=== PATIENT | male | born 1945 | race Caucasian/White ===

== ENCOUNTER → 2017-12-18 | Outpatient (CLI) | payer MEDICARE ==
[2017-12-18 17:22] LABS: Hemoglobin A1C 6.7 % (4.0-6.0)
== END | disposition home or self-care (01) ==
LOC: LABWHC1 06:31
PROVIDERS: ATTEND Internal Medicine
DX: E11.65 Type 2 diabetes mellitus with hyperglycemia (principal)
CPT/HCPCS: 36415; 83036

== ENCOUNTER → 2021-11-14 | Outpatient (CLI) | payer MEDICARE ==
--- NOTE | 2021-11-22 15:18 | US ---
EXAMINATION TYPE: US arterial LE single level DATE OF EXAM: 11/14/2021 7:34 AM CLINICAL HISTORY: E11.9 type 2 diabetes I73.9 periph vasc disease. Doppler Waveforms: Right: Multiphasic proximally Left: Multiphasic proximally, monophasic waveform at the dorsalis pedis Pulse Volume Recording: Incomplete, dampened peripherally Pressure Gradients: Not obtained Ankle-Brachial Indices: Right: CNO Left: CNO Toe Brachial Indices: Right: 0.63 Left: 0.77 IMPRESSION: There are limitations, correlate clinically
== END | disposition home or self-care (01) ==
LOC: RADUSWWP 06:49
PROVIDERS: ATTEND Internal Medicine
DX: E11.9 Type 2 diabetes mellitus without complications (principal); I73.9 Peripheral vascular disease, unspecified
CPT/HCPCS: 93922

== ENCOUNTER 2023-02-13 07:51 | Observation (INO) | payer MEDICARE ==
--- NOTE | 2023-02-13 08:04 | ED ---
General Adult HPI - General Stated complaint: pressure in chest Time Seen by Provider: 02/13/23 08:03 Source: patient, RN notes reviewed Mode of arrival: ambulatory Limitations: no limitations - History of Present Illness Initial comments: 77-year-old male presents emergency Department chief complaint of chest pain, chest pressure. Patient states he had some symptoms yesterday worsened this morning. He states it's in his left lower chest. He is scheduled for heart cath by Dr. Velazco secondary to an abnormal echocardiogram. He does take medications for hyperlipidemia hypertension diabetes. Patient is no prior cardiac stents. Denies any fevers chills. - Related Data Home Medications Medication Instructions Recorded Confirmed Albuterol Inhaler [Ventolin Hfa 1 puff INHALATION RT-Q4H PRN 10/07/14 02/13/23 Inhaler] Atorvastatin [Lipitor] 20 mg PO HS 12/13/15 02/13/23 Losartan [Cozaar] 50 mg PO HS 12/13/15 02/13/23 Clotrimazole/Betameth Cream 1 applic TOPICAL BID PRN 02/13/23 02/13/23 [Lotrisone] Glimepiride [Amaryl] 1 mg PO DAILY 02/13/23 02/13/23 Metformin Er 750mg 750 mg PO BID-W/MEALS 02/13/23 02/13/23 Nystatin 100,000Unit/gm Cream 1 applic TOPICAL BID PRN 02/13/23 02/13/23 [Mycostatin Cream] Pioglitazone [Actos] 30 mg PO DAILY 02/13/23 02/13/23 Rivaroxaban [Xarelto] 20 mg PO W/SUPPER 02/13/23 02/13/23 Terbinafine [LamISIL] 250 mg PO W/SUPPER 02/13/23 02/13/23 Triamcinolone 0.1% Cream [Kenalog 1 applicatio TOPICAL BID PRN 02/13/23 02/13/23 0.1% Cream] atenoloL [Tenormin] 12.5 mg PO DAILY 02/13/23 02/13/23 Previous Rx's Medication Instructions Recorded Flecainide [Tambocor] 50 mg PO Q12HR #60 tab 10/09/14 Allergies Allergy/AdvReac Type Severity Reaction Status Date / Time No Known Allergies Allergy Verified 02/13/23 10:21 Review of Systems ROS Statement: Those systems with pertinent positive or pertinent negative responses have been documented in the HPI. ROS Other: All systems not noted in ROS Statement are negative. Past Medical History Past Medical History: Asthma, CVA/TIA, Diabetes Mellitus, Hyperlipidemia, Hypertension, Myocardial Infarction (HI) Additional Past Medical History / Comment(s): herniated disks in back. Last Myocardial Infarction Date:: 04/17 History of Any Multi-Drug Resistant Organisms: None Reported Past Surgical History: Appendectomy, Orthopedic Surgery Additional Past Surgical History / Comment(s): bilat arm fractures with surg. re pair, bilateral knee surgery, right hip bone graft. Colonoscopy with polp removal. lumbar fusion Past Anesthesia/Blood Transfusion Reactions: Previous Problems w/ Anesthesia Additional Past Anesthesia/Blood Transfusion Reaction / Comment(s): Becomes combative with anesthesia. Past Psychological History: No Psychological Hx Reported Past Alcohol Use History: None Reported Past Drug Use History: None Reported - Past Family History Father Family Medical History: Coronary Artery Disease (CAD), Diabetes Mellitus Mother Family Medical History: Cancer Additional Family Medical History / Comment(s): cervical cancer Brother(s) Family Medical History: Cancer Additional Family Medical History / Comment(s): liver and prostrate cancer. General Exam - General Exam Comments Initial Comments: Visual Physical Exam Vital signs reviewed General: Well-appearing, nontoxic, no acute distress. Head: Normocephalic, atraumatic Eyes: PERRLA, EOMI ENT: Airway patent Chest: Nonlabored breathing Skin: No visual rash, normal skin tone Neuro: Alert and oriented 3 Musculoskeletal: No gross abnormalities Course Vital Signs 02/13/23 02/13/23 02/13/23 08:01 09:20 10:05 Temperature 98 F 97.9 F Pulse Rate 103 H 86 Pulse Rate [ 87 Apical] Respiratory 16 16 Rate Blood Pressure 108/73 119/75 O2 Sat by Pulse 97 97 Oximetry 02/13/23 11:56 Temperature 98 F Pulse Rate 75 Pulse Rate [ Apical] Respiratory 16 Rate Blood Pressure 114/68 O2 Sat by Pulse 98 Oximetry EKG Findings - EKG Comments: EKG Findings:: EKG performed at 8:20 atrial fibrillation rate of 88 QRS 150 QT /[id number] - EKG Results: EKG: interpreted by [facility] Medical Decision Making - Medical Decision Making I performed a quick note portion of this chart signed Bryan Arora PA-C Was pt. sent in by a medical professional or institution (SASKIA Hammond, ST[employer]ILE PRODUCTS PROCESSOR, urgent care, hospital, or care home...) When possible be specific @ -[No] Did you speak to anyone other than the patient for history (EMS, parent, family, police, friend...)? What history was obtained from this source @ -[No] Did you review nursing and triage notes (agree or disagree)? Why? @ -[I reviewed and agree with nursing and triage notes] Were old charts reviewed (outside hosp., previous admission, EMS record, old EKG, old radiological studies, urgent care reports/EKG's, care home records)? Report findings @ -[No old charts were reviewed] Differential Diagnosis (chest pain, altered mental status, abdominal pain women, abdominal pain men, vaginal bleeding, weakness, fever, dyspnea, syncope, headache, dizziness, GI bleed, back pain, seizure, CVA, palpatations, mental health, musculoskeletal)? @ -[Differential Chest Pain: Stable Angina, Unstable Angina, STEMI, NSTEMI Aortic Dissection, Pneumothorax, Musculoskeletal, Esophageal Spasm GERD, Cholecystitis, Pancreatitis, Zoster, this is not meant to be an all-inclusive list. able] EKG interpreted by me (3pts min.). @ -[As above] X-rays interpreted by me (1pt min.). @ -[Chest x-ray shows no acute process] CT interpreted by me (1pt min.). @ -[None done] U/S interpreted by me (1pt. min.). @ -[None done] What testing was considered but not performed or refused? (CT, X-rays, U/S, labs)? Why? @ -[None] What meds were considered but not given or refused? Why? @ -[None] Did you discuss the management of the patient with other professionals (professionals i.e. SASKIA Hammond, [employer]ODU[employer] PROCESSOR, lab, RT, psych nurse, addiction social worker, chemical process equipment operator, teacher, information security officer, keycase assembler)? Give summary @ -[ admission with consult cardiology] Was smoking cessation discussed for >3mins.? @ -[No] Was critical care preformed (if so, how long)? @ -[No] Were there social determinants of health that impacted care today? How? (Homelessness, low income, unemployed, alcoholism, drug addiction, transportation, low edu. Level, literacy, decrease access to med. care, group home, rehab)? @ -[No] Was there de-escalation of care discussed even if they declined (Discuss DNR or withdrawal of care, Hospice)? DNR status @ -[No] What co-morbidities impacted this encounter? (DM, HTN, Smoking, COPD, CAD, Cancer, CVA, ARF, Chemo, Hep., AIDS, mental health diagnosis, sleep apnea, morbid obesity)? @ -[A. fib, hyperlipidemia hypertension diabetes] Was patient admitted / discharged? Hospital course, mention meds given and route, prescriptions, significant lab abnormalities, going to OR and other pertinent info. @ -[Admitted for cardiology rule out cardiology evaluation possible her That she is scheduled for one on Friday.] Undiagnosed new problem with uncertain prognosis? @ -[No] Drug Therapy requiring intensive monitoring for toxicity (Heparin, Nitro, Insulin, Cardizem)? @ -[No] Were any procedures done? @ -[No] Diagnosis/symptom? @ -[Chest pain] Acute, or Chronic, or Acute on Chronic? @ -[Acute] Uncomplicated (without systemic symptoms) or Complicated (systemic symptoms)? @ -[Comp complicated] Side effects of treatment? @ -[No] Exacerbation, Progression, or Severe Exacerbation? @ -[No] Poses a threat to life or bodily function? How? (Chest pain, USA, HI, pneumonia, PE, COPD, DKA, ARF, appy, cholecystitis, CVA, Diverticulitis, Homicidal, Suicidal, threat to staff... and all critical care pts) @ -[Yes patient has chest pain at risk of cardiac arrest.] - Lab Data Result diagrams: 02/13/23 08:32 02/13/23 08:32 Lab Results 02/13/23 02/13/23 02/13/23 Range/Units 08:32 08:32 08:32 WBC 6.8 (3.8-10.6) k/uL RBC 4.12 L (4.30-5.90) m/uL Hgb 13.1 (13.0-17.5) gm/dL Hct 39.1 (39.0-53.0) % MCV 94.9 (80.0-100.0) fL MCH 31.9 (25.0-35.0) pg MCHC 33.6 (31.0-37.0) g/dL RDW 14.3 (11.5-15.5) % Plt Count 293 (150-450) k/uL MPV 7.2 Neutrophils % 62 % Lymphocytes % 27 % Monocytes % 6 % Eosinophils % 2 % Basophils % 0 % Neutrophils # 4.2 (1.3-7.7) k/uL Lymphocytes # 1.8 (1.0-4.8) k/uL Monocytes # 0.4 (0-1.0) k/uL Eosinophils # 0.2 (0-0.7) k/uL Basophils # 0.0 (0-0.2) k/uL Poikilocytosis Slight PT 12.5 H (9.0-12.0) sec INR 1.2 H (<1.2) APTT 29.5 (22.0-30.0) sec Sodium 137 (137-145) mmol/L Potassium 4.7 (3.5-5.1) mmol/L Chloride 103 (98-107) mmol/L Carbon Dioxide 26 (22-30) mmol/L Anion Gap 8 mmol/L BUN 23 H (9-20) mg/dL Creatinine 0.86 (0.66-1.25) mg/dL Est GFR (CKD-EPI)AfAm >90 (>60 ml/min/1.73 sqM) Est GFR (CKD-EPI)NonAf 85 (>60 ml/min/1.73 sqM) Glucose 170 H (74-99) mg/dL Calcium 9.1 (8.4-10.2) mg/dL Magnesium 1.6 (1.6-2.3) mg/dL Total Bilirubin 0.9 (0.2-1.3) mg/dL AST 31 (17-59) U/L ALT 21 (4-49) U/L Alkaline Phosphatase 60 (38-126) U/L Troponin I (0.000-0.034) ng/mL NT-Pro-B Natriuret Pep 3450 pg/mL Total Protein 6.8 (6.3-8.2) g/dL Albumin 4.0 (3.5-5.0) g/dL 02/13/23 Range/Units 08:32 WBC (3.8-10.6) k/uL RBC (4.30-5.90) m/uL Hgb (13.0-17.5) gm/dL Hct (39.0-53.0) % MCV (80.0-100.0) fL MCH (25.0-35.0) pg MCHC (31.0-37.0) g/dL RDW (11.5-15.5) % Plt Count (150-450) k/uL MPV Neutrophils % % Lymphocytes % % Monocytes % % Eosinophils % % Basophils % % Neutrophils # (1.3-7.7) k/uL Lymphocytes # (1.0-4.8) k/uL Monocytes # (0-1.0) k/uL Eosinophils # (0-0.7) k/uL Basophils # (0-0.2) k/uL Poikilocytosis PT (9.0-12.0) sec INR (<1.2) APTT (22.0-30.0) sec Sodium (137-145) mmol/L Potassium (3.5-5.1) mmol/L Chloride (98-107) mmol/L Carbon Dioxide (22-30) mmol/L Anion Gap mmol/L BUN (9-20) mg/dL Creatinine (0.66-1.25) mg/dL Est GFR (CKD-EPI)AfAm (>60 ml/min/1.73 sqM) Est GFR (CKD-EPI)NonAf (>60 ml/min/1.73 sqM) Glucose (74-99) mg/dL Calcium (8.4-10.2) mg/dL Magnesium (1.6-2.3) mg/dL Total Bilirubin (0.2-1.3) mg/dL AST (17-59) U/L ALT (4-49) U/L Alkaline Phosphatase (38-126) U/L Troponin I <0.012 (0.000-0.034) ng/mL NT-Pro-B Natriuret Pep pg/mL Total Protein (6.3-8.2) g/dL Albumin (3.5-5.0) g/dL Disposition Clinical Impression: Chest pain Disposition: ADMITTED IP TO THIS [facility] Time of Disposition: 09:35
[2023-02-13 08:45] LABS: Basophils % (A) 0 %; Eosinophils # (A) 0.2 k/uL (0-0.7); Eosinophils % (A) 2 %; HCT 39.1 % (39.0-53.0); HGB 13.1 gm/dL (13.0-17.5); Lymphocytes # (A) 1.8 k/uL (1.0-4.8); Lymphocytes % (A) 27 %; MCH 31.9 pg (25.0-35.0); MCHC 33.6 g/dL (31.0-37.0); MCV 94.9 fL (80.0-100.0); Mean Platelet Volume 7.2; Monocytes # (A) 0.4 k/uL (0-1.0); Monocytes % (A) 6 %; Neutrophils # (A) 4.2 k/uL (1.3-7.7); Neutrophils % (A) 62 %; Platelet Count 293 k/uL (150-450); Poikilocytosis Slight; RBC 4.12 m/uL (4.30-5.90); RDW 14.3 % (11.5-15.5); WBC 6.8 k/uL (3.8-10.6)
--- NOTE | 2023-02-13 08:47 | XR ---
EXAMINATION TYPE: XR chest 2V DATE OF EXAM: 02/13/2023 COMPARISON: 10/07/2014 HISTORY: 77-year-old male with chest pain TECHNIQUE: PA and lateral views FINDINGS: Heart borderline in size. Mild hyperinflation. Interstitial prominence. No consolidation or pleural e ffusion. IMPRESSION: Borderline heart size. Chronic-appearing changes, possible bronchitis or chronic asthma. Otherwise, n o definite acute process.
[2023-02-13 08:53] LABS: INR 1.2 (<1.2); Partial Thromboplastin Time 29.5 sec (22.0-30.0); Prothrombin Time 12.5 sec (9.0-12.0)
[2023-02-13 09:01] LABS: ALT 21 U/L (4-49); AST 31 U/L (17-59); African American GFR (CKD) >90 (>60 ml/min/1.73 sqM); Alkaline Phosphatase 60 U/L (38-126); Anion Gap 8 mmol/L; Blood Urea Nitrogen 23 mg/dL (9-20); Calcium 9.1 mg/dL (8.4-10.2); Carbon Dioxide 26 mmol/L (22-30); Chloride 103 mmol/L (98-107); Glucose 170 mg/dL (74-99); Magnesium 1.6 mg/dL (1.6-2.3); Non-African American GFR(CKD) 85 (>60 ml/min/1.73 sqM); Potassium 4.7 mmol/L (3.5-5.1); Sodium 137 mmol/L (137-145); Total Bilirubin 0.9 mg/dL (0.2-1.3); Total Protein 6.8 g/dL (6.3-8.2)
[2023-02-13 09:08] LABS: NT-Pro-B-Type Natriuretic Pept 3450 pg/mL
[2023-02-13] MEDS ORDERED: NITROGLYCERIN SL TABS 0.4 MG TAB SUBLINGUAL PRN ×2 (09:48→13:28)
[2023-02-13 12:33] LABS: Glucose,Whole Blood 163 mg/dL (70-110)
[2023-02-13] MEDS ORDERED: ALBUTEROL HFA INHALER INHALATION PRN (13:00)
[2023-02-13] MEDS ORDERED: DEXTROSE 50% SYRINGE 50 ML IVP PRN ×2 (13:02)
[2023-02-13] MEDS ORDERED: ALPRAZolam 0.5 MG TAB PO PRN (13:28)
[2023-02-13] MEDS ORDERED: ALPRAZolam 0.25 MG TAB PO PRN (13:28)
[2023-02-13] MEDS ORDERED: ASPIRIN 325 MG TAB PO STA (13:28)
[2023-02-13] MEDS ORDERED: ATORVASTATIN 80 MG TAB PO STA (13:28)
--- NOTE | 2023-02-13 13:53 | P.HPIM ---
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 The patient was scheduled for cardiac catheterization with Dr. Ibarra on Friday following a visit to his machinist class b with plan for cardiac catheterization and [facility]. Patient presented to the hospital due to pressure in the lower chest area. He denies having any radiation of the pain to his neck and shoulders arms or back. He denies having any shortness of breath. He states it started while he was golfing yesterday the discomfort is gone at the time of this evaluation. He denies having any abdominal pain and no leg pains. Patient's states that he had flulike symptoms with myalgia about a week ago and has resolved. He was recently started on a new medication Lamisil oral his bottom turner for lower extremity rash which is improved. Upon review of interaction with flecainide, the combination of these medications has risk of increased flecainide levels, QT prolongation and cardiac arrhythmias and Lamisil will be discontinued. Patient states that he did take all of his medications this morning. Patient will be seen by machinist class b and patient scheduled for cardiac catheterization tomorrow with Dr. Ibarra. Patient is seen today in the emergency center waiting for a bed on the observation unit. With ventricular rate of 88. Troponins negative 2. ProBNP 3450. WBC 6.8, hemoglobin 13.1, platelet count 293. INR 1.2. Achilles are normal. BUN 23 creatinine 0.86. Blood sugar 170. Magnesium 1.6. Liver function tests are normal. Chest x-ray chronic appearing changes, possible bronchitis or chronic asthma. REVIEW OF SYSTEMS Constitutional: No fever, no chills, no night sweats. No weight change. No weakness, fatigue or lethargy. No daytime sleepiness. EENT: No headache. No blurred vision or double vision, no loss of vision. No loss of Hearing, no ringing in the ears, no dizziness. No nasal drainage or congestion. No epistaxis. No sore throat. Lungs: No shortness of breath, cough, no sputum production. No wheezing. Cardiovascular: Reported chest pain, no lower extremity edema. No palpitations. No paroxysmal nocturnal dyspnea. No orthopnea. No lightheadedness or dizziness. No syncopal episodes. Abdominal: No abdominal pain. No nausea, vomiting. No diarrhea. No constipa tion. No bloody or tarry stools. No loss of appetite. Genitourinary: No dysuria, increased frequency, urgency. No urinary retention. Musculoskeletal: No myalgias. No muscle weakness, no gait dysfunction, no frequent falls. No back pain. No neck pain. Integumentary: No wounds, no lesions. No rash or pruritus. No unusual bruising. No change in hair or nails. Neurologic: No aphasia. No facial droop. No change in mentation. No head injury. No headache. No paralysis. No paresthesia. Psychiatric: No depression. No anxiety. No mood swings. Endocrine: No abnormal blood sugars. No weight change. No excessive sweating or thirst. No cold intolerance. 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 He has rare alcohol intake. Patient was at home with his . FAMILY HISTORY Father at age 75 from heart failure with history of diabetes. Mother at age 71 from cervical cancer. Brother at age 64 from cirrhosis of the liver. Oldest brother is 82 with history of diabetes. Third brother is age 77 with diabetes. Patient has a son at age 27 from a motorcycle accident. Patient has one daughter with no major medical problems. PHYSICAL EXAMINATION Gen: This is a 77-year-old male. He is resting on the ER stretcher and appears to be comfortable and in no acute distress HEENT: Head is atraumatic, normocephalic. Pupils equal, round. Sclerae is anicteric. NECK: Supple. No JVD. No lymphadenopathy. No thyromegaly. LUNGS: Clear to auscultation. No wheezes or rhonchi. No intercostal retractions. HEART: Regular rate and rhythm. 2/6 systolic murmur. ABDOMEN: Soft. Bowel sounds are present. No masses. No tenderness. EXTREMITIES: No pedal edema. No calf tenderness. NEUROLOGICAL: Patient is awake, alert and oriented x3. Cranial nerves 2 through 12 are grossly intact. ASSESSMENT AND PLAN 1. Chest pain with negative troponins, acute coronary syndrome ruled out. Cardiology consult, plan for cardiac catheterization tomorrow as patient was scheduled for Friday. continue patient on atenolol 12.5 mg daily, Lipitor 20 mg at bedtime. 2. 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 Patient is scheduled for cardiac ca theterization and plan is for [facility] for evaluation of valves.. 3. Diabetes mellitus type 2. Hold metformin. Continue patient on glimepiride 1 mg daily and Actos 30 mg daily and start NovoLog scale before meals and at bedtime. 4. Paroxysmal atrial fibrillation. Hold Xarelto. Continue atenolol 12.5 mg daily. 5. Mild intermittent asthma, stable. Continue albuterol 1 puff every 4 hours as needed for shortness of breath 6. Hypertension. Continue atenolol 12.5 mg daily, losartan 50 mg at bedtime 7. Hyperlipidemia. Continue atorvastatin 20 mg at bedtime. 8. History of CVA. Xarelto on hold. 9. Vitamin D deficiency. Patient will be admitted to the hospital for a minimum of 2 night stay. DISCHARGE PLAN home. Impression and plan of care have been directed as dictated by the signing physician. Cassia Sanon nurse practitioner acting as scribe for signing physician. Past Medical History Past Medical History: Asthma, CVA/TIA, Diabetes Mellitus, Hyperlipidemia, Hypertension, Myocardial Infarction (AR) Additional Past Medical History / Comment(s): herniated disks in back. Last Myocardial Infarction Date:: 04/17 History of Any Multi-Drug Resistant Organisms: None Reported Past Surgical History: Appendectomy, Orthopedic Surgery Additional Past Surgical History / Comment(s): bilat arm fractures with surg. repair, bilateral knee surgery, right hip bone graft. Colonoscopy with polp removal. lumbar fusion Past Anesthesia/Blood Transfusion Reactions: Previous Problems w/ Anesthesia Additional Past Anesthesia/Blood Transfusion Reaction / Comment(s): Becomes combative with anesthesia. Past Psychological History: No Psychological Hx Reported Past Alcohol Use History: None Reported Past Drug Use History: None Reported - Past Family History Father Family Medical History: Coronary Artery Disease (CAD), Diabetes Mellitus Mother Family Medical History: Cancer Additional Family Medical History / Comment(s): cervical cancer Brother(s) Family Medical History: Cancer Additional Family Medical History / Comment(s): liver and prostrate cancer. Medications and Allergies Home Medications Medication Instructions Recorded Confirmed Type Albuterol Inhaler [Ventolin Hfa 1 puff INHALATION RT-Q4H PRN 10/07/14 02/13/23 History Inhaler] Flecainide [Tambocor] 50 mg PO Q12HR #60 tab 10/09/14 02/13/23 Rx Atorvastatin [Lipitor] 20 mg PO HS 12/13/15 02/13/23 History Losartan [Cozaar] 50 mg PO HS 12/13/15 02/13/23 History Clotrimazole/Betameth Cream 1 applic TOPICAL BID PRN 02/13/23 02/13/23 History [Lotrisone] Glimepiride [Amaryl] 1 mg PO DAILY 02/13/23 02/13/23 History Metformin Er 750mg 750 mg PO BID-W/MEALS 02/13/23 02/13/23 History Nystatin 100,000Unit/gm Cream 1 applic TOPICAL BID PRN 02/13/23 02/13/23 History [Mycostatin Cream] Pioglitazone [Actos] 30 mg PO DAILY 02/13/23 02/13/23 History Rivaroxaban [Xarelto] 20 mg PO W/SUPPER 02/13/23 02/13/23 History Terbinafine [LamISIL] 250 mg PO W/SUPPER 02/13/23 02/13/23 History Triamcinolone 0.1% Cream [Kenalog 1 applicatio TOPICAL BID PRN 02/13/23 02/13/23 History 0.1% Cream] atenoloL [Tenormin] 12.5 mg PO DAILY 02/13/23 02/13/23 History Allergies Allergy/AdvReac Type Severity Reaction Status Date / Time No Known Allergies Allergy Verified 02/13/23 10:21 Physical Exam Vitals: Vital Signs Temp Pulse Pulse Resp BP Pulse Ox 02/13/23 11:56 98 F 75 16 114/68 98 02/13/23 10:05 97.9 F 86 16 119/75 97 02/13/23 09:20 87 02/13/23 08:01 98 F 103 H 16 108/73 97 Intake and Output 02/12/23 02/13/23 02/13/23 22:59 06:59 14:59 Other: Weight 78.018 kg Results CBC & Chem 7: 02/13/23 08:32 02/13/23 08:32 Labs: Abnormal Lab Results - Last 24 Hours (Table) 02/13/23 02/13/23 02/13/23 Range/Units 08:32 08:32 08:32 RBC 4.12 L (4.30-5.90) m/uL PT 12.5 H (9.0-12.0) sec INR 1.2 H (<1.2) BUN 23 H (9-20) mg/dL Glucose 170 H (74-99) mg/dL POC Glucose (mg/dL) (70-110) mg/dL 02/13/23 Range/Units 12:31 RBC (4.30-5.90) m/uL PT (9.0-12.0) sec INR (<1.2) BUN (9-20) mg/dL Glucose (74-99) mg/dL POC Glucose (mg/dL) 163 H (70-110) mg/dL
[2023-02-13] MEDS ORDERED: HEPARIN SODIUM 1,000 UN/ML (10ML VL) IV PRN (14:28)
--- NOTE | 2023-02-13 14:37 | P.CRDCN ---
History of Present Illness History of present illness: HISTORY OF PRESENT ILLNESS: This is a 77-year-old male with a past medical history significant for sick sinus syndrome, severe mitral regurgitation, CVA, diabetes. Patient follows in the office with Dr. Velazco. We have been asked to see the patient in consultation for chest pain. Patient examined at the bedside. Patient states he has been having chest pain for the past 2 days. He states the pain got worse yesterday. He has not had chest pain like this before. He currently denies SOB. Patient recently saw Dr. Velazco in the office and was recommended to have EVELYN and LHC. * EKG: atrial fibrillation with controlled ventricular rate. No signs of acute ischemia. * Chest xray borderline heart size. Chronic appearing changes, possible bronchitis or chronic asthma. * Laboratory data: WBC 6.8. Hemoglobin 13.1. Platelet count 293. Sodium 137. Potassium 4.7. BUN 23. Creatinine 0.86. Troponin negative 2. ProBNP 3450. * Current home cardiac medications include Lipitor 20 mg at night, losartan 50 mg at night, atenolol 12.5 mg daily, Xarelto 20 mg with dinner, and flecainide 50 mg twice a day * Echocardiogram performed in the office on 01/31/2023 revealed ejection fraction 50-55%, severe, centric mitral regurgitation, mitral valve dysfunction secondary to flail leaflet, moderate tricuspid regurgitation, and severely increased pulmonary artery systolic pressure. REVIEW OF SYSTEMS: At the time of my exam: CONSTITUTIONAL: Denies fever or chills. HEENT: Denies blurred vision, vision changes, or eye pain. Denies hemoptysis CARDIOVASCULAR: Denies chest pain. Denies orthopnea. Denies PND. Denies palpitations RESPIRATORY: Denies shortness of breath. GASTROINTESTINAL: Denies abdominal pain. Denies nausea or vomiting. HEMATOLOGIC: Denies bleeding disorders. GENITOURINARY: Denies any blood in urine. SKIN: Denies pruitis. Denies rash. PHYSICAL EXAM: VITAL SIGNS: Reviewed. GENERAL: Well-developed in no acute distress. HEENT: Head is normocephalic. Pupils are equal, round. Sclerae anicteric. Mucous membranes of the mouth are moist. Neck supple. No JVD or thyromegaly LUNGS: Respirations even and unlabored. Lungs essentially clear to auscultation bilaterally. HEART: Irregular rate and rhythm. S1 and S2 heard. + holosystolic murmur 3/6 at the apex ABDOMEN: Soft. Nondistended. Nontender. EXTREMITIES: Normal range of motion. No clubbing or cyanosis. Peripheral pulses intact. No lower extremity edema NEUROLOGIC: Awake and alert. Oriented x 3. ASSESSMENT: Chest pain Severe mitral regurgitation suspect secondary to ruptured chordae tendonineae Paroxysmal atrial fibrillation, on Xarelto outpatient History of CVA Hypertension Diabetes History of sick sinus syndrome PLAN: No need to repeat echocardiogram as this was performed in the office on 01/31/2023 Resume home cardiac medications Xarelto has been placed on hold. Begin IV Heparin with no bolus Discontinue Flecainide Patient to undergo cardiac catheterization tomorrow with Dr. Ibarra. NPO at midnight. Patient will also require EVELYN to evaluate mitral valve for possible replacement. Timing to be determined. Further recommendations pending patient course Follow up outpatient with Dr. Velazco Nurse practitioner note has been reviewed by physician. Signing provider agrees with the documented findings, assessment, and plan of care. Past Medical History Past Medical History: Asthma, CVA/TIA, Diabetes Mellitus, Hyperlipidemia, Hypertension, Myocardial Infarction (PR) Additional Past Medical History / Comment(s): herniated disks in back. Last Myocardial Infarction Date:: 04/17 History of Any Multi-Drug Resistant Organisms: None Reported Past Surgical History: Appendectomy, Orthopedic Surgery Additional Past Surgical History / Comment(s): bilat arm fractures with surg. repair, bilateral knee surgery, right hip bone graft. Colonoscopy with polp removal. lumbar fusion Past Anesthesia/Blood Transfusion Reactions: Previous Problems w/ Anesthesia Additional Past Anesthesia/Blood Transfusion Reaction / Comment(s): Becomes combative with anesthesia. Past Psychological History: No Psychological Hx Reported Past Alcohol Use History: None Reported Past Drug Use History: None Reported - Past Family History Father Family Medical History: Coronary Artery Disease (CAD), Diabetes Mellitus Mother Family Medical History: Cancer Additional Family Medical History / Comment(s): cervical cancer Brother(s) Family Medical History: Cancer Additional Family Medical History / Comment(s): liver and prostrate cancer. Medications and Allergies Home Medications Medication Instructions Recorded Confirmed Type Albuterol Inhaler [Ventolin Hfa 1 puff INHALATION RT-Q4H PRN 10/07/14 02/13/23 History Inhaler] Flecainide [Tambocor] 50 mg PO Q12HR #60 tab 10/09/14 02/13/23 Rx Atorvastatin [Lipitor] 20 mg PO HS 12/13/15 02/13/23 History Losartan [Cozaar] 50 mg PO HS 12/13/15 02/13/23 History Clotrimazole/Betameth Cream 1 applic TOPICAL BID PRN 02/13/23 02/13/23 History [Lotrisone] Glimepiride [Amaryl] 1 mg PO DAILY 02/13/23 02/13/23 History Metformin Er 750mg 750 mg PO BID-W/MEALS 02/13/23 02/13/23 History Nystatin 100,000Unit/gm Cream 1 applic TOPICAL BID PRN 02/13/23 02/13/23 History [Mycostatin Cream] Pioglitazone [Actos] 30 mg PO DAILY 02/13/23 02/13/23 History Rivaroxaban [Xarelto] 20 mg PO W/SUPPER 02/13/23 02/13/23 History Terbinafine [LamISIL] 250 mg PO W/SUPPER 02/13/23 02/13/23 History Triamcinolone 0.1% Cream [Kenalog 1 applicatio TOPICAL BID PRN 02/13/23 02/13/23 History 0.1% Cream] atenoloL [Tenormin] 12.5 mg PO DAILY 02/13/23 02/13/23 History Allergies Allergy/AdvReac Type Severity Reaction Status Date / Time No Known Allergies Allergy Verified 02/13/23 10:21 Physical Exam Vitals: Vital Signs Temp Pulse Pulse Resp BP Pulse Ox 02/13/23 11:56 98 F 75 16 114/68 98 02/13/23 10:05 97.9 F 86 16 119/75 97 02/13/23 09:20 87 02/13/23 08:01 98 F 103 H 16 108/73 97 Intake and Output 02/12/23 02/13/23 02/13/23 22:59 06:59 14:59 Other: Weight 78.018 kg Results 02/13/23 08:32 02/13/23 08:32 Cardiac Enzymes 02/13/23 02/13/23 02/13/23 Range/Units 08:32 08:32 11:15 AST 31 (17-59) U/L Troponin I <0.012 <0.012 (0.000-0.034) ng/mL Coagulation 02/13/23 Range/Units 08:32 PT 12.5 H (9.0-12.0) sec APTT 29.5 (22.0-30.0) sec CBC 02/13/23 Range/Units 08:32 WBC 6.8 (3.8-10.6) k/uL RBC 4.12 L (4.30-5.90) m/uL Hgb 13.1 (13.0-17.5) gm/dL Hct 39.1 (39.0-53.0) % Plt Count 293 (150-450) k/uL Comprehensive Metabolic Panel 02/13/23 Range/Units 08:32 Sodium 137 (137-145) mmol/L Potassium 4.7 (3.5-5.1) mmol/L Chloride 103 (98-107) mmol/L Carbon Dioxide 26 (22-30) mmol/L BUN 23 H (9-20) mg/dL Creatinine 0.86 (0.66-1.25) mg/dL Glucose 170 H (74-99) mg/dL Calcium 9.1 (8.4-10.2) mg/dL AST 31 (17-59) U/L ALT 21 (4-49) U/L Alkaline Phosphatase 60 (38-126) U/L Total Protein 6.8 (6.3-8.2) g/dL Albumin 4.0 (3.5-5.0) g/dL Current Medications Generic Name Dose Route Start Last Admin Trade Name Freq PRN Reason Stop Dose Admin Albuterol Sulfate 1 puff 02/13/23 13:00 Albuterol Hfa Inhaler INHALATION RT-Q4H PRN Shortness Of Breath Alprazolam 0.25 mg 02/13/23 13:28 Alprazolam 0.25 Mg Tab PO Q6HR PRN Mild Anxiety Alprazolam 0.5 mg 02/13/23 13:28 Alprazolam 0.5 Mg Tab PO Q6HR PRN Moderate Anxiety Atenolol 12.5 mg 02/14/23 09:00 Atenolol 12.5 Mg Tab PO DAILY [facility] Atorvastatin Calcium 20 mg 02/14/23 21:00 Atorvastatin 20 Mg Tab PO HS [facility] Dextrose/Water 25 ml 02/13/23 13:02 Dextrose 50% Syringe 50 Ml IVP PER PROTOCOL PRN Hypoglycemia Protocol Dextrose/Water 50 ml 02/13/23 13:02 Dextrose 50% Syringe 50 Ml IVP PER PROTOCOL PRN Hypoglycemia Protocol Flecainide Acetate 50 mg 02/13/23 21:00 Flecainide 50 Mg Tab PO Q12HR [facility] Glimepiride 1 mg 02/14/23 09:00 Glimepiride 1 Mg Tab PO DAILY [facility] Heparin Sodium (Porcine) 10, 1,001 mls @ 999 mls/hr 02/14/23 07:00 000 unit/ Sodium Chloride IRRIGATION 02/14/23 23:00 ONCE PRN INTRA-OP Heparin Sodium (Porcine) 2,500 250.5 mls @ 250 mls/hr 02/14/23 07:00 unit/ Sodium Chloride IRRIGATION 02/14/23 23:00 ONCE PRN INTRA-OP Insulin Aspart 0 unit 02/13/23 17:30 Insulin Aspart (Novolog) 100 Unit/Ml Vial SQ ACHS [facility] Protocol Losartan Potassium 50 mg 02/13/23 21:00 Losartan 50 Mg Tab PO HS [facility] Nitroglycerin 0.4 mg 02/13/23 09:48 Nitroglycerin Sl Tabs 0.4 Mg Tab SUBLINGUAL Q5M PRN Chest Pain Nitroglycerin 0.4 mg 02/13/23 13:28 Nitroglycerin Sl Tabs 0.4 Mg Tab SUBLINGUAL Q5M PRN Chest Pain Pioglitazone HCl 30 mg 02/14/23 09:00 Pioglitazone 30 Mg Tab PO DAILY [facility] Terbinafine HCl 250 mg 02/13/23 17:30 Terbinafine 250 Mg Tab PO W/SUPPER [facility] Protocol Intake and Output 02/12/23 02/13/23 02/13/23 22:59 06:59 14:59 Other: Weight 78.018 kg Patient Weight 02/14/23 06:59 Weight 78.018 kg 02/13/23 08:32 02/13/23 08:32
[2023-02-13] MEDS: HEPARIN SOD,PORK IN 0.45% NACL 25,000 UNIT in 0.45% NACL 1 250ML.BAG IV SCH (15:38)
[2023-02-13 17:23] LABS: Glucose,Whole Blood 223 mg/dL (70-110)
[2023-02-13] MEDS ORDERED: TERBINAFINE 250 MG TAB PO SCH (17:30)
[2023-02-13] MEDS: INSULIN ASPART (NovoLOG) 100 UNIT/ML VIAL SQ SCH ×2 (17:33→21:07)
[2023-02-13] MEDS: FLECAINIDE 50 MG TAB PO SCH (20:10)
[2023-02-13] MEDS: LOSARTAN 50 MG TAB PO SCH (20:10)
[2023-02-13 20:38] LABS: Glucose,Whole Blood 109 mg/dL (70-110)
[2023-02-14] MEDS: INSULIN ASPART (NovoLOG) 100 UNIT/ML VIAL SQ SCH ×4 (06:22→20:51)
[2023-02-14 06:24] LABS: INR 1.1 (<1.2); Partial Thromboplastin Time 72.3 sec (22.0-30.0); Prothrombin Time 11.5 sec (9.0-12.0)
[2023-02-14 06:27] LABS: Glucose,Whole Blood 118 mg/dL (70-110)
[2023-02-14] MEDS ORDERED: HEPARIN SODIUM,PORCINE (1 ML) 2,500 UNIT in SODIUM CHLORIDE 0.9% 250 ML IRRIGATION PRN (07:00)
[2023-02-14] MEDS ORDERED: HEPARIN SODIUM,PORCINE 10,000 UNIT in SODIUM CHLORIDE 0.9% 1,000 ML IRRIGATION PRN (07:00)
[2023-02-14] MEDS ORDERED: ASPIRIN 325 MG TAB PO STA (07:21)
[2023-02-14] MEDS: SODIUM CHLORIDE 0.9% 1,000 ML IV SCH ×2 (07:45→20:52)
[2023-02-14 08:43] LABS: Basophils # (A) 0.05 X 10*3/uL (0.00-0.10); Basophils % (A) 0.7 %; Eosinophils # (A) 0.13 X 10*3/uL (0.04-0.35); Eosinophils % (A) 1.9 %; HCT 36.7 % (39.6-50.0); HGB 12.4 d/dL (13.0-17.0); Lymphocytes % (A) 33.4 %; MCH 31.4 pg (27.0-32.0); MCHC 33.8 d/dL (32.0-37.0); MCV 92.9 FL (80.0-97.0); Mean Platelet Volume 9.3 FL (9.5-12.2); Monocytes # (A) 0.53 X 10*3/uL (0.20-1.00); Monocytes % (A) 7.7 %; NRBC Per 100 WBC 0 X 10*3/uL (0.00-0.01); Neutrophils # (A) 3.85 X 10*3/uL (1.80-7.70); Neutrophils % (A) 55.9 %; Platelet Count 251 X 10*3/uL (140-440); RBC 3.95 X 10*6/uL (4.40-5.60); RDW 14.4 % (11.5-14.5); WBC 6.89 X 10*3/uL (4.50-10.00)
[2023-02-14 08:49] LABS: LDL Cholesterol,Calculated 37.1 mg/dL (0.0-131.0)
[2023-02-14] MEDS: BENZOCAINE SPRAY 1 CAN MUCOUS MEM ONE ×2 (08:59→09:10)
[2023-02-14] MEDS: fentaNYL (PF) 50 MCG/1 ML VIAL IVP ONE ×2 (09:10→09:31)
[2023-02-14] MEDS ORDERED: MIDAZOLAM 2 MG/2 ML VIAL IVP ONE ×3 (09:10→09:31)
[2023-02-14] MEDS ORDERED: IV FLUID CONTINUATION 1,000 ML IV ONE ×3 (09:20→09:59)
[2023-02-14] MEDS ORDERED: VERAPAMIL 2.5 MG/ML 2 ML AMP ONE ×2 (09:39→09:56)
[2023-02-14] MEDS ORDERED: HEPARIN SODIUM 1,000 UN/ML (10ML VL) ONE (09:40)
[2023-02-14] MEDS ORDERED: fentaNYL (PF) 50 MCG/ML 2 ML AMP ONE (09:40)
[2023-02-14] MEDS ORDERED: LIDOCAINE 1% INJ 10MG/ML (20 ML MDV) ONE (09:40)
[2023-02-14] MEDS ORDERED: LIDOCAINE 1% INJ 10MG/ML (20 ML MDV) SQ ONE (10:16)
[2023-02-14] MEDS ORDERED: VERAPAMIL SYRINGE (5 MG/10 ML) INTRAARTER ONE (10:22)
[2023-02-14] MEDS ORDERED: HEPARIN SODIUM 1,000 UN/ML (10ML VL) IVP ONE (10:39)
[2023-02-14] MEDS ORDERED: IOPAMIDOL-370 100ML BTL INJ ONE (10:45)
[2023-02-14 11:04] LABS: Allen Test Performed? Yes
[2023-02-14 11:06] LABS: Allen Test Performed? Yes
[2023-02-14 11:09] LABS: ABG PCO2 50 mmHg (35-45)
[2023-02-14 11:10] LABS: ABG HCO3 27 mmol/L (21-25); ABG Hematocrit 33 % (34.0-46.0); ABG Oxygen Saturation 60.9 % (94-97); ABG PO2 36 mmHg (83-108); ABG TCO2 28 mmol/L (19-24)
[2023-02-14 11:11] LABS: ABG HCO3 25 mmol/L (21-25); ABG Hematocrit 36 % (34.0-46.0); ABG Oxygen Saturation 92.9 % (94-97); ABG PCO2 44 mmHg (35-45); ABG PH 7.36 (7.35-7.45); ABG PO2 68 mmHg (83-108); ABG TCO2 44 mmol/L (19-24)
[2023-02-14] MEDS: HEPARIN SOD,PORK IN 0.45% NACL 25,000 UNIT in 0.45% NACL 1 250ML.BAG IV SCH (12:35)
[2023-02-14 12:42] LABS: Glucose,Whole Blood 182 mg/dL (70-110)
[2023-02-14] MEDS: PIOGLITAZONE 30 MG TAB PO SCH (12:47)
[2023-02-14] MEDS: GLIMEPIRIDE 1 MG TAB PO SCH (12:47)
[2023-02-14] MEDS: FLECAINIDE 50 MG TAB PO SCH ×2 (12:47→20:08)
--- NOTE | 2023-02-14 15:08 | P.PN ---
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 The patient was scheduled for cardiac catheterization with Dr. Ibarra on Friday following a visit to his manager dairy with plan for cardiac catheterization and EVELYN. Patient presented to the hospital due to pressure in the lower chest area. He denies having any radiation of the pain to his neck and shoulders arms or back. He denies having any shortness of breath. He states it started while he was golfing yesterday the discomfort is gone at the time of this evaluation. He denies having any abdominal pain and no leg pains. Patient's states that he had flulike symptoms with myalgia about a week ago and has resolved. He was recently started on a new medication Lamisil oral his workers compensation coordinator for lower extremity rash which is improved. Upon review of interaction with flecainide, the combination of these medications has risk of increased flecainide levels, QT prolongation and cardiac arrhythmias and Lamisil will be discontinued. Patient states that he did take all of his medications this morning. Patient will be seen by manager dairy and patient scheduled for cardiac catheterization tomorrow with Dr. Ibarra. Patient is seen today in the emergency center waiting for a bed on the observation unit. With ventricular rate of 88. Troponins negative 2. ProBNP 3450. WBC 6.8, hemoglobin 13.1, platelet count 293. INR 1.2. Achilles are normal. BUN 23 creatinine 0.86. Blood sugar 170. Magnesium 1.6. Liver function tests are normal. Chest x-ray chronic appearing changes, possible bronchitis or chronic asthma. 02/14: Patient is seen today in follow-up. He is post cardiac catheterization which did not show any obstructive coronary artery disease. She denies having any chest pain, shortness of breath, lightheadedness or dizziness. Blood pressure 114/79, heart rate in the 90s, pulse ox 94% on 2 L, afebrile. Blood glucose between 118 182. Plan is to monitor patient overnight and plan for discharge home tomorrow. REVIEW OF SYSTEMS Constitutional: No fever, no chills, no night sweats. No weight change. No weakness, fatigue or lethargy. No daytime sleepiness. EENT: No headache. No blurred vision or double vision, no loss of vision. No loss of Hearing, no ringing in the ears, no dizziness. No nasal drainage or congestion. No epistaxis. No sore throat. Lungs: No shortness of breath, cough, no sputum production. No wheezing. Cardiovascular: Reported chest pain-resolved, no lower extremity edema. No palpitations. No paroxysmal nocturnal dyspnea. No orthopnea. No lightheadedness or dizziness. No syncopal episodes. Abdominal: No abdominal pain. No nausea, vomiting. No diarrhea. No constipation. No bloody or tarry stools. No loss of appetite. Genitourinary: No dysuria, increased frequency, urgency. No urinary retention. Musculoskeletal: No myalgias. No muscle weakness, no gait dysfunction, no frequent falls. No back pain. No neck pain. Integumentary: No wounds, no lesions. No rash or pruritus. No unusual bruising. No change in hair or nails. Neurologic: No aphasia. No facial droop. No change in mentation. No head injury. No headache. No paralysis. No paresthesia. Psychiatric: No depression. No anxiety. No mood swings. Endocrine: No abnormal blood sugars. No weight change. No excessive sweating or thirst. No cold intolerance. PHYSICAL EXAMINATION Gen: This is a 77-year-old male. He is resting on the ER stretcher and appears to be comfortable and in no acute distress HEENT: Head is atraumatic, normocephalic. Pupils equal, round. Sclerae is anicteric. NECK: Supple. No JVD. No lymphadenopathy. No thyromegaly. LUNGS: Clear to auscultation. No wheezes or rhonchi. No intercostal retractions. HEART: Regular rate and rhythm. 2/6 systolic murmur. ABDOMEN: Soft. Bowel sounds are present. No masses. No tenderness. EXTREMITIES: No pedal edema. No calf tenderness. NEUROLOGICAL: Patient is awake, alert and oriented x3. Cranial nerves 2 through 12 are grossly intact. ASSESSMENT AND PLAN 1. Chest pain with negative troponins, acute coronary syndrome ruled out with normal cardiac cath. Cardiology consult appreciated. Patient to be monitored overnight and plan for discharge tomorrow. Continue patient on atenolol 12.5 mg daily, Lipitor 20 mg at bedtime. 2. 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 Patient is scheduled for cardiac catheterization and plan is for EVELYN for evaluation of valves cardiology is following 3. Diabetes mellitus type 2. Hold metformin. Continue patient on glimepiride 1 mg daily and Actos 30 mg daily and start NovoLog scale before meals and at bedtime. 4. Paroxysmal atrial fibrillation. Hold Xarelto. Continue atenolol 12.5 mg daily. 5. Mild intermittent asthma, stable. Continue albuterol 1 puff every 4 hours as needed for shortness of breath 6. Hypertension. Continue atenolol 12.5 mg daily, losartan 50 mg at bedtime 7. Hyperlipidemia. Continue atorvastatin 20 mg at bedtime. 8. History of CVA. Xarelto on hold. 9. Vitamin D deficiency. DISCHARGE PLAN home. Impression and plan of care have been directed as dictated by the signing physician. Cassia Sanon nurse practitioner acting as scribe for signing physician. Objective - Vital Signs Vital signs: Vital Signs Temp 98.4 F 02/14/23 11:15 Pulse 94 02/14/23 07:00 Resp 16 02/14/23 14:15 BP 114/79 02/14/23 14:15 Pulse Ox 95 02/14/23 14:15 FiO2 21 02/13/23 20:27 Intake & Output 02/13/23 02/14/23 02/14/23 18:59 06:59 18:59 Intake Total 240 229.444 9620 Balance 240 252.175 1050 Weight 78.018 kg Intake: IV 400 Intake, IV Titration 157.209 600 Amount Heparin Sod,Pork in 0.45% 157.209 0 NaCl 25,000 unit In 0.45 % NaCl 1 250ml.bag @ 12 UNITS/KG/HR 9.36 mls/hr IV .Q24H ROS[facility] Rx#: [id number] Sodium Chloride 0.9% 1, 600 000 ml @ 75 mls/hr IV . [id number] ROSM[facility] Rx#:[id number] Oral 240 Other: # Voids 1 - Labs CBC & Chem 7: 02/14/23 05:39 02/13/23 08:32 Labs: Abnormal Lab Results - Last 24 Hours (Table) 02/13/23 02/13/23 02/14/23 Range/Units 17:22 21:28 05:39 RBC (4.40-5.60) X 10*6/uL Hgb (13.0-17.0) d/dL Hct (39.6-50.0) % MPV (9.5-12.2) FL APTT 33.1 H (22.0-30.0) sec ABG pH (7.35-7.45) ABG pCO2 (35-45) mmHg ABG pO2 (83-108) mmHg ABG HCO3 (21-25) mmol/L ABG Total CO2 (19-24) mmol/L ABG O2 Saturation (94-97) % ABG Hematocrit (34.0-46.0) % Hemoglobin (13.0-17.5) gm/dL POC Glucose (mg/dL) 223 H (70-110) mg/dL Hemoglobin A1c 7.5 H (<=6.0) % 02/14/23 02/14/23 02/14/23 Range/Units 05:39 05:39 06:16 RBC 3.95 L (4.40-5.60) X 10*6/uL Hgb 12.4 L (13.0-17.0) d/dL Hct 36.7 L (39.6-50.0) % MPV 9.3 L (9.5-12.2) FL APTT 72.3 H (22.0-30.0) sec ABG pH (7.35-7.45) ABG pCO2 (35-45) mmHg ABG pO2 (83-108) mmHg ABG HCO3 (21-25) mmol/L ABG Total CO2 (19-24) mmol/L ABG O2 Saturation (94-97) % ABG Hematocrit (34.0-46.0) % Hemoglobin (13.0-17.5) gm/dL POC Glucose (mg/dL) 118 H (70-110) mg/dL Hemoglobin A1c (<=6.0) % 02/14/23 02/14/23 02/14/23 Range/Units 10:30 10:32 12:39 RBC (4.40-5.60) X 10*6/uL Hgb (13.0-17.0) d/dL Hct (39.6-50.0) % MPV (9.5-12.2) FL APTT (22.0-30.0) sec ABG pH 7.30 L (7.35-7.45) ABG pCO2 50 H (35-45) mmHg ABG pO2 36 L* 68 L (83-108) mmHg ABG HCO3 27 H (21-25) mmol/L ABG Total CO2 28 H 44 H (19-24) mmol/L ABG O2 Saturation 60.9 L 92.9 L (94-97) % ABG Hematocrit 33 L (34.0-46.0) % Hemoglobin 10.9 L 11.9 L (13.0-17.5) gm/dL POC Glucose (mg/dL) 182 H (70-110) mg/dL Hemoglobin A1c (<=6.0) %
--- NOTE | 2023-02-14 15:47 | P.TEE ---
Date of Procedure: 02/14/23 Description of Procedure(s): Procedure performed: 1. Transesophageal Echocardiogram with color flow doppler, pulsed wave doppler and continuous wave doppler, 2. Moderate conscious sedation. Sedation time 30 mins. Indications: Severe mitral regurgitation Patient is a 77-year-old male with past medical history of atrial fibrillation. He on evaluation he was noticed to have severe mitral regurgitation on transthoracic echocardiogram. He was scheduled for a EVELYN to evaluate his mitral regurgitation Consent: I have discussed the risks, benefits and alternative therapies for the above-mentioned procedure. The patient has indicated understanding and acceptance of the risks of the procedure. Signed consent was obtained and was placed in the paper chart. Procedural Steps: Timeout was performed in usual fashion. Patient's heart rate, blood pressure, oxygen saturation and ECG were monitored. Benzocaine was sprayed librally in the back of thr throat. Bite block was placed between the jaw. 4 mg of Versed and 75 mcg of Fentanyl were administered intravenously. After achieveing appropriate moderate concious sedation, EVELYN probe was advanced wit hout difficulty and without any immediate complications to the esophagus. EVELYN study was performed with color flow doppler, pulsed wave doppler and continuous wave doppler. Agitated saline bubbles were injected to assess for any intra- atrial shunt. The probe was then removed. Patient tolerated the procedure well. Patient was transferred to the post procedure area in stable and satisfactory condition. Throughout the procedure patient's heart rate, blood pressure, oxygen saturation and ECG were monitored. Total sedation time 30 mins. Complications: none FINDINGS Left Atrium : LA is severely dilated. Systolic reversal noticed in pulmonic vein suggestive of severe MR. Left Atrial Appendage: No evidence of thrombus or mass seen in COREY Inter atrial septum: Intact inter-atrial septum with no right to left shunt on bubble study. No evidence of atrial septal defect or patent foramen ovale Left Ventricle: Normal global LV size and systolic function Right Atrium: Normal overall RV size Right Ventricle: Normal global RV size and systolic function Aortic Valve: Structurally normal Trileaflet, calcific and sclerotic. No significant stenosis or regurgitation on color doppler assessment. Mitral Valve: Restricted and tethered posterior mitral leaflet with prolapse of P2 segment of posterior leaflet with evidence of severe MR, eccentric anteriorly directed jet. EROA 0.4 cm2, Regurgitant volume 70 ml. Pulmonic Valve: normal , no regurgitation on color doppler Tricuspid Valve:Structurally normal. Ascending aorta, Aortic root and Aortic arch: Mild intimal thickening. No evidence of large atheroma or bulky calcification. 3.3 cm Desceding aorta: Mild intimal thickening. No evidence of large atheroma or bulky calcification CONCLUSION: Severe Mitral regurgitation with P2 Prolapse and restricted posterior mitral leaflet causing eccentric anteriorly directed jet No thrombus in LA or COREY Severe LA dilatation Normal Global LV systolic function.
[2023-02-14 17:10] LABS: Glucose,Whole Blood 196 mg/dL (70-110)
--- NOTE | 2023-02-14 17:32 | P.CARDCATH ---
Date of Procedure: 02/14/23 Description of Procedure: DIAGNOSTIC CORONARY ANGIOGRAPHY and LEFT HEART CATH REPORT PROCEDURES PERFORMED: Left heart catheterization Selective coronary angiography Moderate conscious sedation 29 mins Right radial access INDICATION: [Unstable angina] CONSENT: I have discussed the risks, benefits and alternative therapies for the above-mentioned procedure, sedation/analgesia and necessary blood product administration (if indicated, as they pertain to this patient). The patient has indicated understanding and acceptance of the risks and procedures discussed. Conscious Sedation: Patient's ECG, heart rate, blood pressure, pulse oximetry was monitored throughout the duration of procedure under the direct supervision. Patient received 4 mg of midazolam and 75 g of fentanyl just prior to this heart catheterization for the transesophageal echocardiogram. We do not administered any further sedation. Total duration of 29 minutes. PROCEDURE:After the risks, benefits and alternatives of the above mentioned procedure explained in detail with the patient, informed consent was obtained. Patient was taken to the catheterization lab and prepped and draped in usual sterile fashion. 1% lidocaine was infiltrated over the right radial artery. 1% lidocaine was infiltrated in the right antecubital fossa. Right basal neck vein was already accessed and an IV cannula. Over the wire IV cannula was exchanged for a 6-[place] sheath. The sheath was flushed and secured. Using a 6-[place]-Magda catheter, sequential pressures were obtained from right atrium, right ventricle, pulmonary artery and pulmonary wedge position. [place]omi cardiac output study was performed using pulmonary artery saturation and radial artery saturation. A 6-[place] sheath was placed in the right radial artery using modified Seldinger technique. The sheath was flushed 5 mg verapamil was administered intra- arterially. J tipped wire was advanced under fluoroscopic guidance. Once the wire tip reached aortic root [4500] units of IV heparin was given. Over the wire JL3.5 diagnostic catheter was advanced. Wire was removed, catheter was flushed and manipulated under fluoroscopy to selectively engaged the left coronary ostium. Left coronary angioplasty was performed in different angiographic projections. This catheter was exchanged for a JR4 diagnostic catheter over the wire. The catheter was flushed and manipulated to cross the aortic valve. LV pressures were obtained. Pullback was performed across aortic valve and catheter was manipulated to selectively engage the right coronary ostium under fluoroscopic guidance. Right coronary angiography was performed in different angiographic projections. Catheter was removed over the wire. Radial sheath was flushed. The right radial sheath was removed and a TR band was placed with excellent patent hemostasis was achieved. The patient tolerated the procedure well. Patient was transported back to the post catheterization holding area in stable condition. Angiographic images were reviewed in detail. HEMODYNAMICS: Aortic Pressure: 99/52 mmHg. LV pressure: 102/6 mmHg. LVEDP 14 mmHg. Mean RA pressure of 9 mmHg RV pressure 31/13 mmHg, RVEDP 20 mmHg PA pressure 42/22 mmHg, mean PA pressure 30 mmHg Mean pulmonary wedge pressure 18 mmHg. Prominent V wave was appreciated measuring 32 mmHg Hemoglobin 11.9, Mixed venous saturation 36% Arterial saturation 92.9% Sick cardiac output 2.92 L/m N[place] cardiac index 1.5 L/m/m SELECTIVE CORONARY ARTERIOGRAPHY: LEFT MAIN: The left main is a large caliber vessel which bifurcates into the LAD and circumflex. There is no significant stenosis. LEFT ANTERIOR DESCENDING CORONARY ARTERY: LAD is a large caliber vessel which wraps around to the apex. Proximal and mid LAD has minimal luminal irregularities. 2 medium-sized diagonal branches appears angiographically normal. Distal LAD has 20-30% diffuse luminal irregularities. LEFT CIRCUMFLEX CORONARY ARTERY: It is co-dominant vessel. Left circumflex is a large caliber with minimal luminal irregularities. It gives rise to 3 sizable OM branches which appears angiographically normal. LCx continues distally to give PDA branch. RIGHT CORONARY ARTERY: Co-dominant vessel. The right coronary artery is a large caliber vessel which gives off a very small PDA and medium size PLV branch. It appears angiographically normal with mild luminal irregularities IMPRESSION: Mild 20-30% diffuse disease in distal LAD Otherwise minimal luminal irregularities with no obstructive disease. Normal left sided filling pressures Normal right-sided pressure with no evidence of pulmonary hypertension Prominent V wave in PCW, corresponding with severe mitral regurgitation PLAN: Aggressive risk factor modification per most recent ACC/AHA guidelines. 150 cc fluids for 3 hours Follow-up with Dr. maya for severe mitral valve regurgitation evaluation Performing Physician Fernando Ibarra MD
[2023-02-14] MEDS: LOSARTAN 50 MG TAB PO SCH (20:08)
[2023-02-14 20:37] LABS: Glucose,Whole Blood 217 mg/dL (70-110)
[2023-02-14] MEDS ORDERED: ATORVASTATIN 20 MG TAB PO SCH (21:00)
[2023-02-15 03:35] VITALS: TEMP 97.6
[2023-02-15 06:09] LABS: Glucose,Whole Blood 141 mg/dL (70-110)
[2023-02-15] MEDS: INSULIN ASPART (NovoLOG) 100 UNIT/ML VIAL SQ SCH (06:16)
[2023-02-15 07:44] VITALS: BP 128/80; PULSE 106; RESP 16
[2023-02-15] MEDS: GLIMEPIRIDE 1 MG TAB PO SCH (08:45)
[2023-02-15] MEDS: PIOGLITAZONE 30 MG TAB PO SCH (08:45)
[2023-02-15] MEDS: FLECAINIDE 50 MG TAB PO SCH (08:45)
--- NOTE | 2023-02-15 11:33 | P.PN ---
Subjective Progress Note Date: 02/15/23 HISTORY OF PRESENT ILLNESS: This is a 77-year-old male with a past medical history significant for sick sinus syndrome, severe mitral regurgitation, CVA, diabetes. Patient follows in the office with Dr. Velazco. We have been asked to see the patient in consultation for chest pain. Patient examined at the bedside. Patient states he has been having chest pain for the past 2 days. He states the pain got worse yesterday. He has not had chest pain like this before. He currently denies SOB. Patient recently saw Dr. Velazco in the office and was recommended to have EVELYN and LHC. * EKG: atrial fibrillation with controlled ventricular rate. No signs of acute ischemia. * Chest xray borderline heart size. Chronic appearing changes, possible bronchitis or chronic asthma. * Laboratory data: WBC 6.8. Hemoglobin 13.1. Platelet count 293. Sodium 137. Potassium 4.7. BUN 23. Creatinine 0.86. Troponin negative 2. ProBNP 3450. * Current home cardiac medications include Lipitor 20 mg at night, losartan 50 mg at night, atenolol 12.5 mg daily, Xarelto 20 mg with dinner, and flecainide 50 mg twice a day * Echocardiogram performed in the office on 01/31/2023 revealed ejection fractio n 50-55%, severe, centric mitral regurgitation, mitral valve dysfunction secondary to flail leaflet, moderate tricuspid regurgitation, and severely increased pulmonary artery systolic pressure. REVIEW OF SYSTEMS: At the time of my exam: CONSTITUTIONAL: Denies fever or chills. HEENT: Denies blurred vision, vision changes, or eye pain. Denies hemoptysis CARDIOVASCULAR: Denies chest pain. Denies orthopnea. Denies PND. Denies palpitations RESPIRATORY: Denies shortness of breath. GASTROINTESTINAL: Denies abdominal pain. Denies nausea or vomiting. HEMATOLOGIC: Denies bleeding disorders. GENITOURINARY: Denies any blood in urine. SKIN: Denies pruitis. Denies rash. PHYSICAL EXAM: VITAL SIGNS: Reviewed. GENERAL: Well-developed in no acute distress. HEENT: Head is normocephalic. Pupils are equal, round. Sclerae anicteric. Mucous membranes of the mouth are moist. Neck supple. No JVD or thyromegaly LUNGS: Respirations even and unlabored. Lungs essentially clear to auscultation bilaterally. HEART: Irregular rate and rhythm. S1 and S2 heard. + holosystolic murmur 3/6 at the apex ABDOMEN: Soft. Nondistended. Nontender. EXTREMITIES: Normal range of motion. No clubbing or cyanosis. Peripheral pulses intact. No lower extremity edema NEUROLOGIC: Awake and alert. Oriented x 3. ASSESSMENT: Chest pain Severe mitral regurgitation suspect secondary to ruptured chordae tendonineae Paroxysmal atrial fibrillation, on Xarelto outpatient History of CVA Hypertension Diabetes History of sick sinus syndrome PLAN: Patient had an extensive workup including left and right heart catheterization a nd a transesophageal echocardiogram. Please refer to that individual reports. She is okay to be discharged from cardiac vessel standpoint. We will resume all of his home cardiac medications without any changes Add Imdur 15 mg for afterload reduction to assist with mitral regurgitation and help with typical anginal symptoms. Follow-up with Dr. velazco in next 1-2 weeks. I recommend that patient should be on SGLT 2 and be taken off Actos. Patient's mean pulmonary artery pressure was not more than 50 but he has persistent atrial fibrillation even being on rhythm control with flecainide. He has severe mitral regurgitation. He will qualify for surgical repair as per the guidelines. I would recommend patient to follow with Dr. velazco regarding this Objective - Vital Signs Vital signs: Vital Signs Temp 97.6 F 02/15/23 07:00 Pulse 106 H 02/15/23 07:00 Resp 16 02/15/23 08:45 BP 128/80 02/15/23 07:00 Pulse Ox 94 L 02/15/23 07:00 FiO2 21 02/13/23 20:27 Intake & Output 02/14/23 02/15/23 02/15/23 18:59 06:59 18:59 Intake Total 1000 118 Balance 1000 118 Intake: IV 400 Intake, IV Titration 600 Amount Heparin Sod,Pork in 0.45% 0 NaCl 25,000 unit In 0.45 % NaCl 1 250ml.bag @ 12 UNITS/KG/HR 9.36 mls/hr IV .Q24H ROSMERY Rx#: [id number] Sodium Chloride 0.9% 1, 600 000 ml @ 75 mls/hr IV . [id number] ROSMERY Rx#:[id number] Oral 118 Other: Voiding Method Toilet Toilet # Voids 2 - Labs CBC & Chem 7: 02/14/23 05:39 02/13/23 08:32 Labs: Abnormal Lab Results - Last 24 Hours (Table) 02/14/23 02/14/23 02/14/23 Range/Units 05:39 12:39 17:08 POC Glucose (mg/dL) 182 H 196 H (70-110) mg/dL Hemoglobin A1c 7.5 H (<=6.0) % 02/14/23 02/15/23 Range/Units 20:36 06:07 POC Glucose (mg/dL) 217 H 141 H (70-110) mg/dL Hemoglobin A1c (<=6.0) %
[2023-02-15 11:59] LABS: Glucose,Whole Blood 326 mg/dL (70-110)
--- NOTE | 2023-02-16 17:48 | P.DS ---
Providers Date of admission: 02/13/23 09:47 Attending physician: Jonathan Grewal Consults: 02/13/23 09:48 Consult Physician Urgent Consulting Provider: Volodymyr Velazco Consult Reason/Comments: chest pain, scheduled for cath Do you want consulting provider notified?: Yes Primary care physician: Jonathan Grewal Hospital Course: Final Diagnosis Chest pain with negative troponins, acute coronary syndrome ruled out with normal cardiac cath. Continue patient on atenolol 12.5 mg daily, Lipitor 20 mg at bedtime. Suspected ruptured chordae tendonae with severe mitral regurgitation. imdur was added for afterload reduction by firer powerhouse. Diabetes mellitus type 2. Hold metformin. Continue patient on glimepiride 1 mg daily and Actos 30 mg daily and start NovoLog scale before meals and at bedtime. Paroxysmal atrial fibrillation. Hold Xarelto. Continue atenolol 12.5 mg daily. Mild intermittent asthma, stable. Continue albuterol 1 puff every 4 hours as needed for shortness of breath Hypertension. Continue atenolol 12.5 mg daily, losartan 50 mg at bedtime Hyperlipidemia. Continue atorvastatin 20 mg at bedtime. History of CVA. Xarelto resumed. Vitamin D deficiency. Discharge Disposition Patient has been cleared for discharge by firer powerhouse. Needs to see Dr. Velazco in the office for further evaluation of the mitral valve and surgical repair. Consider taking the patient off of actos and adding an SGLT2. Cardiology has added Imdur for afterload reduction. Patient to see Dr Grewal in the office next week. Hemoglobin A1C is 7.5. 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 The patient was scheduled for cardiac catheterization with Dr. Ibarra on Friday following a visit to his firer powerhouse with plan for cardiac catheterization and EVELYN. Patient presented to the hospital due to pressure in the lower chest area. He denies having any radiation of the pain to his neck and shoulders arms or back. He denies having any shortness of breath. He states it started while he was golfing yesterday the discomfort is gone at the time of this evaluation. He denies having any abdominal pain and no leg pains. Patient's states that he had flulike symptoms with myalgia about a week ago and has resolved. 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 Upon review of interaction with flecainide, the combination of these medications has risk of increased flecainide levels, QT prolongation and cardiac arrhythmias and Lamisil will be discontinued. Ventricular rate of 88. Troponins negative 2. ProBNP 3450. WBC 6.8, hemoglobin 13.1, platelet count 293. INR 1.2. Achilles are normal. BUN 23 creatinine 0.86. Blood sugar 170. Magnesium 1.6. Liver function tests are normal. Chest x-ray chronic appearing changes, possible bronchitis or chronic asthma. Patient was seen in consultation by Dr. Ibarra and was taken for cardiac catheterization which did not show any obstructive coronary artery disease. Patient underwent EVELYN which shows severely dilated left atrium with severe mitral regurgitation with P2 prolapse and restricted posterior mitral leaflet causing eccentric anteriorly directed jet. No thrombus noted. There is normal global LV systolic function. The posterior mitral leaflet is restricted and tethered. Cardiology has started the patient on Imdur for afterload reduction and is recommending follow-up with Dr. Velazco for further evaluation of mitral valve and recommending surgical repair. Patient denies any chest pain denies shortness of breath. He has no chest pain no palpitations. No dizziness or lightheadedness. His lungs are clear S1-S2 auscultated. Hemodynamically he is stable patient will follow-up with Dr. Grewal. Please see medication reconciliation for list of current medications. Thank you for allowing us to participate in the care of this patient. The impression and plan of care has been dictated by Jordyn Celaya, Nurse Practitioner as directed. Dr. Osman MD I have performed a history and physical examination and medical decision making of this patient, discussed the same with the dictator, and agree with the dictators assessment and plan as written, documented as a scribe. Based on total visit time, I have performed more than 50% of this visit. Patient Condition at Discharge: Stable Plan - Discharge Summary Discharge Rx Participant: No New Discharge Prescriptions: New Isosorbide Mononitrate ER [Imdur] 15 mg PO DAILY #15 tab Continue Albuterol Inhaler [Ventolin Hfa Inhaler] 1 puff INHALATION RT-Q4H PRN PRN Reason: Shortness Of Breath Flecainide [Tambocor] 50 mg PO Q12HR #60 tab Atorvastatin [Lipitor] 20 mg PO HS Losartan [Cozaar] 50 mg PO HS Clotrimazole/Betameth Cream [Lotrisone] 1 applic TOPICAL BID PRN PRN Reason: Skin Irritation Rivaroxaban [Xarelto] 20 mg PO W/SUPPER Pioglitazone [Actos] 30 mg PO DAILY atenoloL [Tenormin] 12.5 mg PO DAILY Metformin Er 750mg 750 mg PO BID-W/MEALS Terbinafine [LamISIL] 250 mg PO W/SUPPER Nystatin 100,000Unit/gm Cream [Mycostatin Cream] 1 applic TOPICAL BID PRN PRN Reason: Skin Irritation Triamcinolone 0.1% Cream [Kenalog 0.1% Cream] 1 applicatio TOPICAL BID PRN PRN Reason: Skin Irritation Glimepiride [Amaryl] 1 mg PO DAILY Discharge Medication List Albuterol Inhaler [Ventolin Hfa Inhaler] 1 puff INHALATION RT-Q4H PRN 10/07/14 [History] Flecainide [Tambocor] 50 mg PO Q12HR #60 tab 10/09/14 [Rx] Atorvastatin [Lipitor] 20 mg PO HS 12/13/15 [History] Losartan [Cozaar] 50 mg PO HS 12/13/15 [History] Clotrimazole/Betameth Cream [Lotrisone] 1 applic TOPICAL BID PRN 02/13/23 [History] Glimepiride [Amaryl] 1 mg PO DAILY 02/13/23 [History] Metformin Er 750mg 750 mg PO BID-W/MEALS 02/13/23 [History] Nystatin 100,000Unit/gm Cream [Mycostatin Cream] 1 applic TOPICAL BID PRN 02/13/23 [History] Pioglitazone [Actos] 30 mg PO DAILY 02/13/23 [History] Rivaroxaban [Xarelto] 20 mg PO W/SUPPER 02/13/23 [History] Terbinafine [LamISIL] 250 mg PO W/SUPPER 02/13/23 [History] Triamcinolone 0.1% Cream [Kenalog 0.1% Cream] 1 applicatio TOPICAL BID PRN 02/13/23 [History] atenoloL [Tenormin] 12.5 mg PO DAILY 02/13/23 [History] Isosorbide Mononitrate ER [Imdur] 15 mg PO DAILY #15 tab 02/15/23 [Rx] Follow up Appointment(s)/Referral(s): Volodymyr Velazco MD [STAFF PHYSICIAN] - 1 Week None,Stated [REFERRING] - 1-2 days Patient Instructions/Handouts: After Radial Heart Catheterization (GEN) Activity/Diet/Wound Care/Special Instructions: DRINK PLENTY OF LIQUIDS NO SUBMERGING R WRIST IN WATER FOR 3 DAYS, NO HOT TUB, SWIMMING POOLS, DISH WATER. MAY REMOVED DRESSINGS AND SHOWER TOMORROW AND PAT DRY NO LIFTING, PUSHING, PULLING WITH R ARM. NO FLEXING, BENDING AT WRIST NO LIFTING OVER 5LBS FOR 5 DAYS IF SITE BLEEDS HOLD PRESSURE FOR 10 MIN AND HAVE SOMEONE DRIVE YOU TO ER OR CALL EMS. SEE [facility] HANDOUT AND WATCH FOR S/SX OF INFECTION Discharge Disposition: HOME SELF-CARE
== END 2023-02-15 12:09 | disposition home or self-care (01) ==
LOC: EC 07:51 → 6NMEDSUR 09:47
PROVIDERS: ADMIT Internal Medicine; ATTEND Internal Medicine
DX: I34.0 Nonrheumatic mitral (valve) insufficiency (principal); I51.1 Rupture of chordae tendineae, not elsewhere classified; E11.9 Type 2 diabetes mellitus without complications; I48.0 Paroxysmal atrial fibrillation; E78.5 Hyperlipidemia, unspecified; J45.20 Mild intermittent asthma, uncomplicated; I10 Essential (primary) hypertension; Z86.73 Personal history of transient ischemic attack (TIA), and cerebral infarction without residual deficits; E55.9 Vitamin D deficiency, unspecified; Z79.01 Long term (current) use of anticoagulants; Z79.84 Long term (current) use of oral hypoglycemic drugs; Z79.899 Other long term (current) drug therapy; I49.5 Sick sinus syndrome; I25.2 Old myocardial infarction; Z90.49 Acquired absence of other specified parts of digestive tract; Z98.890 Other specified postprocedural states; Z98.1 Arthrodesis status; Z82.49 Family history of ischemic heart disease and other diseases of the circulatory system; Z83.3 Family history of diabetes mellitus; Z80.49 Family history of malignant neoplasm of other genital organs; Z80.42 Family history of malignant neoplasm of prostate; Z80.0 Family history of malignant neoplasm of digestive organs
CPT/HCPCS: 96365 ×3; 96375; 99285; 36415; 94760 ×2; 93005; 93312; 93320; 93325; 83880; 80061; 80053; 82805; 83735; 84484; 85025 ×2; 85610 ×2; 85730 ×3; 83036; 71046; G0378 ×3; C1769; C1894; J2250; J2001; J1644 ×3; Q9967; J3010; 93460

== ENCOUNTER → 2023-03-05 | Outpatient (CLI) | payer MEDICARE ==
--- NOTE | 2023-03-05 09:53 | P.PN ---
Progress Note - Text Progress Note Date: 03/05/23 5 meter walk test completed without difficulty: #1 4.37 sec #2 4.03 sec #3 4.30 sec STS risk calculated and discussed with the patient.
[2023-03-05 09:56] LABS: Appearance,Urine Clear (Clear); Bilirubin,Urine Negative (Negative); Blood,Urine Negative (Negative); Color,Urine Yellow; Glucose,Urine (UA) Trace (Negative); Hyaline Casts,Urine 4 /lpf (0-2); Ketones,Urine Negative (Negative); Leukocyte Esterase,Urine Trace (Negative); Mucus,Urine Rare /hpf; Nitrite,Urine Negative (Negative); PH, Urine 5.5 (5.0-8.0); Protein,Urine Trace (Negative); RBC,Urine 3 /hpf (0-5); Specific Gravity,Urine 1.022 (1.001-1.035); Urobilinogen,Urine <2.0 mg/dL (<2.0); WBC,Urine 3 /hpf (0-5)
[2023-03-05 09:57] LABS: Partial Thromboplastin Time 22.9 sec (22.0-30.0); Prothrombin Time 10.7 sec (9.0-12.0)
--- NOTE | 2023-03-05 11:36 | US ---
EXAMINATION TYPE: US vein mapping BILAT DATE OF EXAM: 03/05/2023 10:38 AM COMPARISON: NONE CLINICAL INDICATION: Male, 77 years old with history of R55 SYNCOPE AND COLLAPSE; mitral valve surger y next week SIDE PERFORMED: Bilateral TECHNIQUE: Lower extremity saphenous vein is examined and measured utilizing real time linear array sonography. DUPLEX FINDINGS: Measurements in mm: Right Greater Saphenous: Groin: 4.6 x 2.7 mm High Thigh: 1.4 x 1.9 mm Mid Thigh: 2.1 x 2.1 mm Above Knee: 2.2 x 2.3 mm Knee: 1.5 x 2.2 mm Below Knee: 1.1 x 1.6 mm Mid Calf: 1.0 x 1.5 mm At Ankle: 1.1 x 1.2 mm Left Greater Saphenous: Groin: 4.5 x 3.1 mm High Thigh: 1.3 x 2.0 mm Mid Thigh: 1.9 x 2.4 mm Above Knee: 2.2 x 2.1 mm Knee: 2.0 x 1.9 mm Below Knee: 1.8 x 2.5 mm Mid Calf: 1.6 x 2.4 mm At Ankle: 1.8 x 3.6 mm IMPRESSION: 1. Bilateral GSV measurements listed above. 2. Performing surgeon to determine viability as conduit.
[2023-03-05 16:10] LABS: HCT 35.9 % (39.6-50.0); HGB 11.6 d/dL (13.0-17.0); MCH 31.5 pg (27.0-32.0); MCHC 32.3 d/dL (32.0-37.0); MCV 97.6 FL (80.0-97.0); Mean Platelet Volume 9.8 FL (9.5-12.2); NRBC Per 100 WBC 0 X 10*3/uL (0.00-0.01); Platelet Count 348 X 10*3/uL (140-440); RBC 3.68 X 10*6/uL (4.40-5.60); RDW 14.7 % (11.5-14.5); WBC 7.51 X 10*3/uL (4.50-10.00)
[2023-03-05 16:14] LABS: ALT 17 U/L (10-49); AST 15 U/L (14-35); Albumin 4.5 d/dL (3.8-4.9); Albumin/Globulin Ratio 1.88 Ratio (1.60-3.17); Alkaline Phosphatase 60 U/L (41-126); BUN/Creat Ratio 26.29 Ratio (12.00-20.00); Blood Urea Nitrogen 36.8 mg/dL (9.0-27.0); Calcium 9.7 mg/dL (8.7-10.3); Carbon Dioxide 30.9 mmol/L (21.6-31.8); Chloride 95 mmol/L (96-109); Chol/HDL Ratio 2.88 Ratio; Globulin 2.4 d/dL (1.6-3.3); Glucose 229 mg/dL (70-110); LDL Cholesterol,Calculated 51.7 mg/dL (0.0-131.0); Potassium 4.7 mmol/L (3.5-5.5); Sodium 141 mmol/L (135-145); Total Bilirubin 0.5 mg/dL (0.3-1.2); Total Protein 6.9 d/dL (6.2-8.2)
== END | disposition home or self-care (01) ==
LOC: LABWHC1 08:53
PROVIDERS: ATTEND Internal Medicine Clinical Cardiac Electrophysiology
DX: Z01.818 Encounter for other preprocedural examination (principal); R55 Syncope and collapse
CPT/HCPCS: 36415; 80053; 80061; 81001; 83735; 85027; 85610; 85730; 86850; 86900; 86901; 86920; 87070; 87086; 93970

== ENCOUNTER 2023-03-10 05:33 | Inpatient (IN) | payer MEDICARE ==
[~2023-03-10 05:33] MED LIST: ALBUMIN HUMAN 25% 50 ML IV ONE; ALBUMIN HUMAN 5% 500 ML IVPB ONE; ASPIRIN 325 MG TAB PO ONE; ATORVASTATIN 10 MG TAB PO ONE; CALCIUM CHLORIDE 100 MG/ML 10 ML SYRINGE IV ONE; CHLORHEXIDINE GLUCONATE 15 ML CUP MUCOUS MEM ONE; CLEVIDIPINE BUTYRATE 25 MG in EMPTY BAG 1 BAG IV ONE; ELECTROLYTE-A SOLUTION 1,000 ML with POTASSIUM CHLORIDE 100 MEQ, MAGNESIUM SULFATE 16 M... IV ONE; ELECTROLYTE-A SOLUTION 1,000 ML with POTASSIUM CHLORIDE 40 MEQ, MAGNESIUM SULFATE 16 ME... IV ONE; HEPARIN SODIUM 1,000 UN/ML (10ML VL) IV ONE; HEPARIN SODIUM,PORCINE (1 ML) 5,000 UNIT in SODIUM CHLORIDE 0.9% 500 ML 500 ML IV ONE; INSULIN REGULAR 100 UNIT in SODIUM CHLORIDE 0.9% 100 ML IV ONE; LACTATED RINGERS 1,000 ML IV ONE; MAGNESIUM SULFATE 16.24 MEQ in EMPTY SYRINGE 1 SYR IV ONE; MANNITOL 25% 12.5 GM/50 ML VIAL IV ONE; METOPROLOL TARTRATE 12.5 MG TAB PO ONE; NITROGLYCERIN SL TABS 0.4 MG TAB SUBLINGUAL ONE; NITROGLYCERIN-D5W PMX 25 MG/250 ML BTL IV ONE; NITROGLYCERIN-D5W PMX 50 MG in DEXTROSE/WATER 1 250ML.BAG IV ONE; NOREPINEPHRINE 4 MG in SODIUM CHLORIDE 0.9% 250 ML IV ONE; PAPAVERINE 360 MG in SODIUM CHLORIDE 0.9% 90 ML IV ONE; PHENYLEPHRINE 10 MG/ML VIAL IV ONE; PHENYLEPHRINE 40 MG in SODIUM CHLORIDE 0.9% 250 ML IV ONE; PROTAMINE SULFATE 10 MG/ML 25 ML VIAL IV ONE; PROTAMINE SULFATE 250 MG in EMPTY BAG 1 BAG IV ONE; SODIUM BICARB 8.4% 50 ML SYR (1 MEQ/ML) IV ONE; SODIUM CHLORIDE 0.9% 1,000 ML IV ONE; TRANEXAMIC ACID 2,000 MG in SODIUM CHLORIDE 0.9% 80 ML IV ONE; ceFAZolin 1,000 MG in SODIUM CHLORIDE 0.9% IRRIGATIO 1,000 ML IRRIGATION ONE; propofoL 1,000 MG/100 ML VIAL IV ONE
[2023-03-10 06:18] LABS: Glucose,Whole Blood 198 mg/dL (70-110)
[2023-03-10] MEDS ORDERED: LACTATED RINGERS 1,000 ML IV ONE (06:19)
[2023-03-10] MEDS ORDERED: ALBUMIN HUMAN 5% (12.5gm) 250 ML BOTTLE IVPB ONE (07:39)
[2023-03-10] MEDS ORDERED: INSULIN REGULAR 100 UNIT/ML VIAL (IV) ONE (07:39)
[2023-03-10] MEDS ORDERED: TRANEXAMIC 1,000 MG/100ML-NACL PREMIX BAG ONE (07:39)
[2023-03-10] MEDS ORDERED: fentaNYL (PF) 50 MCG/ML 50 ML VIAL ONE (07:39)
[2023-03-10] MEDS ORDERED: PROPOFOL 10 MG/ML 20 ML VIAL IV ONE (07:39)
[2023-03-10] MEDS ORDERED: VECURONIUM 10 MG VIAL IV ONE (07:39)
[2023-03-10] MEDS ORDERED: MIDAZOLAM HCL 10 MG/10 ML VIAL ONE (07:39)
[2023-03-10] MEDS ORDERED: HEPARIN SODIUM,PORCINE 10,000 UNIT/ML 1 ML VIAL ONE (07:39)
[2023-03-10] MEDS ORDERED: PROTAMINE SULFATE 10 MG/ML 25 ML VIAL IV ONE (07:39)
[2023-03-10] MEDS ORDERED: ceFAZolin 1,000 MG in SODIUM CHLORIDE 0.9% 1,000 ML IRRIGATION ONE (09:33)
[2023-03-10] MEDS ORDERED: SODIUM CHLORIDE 0.9% 500 ML 500 ML with HEPARIN SODIUM,PORCINE (1 ML) 5,000 UNIT IV ONE ×2 (09:33)
[2023-03-10 10:48] LABS: ABG Base Excess 7.4 mmol/L; ABG Glucose Whole Blood 151 mg/dL (75-99); ABG HCO3 31 mmol/L (21-25); ABG PCO2 41 mmHg (35-45); ABG PH 7.49 (7.35-7.45); ABG Potassium Whole Blood 4.3 mmol/L (3.4-4.5); ABG Sodium Whole Blood 139 mmol/L (135-146); ABG TCO2 33 mmol/L (19-24)
[2023-03-10] MEDS ORDERED: AMIODARONE 450 MG in DEXTROSE 5% IN WATER 250 ML IV PRN ×2 (12:20)
[2023-03-10] MEDS ORDERED: METOCLOPRAMIDE 5 MG/ML 2 ML VIAL IVP PRN (12:20)
[2023-03-10] MEDS ORDERED: ONDANSETRON 4 MG/2 ML VIAL IVP PRN (12:20)
[2023-03-10] MEDS ORDERED: CALCIUM GLUCONATE IN NACL 2 GM in SALINE 1 100ML.BAG IVPB PRN (12:20)
[2023-03-10] MEDS ORDERED: BENZOCAINE/MENTHOL LOZENG 1 EACH LOZENGE MUCOUS MEM PRN (12:20)
[2023-03-10] MEDS ORDERED: hydrALAZINE HCL 20 MG/ML 1 ML VIAL IVP PRN (12:20)
[2023-03-10] MEDS ORDERED: Magnesium Replacement Protocol 1 EACH MISC MISCELLANE PRN (12:20)
[2023-03-10] MEDS ORDERED: DEXMEDETOMIDINE/0.9% NACL(PMX) 400 MCG in EMPTY BAG 1 BAG IV SCH (12:20)
[2023-03-10] MEDS ORDERED: DEXTROSE 50% SYRINGE 50 ML IVP PRN ×2 (12:20)
[2023-03-10] MEDS ORDERED: IPRATROPIUM-ALBUTEROL 3 ML NEB INHALATION PRN (12:20)
[2023-03-10] MEDS ORDERED: DEXTROSE 5% IN WATER 100 ML with AMIODARONE 150 MG IV PRN (12:20)
[2023-03-10] MEDS ORDERED: Potassium Replacement Protocol 1 EACH MISC MISCELLANE PRN (12:20)
[2023-03-10] MEDS ORDERED: AMIODARONE 360 MG in DEXTROSE 5% IN WATER 200 ML IV PRN ×2 (12:20)
[2023-03-10 12:24] LABS: ABG PO2 >420 mmHg (83-108)
[2023-03-10 12:25] LABS: ABG Hematocrit 24 % (34.0-46.0); ABG Lactic Acid Whole Blood 2.4 mmol/L (0.5-1.6)
[2023-03-10 12:27] LABS: ABG Base Excess 5.1 mmol/L; ABG Glucose Whole Blood 110 mg/dL (75-99); ABG HCO3 29 mmol/L (21-25); ABG Ionized Calcium 4.3 mg/dL (4.5-5.3); ABG PCO2 38 mmHg (35-45); ABG PH 7.49 (7.35-7.45); ABG PO2 351 mmHg (83-108); ABG Potassium Whole Blood 3.4 mmol/L (3.4-4.5); ABG Sodium Whole Blood 141 mmol/L (135-146); ABG TCO2 30 mmol/L (19-24)
[2023-03-10 12:28] LABS: ABG Hematocrit 23 % (34.0-46.0); ABG Lactic Acid Whole Blood 2.6 mmol/L (0.5-1.6)
[2023-03-10] MEDS ORDERED: CLEVIDIPINE BUTYRATE 25 MG in EMPTY BAG 1 BAG IV SCH (12:45)
[2023-03-10] MEDS ORDERED: NOREPINEPHRINE 4 MG in SODIUM CHLORIDE 0.9% 250 ML IV SCH (13:00)
--- NOTE | 2023-03-10 13:08 | P.ANPRN ---
Procedure Note - Anesthesia - EVELYN Intraop Pre Bypass EVELYN Intraop - Anesthesia Indication: Mitral regurgitation Date of Procedure: 03/10/23 Pre-operative Diagnosis: Mitral Regurgitation Post-operative Diagnosis: same Surgeon: Nash Cottrell Left Ventricle: wnl Ejection Fraction: Normal Regional Wall Motion Abnormalities: None Left Ventricle Hypertrophy: No Right Ventricle: wnl R. Ventricle Function: Normal Anatomy: Trileaflet Aortic Stenosis: None Aortic Regurgitation: None Mitral Valve: flail p2, anteriorly directed MR jet, Mitral gradient 77peak with mean 28 Mitral Stenosis: None Mitral Regurgitation: Severe Tricuspid Stenosis: None Tricuspid Regurgitation: Trace Pulmonic Stenosis: None Pulmonic Regurgitation: None R. Atrial Dilation: No R. Atrial PFO: No L. Atrial Dilation: Yes Aortic Dissection: No Aortic Calcification: None Plural Effusion: None
--- NOTE | 2023-03-10 13:09 | P.ANPRN ---
Procedure Note - Anesthesia - EVELYN Intraop Post Bypass EVELYN Intraop Post Bypass Procedure Performed: MVR Left Ventricle: wnl Ejection Fraction: Normal Regional Wall Motion Abnormalities: None Right Ventricle: wnl R. Ventricle Function: Normal Aortic Valve: Unchanged Mitral Valve: Trace residual regurgitation. Tricuspid: Unchanged Pulmonic: Unchanged Aortic Dissection: No
[2023-03-10] MEDS: INSULIN REGULAR 100 UNIT in SODIUM CHLORIDE 0.9% 100 ML IV SCH (13:30)
[2023-03-10 13:33] LABS: Glucose,Whole Blood 94 mg/dL (70-110)
[2023-03-10 13:42] LABS: ABG Base Excess 6.1 mmol/L; ABG HCO3 31 mmol/L (21-25); ABG PCO2 48 mmHg (35-45); ABG PH 7.41 (7.35-7.45); ABG PO2 226 mmHg (83-108); ABG TCO2 32 mmol/L (19-24)
[2023-03-10] MEDS: IPRATROPIUM-ALBUTEROL 3 ML NEB INHALATION SCH ×3 (13:47→20:49)
[2023-03-10] MEDS: LACTATED RINGERS 1,000 ML IV SCH (13:52)
[2023-03-10] MEDS: MILRINONE-D5W PMX 20 MG in DEXTROSE/WATER 1 100ML.BAG IV SCH (13:53)
[2023-03-10 14:09] LABS: INR 1.3 (<1.2); Partial Thromboplastin Time 24.2 sec (22.0-30.0); Prothrombin Time 12.8 sec (9.0-12.0)
[2023-03-10 14:11] LABS: Ionized Calcium 4.9 mg/dL (4.5-5.3)
[2023-03-10 14:12] LABS: Basophils % (A) 0 %; Eosinophils # (A) 0.1 k/uL (0-0.7); Eosinophils % (A) 1 %; HCT 24.5 % (39.0-53.0); Lymphocytes # (A) 1.7 k/uL (1.0-4.8); Lymphocytes % (A) 21 %; MCH 32.7 pg (25.0-35.0); MCHC 35.3 g/dL (31.0-37.0); MCV 92.7 fL (80.0-100.0); Monocytes # (A) 0.4 k/uL (0-1.0); Monocytes % (A) 5 %; Neutrophils # (A) 5.8 k/uL (1.3-7.7); Neutrophils % (A) 72 %; Platelet Count 166 k/uL (150-450); Poikilocytosis Slight; RBC 2.64 m/uL (4.30-5.90); RDW 14.9 % (11.5-15.5)
[2023-03-10 14:13] LABS: HGB 8.6 gm/dL (13.0-17.5)
--- NOTE | 2023-03-10 14:14 | XR ---
EXAMINATION TYPE: XR chest 1V portable DATE OF EXAM: 03/10/2023 1:53 PM CLINICAL INDICATION:Male, 77 years old with history of Post Operative Cardiac Surgery; COMPARISON: Chest radiographs from 02/18/2023 TECHNIQUE: XR chest 1V portable Frontal view of the chest. FINDINGS: Lungs/Pleura: Low lung volumes are present. There is no evidence of pleural effusion, focal consolida tion, or pneumothorax. Pulmonary vascularity: Pulmonary vascular congestion. Heart/mediastinum: Cardiomediastinal silhouette is enlarged and stable. Post valve repair changes. Musculoskeletal: No acute osseous pathology. Other findings: None Lines/Tubes: Endotracheal tube with distal tip 3.2 cm above the sunny. There is a [place]-Magda catheter with tip projecting over the spine. Drainage tubes with tips projecting over the mediastinum. IMPRESSION: Postoperative changes, support tubes in appropriate position. There is mild pulmonary vascular conges tion.
[2023-03-10 14:21] LABS: ALT 17 U/L (4-49); AST 54 U/L (17-59); African American GFR (CKD) 70 (>60 ml/min/1.73 sqM); Albumin 3.4 g/dL (3.5-5.0); Alkaline Phosphatase 33 U/L (38-126); Anion Gap 7 mmol/L; Blood Urea Nitrogen 46 mg/dL (9-20); Calcium 8.8 mg/dL (8.4-10.2); Carbon Dioxide 29 mmol/L (22-30); Chloride 102 mmol/L (98-107); Glucose 76 mg/dL (74-99); Magnesium 2.8 mg/dL (1.6-2.3); Non-African American GFR(CKD) 61 (>60 ml/min/1.73 sqM); Potassium 4.2 mmol/L (3.5-5.1); Sodium 138 mmol/L (137-145); Total Bilirubin 1.3 mg/dL (0.2-1.3); Total Protein 5.2 g/dL (6.3-8.2)
[2023-03-10 14:23] LABS: Glucose,Whole Blood 85 mg/dL (70-110)
[2023-03-10] MEDS: ACETAMINOPHEN IV (For NPO) 1,000 MG in EMPTY BAG 1 BAG IVPB SCH ×2 (14:48→18:44)
[2023-03-10 14:58] LABS: Glucose,Whole Blood 83 mg/dL (70-110)
[2023-03-10] MEDS: ALBUMIN HUMAN 5% 250 ML in EMPTY BAG 1 BAG IVPB PRN ×4 (14:58→17:31)
[2023-03-10 16:00] LABS: Glucose,Whole Blood 110 mg/dL (70-110)
[2023-03-10 16:25] LABS: Basophils % (A) 0 %; Eosinophils % (A) 0 %; HCT 22.9 % (39.0-53.0); HGB 7.9 gm/dL (13.0-17.5); Lymphocytes # (A) 0.8 k/uL (1.0-4.8); Lymphocytes % (A) 8 %; MCH 32.7 pg (25.0-35.0); MCHC 34.7 g/dL (31.0-37.0); MCV 94.4 fL (80.0-100.0); Mean Platelet Volume 9.9; Monocytes # (A) 0.7 k/uL (0-1.0); Monocytes % (A) 7 %; Neutrophils # (A) 8.2 k/uL (1.3-7.7); Neutrophils % (A) 84 %; Platelet Count 179 k/uL (150-450); Poikilocytosis Slight; RBC 2.42 m/uL (4.30-5.90); RDW 14.6 % (11.5-15.5); WBC 9.8 k/uL (3.8-10.6)
[2023-03-10] MEDS: HEPARIN SODIUM,PORCINE 5,000 UNIT/ML 1 ML VIAL SQ SCH ×2 (16:40→23:56)
[2023-03-10 17:00] LABS: Glucose,Whole Blood 136 mg/dL (70-110)
--- NOTE | 2023-03-10 17:50 | P.CNPUL ---
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 Patient was seen by cardiac surgery back on 02/19/2023, and he was evaluated for mitral valve repair. Today the patient underwent surgery, postoperatively he is on mechanical ventilation, assist control rate of 12 tidal volume 500 FiO2 50% and PEEP of 5. Chest x-ray showed mild interstitial edema/mild pulmonary vascular congestion. Patient is now on Precedex at 0.3 mcg/kg/h norepinephrine at 0.1 mcg/kg/m he is on Primacor at 0.2 mcg/kg/m is also on insulin at 0.5 units per hour. His cardiac output is 5.1 cardiac index is 2.9 CVP is 17. 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 Colonoscopy with polp removal. lumbar fusion Past Anesthesia/Blood Transfusion Reactions: Previous Problems w/ Anesthesia Additional Past Anesthesia/Blood Transfusion Reaction / Comment(s): Becomes combative with anesthesia.No hx blood transfusion Smoking Status: Former smoker - Past Family History Father Family Medical History: Congestive Heart Failure (CHF), Coronary Artery Disease (CAD), Diabetes Mellitus Additional Family Medical History / Comment(s): at age 75 Mother Family Medical History: Cancer Additional Family Medical History / Comment(s): cervical cancer Brother(s) Family Medical History: Cancer Additional Family Medical History / Comment(s): liver and prostrate cancer. Medications and Allergies Home Medications Medication Instructions Recorded Confirmed Type Albuterol Inhaler [Ventolin Hfa 1 puff INHALATION RT-Q4H PRN 10/07/14 03/10/23 History Inhaler] Flecainide [Tambocor] 50 mg PO Q12HR #60 tab 10/09/14 03/10/23 Rx Atorvastatin [Lipitor] 20 mg PO W/SUPPER 12/13/15 03/10/23 History Losartan [Cozaar] 50 mg PO W/SUPPER 12/13/15 03/10/23 History Glimepiride [Amaryl] 1 mg PO DAILY 02/13/23 03/10/23 History Pioglitazone [Actos] 30 mg PO DAILY 02/13/23 03/10/23 History Rivaroxaban [Xarelto] 20 mg PO W/SUPPER 02/13/23 03/05/23 History Isosorbide Mononitrate ER [Imdur] 15 mg PO QAM 02/18/23 03/10/23 History Furosemide [Lasix] 40 mg PO DAILY #30 tab 02/21/23 03/10/23 Rx Metoprolol Tartrate [Lopressor] 25 mg PO BID #60 tab 02/21/23 03/10/23 Rx Cholecalciferol [Vitamin D3 (25 25 mcg PO DAILY 03/05/23 03/10/23 History Mcg = 1000 Iu)] Cyanocobalamin (Vitamin B-12) 1,000 mcg PO DAILY 03/05/23 03/10/23 History [Vitamin B-12] metFORMIN HCL ER [Glucophage XR] 750 mg PO BID 03/05/23 03/10/23 History metOLazone [Zaroxolyn] 2.5 mg PO MOWEFR 03/05/23 03/10/23 History terbinafine HCL 250 mg PO DAILY 03/05/23 03/10/23 History Allergies Allergy/AdvReac Type Severity Reaction Status Date / Time No Known Allergies Allergy Verified 03/10/23 06:04 Physical Exam Vitals: Vital Signs Temp Pulse Pulse Resp BP BP BP 03/10/23 17:00 98.8 F 80 19 03/10/23 16:45 80 17 03/10/23 16:30 80 17 03/10/23 16:15 80 15 93/52 03/10/23 16:00 99.0 F 80 13 03/10/23 15:45 79 16 03/10/23 15:30 80 19 74/45 03/10/23 15:15 80 12 03/10/23 15:11 03/10/23 15:00 80 12 107/58 03/10/23 14:45 80 12 107/58 03/10/23 14:40 80 12 03/10/23 14:30 99.3 F 80 12 107/58 03/10/23 14:20 80 12 03/10/23 14:10 80 12 03/10/23 14:00 80 12 03/10/23 13:55 80 12 03/10/23 13:50 80 12 03/10/23 13:48 80 12 03/10/23 13:46 03/10/23 13:40 80 12 03/10/23 13:30 80 12 03/10/23 13:19 03/10/23 05:56 96.7 F L 72 18 122/62 120/61 Pulse Ox FiO2 03/10/23 17:00 99 03/10/23 16:45 99 03/10/23 16:30 99 03/10/23 16:15 98 03/10/23 16:00 99 50 03/10/23 15:45 98 03/10/23 15:30 99 03/10/23 15:15 97 03/10/23 15:11 50 03/10/23 15:00 98 03/10/23 14:45 97 03/10/23 14:40 97 03/10/23 14:30 92 L 03/10/23 14:20 96 03/10/23 14:10 97 03/10/23 14:00 98 60 03/10/23 13:55 03/10/23 13:50 03/10/23 13:48 03/10/23 13:46 60 03/10/23 13:40 03/10/23 13:30 100 03/10/23 13:19 100 03/10/23 05:56 96 Intake and Output 03/10/23 03/10/23 03/10/23 06:59 14:59 22:59 Intake Total 100 56.289 556.627 Output Total 1350 170 Balance 100 -1293.711 386.627 Intake: IV 100 52 227 LR 150 Pressure bags 27 ceFAZolin 2 gm In Sodium 50 Chloride 0.9% 50 ml @ 100 mls/hr IVPB Q8HR ROS[facility] Rx# :[id number] Intake, IV Titration 4.289 79.627 Amount Dexmedetomidine/0.9% NaCl 14.126 (Pmx) 400 mcg In Empty Bag 1 bag @ Titrate IV . Q0M [facility] Rx#:[id number] Insulin Regular 100 unit 2.828 0 In Sodium Chloride 0.9% 100 ml @ Per Protocol IV .Q0M [facility] Rx#:[id number] Milrinone-D5w Pmx 20 mg 14.957 In Dextrose/Water 1 100ml .bag @ 0.3 MCG/KG/MIN 6. 903 mls/hr IV .[id number] [facility] Rx#:[id number] Norepinephrine 4 mg In 1.461 33.363 Sodium Chloride 0.9% 250 ml @ 0.03 MCG/KG/MIN 8. 767 mls/hr IV .Q24H [facility] Rx#:[id number] propofoL 1,000 mg In 17.181 Empty Bag 1 bag @ Titrate IV .Q0M ROS[facility] Rx#: [id number] Albumin 250 Albumin 250 Output: Drainage 70 Bilateral Chest 20 Mediastinal 50 Urine 450 100 Estimated Blood Loss 900 Other: Voiding Method Indwelling Catheter Weight 76.7 kg ABP, PAP, CO, CI - Last 8 Hours Arterial Blood Pressure 95/47 Arterial Blood Pressure 100/52 Arterial Blood Pressure 93/48 Arterial Blood Pressure 88/46 Arterial Blood Pressure 87/46 Arterial Blood Pressure 96/47 Arterial Blood Pressure 112/52 Arterial Blood Pressure 85/43 Arterial Blood Pressure 109/50 Arterial Blood Pressure 107/51 Arterial Blood Pressure 106/52 Arterial Blood Pressure 124/55 Arterial Blood Pressure 113/53 Arterial Blood Pressure 112/53 Arterial Blood Pressure 116/55 Arterial Blood Pressure 119/59 Arterial Blood Pressure 114/55 Pulmonary Artery Pressure 60/29 Pulmonary Artery Pressure 66/35 Pulmonary Artery Pressure 59/30 Pulmonary Artery Pressure 58/29 Pulmonary Artery Pressure 57/28 Pulmonary Artery Pressure 59/28 Pulmonary Artery Pressure 61/30 Pulmonary Artery Pressure 54/28 Pulmonary Artery Pressure 60/29 Pulmonary Artery Pressure 56/28 Pulmonary Artery Pressure 56/29 Pulmonary Artery Pressure 65/30 Pulmonary Artery Pressure 63/29 Pulmonary Artery Pressure 64/30 Pulmonary Artery Pressure 67/34 Pulmonary Artery Pressure 71/32 Pulmonary Artery Pressure 72/33 Cardiac Output 5.1 Cardiac Output 5.1 Cardiac Output 5.1 Cardiac Output 4.6 Cardiac Output 4.1 Cardiac Output 3.9 Cardiac Index 2.9 Cardiac Index 2.9 Cardiac Index 2.9 Cardiac Index 2.6 Cardiac Index 2.7 Cardiac Index 2.2 Physical Exam: Revealed 77-year-old white male in no distress intubated and mechanically ventilated Head: Atraumatic, normocephalic HEENT:[Neck is supple.] [No neck masses.] [No thyromegaly.] [No JVD.] Chest: [Minimal fine crackles at the bases Cardiac Exam: [Normal S1 and S2, no S3 gallop, 3/6 systolic murmur thought the precordium Abdomen: [Soft, nontender, no megaly, no rebound, no guarding, normal bowel sounds.] Extremities: [No clubbing, no edema, no cyanosis.] Good pulses bilaterally Neurological Exam: Cannot be assessed patient is sedated Psychiatric: Could not be assessed patient is sedated Results - Laboratory Findings CBC and BMP: 03/10/23 16:00 03/10/23 13:32 ABG ABG pH 7.41 (7.35-7.45) 03/10/23 13:40 ABG pCO2 48 mmHg (35-45) H 03/10/23 13:40 ABG pO2 226 mmHg (83-108) H 03/10/23 13:40 ABG O2 Saturation 100.0 % (94-97) H 03/10/23 13:40 PT/INR, D-dimer PT 12.8 sec (9.0-12.0) H 03/10/23 13:32 INR 1.3 (<1.2) H 03/10/23 13:32 Abnormal lab findings: Abnormal Labs 03/05/23 03/10/23 03/10/23 09:03 06:16 08:45 RBC Hgb Hct Neutrophils # Lymphocytes # PT INR ABG pH 7.49 H ABG pCO2 ABG pO2 351 H ABG HCO3 29 H ABG Total CO2 30 H ABG O2 Saturation 100.0 H ABG Hematocrit 23 L ABG Ionized Calcium 4.3 L ABG Glucose 110 H ABG Lactic Acid 2.6 H* Hemoglobin 7.5 L BUN POC Glucose (mg/dL) 198 H Magnesium Alkaline Phosphatase Total Protein Albumin Arterial Blood Glucose 110 H Crossmatch See Detail 03/10/23 03/10/23 03/10/23 08:45 13:32 13:32 RBC 2.64 L Hgb 8.6 L D Hct 24.5 L Neutrophils # Lymphocytes # PT 12.8 H INR 1.3 H ABG pH 7.49 H ABG pCO2 ABG pO2 >420 H ABG HCO3 31 H ABG Total CO2 33 H ABG O2 Saturation 100.0 H ABG Hematocrit 24 L ABG Ionized Calcium 4.0 L ABG Glucose 151 H ABG Lactic Acid 2.4 H* Hemoglobin 7.9 L BUN POC Glucose (mg/dL) Magnesium Alkaline Phosphatase Total Protein Albumin Arterial Blood Glucose 151 H Crossmatch 03/10/23 03/10/23 03/10/23 13:32 13:40 16:00 RBC 2.42 L Hgb 7.9 L Hct 22.9 L Neutrophils # 8.2 H Lymphocytes # 0.8 L PT INR ABG pH ABG pCO2 48 H ABG pO2 226 H ABG HCO3 31 H ABG Total CO2 32 H ABG O2 Saturation 100.0 H ABG Hematocrit ABG Ionized Calcium ABG Glucose ABG Lactic Acid Hemoglobin BUN 46 H POC Glucose (mg/dL) Magnesium 2.8 H Alkaline Phosphatase 33 L Total Protein 5.2 L Albumin 3.4 L Arterial Blood Glucose Crossmatch 03/10/23 16:57 RBC Hgb Hct Neutrophils # Lymphocytes # PT INR ABG pH ABG pCO2 ABG pO2 ABG HCO3 ABG Total CO2 ABG O2 Saturation ABG Hematocrit ABG Ionized Calcium ABG Glucose ABG Lactic Acid Hemoglobin BUN POC Glucose (mg/dL) 136 H Magnesium Alkaline Phosphatase Total Protein Albumin Arterial Blood Glucose Crossmatch - Diagnostic Findings Chest x-ray: image reviewed (As noted in HPI) Assessment and Plan Assessment: Impression: Severe mitral regurgitation Status post mitral valve repair postoperative day #0 Chronic congestive heart failure with preserved LV function Benign essential hypertension Paroxysmal atrial fibrillation History of CVA following back surgery Type 2 diabetes without complications History of mild intermittent asthma History of flash pulmonary edema Recommendation: Continue ventilatory support Continue inotropic support for now. Continue hemodynamic support GI and DVT prophylaxis Will likely consider weaning and extubation in the next couple of hours. We'll continue to follow Time with Patient: Greater than 30
[2023-03-10 17:54] LABS: Glucose,Whole Blood 167 mg/dL (70-110)
[2023-03-10 18:34] LABS: ABG Base Excess -1.6 mmol/L; ABG HCO3 24 mmol/L (21-25); ABG Oxygen Saturation 96.6 % (94-97); ABG PCO2 47 mmHg (35-45); ABG PH 7.32 (7.35-7.45); ABG PO2 86 mmHg (83-108); ABG TCO2 26 mmol/L (19-24)
[2023-03-10 19:00] LABS: Glucose,Whole Blood 179 mg/dL (70-110)
[2023-03-10 19:48] LABS: Basophils % (A) 0 %; Eosinophils % (A) 0 %; HCT 23.2 % (39.0-53.0); HGB 7.8 gm/dL (13.0-17.5); Lymphocytes # (A) 0.5 k/uL (1.0-4.8); Lymphocytes % (A) 5 %; MCH 32.5 pg (25.0-35.0); MCHC 33.7 g/dL (31.0-37.0); MCV 96.3 fL (80.0-100.0); Mean Platelet Volume 9.1; Monocytes # (A) 0.5 k/uL (0-1.0); Monocytes % (A) 5 %; Neutrophils # (A) 8.7 k/uL (1.3-7.7); Neutrophils % (A) 89 %; Platelet Count 185 k/uL (150-450); Poikilocytosis Slight; RBC 2.41 m/uL (4.30-5.90); RDW 14.6 % (11.5-15.5); WBC 9.8 k/uL (3.8-10.6)
[2023-03-10 19:55] LABS: Glucose,Whole Blood 167 mg/dL (70-110)
--- NOTE | 2023-03-10 19:59 | OP ---
OPERATIVE REPORT DATE OF SERVICE : 03/10/2023 INSULATION MECHANIC SURGEON: Dr. Kelvin Metcalf. INSULATION MECHANIC: Mr. Attila knox NP. PREOPERATIVE DIAGNOSIS: Severe mitral regurgitation. POSTOPERATIVE DIAGNOSIS: Torn chordae tendinae to P2 of the posterior leaflet. PROCEDURES PERFORMED: Complex mitral valve repair with a #30 mm [employer] AnnuloFlex band, quadrangular resection of P2 of the posterior leaflet, closure of P2/P3 cleft, ring annuloplasty, and clip ligation of the left atrial appendage with a 35 mm AtriClip and intraoperative transesophageal echocardiogram. ANESTHESIA: General. BLOOD LOSS: 500 mL. DESCRIPTION OF PROCEDURE: The patient was brought to the operating room and placed in supine position. Following administration of general endotracheal anesthetic and placement of a [place]-Magda catheter, arterial line, adequate IV access, and Sarmiento catheter, the patient was carefully prepped and draped in normal sterile fashion using chlorhexidine paint and sterile towels. Midline incision in the chest was made. Sternum was divided. Pericardium was opened. The heart size was normal in caliber. The aorta was soft. The patient was heparinized to an ACT of greater than 480. The aorta and 2 single- stage venous cannulas were placed. Antegrade and retrograde cardioplegic catheters were positioned in the ascending aorta and the coronary sinus. The patient was placed on bypass. Crossclamp was placed. Heart was arrested with 1 L of antegrade followed by 500 mL of retrograde cardioplegia. The retrograde cardioplegia was delivered 300 to 500 mL at the end of each 20-minute interval. First, the base of the left atrial appendage was measured. A 35 mm AtriClip was secured at the base sufficiently obliterating the left atrial appendage. Next, the left atrium was entered at the junction of the right superior pulmonary vein. A handheld retractor was placed. Mitral valve was identified. There was torn chordae to P2 of the posterior leaflet. A quadrangular to triangular resection of P2 was performed. The edges were reapproximated using horizontal mattress 5-0 Prolene sutures followed by a 5-0 Prolene suture running up and down. At this point, 2-0 Ti-Cron nonpledgeted sutures were placed from [id number] along the posterior annulus. It sized to a 30 mm [employer] AnnuloFlex band. All sutures were passed through the band, which was then seated and seated well, and all sutures were secured, tied, and cut using the Cor-Knot ligature system device. A large cleft between P2 and P3 was closed with an interrupted horizontal mattress 5-0 Prolene suture. The left atrium was then closed in a double- layered pledgeted 4-0 Prolene vertical mattress followed by an [id number] stitch from both sites. The patient was placed head down. Complete de-airing maneuvers were performed 3 times. 1 L of warm blood retrograde cardioplegia was run. Crossclamp was removed. Once atrial and ventricular pacing wires were placed, the patient was paced DDD at 80, ventilated, de-aired, and brought off bypass. Came off bypass uneventfully on some Primacor and Levophed. Protamine was delivered. The patient was decannulated. Atrial and ventricular pacing wires had already been placed. Mediastinal chest tube and left and right pleural Kali drains were placed. At this point, the sternum was closed with a combination of #6 sternal wires and [id number] [place] sternal cable closure devices. Skin, subcutaneous tissue, and fascia were closed in 3 layers. No complications. The patient tolerated the procedure well and was taken to the cardiovascular intensive care unit in critical, but stable condition. Postoperative EVELYN showed excellent mitral valve function. No residual mitral regurgitation. No paravalvular leak. Good left and right ventricular function. MMODL / IJN: [id number] /
[2023-03-10] MEDS ORDERED: ALBUMIN HUMAN 5% 250 ML in EMPTY BAG 1 BAG IVPB ONE (20:10)
[2023-03-10] MEDS: VASOPRESSIN 60 UNIT in SODIUM CHLORIDE 0.9% 150 ML IV SCH (20:40)
[2023-03-10] MEDS: FLECAINIDE 50 MG TAB PO SCH (20:48)
[2023-03-10] MEDS: HYDROcodone/APAP 10-325MG 1 EACH TAB PO PRN ×2 (20:48→23:56)
[2023-03-10] MEDS: ATORVASTATIN 20 MG TAB PO SCH (20:48)
[2023-03-10] MEDS: SENNOSIDES-DOCUSATE SODIUM 1 EACH TAB PO SCH (20:49)
[2023-03-10 20:55] LABS: Glucose,Whole Blood 141 mg/dL (70-110)
[2023-03-10 22:00] LABS: Glucose,Whole Blood 126 mg/dL (70-110)
[2023-03-10 23:01] LABS: Glucose,Whole Blood 92 mg/dL (70-110)
[2023-03-11 00:15] LABS: Glucose,Whole Blood 137 mg/dL (70-110)
[2023-03-11 01:00] LABS: Glucose,Whole Blood 143 mg/dL (70-110)
[2023-03-11 02:04] LABS: Glucose,Whole Blood 129 mg/dL (70-110)
[2023-03-11 03:02] LABS: Glucose,Whole Blood 140 mg/dL (70-110)
[2023-03-11] MEDS: MILRINONE-D5W PMX 20 MG in DEXTROSE/WATER 1 100ML.BAG IV SCH ×2 (03:20→16:34)
[2023-03-11 03:59] LABS: Glucose,Whole Blood 114 mg/dL (70-110)
[2023-03-11 04:20] LABS: Basophils % (A) 0 %; Eosinophils % (A) 0 %; HCT 23.3 % (39.0-53.0); HGB 7.9 gm/dL (13.0-17.5); Lymphocytes # (A) 0.6 k/uL (1.0-4.8); Lymphocytes % (A) 8 %; MCH 32.5 pg (25.0-35.0); MCHC 33.8 g/dL (31.0-37.0); MCV 96.1 fL (80.0-100.0); Mean Platelet Volume 9.8; Monocytes # (A) 0.4 k/uL (0-1.0); Monocytes % (A) 4 %; Neutrophils % (A) 87 %; Platelet Count 159 k/uL (150-450); Poikilocytosis Slight; RBC 2.43 m/uL (4.30-5.90); RDW 14.7 % (11.5-15.5); WBC 8.1 k/uL (3.8-10.6)
[2023-03-11 04:22] LABS: Ionized Calcium 4.6 mg/dL (4.5-5.3)
[2023-03-11 04:31] LABS: ALT 16 U/L (4-49); AST 62 U/L (17-59); African American GFR (CKD) 60 (>60 ml/min/1.73 sqM); Albumin 4.1 g/dL (3.5-5.0); Alkaline Phosphatase 31 U/L (38-126); Anion Gap 11 mmol/L; Blood Urea Nitrogen 46 mg/dL (9-20); Calcium 8.3 mg/dL (8.4-10.2); Carbon Dioxide 24 mmol/L (22-30); Chloride 101 mmol/L (98-107); Glucose 101 mg/dL (74-99); Magnesium 2.3 mg/dL (1.6-2.3); Non-African American GFR(CKD) 52 (>60 ml/min/1.73 sqM); Potassium 4.9 mmol/L (3.5-5.1); Sodium 136 mmol/L (137-145); Total Bilirubin 0.9 mg/dL (0.2-1.3); Total Protein 5.8 g/dL (6.3-8.2)
[2023-03-11] MEDS: HYDROcodone/APAP 10-325MG 1 EACH TAB PO PRN ×3 (04:39→15:16)
[2023-03-11 05:21] LABS: Glucose,Whole Blood 142 mg/dL (70-110)
[2023-03-11 06:38] LABS: Glucose,Whole Blood 143 mg/dL (70-110)
--- NOTE | 2023-03-11 08:00 | P.PN ---
Subjective Progress Note Date: 03/11/23 Principal diagnosis: Severe mitral regurgitation with torn chordae to P2 of the posterior leaflet. Previous medical history of hypertension, hyperlipidemia, evidence of silent naveed cardial infarction in [address] Velazco, chronic heart failure with preserved EF, paroxysmal atrial fibrillation on Xarelto for anticoagulation, type 2 diabetes, previous tobacco dependence, severe restrictive lung disease, asthma, remote history of pneumonia, TIA in 2014, bilateral internal carotid stenosis 50-79% POD #1 complex mitral valve repair with #30 mm Carbo[employer]ics AnnuloFlex band, victor m drangular resection of P2 of the posterior leaflet, closure of P2/P3 cleft, ring annuloplasty, and clip ligation of left atrial appendage with a 35 mm AtriClip, intraoperative transesophageal echocardiogram performed by anesthesia Postoperative acute blood loss anemia, expected given hemodilution and heart cardiopulmonary bypass pump Hypotension, requiring vasopressor use, expected DENISSE, expected given hypotension The patient was seen and examined sitting up in the intensive care unit in no a cute distress. He was successfully extubated yesterday at 19:01. Currently AV paced at 80 bpm, with underlying rhythm sinus bradycardia in the low 50s. Marginal blood pressure, was on IV Primacor and levo last night which were weaned off, remains on IV vasopressin. Patient is maintained on flecainide which has been ordered and started last night per Dr. Velazco's wishes. States pain is controlled on current medication regimen, denies shortness of breath. Right internal jugular [place]/Cordis, right radial arterial line, mediastinal/right/left pleural chest tubes all present. Objective - Vital Signs Vital signs: Vital Signs Temp 99.0 F 03/10/23 18:00 Pulse 79 03/11/23 07:00 Resp 17 03/11/23 07:00 BP 110/59 03/11/23 06:00 Pulse Ox 94 L 03/11/23 07:00 FiO2 50 03/10/23 18:02 Intake & Output 03/10/23 03/11/23 03/11/23 18:59 06:59 18:59 Intake Total 249.418 7927.190 138 Output Total 1575 1095 40 Balance -603.239 799.190 98 Weight 78 kg Intake: IV 338 1188 138 Albumin 250 CO/CI fluid NS 0.9 180 20 LR 200 600 100 Pressure bags 36 108 18 ceFAZolin 2 gm In Sodium 50 50 Chloride 0.9% 50 ml @ 100 mls/hr IVPB Q8HR [facility] Rx# :[id number] Intake, IV Titration 133.761 206.190 Amount Dexmedetomidine/0.9% NaCl 22.851 0.384 (Pmx) 400 mcg In Empty Bag 1 bag @ Titrate IV . Q0M [facility] Rx#:[id number] Insulin Regular 100 unit 5.471 15.270 In Sodium Chloride 0.9% 100 ml @ Per Protocol IV .Q0M [facility] Rx#:[id number] Milrinone-D5w Pmx 20 mg 14.957 28.916 In Dextrose/Water 1 100ml .bag @ 0.3 MCG/KG/MIN 6. 903 mls/hr IV .[id number] [facility] Rx#:[id number] Norepinephrine 4 mg In 73.301 113.628 Sodium Chloride 0.9% 250 ml @ 0.03 MCG/KG/MIN 8. 767 mls/hr IV .Q24H [facility] Rx#:[id number] Vasopressin 60 unit In 47.992 Sodium Chloride 0.9% 150 ml @ 0.02 UNITS/MIN 3.06 mls/hr IV .Q24H [facility] Rx#: [id number] propofoL 1,000 mg In 17.181 Empty Bag 1 bag @ Titrate IV .Q0M [facility] Rx#: [id number] Oral 500 Albumin 500 Albumin 500 Output: Drainage 90 660 20 Bilateral Chest 20 100 0 Mediastinal 70 560 20 Urine 585 435 20 Estimated Blood Loss 900 Other: Voiding Method Indwelling Catheter Indwelling Catheter ABP, PAP, CO, CI - Last Documented Arterial Blood Pressure 95/49 Pulmonary Artery Pressure 62/21 Cardiac Output 4.3 Cardiac Index 2.5 - Exam CONSTITUTIONAL: Appears comfortable, cooperative, no acute distress RESPIRATORY: Lungs sounds diminished bilaterally. Respirations even, nonlabored. Currently on 5 LPM nasal cannula with oxygen saturation 95%. Able to achieve 500 mL on incentive spirometry. Weak cough. CARDIOVASCULAR: S1, S2 present. Regular rate and rhythm, AV paced on telemetry , underlying sinus celi in the low 50s. Sternum stable. Palpable peripheral pulses bilaterally. No edema present. No calf pain or tenderness noted. Heart hugger in place with patient demonstrating appropriate use. Antiembolism stockings, SCDs present. GASTROINTESTINAL: Abdomen soft, nontender, nondistended. Hypoactive bowel sounds present 4 quadrants, left upper quadrant tympanic to percussion. Tolerating minimal clear liquids. Positive flatus GENITOURINARY: Lopez present draining blood tinged urine. Output overnight 20- 60 mL per hour INTEGUMENTARY: Skin is warm and dry with evidence of good perfusion. Anterior chest incision well approximated and covered with dry intact dressing NEUROLOGIC: Cranial nerves II through XII intact MUSKULOSKELETAL: Able to move all extremities, strength equal bilaterally PSYCHIATRIC: Alert and oriented to person place and time, appropriate affect, intact judgment and insight INVASIVE LINES AND TUBES: Mediastinal/left/right pleural chest tubes present and connected to wall suction, no air leaks present. Mediastinal tube with 370 mL serosanguineous drainage overnight, 800 mL since surgery. Left/right pleural chest tubes with 40 mL serosanguineous drainage overnight, 400 mL since surgery. A/V epicardial pacemaker wires present, connected to generator, DDD mode with rate 80 bpm. Right internal jugular [place]/Cordis, right radial arterial line present. Last CO/CI 4.3/2.5, PA 66/24, CVP 20. - Allied health notes Allied health notes reviewed: nursing - Labs CBC & Chem 7: 03/11/23 04:00 03/11/23 04:00 Labs: Abnormal Lab Results - Last 24 Hours (Table) 03/05/23 03/10/23 03/10/23 Range/Units 09:03 08:45 08:45 RBC (4.30-5.90) m/uL Hgb (13.0-17.5) gm/dL Hct (39.0-53.0) % Neutrophils # (1.3-7.7) k/uL Lymphocytes # (1.0-4.8) k/uL PT (9.0-12.0) sec INR (<1.2) ABG pH 7.49 H 7.49 H (7.35-7.45) ABG pCO2 (35-45) mmHg ABG pO2 351 H >420 H (83-108) mmHg ABG HCO3 29 H 31 H (21-25) mmol/L ABG Total CO2 30 H 33 H (19-24) mmol/L ABG O2 Saturation 100.0 H 100.0 H (94-97) % ABG Hematocrit 23 L 24 L (34.0-46.0) % ABG Ionized Calcium 4.3 L 4.0 L (4.5-5.3) mg/dL ABG Glucose 110 H 151 H (75-99) mg/dL ABG Lactic Acid 2.6 H* 2.4 H* (0.5-1.6) mmol/L Hemoglobin 7.5 L 7.9 L (13.0-17.5) gm/dL Sodium (137-145) mmol/L BUN (9-20) mg/dL Creatinine (0.66-1.25) mg/dL Glucose (74-99) mg/dL POC Glucose (mg/dL) (70-110) mg/dL Calcium (8.4-10.2) mg/dL Magnesium (1.6-2.3) mg/dL AST (17-59) U/L Alkaline Phosphatase (38-126) U/L Total Protein (6.3-8.2) g/dL Albumin (3.5-5.0) g/dL Arterial Blood Glucose 110 H 151 H (75-99) mg/dL Crossmatch See Detail 03/10/23 03/10/23 03/10/23 Range/Units 13:32 13:32 13:32 RBC 2.64 L (4.30-5.90) m/uL Hgb 8.6 L D (13.0-17.5) gm/dL Hct 24.5 L (39.0-53.0) % Neutrophils # (1.3-7.7) k/uL Lymphocytes # (1.0-4.8) k/uL PT 12.8 H (9.0-12.0) sec INR 1.3 H (<1.2) ABG pH (7.35-7.45) ABG pCO2 (35-45) mmHg ABG pO2 (83-108) mmHg ABG HCO3 (21-25) mmol/L ABG Total CO2 (19-24) mmol/L ABG O2 Saturation (94-97) % ABG Hematocrit (34.0-46.0) % ABG Ionized Calcium (4.5-5.3) mg/dL ABG Glucose (75-99) mg/dL ABG Lactic Acid (0.5-1.6) mmol/L Hemoglobin (13.0-17.5) gm/dL Sodium (137-145) mmol/L BUN 46 H (9-20) mg/dL Creatinine (0.66-1.25) mg/dL Glucose (74-99) mg/dL POC Glucose (mg/dL) (70-110) mg/dL Calcium (8.4-10.2) mg/dL Magnesium 2.8 H (1.6-2.3) mg/dL AST (17-59) U/L Alkaline Phosphatase 33 L (38-126) U/L Total Protein 5.2 L (6.3-8.2) g/dL Albumin 3.4 L (3.5-5.0) g/dL Arterial Blood Glucose (75-99) mg/dL Crossmatch 03/10/23 03/10/23 03/10/23 Range/Units 13:40 16:00 16:57 RBC 2.42 L (4.30-5.90) m/uL Hgb 7.9 L (13.0-17.5) gm/dL Hct 22.9 L (39.0-53.0) % Neutrophils # 8.2 H (1.3-7.7) k/uL Lymphocytes # 0.8 L (1.0-4.8) k/uL PT (9.0-12.0) sec INR (<1.2) ABG pH (7.35-7.45) ABG pCO2 48 H (35-45) mmHg ABG pO2 226 H (83-108) mmHg ABG HCO3 31 H (21-25) mmol/L ABG Total CO2 32 H (19-24) mmol/L ABG O2 Saturation 100.0 H (94-97) % ABG Hematocrit (34.0-46.0) % ABG Ionized Calcium (4.5-5.3) mg/dL ABG Glucose (75-99) mg/dL ABG Lactic Acid (0.5-1.6) mmol/L Hemoglobin (13.0-17.5) gm/dL Sodium (137-145) mmol/L BUN (9-20) mg/dL Creatinine (0.66-1.25) mg/dL Glucose (74-99) mg/dL POC Glucose (mg/dL) 136 H (70-110) mg/dL Calcium (8.4-10.2) mg/dL Magnesium (1.6-2.3) mg/dL AST (17-59) U/L Alkaline Phosphatase (38-126) U/L Total Protein (6.3-8.2) g/dL Albumin (3.5-5.0) g/dL Arterial Blood Glucose (75-99) mg/dL Crossmatch 03/10/23 03/10/23 03/10/23 Range/Units 17:52 18:32 18:58 RBC (4.30-5.90) m/uL Hgb (13.0-17.5) gm/dL Hct (39.0-53.0) % Neutrophils # (1.3-7.7) k/uL Lymphocytes # (1.0-4.8) k/uL PT (9.0-12.0) sec INR (<1.2) ABG pH 7.32 L (7.35-7.45) ABG pCO2 47 H (35-45) mmHg ABG pO2 (83-108) mmHg ABG HCO3 (21-25) mmol/L ABG Total CO2 26 H (19-24) mmol/L ABG O2 Saturation (94-97) % ABG Hematocrit (34.0-46.0) % ABG Ionized Calcium (4.5-5.3) mg/dL ABG Glucose (75-99) mg/dL ABG Lactic Acid (0.5-1.6) mmol/L Hemoglobin (13.0-17.5) gm/dL Sodium (137-145) mmol/L BUN (9-20) mg/dL Creatinine (0.66-1.25) mg/dL Glucose (74-99) mg/dL POC Glucose (mg/dL) 167 H 179 H (70-110) mg/dL Calcium (8.4-10.2) mg/dL Magnesium (1.6-2.3) mg/dL AST (17-59) U/L Alkaline Phosphatase (38-126) U/L Total Protein (6.3-8.2) g/dL Albumin (3.5-5.0) g/dL Arterial Blood Glucose (75-99) mg/dL Crossmatch 03/10/23 03/10/23 03/10/23 Range/Units 19:33 19:54 20:54 RBC 2.41 L (4.30-5.90) m/uL Hgb 7.8 L (13.0-17.5) gm/dL Hct 23.2 L (39.0-53.0) % Neutrophils # 8.7 H (1.3-7.7) k/uL Lymphocytes # 0.5 L (1.0-4.8) k/uL PT (9.0-12.0) sec INR (<1.2) ABG pH (7.35-7.45) ABG pCO2 (35-45) mmHg ABG pO2 (83-108) mmHg ABG HCO3 (21-25) mmol/L ABG Total CO2 (19-24) mmol/L ABG O2 Saturation (94-97) % ABG Hematocrit (34.0-46.0) % ABG Ionized Calcium (4.5-5.3) mg/dL ABG Glucose (75-99) mg/dL ABG Lactic Acid (0.5-1.6) mmol/L Hemoglobin (13.0-17.5) gm/dL Sodium (137-145) mmol/L BUN (9-20) mg/dL Creatinine (0.66-1.25) mg/dL Glucose (74-99) mg/dL POC Glucose (mg/dL) 167 H 141 H (70-110) mg/dL Calcium (8.4-10.2) mg/dL Magnesium (1.6-2.3) mg/dL AST (17-59) U/L Alkaline Phosphatase (38-126) U/L Total Protein (6.3-8.2) g/dL Albumin (3.5-5.0) g/dL Arterial Blood Glucose (75-99) mg/dL Crossmatch 03/10/23 03/11/23 03/11/23 Range/Units 21:58 00:13 00:58 RBC (4.30-5.90) m/uL Hgb (13.0-17.5) gm/dL Hct (39.0-53.0) % Neutrophils # (1.3-7.7) k/uL Lymphocytes # (1.0-4.8) k/uL PT (9.0-12.0) sec INR (<1.2) ABG pH (7.35-7.45) ABG pCO2 (35-45) mmHg ABG pO2 (83-108) mmHg ABG HCO3 (21-25) mmol/L ABG Total CO2 (19-24) mmol/L ABG O2 Saturation (94-97) % ABG Hematocrit (34.0-46.0) % ABG Ionized Calcium (4.5-5.3) mg/dL ABG Glucose (75-99) mg/dL ABG Lactic Acid (0.5-1.6) mmol/L Hemoglobin (13.0-17.5) gm/dL Sodium (137-145) mmol/L BUN (9-20) mg/dL Creatinine (0.66-1.25) mg/dL Glucose (74-99) mg/dL POC Glucose (mg/dL) 126 H 137 H 143 H (70-110) mg/dL Calcium (8.4-10.2) mg/dL Magnesium (1.6-2.3) mg/dL AST (17-59) U/L Alkaline Phosphatase (38-126) U/L Total Protein (6.3-8.2) g/dL Albumin (3.5-5.0) g/dL Arterial Blood Glucose (75-99) mg/dL Crossmatch 03/11/23 03/11/23 03/11/23 Range/Units 02:02 03:01 03:58 RBC (4.30-5.90) m/uL Hgb (13.0-17.5) gm/dL Hct (39.0-53.0) % Neutrophils # (1.3-7.7) k/uL Lymphocytes # (1.0-4.8) k/uL PT (9.0-12.0) sec INR (<1.2) ABG pH (7.35-7.45) ABG pCO2 (35-45) mmHg ABG pO2 (83-108) mmHg ABG HCO3 (21-25) mmol/L ABG Total CO2 (19-24) mmol/L ABG O2 Saturation (94-97) % ABG Hematocrit (34.0-46.0) % ABG Ionized Calcium (4.5-5.3) mg/dL ABG Glucose (75-99) mg/dL ABG Lactic Acid (0.5-1.6) mmol/L Hemoglobin (13.0-17.5) gm/dL Sodium (137-145) mmol/L BUN (9-20) mg/dL Creatinine (0.66-1.25) mg/dL Glucose (74-99) mg/dL POC Glucose (mg/dL) 129 H 140 H 114 H (70-110) mg/dL Calcium (8.4-10.2) mg/dL Magnesium (1.6-2.3) mg/dL AST (17-59) U/L Alkaline Phosphatase (38-126) U/L Total Protein (6.3-8.2) g/dL Albumin (3.5-5.0) g/dL Arterial Blood Glucose (75-99) mg/dL Crossmatch 03/11/23 03/11/23 03/11/23 Range/Units 04:00 04:00 05:20 RBC 2.43 L (4.30-5.90) m/uL Hgb 7.9 L (13.0-17.5) gm/dL Hct 23.3 L (39.0-53.0) % Neutrophils # (1.3-7.7) k/uL Lymphocytes # 0.6 L (1.0-4.8) k/uL PT (9.0-12.0) sec INR (<1.2) ABG pH (7.35-7.45) ABG pCO2 (35-45) mmHg ABG pO2 (83-108) mmHg ABG HCO3 (21-25) mmol/L ABG Total CO2 (19-24) mmol/L ABG O2 Saturation (94-97) % ABG Hematocrit (34.0-46.0) % ABG Ionized Calcium (4.5-5.3) mg/dL ABG Glucose (75-99) mg/dL ABG Lactic Acid (0.5-1.6) mmol/L Hemoglobin (13.0-17.5) gm/dL Sodium 136 L (137-145) mmol/L BUN 46 H (9-20) mg/dL Creatinine 1.34 H (0.66-1.25) mg/dL Glucose 101 H (74-99) mg/dL POC Glucose (mg/dL) 142 H (70-110) mg/dL Calcium 8.3 L (8.4-10.2) mg/dL Magnesium (1.6-2.3) mg/dL AST 62 H (17-59) U/L Alkaline Phosphatase 31 L (38-126) U/L Total Protein 5.8 L (6.3-8.2) g/dL Albumin (3.5-5.0) g/dL Arterial Blood Glucose (75-99) mg/dL Crossmatch 03/11/23 Range/Units 06:35 RBC (4.30-5.90) m/uL Hgb (13.0-17.5) gm/dL Hct (39.0-53.0) % Neutrophils # (1.3-7.7) k/uL Lymphocytes # (1.0-4.8) k/uL PT (9.0-12.0) sec INR (<1.2) ABG pH (7.35-7.45) ABG pCO2 (35-45) mmHg ABG pO2 (83-108) mmHg ABG HCO3 (21-25) mmol/L ABG Total CO2 (19-24) mmol/L ABG O2 Saturation (94-97) % ABG Hematocrit (34.0-46.0) % ABG Ionized Calcium (4.5-5.3) mg/dL ABG Glucose (75-99) mg/dL ABG Lactic Acid (0.5-1.6) mmol/L Hemoglobin (13.0-17.5) gm/dL Sodium (137-145) mmol/L BUN (9-20) mg/dL Creatinine (0.66-1.25) mg/dL Glucose (74-99) mg/dL POC Glucose (mg/dL) 143 H (70-110) mg/dL Calcium (8.4-10.2) mg/dL Magnesium (1.6-2.3) mg/dL AST (17-59) U/L Alkaline Phosphatase (38-126) U/L Total Protein (6.3-8.2) g/dL Albumin (3.5-5.0) g/dL Arterial Blood Glucose (75-99) mg/dL Crossmatch - Imaging and Cardiology Chest x-ray: image reviewed Assessment and Plan Assessment: Severe mitral regurgitation with torn chordae to P2 of the posterior leaflet, S /P complex mitral valve repair with #30 mm [employer] AnnuloFlex band, quadrangular resection of P2 of the posterior leaflet, closure of P2/P3 cleft, ring annuloplasty History of hypertension, currently hypotensive on pressors Hyperlipidemia, treated, cholesterol 122, LDL 52 Evidence of silent myocardial infarction in [address] Velazco Chronic heart failure with preserved EF 50-55% Paroxysmal atrial fibrillation on Xarelto for anticoagulation, S/P clip ligation of left atrial appendage with a 35 mm AtriClip Type 2 diabetes, hemaglobin A1c 7.5% Previous tobacco dependence Severe restrictive lung disease, preoperative FEV1 44% of predicted on full PFT Asthma Remote history of pneumonia TIA in 2014 Bilateral internal carotid stenosis 50-79% Postoperative acute blood loss anemia, expected DENISSE, expected given hypotension Plan: Continue to maximize medical therapy with aspirin, statin, Plavix. Will start beta gisell when able. Continue to pace at 80 bpm Continue flecainide for history of paroxysmal atrial fibrillation. No anticoagulation until discharge Wean vaso as tolerated Wean oxygen as tolerated. Encourage incentive spirometry 10 times every hour while awake. Bronchodilators per pulmonology Will monitor daily labs, CXR. Electrolyte replacement per protocol Increase activity as tolerated. PT/OT/cardiac rehab consulted GI/DVT prophylaxis Insulin management per internal medicine. Patient should remain on insulin gtt for 48 hours then change to subq insulin Pain control with current medication regimen. No Toradol due to DENISSE Continue [place]/cordis for now Continue chest tubes for another 24 hours, monitor output Continue lopez catheter for another 24 hours for strict accurate I/O More recommendations to follow based on patient's progress
[2023-03-11] MEDS: HEPARIN SODIUM,PORCINE 5,000 UNIT/ML 1 ML VIAL SQ SCH ×2 (08:08→16:55)
[2023-03-11] MEDS: CYANOCOBALAMIN 500 MCG TAB PO SCH (08:08)
[2023-03-11] MEDS: CHOLECALCIFEROL 25 MCG (1000 IU) TABLET PO SCH (08:08)
[2023-03-11] MEDS: FLECAINIDE 50 MG TAB PO SCH ×2 (08:08→20:17)
[2023-03-11] MEDS: ASPIRIN 325 MG TAB PO SCH (08:08)
[2023-03-11] MEDS: CLOPIDOGREL 75 MG TAB PO SCH (08:08)
--- NOTE | 2023-03-11 08:15 | XR ---
EXAMINATION TYPE: XR chest 1V portable DATE OF EXAM: 03/11/2023 COMPARISON: 03/20/2023 HISTORY: Postop FINDINGS: There are bilateral pleural effusions with cardiomegaly and bibasilar infiltrate. There is a diffuse interstitial pattern. Postsurgical changes are seen in [place] catheter and mediastinal drains stable. Prominent bowel lo ops in the upper abdomen. No sizable pneumothorax. ET tube has been removed. Metallic density in the subcutaneous tissues of the left axilla could represent a foreign body. IMPRESSION: 1. Bilateral consolidation small effusion or liquid ingestion. Findings stable.
[2023-03-11] MEDS: IPRATROPIUM-ALBUTEROL 3 ML NEB INHALATION SCH ×4 (08:22→20:03)
[2023-03-11 08:44] LABS: Glucose,Whole Blood 243 mg/dL (70-110)
--- NOTE | 2023-03-11 08:48 | P.CONS ---
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 Patient had a recent hospitalization at which time he presented with flash pulmonary edema and acute respiratory failure with pulse ox of 60% requiring BiPAP. He was previously admitted to the hospital on 02/14 underwent cardiac catheterization that revealed mild 20-30% diffuse disease in the distal LAD. Otherwise minimal luminal irregularities with no obstructive disease. Normal left-sided filling pressures. EVELYN revealed severe mitral regurgitation with P2 prolapse and restricted posterior mitral leaflet causing eccentric anteriorly directed jet. Patient has been seen by cardiothoracic surgery and brought in on this admission status post complex mitral valve repair. Patient is seen today in the intensive care unit postop currently intubated and on mechanical ventilation. Blood pressure is stable 107/58, heart rate is in the 80s. REVIEW OF SYSTEMS (Able to obtain due to intubation) Constitutional: No fever, no chills, no night sweats. No weight change. No weakness, fatigue or lethargy. No daytime sleepiness. EENT: No headache. No blurred vision or double vision, no loss of vision. No loss of Hearing, no ringing in the ears, no dizziness. No nasal drainage or congestion. No epistaxis. No sore throat. Lungs: No shortness of breath, cough, no sputum production. No wheezing. Cardiovascular: Denies chest pain, no lower extremity edema. No palpitations. No paroxysmal nocturnal dyspnea. Reports orthopnea. No lightheadedness or dizziness. No syncopal episodes. Abdominal: No abdominal pain. No nausea, vomiting. No diarrhea. No constipation. No bloody or tarry stools. No loss of appetite. Genitourinary: No dysuria, increased frequency, urgency. No urinary retention. Musculoskeletal: No myalgias. No muscle weakness, no gait dysfunction, no frequent falls. No back pain. No neck pain. Integumentary: No wounds, no lesions. No rash or pruritus. No unusual bruising. No change in hair or nails. Neurologic: No aphasia. No facial droop. No change in mentation. No head injury. No headache. No paralysis. No paresthesia. Psychiatric: No depression. No anxiety. No mood swings. Endocrine: No abnormal blood sugars. No weight change. No excessive sweating or thirst. No cold intolerance. 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 Otherwise no obstructive disease. SOCIAL HISTORY Patient is not an active smoker. He has rare alcohol intake. Patient was at home with his . FAMILY HISTORY Father at age 75 from heart failure with history of diabetes. Mother at age 71 from cervical cancer. Brother at age 64 from cirrhosis of the liver. Oldest brother is 82 with history of diabetes. Third brother is age 77 with diabetes. Patient has a son at age 27 from a motorcycle accident. Patient has one daughter with no major medical problems. PHYSICAL EXAMINATION Gen: This is a 77-year-old male. He is resting on ICU bed and appears to be comfortable and in no acute distress HEENT: Head is atraumatic, normocephalic. Pupils equal, round. Sclerae is anicteric. NECK: Supple. No JVD. No lymphadenopathy. Right-sided Edmore/Cordis in place LUNGS: Diminished. No wheezes or rhonchi. No intercostal retractions. HEART: Regular rate and rhythm. 2/6 systolic murmur. Mediastinal right and left pleural chest tubes in place. ABDOMEN: Soft. Bowel sounds are present. No masses. No tenderness. Sarmiento catheter with blood brown urine. EXTREMITIES: No pedal edema. No calf tenderness. NEUROLOGICAL: Patient is awake, alert and oriented x3. Cranial nerves 2 through 12 are grossly intact. ASSESSMENT AND PLAN 1. Severe mitral regurgitation status post mitral valve repair. Continue patient on aspirin 325 mg daily, atorvastatin 20 mg daily, Plavix 75 mg daily, flecainide 50 mg every 12 hours, continue Westhoff as needed for pain control, cont inue DuoNeb treatments 4 times daily, Lopressor 12.5 mg twice daily 2. Recent hospitalization for flash pulmonary edema, stable. 3. Diabetes mellitus type 2. Continue insulin drip. 4. Paroxysmal atrial fibrillation. Hold Xarelto. Continue metoprolol tartrate 12.5 mg oral twice daily, flecainide 50 mg every 12 hours. 5. Mild intermittent asthma, stable. Continue DuoNeb treatments 4 times daily. 6. Hypertension. Continue metoprolol tartrate 12.5 mg twice daily. 7. Hyperlipidemia. Continue atorvastatin 20 mg at bedtime. 8. History of CVA. Xarelto. 9. Vitamin D deficiency. DISCHARGE PLAN To be determined. Impression and plan of care have been directed as dictated by the signing physician. Cassia Sanon nurse practitioner acting as scribe for signing physician. Past Medical History Past Medical History: Atrial Fibrillation, Asthma, Chest Pain / Angina, Heart Failure, CVA/TIA, Diabetes Mellitus, Hyperlipidemia, Hypertension, Myocardial Infarction ([place]) Additional Past Medical History / Comment(s): mitral valve regurgitation,mild chest pressure,diastolic heart failure, hx 2014 had TIA-minimum peripheral vision loss, herniated disks in back,mason arm fx's Last Myocardial Infarction Date:: 2013 History of Any Multi-Drug Resistant Organisms: None Reported Past Surgical History: Appendectomy, Heart Catheterization, Orthopedic Surgery Additional Past Surgical History / Comment(s): EVELYN, ORIF left forearm, repair, bilateral knee surgery,hardware rt knee, right hip bone graft. Colonoscopy with polp removal. lumbar fusion Past Anesthesia/Blood Transfusion Reactions: Previous Problems w/ Anesthesia Additional Past Anesthesia/Blood Transfusion Reaction / Comm: Becomes combative with anesthesia.No hx blood transfusion Smoking Status: Former smoker - Past Family History Father Family Medical History: Congestive Heart Failure (CHF), Coronary Artery Disease (CAD), Diabetes Mellitus Additional Family Medical History / Comment(s): at age 75 Mother Family Medical History: Cancer Additional Family Medical History / Comment(s): cervical cancer Brother(s) Family Medical History: Cancer Additional Family Medical History / Comment(s): liver and prostrate cancer. Medications and Allergies Home Medications Medication Instructions Recorded Confirmed Type Albuterol Inhaler [Ventolin Hfa 1 puff INHALATION RT-Q4H PRN 10/07/14 03/10/23 History Inhaler] Flecainide [Tambocor] 50 mg PO Q12HR #60 tab 10/09/14 03/10/23 Rx Atorvastatin [Lipitor] 20 mg PO W/SUPPER 12/13/15 03/10/23 History Losartan [Cozaar] 50 mg PO W/SUPPER 12/13/15 03/10/23 History Glimepiride [Amaryl] 1 mg PO DAILY 02/13/23 03/10/23 History Pioglitazone [Actos] 30 mg PO DAILY 02/13/23 03/10/23 History Rivaroxaban [Xarelto] 20 mg PO W/SUPPER 02/13/23 03/05/23 History Isosorbide Mononitrate ER [Imdur] 15 mg PO QAM 02/18/23 03/10/23 History Furosemide [Lasix] 40 mg PO DAILY #30 tab 02/21/23 03/10/23 Rx Metoprolol Tartrate [Lopressor] 25 mg PO BID #60 tab 02/21/23 03/10/23 Rx Cholecalciferol [Vitamin D3 (25 25 mcg PO DAILY 03/05/23 03/10/23 History Mcg = 1000 Iu)] Cyanocobalamin (Vitamin B-12) 1,000 mcg PO DAILY 03/05/23 03/10/23 History [Vitamin B-12] metFORMIN HCL ER [Glucophage XR] 750 mg PO BID 03/05/23 03/10/23 History metOLazone [Zaroxolyn] 2.5 mg PO MOWEFR 03/05/23 03/10/23 History terbinafine HCL 250 mg PO DAILY 03/05/23 03/10/23 History Allergies Allergy/AdvReac Type Severity Reaction Status Date / Time No Known Allergies Allergy Verified 03/10/23 06:04 Physical Exam Vitals: Vital Signs Temp Pulse Pulse Resp BP BP BP 03/10/23 15:11 03/10/23 14:40 80 12 03/10/23 14:30 99.3 F 80 12 107/58 03/10/23 14:20 80 12 03/10/23 14:10 80 12 03/10/23 14:00 80 12 03/10/23 13:55 80 12 03/10/23 13:50 80 12 03/10/23 13:48 80 12 03/10/23 13:46 03/10/23 13:40 80 12 03/10/23 13:30 80 12 03/10/23 13:19 03/10/23 05:56 96.7 F L 72 18 122/62 120/61 Pulse Ox FiO2 03/10/23 15:11 50 03/10/23 14:40 97 03/10/23 14:30 92 L 03/10/23 14:20 96 03/10/23 14:10 97 03/10/23 14:00 98 60 03/10/23 13:55 03/10/23 13:50 03/10/23 13:48 03/10/23 13:46 60 03/10/23 13:40 03/10/23 13:30 100 03/10/23 13:19 100 03/10/23 05:56 96 Intake and Output 03/10/23 03/10/23 03/10/23 06:59 14:59 22:59 Intake Total 100 56.289 30.609 Output Total 1350 Balance 100 -1293.711 30.609 Intake: IV 100 52 Intake, IV Titration 4.289 30.609 Amount Dexmedetomidine/0.9% NaCl 0.959 (Pmx) 400 mcg In Empty Bag 1 bag @ Titrate IV . Q0M ROSMERY Rx#:[id number] Insulin Regular 100 unit 2.828 In Sodium Chloride 0.9% 100 ml @ Per Protocol IV .Q0M ROSMERY Rx#:[id number] Norepinephrine 4 mg In 1.461 12.469 Sodium Chloride 0.9% 250 ml @ 0.03 MCG/KG/MIN 8. 767 mls/hr IV .Q24H ROSMERY Rx#:[id number] propofoL 1,000 mg In 17.181 Empty Bag 1 bag @ Titrate IV .Q0M ROSMERY Rx#: [id number] Output: Urine 450 Estimated Blood Loss 900 Other: Weight 76.7 kg ABP, PAP, CO, CI - Last 8 Hours Arterial Blood Pressure 106/52 Arterial Blood Pressure 124/55 Arterial Blood Pressure 113/53 Arterial Blood Pressure 112/53 Arterial Blood Pressure 116/55 Arterial Blood Pressure 119/59 Arterial Blood Pressure 114/55 Pulmonary Artery Pressure 56/29 Pulmonary Artery Pressure 65/30 Pulmonary Artery Pressure 63/29 Pulmonary Artery Pressure 64/30 Pulmonary Artery Pressure 67/34 Pulmonary Artery Pressure 71/32 Pulmonary Artery Pressure 72/33 Cardiac Output 4.1 Cardiac Output 3.9 Cardiac Index 2.7 Cardiac Index 2.2 Results CBC & Chem 7: 03/11/23 04:00 03/11/23 04:00 Labs: Abnormal Lab Results - Last 24 Hours (Table) 03/05/23 03/10/23 03/10/23 Range/Units 09:03 06:16 08:45 RBC (4.30-5.90) m/uL Hgb (13.0-17.5) gm/dL Hct (39.0-53.0) % PT (9.0-12.0) sec INR (<1.2) ABG pH 7.49 H (7.35-7.45) ABG pCO2 (35-45) mmHg ABG pO2 351 H (83-108) mmHg ABG HCO3 29 H (21-25) mmol/L ABG Total CO2 30 H (19-24) mmol/L ABG O2 Saturation 100.0 H (94-97) % ABG Hematocrit 23 L (34.0-46.0) % ABG Ionized Calcium 4.3 L (4.5-5.3) mg/dL ABG Glucose 110 H (75-99) mg/dL ABG Lactic Acid 2.6 H* (0.5-1.6) mmol/L Hemoglobin 7.5 L (13.0-17.5) gm/dL BUN (9-20) mg/dL POC Glucose (mg/dL) 198 H (70-110) mg/dL Magnesium (1.6-2.3) mg/dL Alkaline Phosphatase (38-126) U/L Total Protein (6.3-8.2) g/dL Albumin (3.5-5.0) g/dL Arterial Blood Glucose 110 H (75-99) mg/dL Crossmatch See Detail 03/10/23 03/10/23 03/10/23 Range/Units 08:45 13:32 13:32 RBC 2.64 L (4.30-5.90) m/uL Hgb 8.6 L D (13.0-17.5) gm/dL Hct 24.5 L (39.0-53.0) % PT 12.8 H (9.0-12.0) sec INR 1.3 H (<1.2) ABG pH 7.49 H (7.35-7.45) ABG pCO2 (35-45) mmHg ABG pO2 >420 H (83-108) mmHg ABG HCO3 31 H (21-25) mmol/L ABG Total CO2 33 H (19-24) mmol/L ABG O2 Saturation 100.0 H (94-97) % ABG Hematocrit 24 L (34.0-46.0) % ABG Ionized Calcium 4.0 L (4.5-5.3) mg/dL ABG Glucose 151 H (75-99) mg/dL ABG Lactic Acid 2.4 H* (0.5-1.6) mmol/L Hemoglobin 7.9 L (13.0-17.5) gm/dL BUN (9-20) mg/dL POC Glucose (mg/dL) (70-110) mg/dL Magnesium (1.6-2.3) mg/dL Alkaline Phosphatase (38-126) U/L Total Protein (6.3-8.2) g/dL Albumin (3.5-5.0) g/dL Arterial Blood Glucose 151 H (75-99) mg/dL Crossmatch 03/10/23 03/10/23 Range/Units 13:32 13:40 RBC (4.30-5.90) m/uL Hgb (13.0-17.5) gm/dL Hct (39.0-53.0) % PT (9.0-12.0) sec INR (<1.2) ABG pH (7.35-7.45) ABG pCO2 48 H (35-45) mmHg ABG pO2 226 H (83-108) mmHg ABG HCO3 31 H (21-25) mmol/L ABG Total CO2 32 H (19-24) mmol/L ABG O2 Saturation 100.0 H (94-97) % ABG Hematocrit (34.0-46.0) % ABG Ionized Calcium (4.5-5.3) mg/dL ABG Glucose (75-99) mg/dL ABG Lactic Acid (0.5-1.6) mmol/L Hemoglobin (13.0-17.5) gm/dL BUN 46 H (9-20) mg/dL POC Glucose (mg/dL) (70-110) mg/dL Magnesium 2.8 H (1.6-2.3) mg/dL Alkaline Phosphatase 33 L (38-126) U/L Total Protein 5.2 L (6.3-8.2) g/dL Albumin 3.4 L (3.5-5.0) g/dL Arterial Blood Glucose (75-99) mg/dL Crossmatch
--- NOTE | 2023-03-11 08:52 | P.PN ---
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 Patient had a recent hospitalization at which time he presented with flash pulmonary edema and acute respiratory failure with pulse ox of 60% requiring BiPAP. He was previously admitted to the hospital on 02/14 underwent cardiac catheterization that revealed mild 20-30% diffuse disease in the distal LAD. Otherwise minimal luminal irregularities with no obstructive disease. Normal left-sided filling pressures. EVELYN revealed severe mitral regurgitation with P2 prolapse and restricted posterior mitral leaflet causing eccentric anteriorly directed jet. Patient has been seen by cardiothoracic surgery and brought in on this admission status post complex mitral valve repair. Patient is seen today in the intensive care unit postop currently intubated and on mechanical ventilation. Blood pressure is stable 107/58, heart rate is in the 80s. 03/11: Patient has been successfully extubated. Patient is seen today in the ICU, patient resting in a recliner. He has had a small amount of clear liquids this morning. He is obtaining 500 ML's on incentive spirometry. He does state he has a little headache today, mild chest discomfort. Patient is on had a bowel movement. Reglan and suppository plan for today. He remains on insulin drip with blood sugars running between 114 and 243. REVIEW OF SYSTEMS Constitutional: No fever, no chills, no night sweats. No weight change. No weakness, + fatigue no lethargy. No daytime sleepiness. EENT: No headache. No blurred vision or double vision, no loss of vision. No loss of Hearing, no ringing in the ears, no dizziness. No nasal drainage or congestion. No epistaxis. No sore throat. Lungs: No shortness of breath, cough, no sputum production. No wheezing. Cardiovascular: Denies chest pain, mild lower extremity edema. No palpitations. No paroxysmal nocturnal dyspnea. Reports orthopnea. No lightheadedness or dizziness. No syncopal episodes. Abdominal: No abdominal pain. No nausea, vomiting. No diarrhea. No constipation. No bloody or tarry stools. + loss of appetite. Genitourinary: No dysuria, increased frequency, urgency. No urinary retention- Sarmiento. +hematuria. Musculoskeletal: No myalgias. No muscle weakness, no gait dysfunction, no frequent falls. No back pain. No neck pain. Integumentary: No wounds, no lesions. No rash or pruritus. No unusual bruising. No change in hair or nails. Neurologic: No aphasia. No facial droop. No change in mentation. No head injury. No headache. No paralysis. No paresthesia. Psychiatric: No depression. No anxiety. No mood swings. Endocrine: No abnormal blood sugars. No weight change. No excessive sweating or thirst. No cold intolerance. PHYSICAL EXAMINATION Gen: This is a 77-year-old male. He is resting in recliner in ICU a nd appears to be comfortable and in no acute distress HEENT: Head is atraumatic, normocephalic. Pupils equal, round. Sclerae is anicteric. NECK: Supple. No JVD. No lymphadenopathy. Right-sided [place] in place LUNGS: Diminished. No wheezes or rhonchi. No intercostal retractions. HEART: Regular rate and rhythm. 2/6 systolic murmur. Mediastinal right and left pleural chest tubes in place. ABDOMEN: Soft. Bowel sounds are present. No masses. No tenderness. Sarmiento catheter with blood brown urine. EXTREMITIES: No pedal edema. No calf tenderness. NEUROLOGICAL: Patient is awake, alert and oriented x3. Cranial nerves 2 through 12 are grossly intact. ASSESSMENT AND PLAN 1. Severe mitral regurgitation status post mitral valve repair, postoperative day #1. Continue patient on aspirin 325 mg daily, atorvastatin 20 mg daily, Plavix 75 mg daily, flecainide 50 mg every 12 hours, continue [place] as needed for pain control, continue DuoNeb treatments 4 times daily, Lopressor 12.5 mg twice daily 2. Recent hospitalization for flash pulmonary edema, stable. 3. Diabetes mellitus type 2. Continue insulin drip. 4. Paroxysmal atrial fibrillation. Hold Xarelto. Continue metoprolol tartrate 12.5 mg oral twice daily, flecainide 50 mg every 12 hours. 5. Mild intermittent asthma, stable. Continue DuoNeb treatments 4 times daily. 6. Hypertension. Continue metoprolol tartrate 12.5 mg twice daily. 7. Hyperlipidemia. Continue atorvastatin 20 mg at bedtime. 8. History of CVA. Xarelto. 9. Vitamin D deficiency. 10. Hematuria. Continue Sarmiento catheter. DISCHARGE PLAN To be determined. Impression and plan of care have been directed as dictated by the signing ph ysician. Cassia Sanon nurse practitioner acting as scribe for signing physician. Objective - Vital Signs Vital signs: Vital Signs Temp 99.0 F 03/10/23 18:00 Pulse 79 03/11/23 07:00 Resp 17 03/11/23 07:00 BP 110/59 03/11/23 06:00 Pulse Ox 94 L 03/11/23 07:00 FiO2 50 03/10/23 18:02 Intake & Output 03/10/23 03/11/23 03/11/23 18:59 06:59 18:59 Intake Total 755.147 3803.190 141.927 Output Total 1575 1095 40 Balance -603.239 799.190 101.927 Weight 78 kg Intake: IV 338 1188 138 Albumin 250 CO/CI fluid NS 0.9 180 20 LR 200 600 100 Pressure bags 36 108 18 ceFAZolin 2 gm In Sodium 50 50 Chloride 0.9% 50 ml @ 100 mls/hr IVPB Q8HR ROSM[facility] Rx# :[id number] Intake, IV Titration 133.761 206.190 3.927 Amount Dexmedetomidine/0.9% NaCl 22.851 0.384 (Pmx) 400 mcg In Empty Bag 1 bag @ Titrate IV . Q0M [facility] Rx#:[id number] Insulin Regular 100 unit 5.471 15.270 In Sodium Chloride 0.9% 100 ml @ Per Protocol IV .Q0M ROS[facility] Rx#:[id number] Milrinone-D5w Pmx 20 mg 14.957 28.916 In Dextrose/Water 1 100ml .bag @ 0.3 MCG/KG/MIN 6. 903 mls/hr IV .[id number] [facility] Rx#:[id number] Norepinephrine 4 mg In 73.301 113.628 Sodium Chloride 0.9% 250 ml @ 0.03 MCG/KG/MIN 8. 767 mls/hr IV .Q24H [facility] Rx#:[id number] Vasopressin 60 unit In 47.992 3.927 Sodium Chloride 0.9% 150 ml @ 0.02 UNITS/MIN 3.06 mls/hr IV .Q24H [facility] Rx#: [id number] propofoL 1,000 mg In 17.181 Empty Bag 1 bag @ Titrate IV .Q0M [facility] Rx#: [id number] Oral 500 Albumin 500 Albumin 500 Output: Drainage 90 660 20 Bilateral Chest 20 100 0 Mediastinal 70 560 20 Urine 585 435 20 Estimated Blood Loss 900 Other: Voiding Method Indwelling Catheter Indwelling Catheter ABP, PAP, CO, CI - Last Documented Arterial Blood Pressure 95/49 Pulmonary Artery Pressure 62/21 Cardiac Output 4.3 Cardiac Index 2.5 - Labs CBC & Chem 7: 03/11/23 04:00 03/11/23 04:00 Labs: Abnormal Lab Results - Last 24 Hours (Table) 03/05/23 03/10/23 03/10/23 Range/Units 09:03 08:45 08:45 RBC (4.30-5.90) m/uL Hgb (13.0-17.5) gm/dL Hct (39.0-53.0) % Neutrophils # (1.3-7.7) k/uL Lymphocytes # (1.0-4.8) k/uL PT (9.0-12.0) sec INR (<1.2) ABG pH 7.49 H 7.49 H (7.35-7.45) ABG pCO2 (35-45) mmHg ABG pO2 351 H >420 H (83-108) mmHg ABG HCO3 29 H 31 H (21-25) mmol/L ABG Total CO2 30 H 33 H (19-24) mmol/L ABG O2 Saturation 100.0 H 100.0 H (94-97) % ABG Hematocrit 23 L 24 L (34.0-46.0) % ABG Ionized Calcium 4.3 L 4.0 L (4.5-5.3) mg/dL ABG Glucose 110 H 151 H (75-99) mg/dL ABG Lactic Acid 2.6 H* 2.4 H* (0.5-1.6) mmol/L Hemoglobin 7.5 L 7.9 L (13.0-17.5) gm/dL Sodium (137-145) mmol/L BUN (9-20) mg/dL Creatinine (0.66-1.25) mg/dL Glucose (74-99) mg/dL POC Glucose (mg/dL) (70-110) mg/dL Calcium (8.4-10.2) mg/dL Magnesium (1.6-2.3) mg/dL AST (17-59) U/L Alkaline Phosphatase (38-126) U/L Total Protein (6.3-8.2) g/dL Albumin (3.5-5.0) g/dL Arterial Blood Glucose 110 H 151 H (75-99) mg/dL Crossmatch See Detail 03/10/23 03/10/23 03/10/23 Range/Units 13:32 13:32 13:32 RBC 2.64 L (4.30-5.90) m/uL Hgb 8.6 L D (13.0-17.5) gm/dL Hct 24.5 L (39.0-53.0) % Neutrophils # (1.3-7.7) k/uL Lymphocytes # (1.0-4.8) k/uL PT 12.8 H (9.0-12.0) sec INR 1.3 H (<1.2) ABG pH (7.35-7.45) ABG pCO2 (35-45) mmHg ABG pO2 (83-108) mmHg ABG HCO3 (21-25) mmol/L ABG Total CO2 (19-24) mmol/L ABG O2 Saturation (94-97) % ABG Hematocrit (34.0-46.0) % ABG Ionized Calcium (4.5-5.3) mg/dL ABG Glucose (75-99) mg/dL ABG Lactic Acid (0.5-1.6) mmol/L Hemoglobin (13.0-17.5) gm/dL Sodium (137-145) mmol/L BUN 46 H (9-20) mg/dL Creatinine (0.66-1.25) mg/dL Glucose (74-99) mg/dL POC Glucose (mg/dL) (70-110) mg/dL Calcium (8.4-10.2) mg/dL Magnesium 2.8 H (1.6-2.3) mg/dL AST (17-59) U/L Alkaline Phosphatase 33 L (38-126) U/L Total Protein 5.2 L (6.3-8.2) g/dL Albumin 3.4 L (3.5-5.0) g/dL Arterial Blood Glucose (75-99) mg/dL Crossmatch 03/10/23 03/10/23 03/10/23 Range/Units 13:40 16:00 16:57 RBC 2.42 L (4.30-5.90) m/uL Hgb 7.9 L (13.0-17.5) gm/dL Hct 22.9 L (39.0-53.0) % Neutrophils # 8.2 H (1.3-7.7) k/uL Lymphocytes # 0.8 L (1.0-4.8) k/uL PT (9.0-12.0) sec INR (<1.2) ABG pH (7.35-7.45) ABG pCO2 48 H (35-45) mmHg ABG pO2 226 H (83-108) mmHg ABG HCO3 31 H (21-25) mmol/L ABG Total CO2 32 H (19-24) mmol/L ABG O2 Saturation 100.0 H (94-97) % ABG Hematocrit (34.0-46.0) % ABG Ionized Calcium (4.5-5.3) mg/dL ABG Glucose (75-99) mg/dL ABG Lactic Acid (0.5-1.6) mmol/L Hemoglobin (13.0-17.5) gm/dL Sodium (137-145) mmol/L BUN (9-20) mg/dL Creatinine (0.66-1.25) mg/dL Glucose (74-99) mg/dL POC Glucose (mg/dL) 136 H (70-110) mg/dL Calcium (8.4-10.2) mg/dL Magnesium (1.6-2.3) mg/dL AST (17-59) U/L Alkaline Phosphatase (38-126) U/L Total Protein (6.3-8.2) g/dL Albumin (3.5-5.0) g/dL Arterial Blood Glucose (75-99) mg/dL Crossmatch 03/10/23 03/10/23 03/10/23 Range/Units 17:52 18:32 18:58 RBC (4.30-5.90) m/uL Hgb (13.0-17.5) gm/dL Hct (39.0-53.0) % Neutrophils # (1.3-7.7) k/uL Lymphocytes # (1.0-4.8) k/uL PT (9.0-12.0) sec INR (<1.2) ABG pH 7.32 L (7.35-7.45) ABG pCO2 47 H (35-45) mmHg ABG pO2 (83-108) mmHg ABG HCO3 (21-25) mmol/L ABG Total CO2 26 H (19-24) mmol/L ABG O2 Saturation (94-97) % ABG Hematocrit (34.0-46.0) % ABG Ionized Calcium (4.5-5.3) mg/dL ABG Glucose (75-99) mg/dL ABG Lactic Acid (0.5-1.6) mmol/L Hemoglobin (13.0-17.5) gm/dL Sodium (137-145) mmol/L BUN (9-20) mg/dL Creatinine (0.66-1.25) mg/dL Glucose (74-99) mg/dL POC Glucose (mg/dL) 167 H 179 H (70-110) mg/dL Calcium (8.4-10.2) mg/dL Magnesium (1.6-2.3) mg/dL AST (17-59) U/L Alkaline Phosphatase (38-126) U/L Total Protein (6.3-8.2) g/dL Albumin (3.5-5.0) g/dL Arterial Blood Glucose (75-99) mg/dL Crossmatch 03/10/23 03/10/23 03/10/23 Range/Units 19:33 19:54 20:54 RBC 2.41 L (4.30-5.90) m/uL Hgb 7.8 L (13.0-17.5) gm/dL Hct 23.2 L (39.0-53.0) % Neutrophils # 8.7 H (1.3-7.7) k/uL Lymphocytes # 0.5 L (1.0-4.8) k/uL PT (9.0-12.0) sec INR (<1.2) ABG pH (7.35-7.45) ABG pCO2 (35-45) mmHg ABG pO2 (83-108) mmHg ABG HCO3 (21-25) mmol/L ABG Total CO2 (19-24) mmol/L ABG O2 Saturation (94-97) % ABG Hematocrit (34.0-46.0) % ABG Ionized Calcium (4.5-5.3) mg/dL ABG Glucose (75-99) mg/dL ABG Lactic Acid (0.5-1.6) mmol/L Hemoglobin (13.0-17.5) gm/dL Sodium (137-145) mmol/L BUN (9-20) mg/dL Creatinine (0.66-1.25) mg/dL Glucose (74-99) mg/dL POC Glucose (mg/dL) 167 H 141 H (70-110) mg/dL Calcium (8.4-10.2) mg/dL Magnesium (1.6-2.3) mg/dL AST (17-59) U/L Alkaline Phosphatase (38-126) U/L Total Protein (6.3-8.2) g/dL Albumin (3.5-5.0) g/dL Arterial Blood Glucose (75-99) mg/dL Crossmatch 03/10/23 03/11/23 03/11/23 Range/Units 21:58 00:13 00:58 RBC (4.30-5.90) m/uL Hgb (13.0-17.5) gm/dL Hct (39.0-53.0) % Neutrophils # (1.3-7.7) k/uL Lymphocytes # (1.0-4.8) k/uL PT (9.0-12.0) sec INR (<1.2) ABG pH (7.35-7.45) ABG pCO2 (35-45) mmHg ABG pO2 (83-108) mmHg ABG HCO3 (21-25) mmol/L ABG Total CO2 (19-24) mmol/L ABG O2 Saturation (94-97) % ABG Hematocrit (34.0-46.0) % ABG Ionized Calcium (4.5-5.3) mg/dL ABG Glucose (75-99) mg/dL ABG Lactic Acid (0.5-1.6) mmol/L Hemoglobin (13.0-17.5) gm/dL Sodium (137-145) mmol/L BUN (9-20) mg/dL Creatinine (0.66-1.25) mg/dL Glucose (74-99) mg/dL POC Glucose (mg/dL) 126 H 137 H 143 H (70-110) mg/dL Calcium (8.4-10.2) mg/dL Magnesium (1.6-2.3) mg/dL AST (17-59) U/L Alkaline Phosphatase (38-126) U/L Total Protein (6.3-8.2) g/dL Albumin (3.5-5.0) g/dL Arterial Blood Glucose (75-99) mg/dL Crossmatch 03/11/23 03/11/23 03/11/23 Range/Units 02:02 03:01 03:58 RBC (4.30-5.90) m/uL Hgb (13.0-17.5) gm/dL Hct (39.0-53.0) % Neutrophils # (1.3-7.7) k/uL Lymphocytes # (1.0-4.8) k/uL PT (9.0-12.0) sec INR (<1.2) ABG pH (7.35-7.45) ABG pCO2 (35-45) mmHg ABG pO2 (83-108) mmHg ABG HCO3 (21-25) mmol/L ABG Total CO2 (19-24) mmol/L ABG O2 Saturation (94-97) % ABG Hematocrit (34.0-46.0) % ABG Ionized Calcium (4.5-5.3) mg/dL ABG Glucose (75-99) mg/dL ABG Lactic Acid (0.5-1.6) mmol/L Hemoglobin (13.0-17.5) gm/dL Sodium (137-145) mmol/L BUN (9-20) mg/dL Creatinine (0.66-1.25) mg/dL Glucose (74-99) mg/dL POC Glucose (mg/dL) 129 H 140 H 114 H (70-110) mg/dL Calcium (8.4-10.2) mg/dL Magnesium (1.6-2.3) mg/dL AST (17-59) U/L Alkaline Phosphatase (38-126) U/L Total Protein (6.3-8.2) g/dL Albumin (3.5-5.0) g/dL Arterial Blood Glucose (75-99) mg/dL Crossmatch 03/11/23 03/11/23 03/11/23 Range/Units 04:00 04:00 05:20 RBC 2.43 L (4.30-5.90) m/uL Hgb 7.9 L (13.0-17.5) gm/dL Hct 23.3 L (39.0-53.0) % Neutrophils # (1.3-7.7) k/uL Lymphocytes # 0.6 L (1.0-4.8) k/uL PT (9.0-12.0) sec INR (<1.2) ABG pH (7.35-7.45) ABG pCO2 (35-45) mmHg ABG pO2 (83-108) mmHg ABG HCO3 (21-25) mmol/L ABG Total CO2 (19-24) mmol/L ABG O2 Saturation (94-97) % ABG Hematocrit (34.0-46.0) % ABG Ionized Calcium (4.5-5.3) mg/dL ABG Glucose (75-99) mg/dL ABG Lactic Acid (0.5-1.6) mmol/L Hemoglobin (13.0-17.5) gm/dL Sodium 136 L (137-145) mmol/L BUN 46 H (9-20) mg/dL Creatinine 1.34 H (0.66-1.25) mg/dL Glucose 101 H (74-99) mg/dL POC Glucose (mg/dL) 142 H (70-110) mg/dL Calcium 8.3 L (8.4-10.2) mg/dL Magnesium (1.6-2.3) mg/dL AST 62 H (17-59) U/L Alkaline Phosphatase 31 L (38-126) U/L Total Protein 5.8 L (6.3-8.2) g/dL Albumin (3.5-5.0) g/dL Arterial Blood Glucose (75-99) mg/dL Crossmatch 03/11/23 Range/Units 06:35 RBC (4.30-5.90) m/uL Hgb (13.0-17.5) gm/dL Hct (39.0-53.0) % Neutrophils # (1.3-7.7) k/uL Lymphocytes # (1.0-4.8) k/uL PT (9.0-12.0) sec INR (<1.2) ABG pH (7.35-7.45) ABG pCO2 (35-45) mmHg ABG pO2 (83-108) mmHg ABG HCO3 (21-25) mmol/L ABG Total CO2 (19-24) mmol/L ABG O2 Saturation (94-97) % ABG Hematocrit (34.0-46.0) % ABG Ionized Calcium (4.5-5.3) mg/dL ABG Glucose (75-99) mg/dL ABG Lactic Acid (0.5-1.6) mmol/L Hemoglobin (13.0-17.5) gm/dL Sodium (137-145) mmol/L BUN (9-20) mg/dL Creatinine (0.66-1.25) mg/dL Glucose (74-99) mg/dL POC Glucose (mg/dL) 143 H (70-110) mg/dL Calcium (8.4-10.2) mg/dL Magnesium (1.6-2.3) mg/dL AST (17-59) U/L Alkaline Phosphatase (38-126) U/L Total Protein (6.3-8.2) g/dL Albumin (3.5-5.0) g/dL Arterial Blood Glucose (75-99) mg/dL Crossmatch
[2023-03-11] MEDS ORDERED: METOPROLOL TARTRATE 12.5 MG TAB PO SCH (09:00)
[2023-03-11] MEDS ORDERED: MAGNESIUM HYDROXIDE 2,400 MG/30 ML CUP PO PRN (09:00)
[2023-03-11] MEDS ORDERED: PANTOPRAZOLE 40 MG/10 ML VIAL IVP SCH (09:00)
[2023-03-11] MEDS: LACTATED RINGERS 1,000 ML IV SCH ×2 (09:43→16:55)
[2023-03-11 09:58] LABS: Glucose,Whole Blood 200 mg/dL (70-110)
[2023-03-11 11:17] LABS: Glucose,Whole Blood 146 mg/dL (70-110)
[2023-03-11 12:07] LABS: Glucose,Whole Blood 136 mg/dL (70-110)
[2023-03-11] MEDS: bisacodyL 10 MG SUPP RECTAL PRN (12:38)
--- NOTE | 2023-03-11 13:10 | P.PN ---
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 Patient was seen by cardiac surgery back on 02/19/2023, and he was evaluated for mitral valve repair. Today the patient underwent surgery, postoperatively he is on mechanical ventilation, assist control rate of 12 tidal volume 500 FiO2 50% and PEEP of 5. Chest x-ray showed mild interstitial edema/mild pulmonary vascular congestion. Patient is now on Precedex at 0.3 mcg/kg/h norepinephrine at 0.1 mcg/kg/m he is on Primacor at 0.2 mcg/kg/m is also on insulin at 0.5 units per hour. His cardiac output is 5.1 cardiac index is 2.9 CVP is 17. WBC count 9.8 hemoglobin 7.9 Patient was reevaluated today on 03/11/2023.POD #1 complex mitral valve repair with #30 mm [employer] AnnuloFlex band, quadrangular resection of P2 of the posterior leaflet, closure of P2/P3 cleft, ring annuloplasty, and clip ligation of left atrial appendage with a 35 mm AtriClip, intraoperative transesophageal echocardiogram performed by anesthesia. Patient is doing well, he is not requiring any pressors or any inotropes at this point in time he did require pressors last night until early this morning patient is doing poorly with incentive spirometry he was extubated last night at 1901. Currently the patient is being AV paced at 80 bpm, underlying rhythm is bradycardia. Blood pressure is marginal but seems to be within normal today. Patient does have evidence of crackles and rhonchi on physical examination, but he denies shortness of breath. Chest x-ray showed mostly bibasilar atelectasis. CBC is relatively normal, hemoglobin is 7.9, basic metabolic profile is normal BUN is 46 creatinine 1.34 Objective - Vital Signs Vital signs: Vital Signs Temp 98.8 F 03/11/23 12:00 Pulse 80 03/11/23 12:15 Resp 27 H 03/11/23 12:15 BP 110/59 03/11/23 06:00 Pulse Ox 93 L 03/11/23 12:15 FiO2 50 03/10/23 18:02 Intake & Output 03/10/23 03/11/23 03/11/23 18:59 06:59 18:59 Intake Total 761.979 4765.190 821.707 Output Total 1575 1095 270 Balance -603.239 799.190 551.707 Weight 78 kg 78 kg Intake: IV 338 1188 444 Albumin 250 CO/CI fluid NS 0.9 180 40 LR 200 600 300 Pressure bags 36 108 54 ceFAZolin 2 gm In Sodium 50 50 50 Chloride 0.9% 50 ml @ 100 mls/hr IVPB Q8HR [facility] Rx# :[id number] Intake, IV Titration 133.761 206.190 17.707 Amount Dexmedetomidine/0.9% NaCl 22.851 0.384 (Pmx) 400 mcg In Empty Bag 1 bag @ Titrate IV . Q0M [facility] Rx#:[id number] Insulin Regular 100 unit 5.471 15.270 12.735 In Sodium Chloride 0.9% 100 ml @ Per Protocol IV .Q0M [facility] Rx#:[id number] Milrinone-D5w Pmx 20 mg 14.957 28.916 In Dextrose/Water 1 100ml .bag @ 0.3 MCG/KG/MIN 6. 903 mls/hr IV .[id number] [facility] Rx#:[id number] Norepinephrine 4 mg In 73.301 113.628 Sodium Chloride 0.9% 250 ml @ 0.03 MCG/KG/MIN 8. 767 mls/hr IV .Q24H [facility] Rx#:[id number] Vasopressin 60 unit In 47.992 4.972 Sodium Chloride 0.9% 150 ml @ 0.02 UNITS/MIN 3.06 mls/hr IV .Q24H [facility] Rx#: [id number] propofoL 1,000 mg In 17.181 Empty Bag 1 bag @ Titrate IV .Q0M [facility] Rx#: [id number] Oral 500 360 Albumin 500 Albumin 500 Output: Drainage 90 660 190 Bilateral Chest 20 100 0 Mediastinal 70 560 190 Urine 585 435 80 Estimated Blood Loss 900 Other: Voiding Method Indwelling Catheter Indwelling Catheter Indwelling Catheter ABP, PAP, CO, CI - Last Documented Arterial Blood Pressure 117/53 Pulmonary Artery Pressure 75/29 Cardiac Output 3.9 Cardiac Index 2.2 - Exam Physical Exam: Revealed a 77-year-old white male in no distress, on few liters nasal cannula HEENT:[Neck is supple.] [No neck masses.] [No thyromegaly.] [No JVD.] Chest: [Crackles and rhonchi noted bilaterally Cardiac Exam: [Normal S1 and S2, no S3 gallop, 2/6 systolic murmur thought the precordium Abdomen: [Soft, nontender, no megaly, no rebound, no guarding, normal bowel sounds.] Extremities: [No clubbing, no edema, no cyanosis.] Neurological Exam: [No focal neurologic deficit.] - Labs CBC & Chem 7: 03/11/23 04:00 03/11/23 04:00 Labs: Abnormal Lab Results - Last 24 Hours (Table) 03/05/23 03/10/23 03/10/23 Range/Units 09:03 13:32 13:32 RBC 2.64 L (4.30-5.90) m/uL Hgb 8.6 L D (13.0-17.5) gm/dL Hct 24.5 L (39.0-53.0) % Neutrophils # (1.3-7.7) k/uL Lymphocytes # (1.0-4.8) k/uL PT 12.8 H (9.0-12.0) sec INR 1.3 H (<1.2) ABG pH (7.35-7.45) ABG pCO2 (35-45) mmHg ABG pO2 (83-108) mmHg ABG HCO3 (21-25) mmol/L ABG Total CO2 (19-24) mmol/L ABG O2 Saturation (94-97) % Sodium (137-145) mmol/L BUN (9-20) mg/dL Creatinine (0.66-1.25) mg/dL Glucose (74-99) mg/dL POC Glucose (mg/dL) (70-110) mg/dL Calcium (8.4-10.2) mg/dL Magnesium (1.6-2.3) mg/dL AST (17-59) U/L Alkaline Phosphatase (38-126) U/L Total Protein (6.3-8.2) g/dL Albumin (3.5-5.0) g/dL Crossmatch See Detail 03/10/23 03/10/23 03/10/23 Range/Units 13:32 13:40 16:00 RBC 2.42 L (4.30-5.90) m/uL Hgb 7.9 L (13.0-17.5) gm/dL Hct 22.9 L (39.0-53.0) % Neutrophils # 8.2 H (1.3-7.7) k/uL Lymphocytes # 0.8 L (1.0-4.8) k/uL PT (9.0-12.0) sec INR (<1.2) ABG pH (7.35-7.45) ABG pCO2 48 H (35-45) mmHg ABG pO2 226 H (83-108) mmHg ABG HCO3 31 H (21-25) mmol/L ABG Total CO2 32 H (19-24) mmol/L ABG O2 Saturation 100.0 H (94-97) % Sodium (137-145) mmol/L BUN 46 H (9-20) mg/dL Creatinine (0.66-1.25) mg/dL Glucose (74-99) mg/dL POC Glucose (mg/dL) (70-110) mg/dL Calcium (8.4-10.2) mg/dL Magnesium 2.8 H (1.6-2.3) mg/dL AST (17-59) U/L Alkaline Phosphatase 33 L (38-126) U/L Total Protein 5.2 L (6.3-8.2) g/dL Albumin 3.4 L (3.5-5.0) g/dL Crossmatch 03/10/23 03/10/23 03/10/23 Range/Units 16:57 17:52 18:32 RBC (4.30-5.90) m/uL Hgb (13.0-17.5) gm/dL Hct (39.0-53.0) % Neutrophils # (1.3-7.7) k/uL Lymphocytes # (1.0-4.8) k/uL PT (9.0-12.0) sec INR (<1.2) ABG pH 7.32 L (7.35-7.45) ABG pCO2 47 H (35-45) mmHg ABG pO2 (83-108) mmHg ABG HCO3 (21-25) mmol/L ABG Total CO2 26 H (19-24) mmol/L ABG O2 Saturation (94-97) % Sodium (137-145) mmol/L BUN (9-20) mg/dL Creatinine (0.66-1.25) mg/dL Glucose (74-99) mg/dL POC Glucose (mg/dL) 136 H 167 H (70-110) mg/dL Calcium (8.4-10.2) mg/dL Magnesium (1.6-2.3) mg/dL AST (17-59) U/L Alkaline Phosphatase (38-126) U/L Total Protein (6.3-8.2) g/dL Albumin (3.5-5.0) g/dL Crossmatch 03/10/23 03/10/23 03/10/23 Range/Units 18:58 19:33 19:54 RBC 2.41 L (4.30-5.90) m/uL Hgb 7.8 L (13.0-17.5) gm/dL Hct 23.2 L (39.0-53.0) % Neutrophils # 8.7 H (1.3-7.7) k/uL Lymphocytes # 0.5 L (1.0-4.8) k/uL PT (9.0-12.0) sec INR (<1.2) ABG pH (7.35-7.45) ABG pCO2 (35-45) mmHg ABG pO2 (83-108) mmHg ABG HCO3 (21-25) mmol/L ABG Total CO2 (19-24) mmol/L ABG O2 Saturation (94-97) % Sodium (137-145) mmol/L BUN (9-20) mg/dL Creatinine (0.66-1.25) mg/dL Glucose (74-99) mg/dL POC Glucose (mg/dL) 179 H 167 H (70-110) mg/dL Calcium (8.4-10.2) mg/dL Magnesium (1.6-2.3) mg/dL AST (17-59) U/L Alkaline Phosphatase (38-126) U/L Total Protein (6.3-8.2) g/dL Albumin (3.5-5.0) g/dL Crossmatch 03/10/23 03/10/23 03/11/23 Range/Units 20:54 21:58 00:13 RBC (4.30-5.90) m/uL Hgb (13.0-17.5) gm/dL Hct (39.0-53.0) % Neutrophils # (1.3-7.7) k/uL Lymphocytes # (1.0-4.8) k/uL PT (9.0-12.0) sec INR (<1.2) ABG pH (7.35-7.45) ABG pCO2 (35-45) mmHg ABG pO2 (83-108) mmHg ABG HCO3 (21-25) mmol/L ABG Total CO2 (19-24) mmol/L ABG O2 Saturation (94-97) % Sodium (137-145) mmol/L BUN (9-20) mg/dL Creatinine (0.66-1.25) mg/dL Glucose (74-99) mg/dL POC Glucose (mg/dL) 141 H 126 H 137 H (70-110) mg/dL Calcium (8.4-10.2) mg/dL Magnesium (1.6-2.3) mg/dL AST (17-59) U/L Alkaline Phosphatase (38-126) U/L Total Protein (6.3-8.2) g/dL Albumin (3.5-5.0) g/dL Crossmatch 03/11/23 03/11/23 03/11/23 Range/Units 00:58 02:02 03:01 RBC (4.30-5.90) m/uL Hgb (13.0-17.5) gm/dL Hct (39.0-53.0) % Neutrophils # (1.3-7.7) k/uL Lymphocytes # (1.0-4.8) k/uL PT (9.0-12.0) sec INR (<1.2) ABG pH (7.35-7.45) ABG pCO2 (35-45) mmHg ABG pO2 (83-108) mmHg ABG HCO3 (21-25) mmol/L ABG Total CO2 (19-24) mmol/L ABG O2 Saturation (94-97) % Sodium (137-145) mmol/L BUN (9-20) mg/dL Creatinine (0.66-1.25) mg/dL Glucose (74-99) mg/dL POC Glucose (mg/dL) 143 H 129 H 140 H (70-110) mg/dL Calcium (8.4-10.2) mg/dL Magnesium (1.6-2.3) mg/dL AST (17-59) U/L Alkaline Phosphatase (38-126) U/L Total Protein (6.3-8.2) g/dL Albumin (3.5-5.0) g/dL Crossmatch 03/11/23 03/11/23 03/11/23 Range/Units 03:58 04:00 04:00 RBC 2.43 L (4.30-5.90) m/uL Hgb 7.9 L (13.0-17.5) gm/dL Hct 23.3 L (39.0-53.0) % Neutrophils # (1.3-7.7) k/uL Lymphocytes # 0.6 L (1.0-4.8) k/uL PT (9.0-12.0) sec INR (<1.2) ABG pH (7.35-7.45) ABG pCO2 (35-45) mmHg ABG pO2 (83-108) mmHg ABG HCO3 (21-25) mmol/L ABG Total CO2 (19-24) mmol/L ABG O2 Saturation (94-97) % Sodium 136 L (137-145) mmol/L BUN 46 H (9-20) mg/dL Creatinine 1.34 H (0.66-1.25) mg/dL Glucose 101 H (74-99) mg/dL POC Glucose (mg/dL) 114 H (70-110) mg/dL Calcium 8.3 L (8.4-10.2) mg/dL Magnesium (1.6-2.3) mg/dL AST 62 H (17-59) U/L Alkaline Phosphatase 31 L (38-126) U/L Total Protein 5.8 L (6.3-8.2) g/dL Albumin (3.5-5.0) g/dL Crossmatch 03/11/23 03/11/23 03/11/23 Range/Units 05:20 06:35 08:38 RBC (4.30-5.90) m/uL Hgb (13.0-17.5) gm/dL Hct (39.0-53.0) % Neutrophils # (1.3-7.7) k/uL Lymphocytes # (1.0-4.8) k/uL PT (9.0-12.0) sec INR (<1.2) ABG pH (7.35-7.45) ABG pCO2 (35-45) mmHg ABG pO2 (83-108) mmHg ABG HCO3 (21-25) mmol/L ABG Total CO2 (19-24) mmol/L ABG O2 Saturation (94-97) % Sodium (137-145) mmol/L BUN (9-20) mg/dL Creatinine (0.66-1.25) mg/dL Glucose (74-99) mg/dL POC Glucose (mg/dL) 142 H 143 H 243 H (70-110) mg/dL Calcium (8.4-10.2) mg/dL Magnesium (1.6-2.3) mg/dL AST (17-59) U/L Alkaline Phosphatase (38-126) U/L Total Protein (6.3-8.2) g/dL Albumin (3.5-5.0) g/dL Crossmatch 03/11/23 03/11/23 03/11/23 Range/Units 09:57 11:16 12:06 RBC (4.30-5.90) m/uL Hgb (13.0-17.5) gm/dL Hct (39.0-53.0) % Neutrophils # (1.3-7.7) k/uL Lymphocytes # (1.0-4.8) k/uL PT (9.0-12.0) sec INR (<1.2) ABG pH (7.35-7.45) ABG pCO2 (35-45) mmHg ABG pO2 (83-108) mmHg ABG HCO3 (21-25) mmol/L ABG Total CO2 (19-24) mmol/L ABG O2 Saturation (94-97) % Sodium (137-145) mmol/L BUN (9-20) mg/dL Creatinine (0.66-1.25) mg/dL Glucose (74-99) mg/dL POC Glucose (mg/dL) 200 H 146 H 136 H (70-110) mg/dL Calcium (8.4-10.2) mg/dL Magnesium (1.6-2.3) mg/dL AST (17-59) U/L Alkaline Phosphatase (38-126) U/L Total Protein (6.3-8.2) g/dL Albumin (3.5-5.0) g/dL Crossmatch Assessment and Plan Assessment: Impression: Severe mitral regurgitation Status post mitral valve repair postoperative day #1 Chronic congestive heart failure with preserved LV function Benign essential hypertension Paroxysmal atrial fibrillation History of CVA following back surgery Type 2 diabetes without complications History of mild intermittent asthma History of flash pulmonary edema Recommendation: Continue oxygen via nasal cannula and titrate accordingly Continue incentive spirometry Resume his own cardiac meds and antiarrhythmic agents Early ambulation Consider gentle diuresis, CVP is 22 GI and DVT prophylaxis We'll continue to follow Time with Patient: Less than 30
[2023-03-11 13:21] LABS: Glucose,Whole Blood 206 mg/dL (70-110)
[2023-03-11] MEDS ORDERED: ALBUMIN HUMAN 25% 50 ML in EMPTY BAG 1 BAG IVPB ONE (13:38)
[2023-03-11] MEDS ORDERED: FUROSEMIDE 10 MG/ML 2 ML VIAL IV ONE (13:38)
[2023-03-11] MEDS ORDERED: CISATRACURIUM 2 MG/ML 5 ML VIAL IV ONE (14:45)
[2023-03-11 15:02] LABS: Glucose,Whole Blood 164 mg/dL (70-110)
[2023-03-11 16:13] LABS: ABG Base Excess -3.3 mmol/L; ABG HCO3 23 mmol/L (21-25); ABG Oxygen Saturation 94.8 % (94-97); ABG PCO2 46 mmHg (35-45); ABG PH 7.31 (7.35-7.45); ABG PO2 77 mmHg (83-108); ABG TCO2 24 mmol/L (19-24); Allen Test Performed? Yes
[2023-03-11] MEDS ORDERED: SIMETHICONE 80 MG CHEWABLE PO SCH (16:30)
--- NOTE | 2023-03-11 16:32 | XR ---
EXAMINATION TYPE: XR chest 1V portable DATE OF EXAM: 03/11/2023 4:11 PM COMPARISON: Chest radiographs from TECHNIQUE: XR chest 1V portable Portable AP radiograph of the chest. CLINICAL INDICATION:Male, 77 years old with history of re: SOB; FINDINGS: Lungs/Pleura: Blunting of the left costophrenic angle. No focal consolidation or pneumothorax. Pulmonary vascularity: Mild pulmonary vascular congestion. Heart/mediastinum: Cardiomediastinal silhouette is enlarged. Left atrial appendage occlusion devices present. Musculoskeletal: No acute osseous pathology. Midline sternotomy wires are noted. Lines/Tubes: Mediastinal drain identified. Right IJ [place]-Magda catheter with distal tip terminating in the region of the main pulmonary artery. Other: Prominent bowel loops in the left upper abdomen redemonstrated. Metallic linear density in the left axilla redemonstrated and could represent foreign body. IMPRESSION: 1. Overall stable examination with cardiomegaly and small left pleural effusion with pulmonary vascu lar congestion. 2. Stable support lines and tubes.
[2023-03-11 16:43] LABS: Glucose,Whole Blood 171 mg/dL (70-110)
[2023-03-11 16:55] LABS: African American GFR (CKD) 37 (>60 ml/min/1.73 sqM); Albumin 4.1 g/dL (3.5-5.0); Anion Gap 13 mmol/L; Blood Urea Nitrogen 48 mg/dL (9-20); Calcium 8.3 mg/dL (8.4-10.2); Carbon Dioxide 22 mmol/L (22-30); Chloride 99 mmol/L (98-107); Glucose 158 mg/dL (74-99); Non-African American GFR(CKD) 32 (>60 ml/min/1.73 sqM); Phosphorus 6.2 mg/dL (2.5-4.5); Potassium 5.4 mmol/L (3.5-5.1); Sodium 134 mmol/L (137-145)
--- NOTE | 2023-03-11 17:15 | P.CRDCN ---
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 Patient follows with Dr Velazco. Patient underwent heart catheterization preoperatively which showed no obstructive disease and a EVELYN showed severe mitral regurgitation with tethering of the posterior leaflet and prolapse of the P2 segment with severe left atrial dilation. He has been noticing increasing shortness breath over the last few months. He has been hospitalized for heart failure. He presented for elective mitral valve repair with complex mitral valve repair 03/10/2023 with a # 30mm [employer] Annuloflex band, resection of P2 with repair of MR and COREY ligation. He was mildly hypotensive however was weaned off of vasopressors including milrinone this morning. Additionally he was extubated last night at approximately 7 PM. He has had intermittent bradycardia with heart rates in the 50s and therefore has been ventricularly paced at 80 bpm. Underlying rhythm appears to be atrial fibrillation. This morning he was feeli ng somewhat better however started having increasing shortness breath in the afternoon. He admits to chest pain with deep inspiration. Additionally chest x-ray shows ileus and was given Reglan. He denies any actual abdominal pain. Has not had a bowel movement. Cardiac index reading 2.0-2.1 and CVP remains elevated at 20 with PA pressures in the 70s over 20s, somewhat better than intraoperatively more in the 90s. He does have acute kidney injury with creatinine up to 1.3. REVIEW OF SYSTEMS At the time of my exam: CONSTITUTIONAL: Denies fever or chills. CARDIOVASCULAR: +reproducible chest pain, +shortness of breath, +orthopnea, no PND or palpitations. RESPIRATORY: Denies cough. GASTROINTESTINAL: Denies abdominal pain, diarrhea, constipation, nausea or vomiting. MUSCULOSKELETAL: Denies myalgias. NEUROLOGIC: Denies numbness, tingling or weakness. ENDOCRINE: Denies fatigue, weight change, polydipsia or polyurina. GENITOURINARY: Denies burning, hematuria or urgency with micturation. HEMATOLOGIC: Denies history of anemia or bleeding. PHYSICAL EXAMINATION Vital signs reviewed. CONSTITUTIONAL: Tachypnic, ill appearing, mild increased work of breathing HEENT: Head is normocephalic. Pupils are equal, round. Sclerae anicteric. Mucous membranes of the mouth are moist. No JVD. No carotid bruit. CHEST EXAMINATION: Mild crackles at bases, decreased breath sounds at bases HEART EXAMINATION: Regular rate and rhythm. S1, S2 heard. No murmurs, gallops or rub. ABDOMEN: Soft, nontender. Positive bowel sounds. EXTREMITIES: 2+ peripheral pulses, no lower extremity edema and no calf tenderness. NEUROLOGIC EXAMINATION: Patient is awake, alert and oriented x3. ASSESSMENT 1. Severe mitral regurgitation status post ring and mitral valve repair 03/10 2. Acute on chronic diastolic heart failure 3. Mild CAD by heart catheterization 4. Persistent atrial fibrillation 5. Bradycardia postoperatively, mildly improved 6. Pulmonary hypertension, likely related to left-sided heart failure 7. Acute on chronic respiratory failure 8. Hypertension PLAN Patient somewhat more tachypnea and agree with IV Lasix. Chest x-ray does show some vascular congestion. CVP still significantly elevated likely in part related to pulmonary hypertension. Cardiac index still low and discussed with CTS and will restart Milrinone. Check renal function panel, abg. Monitr I + O's. Further recs to follow. Past Medical History Past Medical History: Atrial Fibrillation, Asthma, Chest Pain / Angina, Heart Failure, CVA/TIA, Diabetes Mellitus, Hyperlipidemia, Hypertension, Myocardial Infarction ([place]) Additional Past Medical History / Comment(s): mitral valve regurgitation,mild chest pressure,diastolic heart failure, hx 2014 had TIA-minimum peripheral vision loss, herniated disks in back,mason arm fx's Last Myocardial Infarction Date:: 2013 History of Any Multi-Drug Resistant Organisms: None Reported Past Surgical History: Appendectomy, Heart Catheterization, Orthopedic Surgery Additional Past Surgical History / Comment(s): EVELYN, ORIF left forearm, repair, bilateral knee surgery,hardware rt knee, right hip bone graft. Colonoscopy with polp removal. lumbar fusion Past Anesthesia/Blood Transfusion Reactions: Previous Problems w/ Anesthesia Additional Past Anesthesia/Blood Transfusion Reaction / Comment(s): Becomes combative with anesthesia.No hx blood transfusion Smoking Status: Former smoker - Past Family History Father Family Medical History: Congestive Heart Failure (CHF), Coronary Artery Disease (CAD), Diabetes Mellitus Additional Family Medical History / Comment(s): at age 75 Mother Family Medical History: Cancer Additional Family Medical History / Comment(s): cervical cancer Brother(s) Family Medical History: Cancer Additional Family Medical History / Comment(s): liver and prostrate cancer. Medications and Allergies Home Medications Medication Instructions Recorded Confirmed Type Albuterol Inhaler [Ventolin Hfa 1 puff INHALATION RT-Q4H PRN 10/07/14 03/10/23 History Inhaler] Flecainide [Tambocor] 50 mg PO Q12HR #60 tab 10/09/14 03/10/23 Rx Atorvastatin [Lipitor] 20 mg PO W/SUPPER 12/13/15 03/10/23 History Losartan [Cozaar] 50 mg PO W/SUPPER 12/13/15 03/10/23 History Glimepiride [Amaryl] 1 mg PO DAILY 02/13/23 03/10/23 History Pioglitazone [Actos] 30 mg PO DAILY 02/13/23 03/10/23 History Rivaroxaban [Xarelto] 20 mg PO W/SUPPER 02/13/23 03/05/23 History Isosorbide Mononitrate ER [Imdur] 15 mg PO QAM 02/18/23 03/10/23 History Furosemide [Lasix] 40 mg PO DAILY #30 tab 02/21/23 03/10/23 Rx Metoprolol Tartrate [Lopressor] 25 mg PO BID #60 tab 02/21/23 03/10/23 Rx Cholecalciferol [Vitamin D3 (25 25 mcg PO DAILY 03/05/23 03/10/23 History Mcg = 1000 Iu)] Cyanocobalamin (Vitamin B-12) 1,000 mcg PO DAILY 03/05/23 03/10/23 History [Vitamin B-12] metFORMIN HCL ER [Glucophage XR] 750 mg PO BID 03/05/23 03/10/23 History metOLazone [Zaroxolyn] 2.5 mg PO MOWEFR 03/05/23 03/10/23 History terbinafine HCL 250 mg PO DAILY 03/05/23 03/10/23 History Allergies Allergy/AdvReac Type Severity Reaction Status Date / Time No Known Allergies Allergy Verified 03/10/23 06:04 Physical Exam Vitals: Vital Signs Temp Pulse Resp BP Pulse Ox FiO2 03/11/23 15:24 79 03/11/23 15:16 80 03/11/23 14:00 99.0 F 80 28 H 94 L 03/11/23 13:45 80 24 93 L 03/11/23 13:30 79 30 H 92 L 03/11/23 13:15 80 31 H 92 L 03/11/23 13:00 98.6 F 80 29 H 90 L 03/11/23 12:45 80 30 H 85 L 03/11/23 12:30 79 27 H 90 L 03/11/23 12:15 80 27 H 93 L 03/11/23 12:00 98.8 F 80 23 93 L 03/11/23 11:45 79 33 H 97 03/11/23 11:44 79 03/11/23 11:39 79 03/11/23 11:30 79 16 96 03/11/23 11:15 80 20 95 03/11/23 11:00 80 16 96 03/11/23 10:45 80 17 96 03/11/23 10:30 80 15 95 03/11/23 10:15 80 16 96 03/11/23 10:00 98.8 F 80 15 95 03/11/23 09:45 80 18 96 03/11/23 09:30 80 20 94 L 03/11/23 09:15 80 17 96 03/11/23 09:00 99.0 F 80 19 95 03/11/23 08:45 80 22 94 L 03/11/23 08:37 80 03/11/23 08:30 79 22 97 03/11/23 08:26 79 03/11/23 08:15 80 26 H 98 03/11/23 08:00 99.0 F 80 23 94 L 03/11/23 07:45 80 20 94 L 03/11/23 07:30 80 28 H 93 L 03/11/23 07:15 79 17 91 L 03/11/23 07:00 79 17 94 L 03/11/23 06:45 80 18 95 03/11/23 06:30 80 19 94 L 03/11/23 06:15 79 20 95 03/11/23 06:00 80 24 110/59 94 L 03/11/23 05:45 79 27 H 92 L 03/11/23 05:30 79 30 H 61 L 03/11/23 05:15 80 29 H 93 L 03/11/23 05:00 80 30 H 93 L 03/11/23 04:45 80 27 H 93 L 03/11/23 04:30 80 27 H 94 L 03/11/23 04:15 80 26 H 93 L 03/11/23 04:00 80 28 H 95 03/11/23 03:45 80 25 H 95 03/11/23 03:30 80 27 H 94 L 03/11/23 03:15 80 27 H 94 L 03/11/23 03:00 80 24 92 L 03/11/23 02:45 80 22 94 L 03/11/23 02:30 80 24 94 L 03/11/23 02:15 80 27 H 95 03/11/23 02:00 80 26 H 91 L 03/11/23 01:45 80 24 92 L 03/11/23 01:30 80 24 92 L 03/11/23 01:15 80 26 H 89 L 03/11/23 01:00 80 24 86 L 03/11/23 00:45 80 22 94 L 03/11/23 00:30 80 27 H 110/59 94 L 03/11/23 00:15 80 26 H 92 L 03/11/23 00:00 80 20 93 L 03/10/23 23:45 80 27 H 93 L 03/10/23 23:30 80 24 89 L 03/10/23 23:15 80 26 H 93 L 03/10/23 23:00 80 24 92 L 03/10/23 22:45 80 26 H 94 L 03/10/23 22:30 80 24 93 L 03/10/23 22:15 80 24 92 L 03/10/23 22:00 80 21 110/59 95 03/10/23 21:45 80 24 110/62 94 L 03/10/23 21:30 80 20 104/57 95 03/10/23 21:15 80 20 110/60 94 L 03/10/23 21:00 80 17 93 L 03/10/23 20:49 80 03/10/23 20:45 80 21 95 03/10/23 20:30 80 21 94 L 03/10/23 20:15 80 21 94 L 03/10/23 20:00 80 20 95 03/10/23 19:45 80 20 94 L 03/10/23 19:30 80 28 H 92 L 03/10/23 19:00 80 29 H 91 L 03/10/23 18:45 80 28 H 94 L 03/10/23 18:30 80 32 H 94 L 03/10/23 18:15 80 26 H 93 L 03/10/23 18:02 50 03/10/23 18:00 99.0 F 80 16 100 03/10/23 17:45 80 20 99 03/10/23 17:30 80 19 98 03/10/23 17:15 80 20 99 Intake and Output 03/11/23 03/11/23 03/11/23 06:59 14:59 22:59 Intake Total 5136.440 8071.305 6.01 Output Total 665 355 Balance 548.887 714.305 6.01 Intake: IV 632 641 CO/CI fluid NS 0.9 110 60 LR 400 450 Pressure bags 72 81 ceFAZolin 2 gm In Sodium 50 50 Chloride 0.9% 50 ml @ 100 mls/hr IVPB Q8HR [facility] Rx# :[id number] Intake, IV Titration 81.887 68.305 6.01 Amount Albumin Human 25% 50 ml 50 In Empty Bag 1 bag @ 50 mls/hr IVPB ONCE ONE Rx#: [id number] Insulin Regular 100 unit 7.038 13.333 6.01 In Sodium Chloride 0.9% 100 ml @ Per Protocol IV .Q0M [facility] Rx#:[id number] Milrinone-D5w Pmx 20 mg 9.664 In Dextrose/Water 1 100ml .bag @ 0.3 MCG/KG/MIN 6. 903 mls/hr IV .[id number] [facility] Rx#:[id number] Norepinephrine 4 mg In 17.193 Sodium Chloride 0.9% 250 ml @ 0.03 MCG/KG/MIN 8. 767 mls/hr IV .Q24H [facility] Rx#:[id number] Vasopressin 60 unit In 47.992 4.972 Sodium Chloride 0.9% 150 ml @ 0.02 UNITS/MIN 3.06 mls/hr IV .Q24H [facility] Rx#: [id number] Oral 500 360 Output: Drainage 410 240 Bilateral Chest 40 0 Mediastinal 370 240 Urine 255 115 Other: Voiding Method Indwelling Catheter Indwelling Catheter Weight 78 kg 78 kg ABP, PAP, CO, CI - Last 8 Hours Arterial Blood Pressure 113/48 Arterial Blood Pressure 107/50 Arterial Blood Pressure 112/52 Arterial Blood Pressure 118/48 Arterial Blood Pressure 122/53 Arterial Blood Pressure 123/51 Arterial Blood Pressure 120/52 Arterial Blood Pressure 117/53 Arterial Blood Pressure 110/53 Arterial Blood Pressure 102/47 Arterial Blood Pressure 103/52 Arterial Blood Pressure 115/52 Arterial Blood Pressure 96/47 Arterial Blood Pressure 98/50 Arterial Blood Pressure 106/51 Arterial Blood Pressure 100/50 Arterial Blood Pressure 102/51 Arterial Blood Pressure 101/46 Arterial Blood Pressure 115/53 Arterial Blood Pressure 110/52 Pulmonary Artery Pressure 76/25 Pulmonary Artery Pressure 77/26 Pulmonary Artery Pressure 76/26 Pulmonary Artery Pressure 80/27 Pulmonary Artery Pressure 74/31 Pulmonary Artery Pressure 74/26 Pulmonary Artery Pressure 75/29 Pulmonary Artery Pressure 62/20 Pulmonary Artery Pressure 65/22 Pulmonary Artery Pressure 67/23 Pulmonary Artery Pressure 67/24 Pulmonary Artery Pressure 63/20 Pulmonary Artery Pressure 60/21 Pulmonary Artery Pressure 68/19 Pulmonary Artery Pressure 63/18 Pulmonary Artery Pressure 67/25 Pulmonary Artery Pressure 67/23 Pulmonary Artery Pressure 72/28 Pulmonary Artery Pressure 71/22 Cardiac Output 3.9 Cardiac Index 2.2 Results 03/11/23 04:00 03/11/23 16:04 Cardiac Enzymes 03/11/23 Range/Units 04:00 AST 62 H (17-59) U/L CBC 03/10/23 03/11/23 Range/Units 19:33 04:00 WBC 9.8 8.1 (3.8-10.6) k/uL RBC 2.41 L 2.43 L (4.30-5.90) m/uL Hgb 7.8 L 7.9 L (13.0-17.5) gm/dL Hct 23.2 L 23.3 L (39.0-53.0) % Plt Count 185 159 (150-450) k/uL Comprehensive Metabolic Panel 03/11/23 03/11/23 Range/Units 04:00 16:04 Sodium 136 L 134 L (137-145) mmol/L Potassium 4.9 5.4 H (3.5-5.1) mmol/L Chloride 101 99 (98-107) mmol/L Carbon Dioxide 24 22 (22-30) mmol/L BUN 46 H 48 H (9-20) mg/dL Creatinine 1.34 H 1.99 H (0.66-1.25) mg/dL Glucose 101 H 158 H (74-99) mg/dL Calcium 8.3 L 8.3 L (8.4-10.2) mg/dL AST 62 H (17-59) U/L ALT 16 (4-49) U/L Alkaline Phosphatase 31 L (38-126) U/L Total Protein 5.8 L (6.3-8.2) g/dL Albumin 4.1 4.1 (3.5-5.0) g/dL Current Medications Generic Name Dose Route Start Last Admin Trade Name Freq PRN Reason Stop Dose Admin Acetaminophen 650 mg 03/11/23 06:20 Acetaminophen Tab 325 Mg Tab PO Q4HR PRN Fever and/ or Pain Hydrocodone Bitart/Acetaminophen 1 each 03/10/23 12:20 03/11/23 15:16 Hydrocodone/Apap 10-325mg 1 Each Tab PO 1 each Q4HR PRN Administration Severe Pain (Scale 7 to 10) Hydrocodone Bitart/Acetaminophen 1 each 03/11/23 07:04 Hydrocodone/Apap 5-325mg 1 Each Tab PO Q4HR PRN Moderate Pain (Scale 4 to 6) Albuterol/Ipratropium 3 ml 03/10/23 12:20 Ipratropium-Albuterol 3 Ml Neb INHALATION RT-Q2H PRN Shortness Of Breath Or Wheezing Albuterol/Ipratropium 3 ml 03/10/23 20:00 03/11/23 15:11 Ipratropium-Albuterol 3 Ml Neb INHALATION 3 ml RT-QID [facility] Administration Aspirin 325 mg 03/11/23 09:00 03/11/23 08:08 Aspirin 325 Mg Tab PO 325 mg DAILY [facility] Administration Atorvastatin Calcium 20 mg 03/10/23 17:30 03/10/23 20:48 Atorvastatin 20 Mg Tab PO 20 mg W/SUPPER [facility] Administration Benzocaine/Menthol 1 each 03/10/23 12:20 Benzocaine/Menthol Lozeng 1 Each Lozenge MUCOUS MEM Q2H PRN Sore Throat Bisacodyl 10 mg 03/11/23 09:00 03/11/23 12:38 Bisacodyl 10 Mg Supp RECTAL 10 mg DAILY PRN Administration Constipation Cholecalciferol 25 mcg 03/11/23 09:00 03/11/23 08:08 Cholecalciferol 25 Mcg (1000 Iu) Tablet PO 25 mcg DAILY [facility] Administration Clopidogrel Bisulfate 75 mg 03/11/23 09:00 03/11/23 08:08 Clopidogrel 75 Mg Tab PO 75 mg DAILY [facility] Administration Cyanocobalamin 1,000 mcg 03/11/23 09:00 03/11/23 08:08 Cyanocobalamin 500 Mcg Tab PO 1,000 mcg DAILY [facility] Administration Dextrose/Water 25 ml 03/10/23 12:20 Dextrose 50% Syringe 50 Ml IVP PER PROTOCOL PRN Hypoglycemia Protocol Dextrose/Water 50 ml 03/10/23 12:20 Dextrose 50% Syringe 50 Ml IVP PER PROTOCOL PRN Hypoglycemia Protocol Flecainide Acetate 50 mg 03/10/23 21:00 03/11/23 08:08 Flecainide 50 Mg Tab PO 50 mg Q12HR [facility] Administration Heparin Sodium (Porcine) 5,000 unit 03/10/23 16:00 03/11/23 16:55 Heparin Sodium,Porcine 5,000 Unit/Ml 1 Ml Vial SQ 5,000 unit Q8HR [facility] Administration Albumin Human 250 ml/ IV 250 mls @ 250 mls/hr 03/10/23 12:20 03/10/23 17:31 Solution IVPB 03/12/23 12:21 250 mls/hr Q1HR PRN Administration For Volume Protocol Lactated Ringer's 1,000 mls @ 50 mls/hr 03/10/23 12:20 03/11/23 16:55 Lactated Ringers IV 50 mls/hr .Q20H [facility] Administration Calcium Gluconate/Sodium 100 mls @ 100 mls/hr 03/10/23 12:20 Chloride 2 gm/ IV Solution IVPB 03/17/23 23:00 ONCE PRN Ionized Calcium less than 4.4 Insulin Human Regular 100 unit 101 mls @ 0 mls/hr 03/10/23 13:00 03/11/23 15:02 / Sodium Chloride IV 2 units/hr .Q0M [facility] 2.02 mls/hr Titration Protocol Per Protocol Vasopressin 60 unit/ Sodium 153 mls @ 3.06 mls/hr 03/10/23 20:30 03/11/23 08:30 Chloride IV 0 units/min .Q24H [facility] 0 mls/hr Titration Protocol 0.02 UNITS/MIN Milrinone Lactate/Dextrose 20 100 mls @ 4.68 mls/hr 03/11/23 16:15 03/11/23 16:34 mg/ IV Solution IV 0.2 mcg/kg/min .[id number] [facility] 4.68 mls/hr Administration 0.2 MCG/KG/MIN Magnesium Hydroxide 2,400 mg 03/11/23 09:00 Magnesium Hydroxide 2,400 Mg/30 Ml Cup PO BID PRN Constipation Metoclopramide HCl 10 mg 03/10/23 12:20 03/11/23 06:59 Metoclopramide 5 Mg/Ml 2 Ml Vial IVP 10 mg Q4H PRN Administration Nausea And Vomiting Miscellaneous Information 1 each 03/10/23 12:20 Potassium Replacement Protocol 1 Each Misc MISCELLANE DAILY PRN Per Protocol Protocol Miscellaneous Information 1 each 03/10/23 12:20 Magnesium Replacement Protocol 1 Each Misc MISCELLANE DAILY PRN Per Protocol Protocol Pantoprazole Sodium 40 mg 03/12/23 07:30 Pantoprazole 40 Mg Tablet PO AC-BRKFST [facility] Senna/Docusate Sodium 2 each 03/10/23 21:00 03/10/23 20:49 Sennosides-Docusate Sodium 1 Each Tab PO 2 each HS [facility] Administration Sodium Chloride 10 ml 03/10/23 21:00 03/11/23 09:43 Sodium Chloride 0.9% Flush 10 Ml Syringe IV Not Given BID [facility] Intake and Output 03/11/23 03/11/23 03/11/23 06:59 14:59 22:59 Intake Total 4359.302 1339.305 6.01 Output Total 665 355 Balance 548.887 714.305 6.01 Intake: IV 632 641 CO/CI fluid NS 0.9 110 60 LR 400 450 Pressure bags 72 81 ceFAZolin 2 gm In Sodium 50 50 Chloride 0.9% 50 ml @ 100 mls/hr IVPB Q8HR [facility] Rx# :[id number] Intake, IV Titration 81.887 68.305 6.01 Amount Albumin Human 25% 50 ml 50 In Empty Bag 1 bag @ 50 mls/hr IVPB ONCE ONE Rx#: [id number] Insulin Regular 100 unit 7.038 13.333 6.01 In Sodium Chloride 0.9% 100 ml @ Per Protocol IV .Q0M [facility] Rx#:[id number] Milrinone-D5w Pmx 20 mg 9.664 In Dextrose/Water 1 100ml .bag @ 0.3 MCG/KG/MIN 6. 903 mls/hr IV .[id number] [facility] Rx#:[id number] Norepinephrine 4 mg In 17.193 Sodium Chloride 0.9% 250 ml @ 0.03 MCG/KG/MIN 8. 767 mls/hr IV .Q24H [facility] Rx#:[id number] Vasopressin 60 unit In 47.992 4.972 Sodium Chloride 0.9% 150 ml @ 0.02 UNITS/MIN 3.06 mls/hr IV .Q24H [facility] Rx#: [id number] Oral 500 360 Output: Drainage 410 240 Bilateral Chest 40 0 Mediastinal 370 240 Urine 255 115 Other: Voiding Method Indwelling Catheter Indwelling Catheter Weight 78 kg 78 kg Patient Weight 03/12/23 06:59 Weight 78 kg 03/11/23 04:00 03/11/23 16:04
[2023-03-11] MEDS ORDERED: DEXTROSE 50% SYRINGE 50 ML IVP STA (17:35)
[2023-03-11 17:57] LABS: Glucose,Whole Blood 148 mg/dL (70-110)
[2023-03-11] MEDS ORDERED: INSULIN REGULAR 100 UNIT/ML VIAL (IV) IV ONE (18:00)
[2023-03-11 19:08] LABS: Glucose,Whole Blood 164 mg/dL (70-110)
[2023-03-11] MEDS ORDERED: METOPROLOL TARTRATE 5 MG/5 ML VIAL IVP ONE (19:30)
--- NOTE | 2023-03-11 19:55 | XR ---
EXAMINATION TYPE: XR chest 1V portable DATE OF EXAM: 03/11/2023 COMPARISON: 03/11/2023 INDICATION: NG tube placement TECHNIQUE: Single frontal view of the chest is obtained. FINDINGS: The heart size is enlarged. The pulmonary vasculature is normal. Left lower lobe infiltrate is present. Few air bronchograms are evident. There may be some mild right upper lobe infiltrate present. Findings appear similar to comparison. Multiple lines and catheters are present. This includes a [place]-Magda catheter with the tip in the main pulmonary artery region. Placement of a nasogastric tube which appears to be curled within the stoma ch below the level of the diaphragm. EKG leads overlie the chest. IMPRESSION: 1. Nasogastric tube placement with the tip curled within the stomach. 2. [place]-Magda catheter remains in position. 3. Cardiomegaly. 4. Bilateral lung infiltrates appear stable from recent comparison.
[2023-03-11 20:00] LABS: Glucose,Whole Blood 137 mg/dL (70-110)
[2023-03-11] MEDS: ATORVASTATIN 20 MG TAB PO SCH (20:17)
[2023-03-11] MEDS: SENNOSIDES-DOCUSATE SODIUM 1 EACH TAB PO SCH (20:17)
[2023-03-11] MEDS: VASOPRESSIN 60 UNIT in SODIUM CHLORIDE 0.9% 150 ML IV SCH (21:04)
[2023-03-11 21:16] LABS: Glucose,Whole Blood 140 mg/dL (70-110)
[2023-03-11 22:23] LABS: Glucose,Whole Blood 160 mg/dL (70-110)
[2023-03-11 22:59] LABS: Glucose,Whole Blood 154 mg/dL (70-110)
[2023-03-11 23:58] LABS: Glucose,Whole Blood 139 mg/dL (70-110)
[2023-03-12 01:20] LABS: Glucose,Whole Blood 130 mg/dL (70-110)
[2023-03-12 02:11] LABS: Glucose,Whole Blood 120 mg/dL (70-110)
[2023-03-12 03:12] LABS: Glucose,Whole Blood 123 mg/dL (70-110)
[2023-03-12 04:07] LABS: Glucose,Whole Blood 135 mg/dL (70-110)
[2023-03-12 05:17] LABS: Glucose,Whole Blood 136 mg/dL (70-110)
[2023-03-12 05:18] LABS: Basophils % (A) 0 %; Eosinophils % (A) 0 %; HGB 7.9 gm/dL (13.0-17.5); Lymphocytes # (A) 0.7 k/uL (1.0-4.8); Lymphocytes % (A) 9 %; MCH 32.7 pg (25.0-35.0); MCHC 34.1 g/dL (31.0-37.0); Monocytes # (A) 0.4 k/uL (0-1.0); Monocytes % (A) 5 %; Neutrophils # (A) 7.1 k/uL (1.3-7.7); Neutrophils % (A) 85 %; Platelet Count 134 k/uL (150-450); Poikilocytosis Slight; RDW 14.9 % (11.5-15.5); WBC 8.4 k/uL (3.8-10.6)
[2023-03-12 05:21] LABS: Ionized Calcium 4.7 mg/dL (4.5-5.3)
[2023-03-12 05:29] LABS: ALT 225 U/L (4-49); AST 375 U/L (17-59); African American GFR (CKD) 49 (>60 ml/min/1.73 sqM); Albumin 3.7 g/dL (3.5-5.0); Alkaline Phosphatase 35 U/L (38-126); Blood Urea Nitrogen 46 mg/dL (9-20); Calcium 8.4 mg/dL (8.4-10.2); Chloride 99 mmol/L (98-107); Glucose 121 mg/dL (74-99); Non-African American GFR(CKD) 42 (>60 ml/min/1.73 sqM); Potassium 4.8 mmol/L (3.5-5.1); Sodium 133 mmol/L (137-145); Total Protein 5.5 g/dL (6.3-8.2)
[2023-03-12 05:30] LABS: Anion Gap 9 mmol/L; Carbon Dioxide 25 mmol/L (22-30)
[2023-03-12 06:14] LABS: Glucose,Whole Blood 146 mg/dL (70-110)
[2023-03-12] MEDS: HYDROcodone/APAP 5-325MG 1 EACH TAB PO PRN ×2 (06:27→20:43)
[2023-03-12 07:06] LABS: Glucose,Whole Blood 138 mg/dL (70-110)
[2023-03-12] MEDS ORDERED: FUROSEMIDE 10 MG/ML 10 ML VIAL IV STA (08:21)
[2023-03-12] MEDS: CYANOCOBALAMIN 500 MCG TAB PO SCH (08:29)
[2023-03-12] MEDS: FLECAINIDE 50 MG TAB PO SCH ×2 (08:29→20:10)
[2023-03-12] MEDS: ASPIRIN 325 MG TAB PO SCH (08:30)
[2023-03-12] MEDS: HEPARIN SODIUM,PORCINE 5,000 UNIT/ML 1 ML VIAL SQ SCH ×3 (08:30→16:54)
[2023-03-12] MEDS: CHOLECALCIFEROL 25 MCG (1000 IU) TABLET PO SCH (08:30)
[2023-03-12] MEDS: METOPROLOL TARTRATE 12.5 MG TAB PO SCH ×2 (08:30→20:10)
[2023-03-12] MEDS: CLOPIDOGREL 75 MG TAB PO SCH (08:30)
[2023-03-12] MEDS: IPRATROPIUM-ALBUTEROL 3 ML NEB INHALATION SCH ×4 (08:32→20:57)
[2023-03-12] MEDS: PANTOPRAZOLE 40 MG TABLET PO SCH ×2 (08:33→10:32)
--- NOTE | 2023-03-12 08:34 | XR ---
EXAMINATION TYPE: XR chest 1V portable DATE OF EXAM: 03/12/2023 COMPARISON: 03/11/2023 HISTORY: NG tube placement TECHNIQUE: Single frontal view of the chest is obtained. FINDINGS: NG tube is seen with the catheter coiled in the left upper quadrant likely within the skyler ajay body. Extensive postsurgical changes are seen. [place]-Magda catheter with tip overlying the proximal pulmonary outflow tract. Bilateral shoulder arthropathy with bilateral consolidation and pleural eff usion. Heart is enlarged with poststernotomy changes. Atrial appendage clip noted. Suggestion of a me diastinal drain no sizable pneumothorax. Metallic density overlying the left axilla again suspicious for foreign body. IMPRESSION: 1. Diffuse pleural-parenchymal changes correlate for CHF. 2. Correlate for metallic foreign body overlying left axilla.
--- NOTE | 2023-03-12 08:40 | P.PN ---
Subjective Progress Note Date: 03/12/23 Principal diagnosis: Severe mitral regurgitation with torn chordae to P2 of the posterior leaflet. Previous medical history of hypertension, hyperlipidemia, evidence of silent naveed cardial infarction in [address] Velazco, chronic heart failure with preserved EF, paroxysmal atrial fibrillation on Xarelto for anticoagulation, type 2 diabetes, previous tobacco dependence, severe restrictive lung disease, asthma, remote history of pneumonia, TIA in 2014, bilateral internal carotid stenosis 50-79% POD #2 complex mitral valve repair with #30 mm [employer] AnnuloFlex band, victor m drangular resection of P2 of the posterior leaflet, closure of P2/P3 cleft, ring annuloplasty, and clip ligation of left atrial appendage with a 35 mm AtriClip, intraoperative transesophageal echocardiogram performed by anesthesia Postoperative acute blood loss anemia, expected given hemodilution and heart cardiopulmonary bypass pump Hypotension, requiring vasopressor use, expected DENISSE, expected given hypotension The patient was seen and examined sitting up in a recliner in the intensive care unit in no acute distress. Currently atrial fibrillation with heart rate in the high 90s to low 100s. Patient did have 5 mg IVP lopressor last night and received both doses flecainide. Was restarted on primacor for improved cardiac output. Was given 1 dose IVP lasix yesterday as well as insulin/dextrose last night for hyperkalemia. NGT place to decompress the stomach, was given IV reglan yesterday. Does complain of post surgical pain, denies shortness of breath although does appear slightly tachypneic. He did have increased oxygen demands yesterday and was up to 8LPM NC at one point, currently on 6 LPM high flow NC. Patient has poor effort at pulmonary toileting, barely achieving 500 mL on incentive spirometry. Right internal jugular Spencer/Cordis, right radial arterial line, mediastinal/right/left pleural chest tubes all present. Objective - Vital Signs Vital signs: Vital Signs Temp 99.7 F H 03/12/23 04:00 Pulse 106 H 03/12/23 07:15 Resp 18 03/12/23 07:15 BP 110/59 03/11/23 06:00 Pulse Ox 96 03/12/23 07:15 FiO2 50 03/10/23 18:02 Intake & Output 03/11/23 03/12/23 03/12/23 18:59 06:59 18:59 Intake Total 1391.209 848.827 60.751 Output Total 615 1045 115 Balance 776.209 -196.173 -54.249 Weight 78 kg 80.4 kg Intake: IV 937 828 59 CO/CI fluid NS 0.9 120 120 LR 650 600 50 Pressure bags 117 108 9 ceFAZolin 2 gm In Sodium 50 Chloride 0.9% 50 ml @ 100 mls/hr IVPB Q8HR [facility] Rx# :[id number] Intake, IV Titration 94.209 20.827 1.751 Amount Albumin Human 25% 50 ml 50 In Empty Bag 1 bag @ 50 mls/hr IVPB ONCE ONE Rx#: [id number] Insulin Regular 100 unit 25.437 16.227 1.751 In Sodium Chloride 0.9% 100 ml @ Per Protocol IV .Q0M [facility] Rx#:[id number] Milrinone-D5w Pmx 20 mg 13.8 4.6 In Dextrose/Water 1 100ml .bag @ 0.2 MCG/KG/MIN 4. 68 mls/hr IV .[id number] [facility] Rx#:[id number] Vasopressin 60 unit In 4.972 Sodium Chloride 0.9% 150 ml @ 0.02 UNITS/MIN 3.06 mls/hr IV .Q24H [facility] Rx#: [id number] Oral 360 Output: Drainage 350 230 40 Bilateral Chest 20 40 10 Mediastinal 330 190 30 Urine 265 815 75 Other: Voiding Method Indwelling Catheter Indwelling Catheter ABP, PAP, CO, CI - Last Documented Arterial Blood Pressure 101/48 Pulmonary Artery Pressure 52/21 Cardiac Output 5.3 Cardiac Index 3 - Exam CONSTITUTIONAL: Appears somewhat comfortable, cooperative, no acute distress RESPIRATORY: Lungs sounds diminished bilaterally with exp wheezes present. Respirations even, slightly tachypneic. Currently on 6 LPM nasal cannula with oxygen saturation 96%. Barely able to achieve 500 mL on incentive spirometry. Weak cough. CARDIOVASCULAR: S1, S2 present. Irregular rate and rhythm, atrial fibrillation on telemetry. Sternum stable. Palpable peripheral pulses bilaterally. No edema present. No calf pain or tenderness noted. Heart hugger in place with patient demonstrating appropriate use. Antiembolism stockings, SCDs present. GASTROINTESTINAL: Abdomen soft, nontender, nondistended. Hypoactive bowel sounds present. NGT present to LIS with minimal drainage. Denies flatus currently GENITOURINARY: Lopez present draining blood tinged urine. Output overnight 50- 80 mL per hour, 1080 mL in the last 24 hours INTEGUMENTARY: Skin is warm and dry with evidence of good perfusion. Anterior chest incision well approximated and covered with dry intact dressing NEUROLOGIC: Cranial nerves II through XII intact MUSKULOSKELETAL: Able to move all extremities, strength equal bilaterally PSYCHIATRIC: Alert and oriented to person place and time, appropriate affect, intact judgment and insight INVASIVE LINES AND TUBES: Mediastinal/left/right pleural chest tubes present and connected to wall suction, no air leaks present. Mediastinal tube with 110 mL serosanguineous drainage overnight, 500 mL in the last 24 hours. Left/right pleural chest tubes with 30 mL serosanguineous drainage overnight, 70 mL in the last 24 hours. A/V epicardial pacemaker wires present, connected to generator, backup rate 50 bpm. Right internal jugular Spencer/Cordis, right radial arterial line present. Last CO/CI 5.3/3.0, PA 57/20, CVP 10. - Allied health notes Allied health notes reviewed: nursing - Labs CBC & Chem 7: 03/12/23 05:06 03/12/23 05:06 Labs: Abnormal Lab Results - Last 24 Hours (Table) 03/05/23 03/11/23 03/11/23 Range/Units 09:03 08:38 09:57 RBC (4.30-5.90) m/uL Hgb (13.0-17.5) gm/dL Hct (39.0-53.0) % Plt Count (150-450) k/uL Lymphocytes # (1.0-4.8) k/uL ABG pH (7.35-7.45) ABG pCO2 (35-45) mmHg ABG pO2 (83-108) mmHg Sodium (137-145) mmol/L Potassium (3.5-5.1) mmol/L BUN (9-20) mg/dL Creatinine (0.66-1.25) mg/dL Glucose (74-99) mg/dL POC Glucose (mg/dL) 243 H 200 H (70-110) mg/dL Calcium (8.4-10.2) mg/dL Phosphorus (2.5-4.5) mg/dL AST (17-59) U/L ALT (4-49) U/L Alkaline Phosphatase (38-126) U/L Total Protein (6.3-8.2) g/dL Crossmatch See Detail 03/11/23 03/11/23 03/11/23 Range/Units 11:16 12:06 13:19 RBC (4.30-5.90) m/uL Hgb (13.0-17.5) gm/dL Hct (39.0-53.0) % Plt Count (150-450) k/uL Lymphocytes # (1.0-4.8) k/uL ABG pH (7.35-7.45) ABG pCO2 (35-45) mmHg ABG pO2 (83-108) mmHg Sodium (137-145) mmol/L Potassium (3.5-5.1) mmol/L BUN (9-20) mg/dL Creatinine (0.66-1.25) mg/dL Glucose (74-99) mg/dL POC Glucose (mg/dL) 146 H 136 H 206 H (70-110) mg/dL Calcium (8.4-10.2) mg/dL Phosphorus (2.5-4.5) mg/dL AST (17-59) U/L ALT (4-49) U/L Alkaline Phosphatase (38-126) U/L Total Protein (6.3-8.2) g/dL Crossmatch 03/11/23 03/11/23 03/11/23 Range/Units 15:00 16:04 16:11 RBC (4.30-5.90) m/uL Hgb (13.0-17.5) gm/dL Hct (39.0-53.0) % Plt Count (150-450) k/uL Lymphocytes # (1.0-4.8) k/uL ABG pH 7.31 L (7.35-7.45) ABG pCO2 46 H (35-45) mmHg ABG pO2 77 L (83-108) mmHg Sodium 134 L (137-145) mmol/L Potassium 5.4 H (3.5-5.1) mmol/L BUN 48 H (9-20) mg/dL Creatinine 1.99 H (0.66-1.25) mg/dL Glucose 158 H (74-99) mg/dL POC Glucose (mg/dL) 164 H (70-110) mg/dL Calcium 8.3 L (8.4-10.2) mg/dL Phosphorus 6.2 H (2.5-4.5) mg/dL AST (17-59) U/L ALT (4-49) U/L Alkaline Phosphatase (38-126) U/L Total Protein (6.3-8.2) g/dL Crossmatch 03/11/23 03/11/23 03/11/23 Range/Units 16:41 17:55 19:06 RBC (4.30-5.90) m/uL Hgb (13.0-17.5) gm/dL Hct (39.0-53.0) % Plt Count (150-450) k/uL Lymphocytes # (1.0-4.8) k/uL ABG pH (7.35-7.45) ABG pCO2 (35-45) mmHg ABG pO2 (83-108) mmHg Sodium (137-145) mmol/L Potassium (3.5-5.1) mmol/L BUN (9-20) mg/dL Creatinine (0.66-1.25) mg/dL Glucose (74-99) mg/dL POC Glucose (mg/dL) 171 H 148 H 164 H (70-110) mg/dL Calcium (8.4-10.2) mg/dL Phosphorus (2.5-4.5) mg/dL AST (17-59) U/L ALT (4-49) U/L Alkaline Phosphatase (38-126) U/L Total Protein (6.3-8.2) g/dL Crossmatch 03/11/23 03/11/23 03/11/23 Range/Units 19:58 21:15 22:21 RBC (4.30-5.90) m/uL Hgb (13.0-17.5) gm/dL Hct (39.0-53.0) % Plt Count (150-450) k/uL Lymphocytes # (1.0-4.8) k/uL ABG pH (7.35-7.45) ABG pCO2 (35-45) mmHg ABG pO2 (83-108) mmHg Sodium (137-145) mmol/L Potassium (3.5-5.1) mmol/L BUN (9-20) mg/dL Creatinine (0.66-1.25) mg/dL Glucose (74-99) mg/dL POC Glucose (mg/dL) 137 H 140 H 160 H (70-110) mg/dL Calcium (8.4-10.2) mg/dL Phosphorus (2.5-4.5) mg/dL AST (17-59) U/L ALT (4-49) U/L Alkaline Phosphatase (38-126) U/L Total Protein (6.3-8.2) g/dL Crossmatch 03/11/23 03/11/23 03/12/23 Range/Units 22:57 23:56 01:18 RBC (4.30-5.90) m/uL Hgb (13.0-17.5) gm/dL Hct (39.0-53.0) % Plt Count (150-450) k/uL Lymphocytes # (1.0-4.8) k/uL ABG pH (7.35-7.45) ABG pCO2 (35-45) mmHg ABG pO2 (83-108) mmHg Sodium (137-145) mmol/L Potassium (3.5-5.1) mmol/L BUN (9-20) mg/dL Creatinine (0.66-1.25) mg/dL Glucose (74-99) mg/dL POC Glucose (mg/dL) 154 H 139 H 130 H (70-110) mg/dL Calcium (8.4-10.2) mg/dL Phosphorus (2.5-4.5) mg/dL AST (17-59) U/L ALT (4-49) U/L Alkaline Phosphatase (38-126) U/L Total Protein (6.3-8.2) g/dL Crossmatch 03/12/23 03/12/23 03/12/23 Range/Units 02:09 03:11 04:05 RBC (4.30-5.90) m/uL Hgb (13.0-17.5) gm/dL Hct (39.0-53.0) % Plt Count (150-450) k/uL Lymphocytes # (1.0-4.8) k/uL ABG pH (7.35-7.45) ABG pCO2 (35-45) mmHg ABG pO2 (83-108) mmHg Sodium (137-145) mmol/L Potassium (3.5-5.1) mmol/L BUN (9-20) mg/dL Creatinine (0.66-1.25) mg/dL Glucose (74-99) mg/dL POC Glucose (mg/dL) 120 H 123 H 135 H (70-110) mg/dL Calcium (8.4-10.2) mg/dL Phosphorus (2.5-4.5) mg/dL AST (17-59) U/L ALT (4-49) U/L Alkaline Phosphatase (38-126) U/L Total Protein (6.3-8.2) g/dL Crossmatch 03/12/23 03/12/23 03/12/23 Range/Units 05:05 05:06 05:06 RBC 2.40 L (4.30-5.90) m/uL Hgb 7.9 L (13.0-17.5) gm/dL Hct 23.0 L (39.0-53.0) % Plt Count 134 L (150-450) k/uL Lymphocytes # 0.7 L (1.0-4.8) k/uL ABG pH (7.35-7.45) ABG pCO2 (35-45) mmHg ABG pO2 (83-108) mmHg Sodium 133 L (137-145) mmol/L Potassium (3.5-5.1) mmol/L BUN 46 H (9-20) mg/dL Creatinine 1.58 H (0.66-1.25) mg/dL Glucose 121 H (74-99) mg/dL POC Glucose (mg/dL) 136 H (70-110) mg/dL Calcium (8.4-10.2) mg/dL Phosphorus (2.5-4.5) mg/dL AST 375 H (17-59) U/L ALT 225 H (4-49) U/L Alkaline Phosphatase 35 L (38-126) U/L Total Protein 5.5 L (6.3-8.2) g/dL Crossmatch 03/12/23 03/12/23 Range/Units 06:13 06:53 RBC (4.30-5.90) m/uL Hgb (13.0-17.5) gm/dL Hct (39.0-53.0) % Plt Count (150-450) k/uL Lymphocytes # (1.0-4.8) k/uL ABG pH (7.35-7.45) ABG pCO2 (35-45) mmHg ABG pO2 (83-108) mmHg Sodium (137-145) mmol/L Potassium (3.5-5.1) mmol/L BUN (9-20) mg/dL Creatinine (0.66-1.25) mg/dL Glucose (74-99) mg/dL POC Glucose (mg/dL) 146 H 138 H (70-110) mg/dL Calcium (8.4-10.2) mg/dL Phosphorus (2.5-4.5) mg/dL AST (17-59) U/L ALT (4-49) U/L Alkaline Phosphatase (38-126) U/L Total Protein (6.3-8.2) g/dL Crossmatch - Imaging and Cardiology Chest x-ray: image reviewed Assessment and Plan Assessment: Severe mitral regurgitation with torn chordae to P2 of the posterior leaflet, S/P complex mitral valve repair with #30 mm [employer] AnnuloFlex band, quadrangular resection of P2 of the posterior leaflet, closure of P2/P3 cleft, ring annuloplasty History of hypertension, was hypotensive, currently off pressors Hyperlipidemia, treated, cholesterol 122, LDL 52 Evidence of silent myocardial infarction in [address] Velazco Chronic heart failure with preserved EF 50-55% Paroxysmal atrial fibrillation on Xarelto for anticoagulation, S/P clip ligation of left atrial appendage with a 35 mm AtriClip Type 2 diabetes, hemaglobin A1c 7.5% Previous tobacco dependence Severe restrictive lung disease, preoperative FEV1 44% of predicted on full PFT Asthma Remote history of pneumonia TIA in 2014 Bilateral internal carotid stenosis 50-79% Postoperative acute blood loss anemia, expected DENISSE, expected given hypotension Elevated transaminases, likely from liver congestion Plan: Continue to maximize medical therapy with aspirin, statin, Plavix. Will start beta gisell today Continue flecainide. No anticoagulation until discharge Continue primacor at low dose Wean oxygen as tolerated. Encourage incentive spirometry 10 times every hour while awake. Bronchodilators per pulmonology Will monitor daily labs, CXR. Electrolyte replacement per protocol. Will give IV lasix today Increase activity as tolerated. PT/OT/cardiac rehab consulted GI/DVT prophylaxis Insulin management per internal medicine. Patient should remain on insulin gtt for 48 hours then change to subq insulin Pain control with current medication regimen. No Toradol due to DENISSE Continue swan/cordis Continue chest tubes for another 24 hours, monitor output Continue lopez catheter for another 24 hours for strict accurate I/O DC NGT, start clear liquids More recommendations to follow based on patient's progress
[2023-03-12 08:45] LABS: Glucose,Whole Blood 117 mg/dL (70-110)
[2023-03-12] MEDS: MILRINONE-D5W PMX 20 MG in DEXTROSE/WATER 1 100ML.BAG IV SCH (09:02)
[2023-03-12 10:33] LABS: Glucose,Whole Blood 138 mg/dL (70-110)
[2023-03-12 12:17] LABS: Glucose,Whole Blood 113 mg/dL (70-110)
--- NOTE | 2023-03-12 13:21 | P.PN ---
Subjective Progress Note Date: 03/12/23 Principal diagnosis: POD #2 complex mitral valve repair with #30 mm CarboMedics AnnuloFlex band, quadrangular resection of P2 of the posterior leaflet, closure of P2/P3 cleft, ring annuloplasty, and clip ligation of left atrial appendage with a 35 mm AtriClip, intraoperative transesophageal echocardiogram performed by anesthesia This is a 77-year-old white male with history of severe mitral valve regurgitation, sick sinus syndrome, history of congestive heart failure with preserved ejection fraction, hypertension dyslipidemia paroxysmal atrial fibrillation, 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 Patient was seen by cardiac surgery back on 02/19/2023, and he was evaluated for mitral valve repair. Today the patient underwent surgery, postoperatively he is on mechanical ventilation, assist control rate of 12 tidal volume 500 FiO2 50% and PEEP of 5. Chest x-ray showed mild interstitial edema/mild pulmonary vascular congestion. Patient is now on Precedex at 0.3 mcg/kg/h norepinephrine at 0.1 mcg/kg/m he is on Primacor at 0.2 mcg/kg/m is also on insulin at 0.5 units per hour. His cardiac output is 5.1 cardiac index is 2.9 CVP is 17. WBC count 9.8 hemoglobin 7.9 Patient was reevaluated today on 03/11/2023.POD #1 complex mitral valve repair with #30 mm CarboMedics AnnuloFlex band, quadrangular resection of P2 of the posterior leaflet, closure of P2/P3 cleft, ring annuloplasty, and clip ligation of left atrial appendage with a 35 mm AtriClip, intraoperative transesophageal echocardiogram performed by anesthesia. Patient is doing well, he is not requiring any pressors or any inotropes at this point in time he did require pressors last night until early this morning patient is doing poorly with in centive spirometry he was extubated last night at 1901. Currently the patient is being AV paced at 80 bpm, underlying rhythm is bradycardia. Blood pressure is marginal but seems to be within normal today. Patient does have evidence of crackles and rhonchi on physical examination, but he denies shortness of breath. Chest x-ray showed mostly bibasilar atelectasis. CBC is relatively normal, hemoglobin is 7.9, basic metabolic profile is normal BUN is 46 creatinine 1.34 Reevaluated today on 03/12/23, patient is now postoperative day #2. Patient is resting in a recliner, he is on 5 L nasal cannula, his cardiac output is 4.9 cardiac index is 2.8 CVP is 8 pulmonary artery pressure 50/15 patient is receiving Primacor at 0.2 mcg/kg/m is also on insulin at 1.5 units an hour. Chest x-ray is suggestive of mild congestive heart failure changes, clinically the patient is feeling much better today compared to how he felt yesterday in the afternoon. He did receive Lasix, and he had a good urine output with Lasix today. WBC count is 8.4 hemoglobin is 7.9, ABG from late yesterday showed a pO2 of 77 pCO2 46 pH of 7.31, renal profile is improving creatinine is 1.58 compared to 1.99 yesterday electrolytes are normal liver enzymes are elevated. Objective - Vital Signs Vital signs: Vital Signs Temp 99.3 F 03/12/23 12:00 Pulse 106 H 03/12/23 13:00 Resp 28 H 03/12/23 13:00 BP 110/59 03/11/23 06:00 Pulse Ox 96 03/12/23 13:00 FiO2 50 03/10/23 18:02 Intake & Output 03/11/23 03/12/23 03/12/23 18:59 06:59 18:59 Intake Total 1391.209 848.827 792.318 Output Total 615 1045 815 Balance 776.209 -196.173 -22.682 Weight 78 kg 80.4 kg Intake: IV 937 828 184 CO/CI fluid NS 0.9 120 120 80 LR 650 600 50 Pressure bags 117 108 54 ceFAZolin 2 gm In Sodium 50 Chloride 0.9% 50 ml @ 100 mls/hr IVPB Q8HR [facility] Rx# :[id number] Intake, IV Titration 94.209 20.827 188.318 Amount Albumin Human 25% 50 ml 50 In Empty Bag 1 bag @ 50 mls/hr IVPB ONCE ONE Rx#: [id number] Insulin Regular 100 unit 25.437 16.227 11.254 In Sodium Chloride 0.9% 100 ml @ Per Protocol IV .Q0M [facility] Rx#:[id number] Lactated Ringers 1,000 ml 100 @ 20 mls/hr IV .Q24H [facility] Rx#:[id number] Milrinone-D5w Pmx 20 mg 13.8 4.6 77.064 In Dextrose/Water 1 100ml .bag @ 0.2 MCG/KG/MIN 4. 68 mls/hr IV .[id number] [facility] Rx#:[id number] Vasopressin 60 unit In 4.972 Sodium Chloride 0.9% 150 ml @ 0.02 UNITS/MIN 3.06 mls/hr IV .Q24H [facility] Rx#: [id number] Oral 360 360 Other 60 Output: Drainage 350 230 90 Bilateral Chest 20 40 10 Mediastinal 330 190 80 Urine 265 815 725 Other: Voiding Method Indwelling Catheter Indwelling Catheter Indwelling Catheter ABP, PAP, CO, CI - Last Documented Arterial Blood Pressure 123/45 Pulmonary Artery Pressure 54/20 Cardiac Output 4.7 Cardiac Index 2.7 - Exam Physical Exam: Revealed a 77-year-old white male in no distress, on 5 L nasal cannula Head: Atraumatic, normocephalic. HEENT:[Neck is supple.] [No neck masses.] [No thyromegaly.] [No JVD.] Chest: [Minimal fine crackles at the bases no rhonchi and no wheezes Cardiac Exam: [Normal S1 and S2, no S3 gallop, 2/6 systolic murmur thought the precordium Abdomen: [Soft, nontender, no megaly, no rebound, no guarding, normal bowel sounds.] Extremities: [No clubbing, no edema, no cyanosis.] Neurological Exam: [No focal neurologic deficit.] Alert oriented 3 Psychiatric: Normal mood affect and normal mental status examination. - Labs CBC & Chem 7: 03/12/23 05:06 03/12/23 05:06 Labs: Abnormal Lab Results - Last 24 Hours (Table) 03/05/23 03/11/23 03/11/23 Range/Units 09:03 13:19 15:00 RBC (4.30-5.90) m/uL Hgb (13.0-17.5) gm/dL Hct (39.0-53.0) % Plt Count (150-450) k/uL Lymphocytes # (1.0-4.8) k/uL ABG pH (7.35-7.45) ABG pCO2 (35-45) mmHg ABG pO2 (83-108) mmHg Sodium (137-145) mmol/L Potassium (3.5-5.1) mmol/L BUN (9-20) mg/dL Creatinine (0.66-1.25) mg/dL Glucose (74-99) mg/dL POC Glucose (mg/dL) 206 H 164 H (70-110) mg/dL Calcium (8.4-10.2) mg/dL Phosphorus (2.5-4.5) mg/dL AST (17-59) U/L ALT (4-49) U/L Alkaline Phosphatase (38-126) U/L Total Protein (6.3-8.2) g/dL Crossmatch See Detail 03/11/23 03/11/23 03/11/23 Range/Units 16:04 16:11 16:41 RBC (4.30-5.90) m/uL Hgb (13.0-17.5) gm/dL Hct (39.0-53.0) % Plt Count (150-450) k/uL Lymphocytes # (1.0-4.8) k/uL ABG pH 7.31 L (7.35-7.45) ABG pCO2 46 H (35-45) mmHg ABG pO2 77 L (83-108) mmHg Sodium 134 L (137-145) mmol/L Potassium 5.4 H (3.5-5.1) mmol/L BUN 48 H (9-20) mg/dL Creatinine 1.99 H (0.66-1.25) mg/dL Glucose 158 H (74-99) mg/dL POC Glucose (mg/dL) 171 H (70-110) mg/dL Calcium 8.3 L (8.4-10.2) mg/dL Phosphorus 6.2 H (2.5-4.5) mg/dL AST (17-59) U/L ALT (4-49) U/L Alkaline Phosphatase (38-126) U/L Total Protein (6.3-8.2) g/dL Crossmatch 03/11/23 03/11/23 03/11/23 Range/Units 17:55 19:06 19:58 RBC (4.30-5.90) m/uL Hgb (13.0-17.5) gm/dL Hct (39.0-53.0) % Plt Count (150-450) k/uL Lymphocytes # (1.0-4.8) k/uL ABG pH (7.35-7.45) ABG pCO2 (35-45) mmHg ABG pO2 (83-108) mmHg Sodium (137-145) mmol/L Potassium (3.5-5.1) mmol/L BUN (9-20) mg/dL Creatinine (0.66-1.25) mg/dL Glucose (74-99) mg/dL POC Glucose (mg/dL) 148 H 164 H 137 H (70-110) mg/dL Calcium (8.4-10.2) mg/dL Phosphorus (2.5-4.5) mg/dL AST (17-59) U/L ALT (4-49) U/L Alkaline Phosphatase (38-126) U/L Total Protein (6.3-8.2) g/dL Crossmatch 03/11/23 03/11/23 03/11/23 Range/Units 21:15 22:21 22:57 RBC (4.30-5.90) m/uL Hgb (13.0-17.5) gm/dL Hct (39.0-53.0) % Plt Count (150-450) k/uL Lymphocytes # (1.0-4.8) k/uL ABG pH (7.35-7.45) ABG pCO2 (35-45) mmHg ABG pO2 (83-108) mmHg Sodium (137-145) mmol/L Potassium (3.5-5.1) mmol/L BUN (9-20) mg/dL Creatinine (0.66-1.25) mg/dL Glucose (74-99) mg/dL POC Glucose (mg/dL) 140 H 160 H 154 H (70-110) mg/dL Calcium (8.4-10.2) mg/dL Phosphorus (2.5-4.5) mg/dL AST (17-59) U/L ALT (4-49) U/L Alkaline Phosphatase (38-126) U/L Total Protein (6.3-8.2) g/dL Crossmatch 03/11/23 03/12/23 03/12/23 Range/Units 23:56 01:18 02:09 RBC (4.30-5.90) m/uL Hgb (13.0-17.5) gm/dL Hct (39.0-53.0) % Plt Count (150-450) k/uL Lymphocytes # (1.0-4.8) k/uL ABG pH (7.35-7.45) ABG pCO2 (35-45) mmHg ABG pO2 (83-108) mmHg Sodium (137-145) mmol/L Potassium (3.5-5.1) mmol/L BUN (9-20) mg/dL Creatinine (0.66-1.25) mg/dL Glucose (74-99) mg/dL POC Glucose (mg/dL) 139 H 130 H 120 H (70-110) mg/dL Calcium (8.4-10.2) mg/dL Phosphorus (2.5-4.5) mg/dL AST (17-59) U/L ALT (4-49) U/L Alkaline Phosphatase (38-126) U/L Total Protein (6.3-8.2) g/dL Crossmatch 03/12/23 03/12/23 03/12/23 Range/Units 03:11 04:05 05:05 RBC (4.30-5.90) m/uL Hgb (13.0-17.5) gm/dL Hct (39.0-53.0) % Plt Count (150-450) k/uL Lymphocytes # (1.0-4.8) k/uL ABG pH (7.35-7.45) ABG pCO2 (35-45) mmHg ABG pO2 (83-108) mmHg Sodium (137-145) mmol/L Potassium (3.5-5.1) mmol/L BUN (9-20) mg/dL Creatinine (0.66-1.25) mg/dL Glucose (74-99) mg/dL POC Glucose (mg/dL) 123 H 135 H 136 H (70-110) mg/dL Calcium (8.4-10.2) mg/dL Phosphorus (2.5-4.5) mg/dL AST (17-59) U/L ALT (4-49) U/L Alkaline Phosphatase (38-126) U/L Total Protein (6.3-8.2) g/dL Crossmatch 03/12/23 03/12/23 03/12/23 Range/Units 05:06 05:06 06:13 RBC 2.40 L (4.30-5.90) m/uL Hgb 7.9 L (13.0-17.5) gm/dL Hct 23.0 L (39.0-53.0) % Plt Count 134 L (150-450) k/uL Lymphocytes # 0.7 L (1.0-4.8) k/uL ABG pH (7.35-7.45) ABG pCO2 (35-45) mmHg ABG pO2 (83-108) mmHg Sodium 133 L (137-145) mmol/L Potassium (3.5-5.1) mmol/L BUN 46 H (9-20) mg/dL Creatinine 1.58 H (0.66-1.25) mg/dL Glucose 121 H (74-99) mg/dL POC Glucose (mg/dL) 146 H (70-110) mg/dL Calcium (8.4-10.2) mg/dL Phosphorus (2.5-4.5) mg/dL AST 375 H (17-59) U/L ALT 225 H (4-49) U/L Alkaline Phosphatase 35 L (38-126) U/L Total Protein 5.5 L (6.3-8.2) g/dL Crossmatch 03/12/23 03/12/23 03/12/23 Range/Units 06:53 08:43 10:22 RBC (4.30-5.90) m/uL Hgb (13.0-17.5) gm/dL Hct (39.0-53.0) % Plt Count (150-450) k/uL Lymphocytes # (1.0-4.8) k/uL ABG pH (7.35-7.45) ABG pCO2 (35-45) mmHg ABG pO2 (83-108) mmHg Sodium (137-145) mmol/L Potassium (3.5-5.1) mmol/L BUN (9-20) mg/dL Creatinine (0.66-1.25) mg/dL Glucose (74-99) mg/dL POC Glucose (mg/dL) 138 H 117 H 138 H (70-110) mg/dL Calcium (8.4-10.2) mg/dL Phosphorus (2.5-4.5) mg/dL AST (17-59) U/L ALT (4-49) U/L Alkaline Phosphatase (38-126) U/L Total Protein (6.3-8.2) g/dL Crossmatch 03/12/23 Range/Units 12:10 RBC (4.30-5.90) m/uL Hgb (13.0-17.5) gm/dL Hct (39.0-53.0) % Plt Count (150-450) k/uL Lymphocytes # (1.0-4.8) k/uL ABG pH (7.35-7.45) ABG pCO2 (35-45) mmHg ABG pO2 (83-108) mmHg Sodium (137-145) mmol/L Potassium (3.5-5.1) mmol/L BUN (9-20) mg/dL Creatinine (0.66-1.25) mg/dL Glucose (74-99) mg/dL POC Glucose (mg/dL) 113 H (70-110) mg/dL Calcium (8.4-10.2) mg/dL Phosphorus (2.5-4.5) mg/dL AST (17-59) U/L ALT (4-49) U/L Alkaline Phosphatase (38-126) U/L Total Protein (6.3-8.2) g/dL Crossmatch Assessment and Plan Assessment: Impression: Severe mitral regurgitation Status post mitral valve repair postoperative day #2 Chronic congestive heart failure with preserved LV function Benign essential hypertension Paroxysmal atrial fibrillation History of CVA following back surgery Type 2 diabetes without complications History of mild intermittent asthma History of flash pulmonary edema Recommendation: Continue oxygen via nasal cannula and titrate accordingly Continue incentive spirometry, patient is doing very poorly with incentive spirometry Continue Primacor for now as ordered by thoracic surgery Continue intermittent diuresis Resume cardiac meds Ambulate GI and DVT prophylaxis We'll continue to follow Time with Patient: Less than 30
[2023-03-12 13:25] LABS: Glucose,Whole Blood 235 mg/dL (70-110)
[2023-03-12] MEDS: ACETAMINOPHEN TAB 325 MG TAB PO PRN (13:28)
[2023-03-12 14:52] LABS: Glucose,Whole Blood 181 mg/dL (70-110)
--- NOTE | 2023-03-12 15:05 | P.PN ---
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 Patient follows with Dr Velazco. Patient underwent heart c atheterization preoperatively which showed no obstructive disease and a EVELYN showed severe mitral regurgitation with tethering of the posterior leaflet and prolapse of the P2 segment with severe left atrial dilation. He has been noticing increasing shortness breath over the last few months. He has been hospitalized for heart failure. He presented for elective mitral valve repair with complex mitral valve repair 03/10/2023 with a # 30mm CarboMedics Annuloflex band, resection of P2 with repair of MR and COREY ligation. He was mildly hypotensive however was weaned off of vasopressors including milrinone this morning. Additionally he was extubated last night at approximately 7 PM. He has had intermittent bradycardia with heart rates in the 50s and therefore has been ventricularly paced at 80 bpm. Underlying rhythm appears to be atrial fibrillation. This morning he was feeling somewhat better however started having increasing shortness breath in the afternoon. He admits to chest pain with deep inspiration. Additionally chest x-ray shows ileus and was given Reglan. He denies any actual abdominal pain. Has not had a bowel movement. Cardiac index reading 2.0-2.1 and CVP remains elevated at 20 with PA pressures in the 70s over 20s, somewhat better than intraoperatively more in the 90s. He does have acute kidney injury with creatinine up to 1.3. 03/12 Patient is status post mitral repair, postop day 2. He is currently on milrinone drip CVP is around 12, systolic PA pressure 50s, diastolic PA pressure 30s. Heart rate 105, blood pressure 105/60. Underlying rhythm is atrial fibrillation. PHYSICAL EXAMINATION Vital signs reviewed. CONSTITUTIONAL: Tachypnic, ill appearing, mild increased work of breathing HEENT: Head is normocephalic. Pupils are equal, round. Sclerae anicteric. Mucous membranes of the mouth are moist. No JVD. No carotid bruit. CHEST EXAMINATION: Mild crackles at bases, decreased breath sounds at bases HEART EXAMINATION: irregular rhythm. Chest tube in place, right IJ swan in place ABDOMEN: Soft, nontender. Positive bowel sounds. EXTREMITIES: 2+ peripheral pulses, no lower extremity edema and no calf tenderness. NEUROLOGIC EXAMINATION: Patient is awake, alert and oriented x3. ASSESSMENT 1. Severe mitral regurgitation status post ring and mitral valve repair 03/10 2. Acute on chronic diastolic heart failure 3. Mild CAD by heart catheterization 4. Persistent atrial fibrillation 5. Bradycardia postoperatively, mildly improved 6. Pulmonary hypertension, likely related to left-sided heart failure 7. Acute on chronic respiratory failure 8. Hypertension PLAN Continue milrinone drip next and continue aspirin and Plavix as per CT surgery recommendations. Eliquis is on hold due to postoperative anemia and hemodilution Continue metoprolol 12.5 mg daily and flecainide 50 mg twice a day. We'll reassess the need for any diuretics tomorrow. At present he is doing well. Objective - Vital Signs Vital signs: Vital Signs Temp 99.3 F 03/12/23 12:00 Pulse 105 H 03/12/23 14:00 Resp 25 H 03/12/23 14:00 BP 110/59 03/11/23 06:00 Pulse Ox 99 03/12/23 14:00 FiO2 50 03/10/23 18:02 Intake & Output 03/11/23 03/12/23 03/12/23 18:59 06:59 18:59 Intake Total 1391.209 848.827 858.373 Output Total 615 1045 1065 Balance 776.209 -196.173 -206.627 Weight 78 kg 80.4 kg Intake: IV 937 828 202 CO/CI fluid NS 0.9 120 120 80 LR 650 600 50 Pressure bags 117 108 72 ceFAZolin 2 gm In Sodium 50 Chloride 0.9% 50 ml @ 100 mls/hr IVPB Q8HR [facility] Rx# :[id number] Intake, IV Titration 94.209 20.827 236.373 Amount Albumin Human 25% 50 ml 50 In Empty Bag 1 bag @ 50 mls/hr IVPB ONCE ONE Rx#: [id number] Insulin Regular 100 unit 25.437 16.227 19.309 In Sodium Chloride 0.9% 100 ml @ Per Protocol IV .Q0M [facility] Rx#:[id number] Lactated Ringers 1,000 ml 140 @ 20 mls/hr IV .Q24H [facility] Rx#:[id number] Milrinone-D5w Pmx 20 mg 13.8 4.6 77.064 In Dextrose/Water 1 100ml .bag @ 0.2 MCG/KG/MIN 4. 68 mls/hr IV .[id number] [facility] Rx#:[id number] Vasopressin 60 unit In 4.972 Sodium Chloride 0.9% 150 ml @ 0.02 UNITS/MIN 3.06 mls/hr IV .Q24H [facility] Rx#: [id number] Oral 360 360 Other 60 Output: Drainage 350 230 90 Bilateral Chest 20 40 10 Mediastinal 330 190 80 Urine 265 815 975 Other: Voiding Method Indwelling Catheter Indwelling Catheter Indwelling Catheter ABP, PAP, CO, CI - Last Documented Arterial Blood Pressure 124/50 Pulmonary Artery Pressure 54/16 Cardiac Output 4.7 Cardiac Index 2.7 - Labs CBC & Chem 7: 03/12/23 05:06 03/12/23 05:06 Labs: Abnormal Lab Results - Last 24 Hours (Table) 03/05/23 03/11/23 03/11/23 Range/Units 09:03 15:00 16:04 RBC (4.30-5.90) m/uL Hgb (13.0-17.5) gm/dL Hct (39.0-53.0) % Plt Count (150-450) k/uL Lymphocytes # (1.0-4.8) k/uL ABG pH (7.35-7.45) ABG pCO2 (35-45) mmHg ABG pO2 (83-108) mmHg Sodium 134 L (137-145) mmol/L Potassium 5.4 H (3.5-5.1) mmol/L BUN 48 H (9-20) mg/dL Creatinine 1.99 H (0.66-1.25) mg/dL Glucose 158 H (74-99) mg/dL POC Glucose (mg/dL) 164 H (70-110) mg/dL Calcium 8.3 L (8.4-10.2) mg/dL Phosphorus 6.2 H (2.5-4.5) mg/dL AST (17-59) U/L ALT (4-49) U/L Alkaline Phosphatase (38-126) U/L Total Protein (6.3-8.2) g/dL Crossmatch See Detail 03/11/23 03/11/23 03/11/23 Range/Units 16:11 16:41 17:55 RBC (4.30-5.90) m/uL Hgb (13.0-17.5) gm/dL Hct (39.0-53.0) % Plt Count (150-450) k/uL Lymphocytes # (1.0-4.8) k/uL ABG pH 7.31 L (7.35-7.45) ABG pCO2 46 H (35-45) mmHg ABG pO2 77 L (83-108) mmHg Sodium (137-145) mmol/L Potassium (3.5-5.1) mmol/L BUN (9-20) mg/dL Creatinine (0.66-1.25) mg/dL Glucose (74-99) mg/dL POC Glucose (mg/dL) 171 H 148 H (70-110) mg/dL Calcium (8.4-10.2) mg/dL Phosphorus (2.5-4.5) mg/dL AST (17-59) U/L ALT (4-49) U/L Alkaline Phosphatase (38-126) U/L Total Protein (6.3-8.2) g/dL Crossmatch 03/11/23 03/11/23 03/11/23 Range/Units 19:06 19:58 21:15 RBC (4.30-5.90) m/uL Hgb (13.0-17.5) gm/dL Hct (39.0-53.0) % Plt Count (150-450) k/uL Lymphocytes # (1.0-4.8) k/uL ABG pH (7.35-7.45) ABG pCO2 (35-45) mmHg ABG pO2 (83-108) mmHg Sodium (137-145) mmol/L Potassium (3.5-5.1) mmol/L BUN (9-20) mg/dL Creatinine (0.66-1.25) mg/dL Glucose (74-99) mg/dL POC Glucose (mg/dL) 164 H 137 H 140 H (70-110) mg/dL Calcium (8.4-10.2) mg/dL Phosphorus (2.5-4.5) mg/dL AST (17-59) U/L ALT (4-49) U/L Alkaline Phosphatase (38-126) U/L Total Protein (6.3-8.2) g/dL Crossmatch 03/11/23 03/11/23 03/11/23 Range/Units 22:21 22:57 23:56 RBC (4.30-5.90) m/uL Hgb (13.0-17.5) gm/dL Hct (39.0-53.0) % Plt Count (150-450) k/uL Lymphocytes # (1.0-4.8) k/uL ABG pH (7.35-7.45) ABG pCO2 (35-45) mmHg ABG pO2 (83-108) mmHg Sodium (137-145) mmol/L Potassium (3.5-5.1) mmol/L BUN (9-20) mg/dL Creatinine (0.66-1.25) mg/dL Glucose (74-99) mg/dL POC Glucose (mg/dL) 160 H 154 H 139 H (70-110) mg/dL Calcium (8.4-10.2) mg/dL Phosphorus (2.5-4.5) mg/dL AST (17-59) U/L ALT (4-49) U/L Alkaline Phosphatase (38-126) U/L Total Protein (6.3-8.2) g/dL Crossmatch 03/12/23 03/12/23 03/12/23 Range/Units 01:18 02:09 03:11 RBC (4.30-5.90) m/uL Hgb (13.0-17.5) gm/dL Hct (39.0-53.0) % Plt Count (150-450) k/uL Lymphocytes # (1.0-4.8) k/uL ABG pH (7.35-7.45) ABG pCO2 (35-45) mmHg ABG pO2 (83-108) mmHg Sodium (137-145) mmol/L Potassium (3.5-5.1) mmol/L BUN (9-20) mg/dL Creatinine (0.66-1.25) mg/dL Glucose (74-99) mg/dL POC Glucose (mg/dL) 130 H 120 H 123 H (70-110) mg/dL Calcium (8.4-10.2) mg/dL Phosphorus (2.5-4.5) mg/dL AST (17-59) U/L ALT (4-49) U/L Alkaline Phosphatase (38-126) U/L Total Protein (6.3-8.2) g/dL Crossmatch 03/12/23 03/12/23 03/12/23 Range/Units 04:05 05:05 05:06 RBC 2.40 L (4.30-5.90) m/uL Hgb 7.9 L (13.0-17.5) gm/dL Hct 23.0 L (39.0-53.0) % Plt Count 134 L (150-450) k/uL Lymphocytes # 0.7 L (1.0-4.8) k/uL ABG pH (7.35-7.45) ABG pCO2 (35-45) mmHg ABG pO2 (83-108) mmHg Sodium (137-145) mmol/L Potassium (3.5-5.1) mmol/L BUN (9-20) mg/dL Creatinine (0.66-1.25) mg/dL Glucose (74-99) mg/dL POC Glucose (mg/dL) 135 H 136 H (70-110) mg/dL Calcium (8.4-10.2) mg/dL Phosphorus (2.5-4.5) mg/dL AST (17-59) U/L ALT (4-49) U/L Alkaline Phosphatase (38-126) U/L Total Protein (6.3-8.2) g/dL Crossmatch 03/12/23 03/12/23 03/12/23 Range/Units 05:06 06:13 06:53 RBC (4.30-5.90) m/uL Hgb (13.0-17.5) gm/dL Hct (39.0-53.0) % Plt Count (150-450) k/uL Lymphocytes # (1.0-4.8) k/uL ABG pH (7.35-7.45) ABG pCO2 (35-45) mmHg ABG pO2 (83-108) mmHg Sodium 133 L (137-145) mmol/L Potassium (3.5-5.1) mmol/L BUN 46 H (9-20) mg/dL Creatinine 1.58 H (0.66-1.25) mg/dL Glucose 121 H (74-99) mg/dL POC Glucose (mg/dL) 146 H 138 H (70-110) mg/dL Calcium (8.4-10.2) mg/dL Phosphorus (2.5-4.5) mg/dL AST 375 H (17-59) U/L ALT 225 H (4-49) U/L Alkaline Phosphatase 35 L (38-126) U/L Total Protein 5.5 L (6.3-8.2) g/dL Crossmatch 03/12/23 03/12/23 03/12/23 Range/Units 08:43 10:22 12:10 RBC (4.30-5.90) m/uL Hgb (13.0-17.5) gm/dL Hct (39.0-53.0) % Plt Count (150-450) k/uL Lymphocytes # (1.0-4.8) k/uL ABG pH (7.35-7.45) ABG pCO2 (35-45) mmHg ABG pO2 (83-108) mmHg Sodium (137-145) mmol/L Potassium (3.5-5.1) mmol/L BUN (9-20) mg/dL Creatinine (0.66-1.25) mg/dL Glucose (74-99) mg/dL POC Glucose (mg/dL) 117 H 138 H 113 H (70-110) mg/dL Calcium (8.4-10.2) mg/dL Phosphorus (2.5-4.5) mg/dL AST (17-59) U/L ALT (4-49) U/L Alkaline Phosphatase (38-126) U/L Total Protein (6.3-8.2) g/dL Crossmatch 03/12/23 03/12/23 Range/Units 13:24 14:49 RBC (4.30-5.90) m/uL Hgb (13.0-17.5) gm/dL Hct (39.0-53.0) % Plt Count (150-450) k/uL Lymphocytes # (1.0-4.8) k/uL ABG pH (7.35-7.45) ABG pCO2 (35-45) mmHg ABG pO2 (83-108) mmHg Sodium (137-145) mmol/L Potassium (3.5-5.1) mmol/L BUN (9-20) mg/dL Creatinine (0.66-1.25) mg/dL Glucose (74-99) mg/dL POC Glucose (mg/dL) 235 H 181 H (70-110) mg/dL Calcium (8.4-10.2) mg/dL Phosphorus (2.5-4.5) mg/dL AST (17-59) U/L ALT (4-49) U/L Alkaline Phosphatase (38-126) U/L Total Protein (6.3-8.2) g/dL Crossmatch
--- NOTE | 2023-03-12 15:51 | P.PN ---
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 Patient had a recent hospitalization at which time he presented with flash pulmonary edema and acute respiratory failure with pulse ox of 60% requiring BiPAP. He was previously admitted to the hospital on 02/14 underwent cardiac catheterization that revealed mild 20-30% diffuse disease in the distal LAD. Otherwise minimal luminal irregularities with no obstructive disease. Normal left-sided filling pressures. EVELYN revealed severe mitral regurgitation with P2 prolapse and restricted posterior mitral leaflet causing eccentric anteriorly directed jet. Patient has been seen by cardiothoracic surgery and brought in on this admission status post complex mitral valve repair. Patient is seen today in the intensive care unit postop currently intubated and on mechanical ventilation. Blood pressure is stable 107/58, heart rate is in the 80s. 03/11: Patient has been successfully extubated. Patient is seen today in the ICU, patient resting in a recliner. He has had a small amount of clear liquids this morning. He is obtaining 500 ML's on incentive spirometry. He does state he has a little headache today, mild chest discomfort. Patient is on had a bowel movement. Reglan and suppository plan for today. He remains on insulin drip with blood sugars running between 114 and 243. 03/12: Patient developed ileus and NG tube is in place. One dose of IV Lasix 60 mg today was ordered for mild fluid overload. Heart rate is running in the low 100s, blood pressure 108/50, pulse ox 90% on 3 L nasal cannula. Labile glucose running between 113 and 181. Patient is currently on milrinone drip. Telemetry is atrial fibrillation. REVIEW OF SYSTEMS Constitutional: No fever, no chills, no night sweats. No weight change. No weakness, + fatigue no lethargy. No daytime sleepiness. EENT: No headache. No blurred vision or double vision, no loss of vision. No l oss of Hearing, no ringing in the ears, no dizziness. No nasal drainage or congestion. No epistaxis. No sore throat. Lungs: No shortness of breath, cough, no sputum production. No wheezing. Cardiovascular: Denies chest pain, mild lower extremity edema. No palpitations. No paroxysmal nocturnal dyspnea. Reports orthopnea. No lightheadedness or dizziness. No syncopal episodes. Abdominal: No abdominal pain. No nausea, vomiting. No diarrhea. No constipation. No bloody or tarry stools. + loss of appetite. Genitourinary: No dysuria, increased frequency, urgency. No urinary retention-Sarmiento. +hematuria. Musculoskeletal: No myalgias. No muscle weakness, no gait dysfunction, no frequent falls. No back pain. No neck pain. Integumentary: No wounds, no lesions. No rash or pruritus. No unusual bruising. No change in hair or nails. Neurologic: No aphasia. No facial droop. No change in mentation. No head injury. No headache. No paralysis. No paresthesia. Psychiatric: No depression. No anxiety. No mood swings. Endocrine: No abnormal blood sugars. No weight change. No excessive sweating or thirst. No cold intolerance. PHYSICAL EXAMINATION Gen: This is a 77-year-old male. He is resting in recliner in ICU and appears to be comfortable and in no acute distress HEENT: Head is atraumatic, normocephalic. Pupils equal, round. Sclerae is anicteric. NECK: Supple. No JVD. No lymphadenopathy. Right-sided Hobbs/Cordis in place LUNGS: Diminished. No wheezes or rhonchi. No intercostal retractions. HEART: Regular rate and rhythm. 2/6 systolic murmur. Mediastinal right and left pleural chest tubes in place. ABDOMEN: Soft. Bowel sounds are present. No masses. No tenderness. Sarmiento catheter with blood brown urine. EXTREMITIES: No pedal edema. No calf tenderness. NEUROLOGICAL: Patient is awake, alert and oriented x3. Cranial nerves 2 through 12 are grossly intact. ASSESSMENT AND PLAN 1. Severe mitral regurgitation status post mitral valve repair, postoperative day #2. Continue patient on aspirin 325 mg daily, atorvastatin 20 mg daily, Plavix 75 mg daily, flecainide 50 mg every 12 hours, continue [place] as needed for pain control, continue DuoNeb treatments 4 times daily, Lopressor 12.5 mg twice daily 2. Acute on chronic diastolic heart failure. Patient started on IV Lasix 60 mg 1 3. Diabetes mellitus type 2. Continue insulin drip. 4. Paroxysmal atrial fibrillation. Hold Xarelto. Continue metoprolol tartrate 12.5 mg oral twice daily, flecainide 50 mg every 12 hours. 5. Mild intermittent asthma, stable. Continue DuoNeb treatments 4 times daily. 6. Hypertension. Continue metoprolol tartrate 12.5 mg twice daily. 7. Hyperlipidemia. Continue atorvastatin 20 mg at bedtime. 8. History of CVA. Xarelto. 9. Vitamin D deficiency. 10. Hematuria. Continue Sarmiento catheter. DISCHARGE PLAN To be determined. Impression and plan of care have been directed as dictated by the signing physician. Cassia Sanon nurse practitioner acting as scribe for signing physician. Objective - Vital Signs Vital signs: Vital Signs Temp 99.3 F 03/12/23 12:00 Pulse 106 H 03/12/23 15:14 Resp 18 03/12/23 15:00 BP 110/59 03/11/23 06:00 Pulse Ox 98 03/12/23 15:00 FiO2 50 03/10/23 18:02 Intake & Output 03/11/23 03/12/23 03/12/23 18:59 06:59 18:59 Intake Total 1391.209 848.827 907.373 Output Total 615 1045 1140 Balance 776.209 -196.173 -232.627 Weight 78 kg 80.4 kg Intake: IV 937 828 231 CO/CI fluid NS 0.9 120 120 100 LR 650 600 50 Pressure bags 117 108 81 ceFAZolin 2 gm In Sodium 50 Chloride 0.9% 50 ml @ 100 mls/hr IVPB Q8HR [facility] Rx# :[id number] Intake, IV Titration 94.209 20.827 256.373 Amount Albumin Human 25% 50 ml 50 In Empty Bag 1 bag @ 50 mls/hr IVPB ONCE ONE Rx#: [id number] Insulin Regular 100 unit 25.437 16.227 19.309 In Sodium Chloride 0.9% 100 ml @ Per Protocol IV .Q0M [facility] Rx#:[id number] Lactated Ringers 1,000 ml 160 @ 20 mls/hr IV .Q24H [facility] Rx#:[id number] Milrinone-D5w Pmx 20 mg 13.8 4.6 77.064 In Dextrose/Water 1 100ml .bag @ 0.2 MCG/KG/MIN 4. 68 mls/hr IV .[id number] [facility] Rx#:[id number] Vasopressin 60 unit In 4.972 Sodium Chloride 0.9% 150 ml @ 0.02 UNITS/MIN 3.06 mls/hr IV .Q24H [facility] Rx#: [id number] Oral 360 360 Other 60 Output: Drainage 350 230 90 Bilateral Chest 20 40 10 Mediastinal 330 190 80 Urine [phone] Other: Voiding Method Indwelling Catheter Indwelling Catheter Indwelling Catheter ABP, PAP, CO, CI - Last Documented Arterial Blood Pressure 108/50 Pulmonary Artery Pressure 51/24 Cardiac Output 4.9 Cardiac Index 2.8 - Labs CBC & Chem 7: 03/12/23 05:06 03/12/23 05:06 Labs: Abnormal Lab Results - Last 24 Hours (Table) 03/05/23 03/11/23 03/11/23 Range/Units 09:03 16:04 16:11 RBC (4.30-5.90) m/uL Hgb (13.0-17.5) gm/dL Hct (39.0-53.0) % Plt Count (150-450) k/uL Lymphocytes # (1.0-4.8) k/uL ABG pH 7.31 L (7.35-7.45) ABG pCO2 46 H (35-45) mmHg ABG pO2 77 L (83-108) mmHg Sodium 134 L (137-145) mmol/L Potassium 5.4 H (3.5-5.1) mmol/L BUN 48 H (9-20) mg/dL Creatinine 1.99 H (0.66-1.25) mg/dL Glucose 158 H (74-99) mg/dL POC Glucose (mg/dL) (70-110) mg/dL Calcium 8.3 L (8.4-10.2) mg/dL Phosphorus 6.2 H (2.5-4.5) mg/dL AST (17-59) U/L ALT (4-49) U/L Alkaline Phosphatase (38-126) U/L Total Protein (6.3-8.2) g/dL Crossmatch See Detail 03/11/23 03/11/23 03/11/23 Range/Units 16:41 17:55 19:06 RBC (4.30-5.90) m/uL Hgb (13.0-17.5) gm/dL Hct (39.0-53.0) % Plt Count (150-450) k/uL Lymphocytes # (1.0-4.8) k/uL ABG pH (7.35-7.45) ABG pCO2 (35-45) mmHg ABG pO2 (83-108) mmHg Sodium (137-145) mmol/L Potassium (3.5-5.1) mmol/L BUN (9-20) mg/dL Creatinine (0.66-1.25) mg/dL Glucose (74-99) mg/dL POC Glucose (mg/dL) 171 H 148 H 164 H (70-110) mg/dL Calcium (8.4-10.2) mg/dL Phosphorus (2.5-4.5) mg/dL AST (17-59) U/L ALT (4-49) U/L Alkaline Phosphatase (38-126) U/L Total Protein (6.3-8.2) g/dL Crossmatch 03/11/23 03/11/23 03/11/23 Range/Units 19:58 21:15 22:21 RBC (4.30-5.90) m/uL Hgb (13.0-17.5) gm/dL Hct (39.0-53.0) % Plt Count (150-450) k/uL Lymphocytes # (1.0-4.8) k/uL ABG pH (7.35-7.45) ABG pCO2 (35-45) mmHg ABG pO2 (83-108) mmHg Sodium (137-145) mmol/L Potassium (3.5-5.1) mmol/L BUN (9-20) mg/dL Creatinine (0.66-1.25) mg/dL Glucose (74-99) mg/dL POC Glucose (mg/dL) 137 H 140 H 160 H (70-110) mg/dL Calcium (8.4-10.2) mg/dL Phosphorus (2.5-4.5) mg/dL AST (17-59) U/L ALT (4-49) U/L Alkaline Phosphatase (38-126) U/L Total Protein (6.3-8.2) g/dL Crossmatch 03/11/23 03/11/23 03/12/23 Range/Units 22:57 23:56 01:18 RBC (4.30-5.90) m/uL Hgb (13.0-17.5) gm/dL Hct (39.0-53.0) % Plt Count (150-450) k/uL Lymphocytes # (1.0-4.8) k/uL ABG pH (7.35-7.45) ABG pCO2 (35-45) mmHg ABG pO2 (83-108) mmHg Sodium (137-145) mmol/L Potassium (3.5-5.1) mmol/L BUN (9-20) mg/dL Creatinine (0.66-1.25) mg/dL Glucose (74-99) mg/dL POC Glucose (mg/dL) 154 H 139 H 130 H (70-110) mg/dL Calcium (8.4-10.2) mg/dL Phosphorus (2.5-4.5) mg/dL AST (17-59) U/L ALT (4-49) U/L Alkaline Phosphatase (38-126) U/L Total Protein (6.3-8.2) g/dL Crossmatch 03/12/23 03/12/23 03/12/23 Range/Units 02:09 03:11 04:05 RBC (4.30-5.90) m/uL Hgb (13.0-17.5) gm/dL Hct (39.0-53.0) % Plt Count (150-450) k/uL Lymphocytes # (1.0-4.8) k/uL ABG pH (7.35-7.45) ABG pCO2 (35-45) mmHg ABG pO2 (83-108) mmHg Sodium (137-145) mmol/L Potassium (3.5-5.1) mmol/L BUN (9-20) mg/dL Creatinine (0.66-1.25) mg/dL Glucose (74-99) mg/dL POC Glucose (mg/dL) 120 H 123 H 135 H (70-110) mg/dL Calcium (8.4-10.2) mg/dL Phosphorus (2.5-4.5) mg/dL AST (17-59) U/L ALT (4-49) U/L Alkaline Phosphatase (38-126) U/L Total Protein (6.3-8.2) g/dL Crossmatch 03/12/23 03/12/23 03/12/23 Range/Units 05:05 05:06 05:06 RBC 2.40 L (4.30-5.90) m/uL Hgb 7.9 L (13.0-17.5) gm/dL Hct 23.0 L (39.0-53.0) % Plt Count 134 L (150-450) k/uL Lymphocytes # 0.7 L (1.0-4.8) k/uL ABG pH (7.35-7.45) ABG pCO2 (35-45) mmHg ABG pO2 (83-108) mmHg Sodium 133 L (137-145) mmol/L Potassium (3.5-5.1) mmol/L BUN 46 H (9-20) mg/dL Creatinine 1.58 H (0.66-1.25) mg/dL Glucose 121 H (74-99) mg/dL POC Glucose (mg/dL) 136 H (70-110) mg/dL Calcium (8.4-10.2) mg/dL Phosphorus (2.5-4.5) mg/dL AST 375 H (17-59) U/L ALT 225 H (4-49) U/L Alkaline Phosphatase 35 L (38-126) U/L Total Protein 5.5 L (6.3-8.2) g/dL Crossmatch 03/12/23 03/12/23 03/12/23 Range/Units 06:13 06:53 08:43 RBC (4.30-5.90) m/uL Hgb (13.0-17.5) gm/dL Hct (39.0-53.0) % Plt Count (150-450) k/uL Lymphocytes # (1.0-4.8) k/uL ABG pH (7.35-7.45) ABG pCO2 (35-45) mmHg ABG pO2 (83-108) mmHg Sodium (137-145) mmol/L Potassium (3.5-5.1) mmol/L BUN (9-20) mg/dL Creatinine (0.66-1.25) mg/dL Glucose (74-99) mg/dL POC Glucose (mg/dL) 146 H 138 H 117 H (70-110) mg/dL Calcium (8.4-10.2) mg/dL Phosphorus (2.5-4.5) mg/dL AST (17-59) U/L ALT (4-49) U/L Alkaline Phosphatase (38-126) U/L Total Protein (6.3-8.2) g/dL Crossmatch 03/12/23 03/12/23 03/12/23 Range/Units 10: 12:10 13:24 RBC (4.30-5.90) m/uL Hgb (13.0-17.5) gm/dL Hct (39.0-53.0) % Plt Count (150-450) k/uL Lymphocytes # (1.0-4.8) k/uL ABG pH (7.35-7.45) ABG pCO2 (35-45) mmHg ABG pO2 (83-108) mmHg Sodium (137-145) mmol/L Potassium (3.5-5.1) mmol/L BUN (9-20) mg/dL Creatinine (0.66-1.25) mg/dL Glucose (74-99) mg/dL POC Glucose (mg/dL) 138 H 113 H 235 H (70-110) mg/dL Calcium (8.4-10.2) mg/dL Phosphorus (2.5-4.5) mg/dL AST (17-59) U/L ALT (4-49) U/L Alkaline Phosphatase (38-126) U/L Total Protein (6.3-8.2) g/dL Crossmatch 03/12/23 Range/Units 14:49 RBC (4.30-5.90) m/uL Hgb (13.0-17.5) gm/dL Hct (39.0-53.0) % Plt Count (150-450) k/uL Lymphocytes # (1.0-4.8) k/uL ABG pH (7.35-7.45) ABG pCO2 (35-45) mmHg ABG pO2 (83-108) mmHg Sodium (137-145) mmol/L Potassium (3.5-5.1) mmol/L BUN (9-20) mg/dL Creatinine (0.66-1.25) mg/dL Glucose (74-99) mg/dL POC Glucose (mg/dL) 181 H (70-110) mg/dL Calcium (8.4-10.2) mg/dL Phosphorus (2.5-4.5) mg/dL AST (17-59) U/L ALT (4-49) U/L Alkaline Phosphatase (38-126) U/L Total Protein (6.3-8.2) g/dL Crossmatch
[2023-03-12 16:01] LABS: Glucose,Whole Blood 154 mg/dL (70-110)
[2023-03-12] MEDS: ATORVASTATIN 20 MG TAB PO SCH (16:54)
[2023-03-12] MEDS: INSULIN REGULAR 100 UNIT in SODIUM CHLORIDE 0.9% 100 ML IV SCH (16:55)
[2023-03-12 17:04] LABS: Glucose,Whole Blood 153 mg/dL (70-110)
[2023-03-12 18:31] LABS: Glucose,Whole Blood 229 mg/dL (70-110)
[2023-03-12 19:49] LABS: Glucose,Whole Blood 214 mg/dL (70-110)
[2023-03-12] MEDS: SENNOSIDES-DOCUSATE SODIUM 1 EACH TAB PO SCH (20:10)
[2023-03-12 21:07] LABS: Glucose,Whole Blood 151 mg/dL (70-110)
[2023-03-12 22:12] LABS: Glucose,Whole Blood 116 mg/dL (70-110)
[2023-03-12 23:08] LABS: Glucose,Whole Blood 92 mg/dL (70-110)
[2023-03-12 23:59] LABS: Glucose,Whole Blood 102 mg/dL (70-110)
[2023-03-13] MEDS: HEPARIN SODIUM,PORCINE 5,000 UNIT/ML 1 ML VIAL SQ SCH ×4 (00:06→23:13)
[2023-03-13] MEDS: HYDROcodone/APAP 5-325MG 1 EACH TAB PO PRN ×2 (00:24→08:47)
[2023-03-13 01:07] LABS: Glucose,Whole Blood 123 mg/dL (70-110)
[2023-03-13 02:02] LABS: Glucose,Whole Blood 128 mg/dL (70-110)
[2023-03-13 03:08] LABS: Glucose,Whole Blood 119 mg/dL (70-110)
[2023-03-13 04:09] LABS: Glucose,Whole Blood 198 mg/dL (70-110)
[2023-03-13 04:21] LABS: Glucose,Whole Blood 141 mg/dL (70-110)
[2023-03-13 05:06] LABS: Glucose,Whole Blood 106 mg/dL (70-110)
[2023-03-13 05:40] LABS: Basophils % (A) 0 %; Eosinophils # (A) 0.1 k/uL (0-0.7); Eosinophils % (A) 1 %; HGB 7.1 gm/dL (13.0-17.5); Lymphocytes # (A) 0.8 k/uL (1.0-4.8); Lymphocytes % (A) 13 %; MCH 32.4 pg (25.0-35.0); MCHC 33.7 g/dL (31.0-37.0); MCV 96.2 fL (80.0-100.0); Mean Platelet Volume 8.2; Monocytes # (A) 0.3 k/uL (0-1.0); Monocytes % (A) 5 %; Neutrophils # (A) 4.9 k/uL (1.3-7.7); Neutrophils % (A) 80 %; Platelet Count 125 k/uL (150-450); Poikilocytosis Slight; RBC 2.19 m/uL (4.30-5.90); RDW 14.8 % (11.5-15.5); WBC 6.1 k/uL (3.8-10.6)
[2023-03-13 06:00] LABS: Glucose,Whole Blood 104 mg/dL (70-110)
[2023-03-13 06:25] LABS: ALT 280 U/L (4-49); AST 362 U/L (17-59); African American GFR (CKD) 60 (>60 ml/min/1.73 sqM); Albumin 3.2 g/dL (3.5-5.0); Alkaline Phosphatase 59 U/L (38-126); Anion Gap 10 mmol/L; Blood Urea Nitrogen 42 mg/dL (9-20); Calcium 8.5 mg/dL (8.4-10.2); Carbon Dioxide 25 mmol/L (22-30); Chloride 98 mmol/L (98-107); Glucose 98 mg/dL (74-99); Non-African American GFR(CKD) 52 (>60 ml/min/1.73 sqM); Potassium 4.1 mmol/L (3.5-5.1); Sodium 133 mmol/L (137-145); Total Bilirubin 0.9 mg/dL (0.2-1.3); Total Protein 5.1 g/dL (6.3-8.2)
--- NOTE | 2023-03-13 06:51 | P.PN ---
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 Patient follows with Dr Velazco. Patient underwent heart c atheterization preoperatively which showed no obstructive disease and a EVELYN showed severe mitral regurgitation with tethering of the posterior leaflet and prolapse of the P2 segment with severe left atrial dilation. He has been noticing increasing shortness breath over the last few months. He has been hospitalized for heart failure. He presented for elective mitral valve repair with complex mitral valve repair 03/10/2023 with a # 30mm CarboMedics Annuloflex band, resection of P2 with repair of MR and COREY ligation. He was mildly hypotensive however was weaned off of vasopressors including milrinone this morning. Additionally he was extubated last night at approximately 7 PM. He has had intermittent bradycardia with heart rates in the 50s and therefore has been ventricularly paced at 80 bpm. Underlying rhythm appears to be atrial fibrillation. This morning he was feeling somewhat better however started having increasing shortness breath in the afternoon. He admits to chest pain with deep inspiration. Additionally chest x-ray shows ileus and was given Reglan. He denies any actual abdominal pain. Has not had a bowel movement. Cardiac index reading 2.0-2.1 and CVP remains elevated at 20 with PA pressures in the 70s over 20s, somewhat better than intraoperatively more in the 90s. He does have acute kidney injury with creatinine up to 1.3. 03/12 Patient is status post mitral repair, postop day 2. He is currently on milrinone drip CVP is around 12, systolic PA pressure 50s, diastolic PA pressure 30s. Heart rate 105, blood pressure 105/60. Underlying rhythm is atrial fibrillation. 03/13 Status post mitral repair postop day 3. Continues to be on milrinone drip. Mean CVP around 8 mmHg, PA pressures 40/20, systolic blood pressure 110, diastolic around 60s. Patient is in underlying atrial fibrillation. Hemoglobin is 7.1 today. Creatinine is 1.33. PHYSICAL EXAMINATION Vital signs reviewed. CONSTITUTIONAL: Tachypnic, ill appearing, mild increased work of breathing HEENT: Head is normocephalic. Pupils are equal, round. Sclerae anicteric. Mucous membranes of the mouth are moist. No JVD. No carotid bruit. CHEST EXAMINATION: Mild crackles at bases, decreased breath sounds at bases HEART EXAMINATION: irregular rhythm. Chest tube in place, right IJ swan in place ABDOMEN: Soft, nontender. Positive bowel sounds. EXTREMITIES: 2+ peripheral pulses, no lower extremity edema and no calf tenderness. NEUROLOGIC EXAMINATION: Patient is awake, alert and oriented x3. ASSESSMENT 1. Severe mitral regurgitation status post ring and mitral valve repair 03/10 2. Acute on chronic diastolic heart failure 3. Mild CAD by heart catheterization 4. Persistent atrial fibrillation 5. Bradycardia postoperatively, mildly improved 6. Pulmonary hypertension, likely related to left-sided heart failure 7. Acute on chronic respiratory failure 8. Hypertension PLAN Continue milrinone drip next and continue aspirin and Plavix as per CT surgery recommendations. Eliquis is on hold due to postoperative anemia and hemodilution Continue metoprolol 12.5 mg daily and flecainide 50 mg twice a day Patient would benefit from one dose of IV diuretic. I will defer this to cardiac surgery Objective - Vital Signs Vital signs: Vital Signs Temp 97.9 F 03/13/23 04:00 Pulse 107 H 03/13/23 06:00 Resp 21 03/13/23 06:00 BP 110/59 03/11/23 06:00 Pulse Ox 97 03/13/23 06:00 FiO2 50 03/10/23 18:02 Intake & Output 03/12/23 03/12/23 03/13/23 06:59 18:59 06:59 Intake Total 968.520 6377.396 327.180 Output Total 1045 1455 715 Balance -196.173 -191.604 -387.820 Weight 80.4 kg Intake: IV 828 278 108 CO/CI fluid NS 0.9 120 120 LR 600 50 Pressure bags 108 108 108 Intake, IV Titration 20.827 325.396 119.180 Amount Insulin Regular 100 unit 16.227 28.332 39.180 In Sodium Chloride 0.9% 100 ml @ Per Protocol IV .Q0M [facility] Rx#:[id number] Lactated Ringers 1,000 ml 220 80 @ 20 mls/hr IV .Q24H [facility] Rx#:[id number] Milrinone-D5w Pmx 20 mg 4.6 77.064 In Dextrose/Water 1 100ml .bag @ 0.2 MCG/KG/MIN 4. 68 mls/hr IV .[id number] [facility] Rx#:[id number] Oral 600 100 Other 60 Output: Drainage 230 160 50 Bilateral Chest 40 80 50 Mediastinal 190 80 Urine 815 1295 665 Other: Voiding Method Indwelling Catheter Indwelling Catheter Indwelling Catheter # Bowel Movements 1 ABP, PAP, CO, CI - Last Documented Arterial Blood Pressure 119/65 Pulmonary Artery Pressure 61/30 Cardiac Output 7.4 Cardiac Index 4.3 - Labs CBC & Chem 7: 03/13/23 04:45 03/13/23 04:45 Labs: Abnormal Lab Results - Last 24 Hours (Table) 03/12/23 03/12/23 03/12/23 Range/Units 06:53 08:43 10:22 RBC (4.30-5.90) m/uL Hgb (13.0-17.5) gm/dL Hct (39.0-53.0) % Plt Count (150-450) k/uL Lymphocytes # (1.0-4.8) k/uL Sodium (137-145) mmol/L BUN (9-20) mg/dL Creatinine (0.66-1.25) mg/dL POC Glucose (mg/dL) 138 H 117 H 138 H (70-110) mg/dL AST (17-59) U/L ALT (4-49) U/L Total Protein (6.3-8.2) g/dL Albumin (3.5-5.0) g/dL 03/12/23 03/12/23 03/12/23 Range/Units 12:10 13:24 14:49 RBC (4.30-5.90) m/uL Hgb (13.0-17.5) gm/dL Hct (39.0-53.0) % Plt Count (150-450) k/uL Lymphocytes # (1.0-4.8) k/uL Sodium (137-145) mmol/L BUN (9-20) mg/dL Creatinine (0.66-1.25) mg/dL POC Glucose (mg/dL) 113 H 235 H 181 H (70-110) mg/dL AST (17-59) U/L ALT (4-49) U/L Total Protein (6.3-8.2) g/dL Albumin (3.5-5.0) g/dL 03/12/23 03/12/23 03/12/23 Range/Units 15:59 17:01 18:27 RBC (4.30-5.90) m/uL Hgb (13.0-17.5) gm/dL Hct (39.0-53.0) % Plt Count (150-450) k/uL Lymphocytes # (1.0-4.8) k/uL Sodium (137-145) mmol/L BUN (9-20) mg/dL Creatinine (0.66-1.25) mg/dL POC Glucose (mg/dL) 154 H 153 H 229 H (70-110) mg/dL AST (17-59) U/L ALT (4-49) U/L Total Protein (6.3-8.2) g/dL Albumin (3.5-5.0) g/dL 03/12/23 03/12/23 03/12/23 Range/Units 19:48 21:05 22:11 RBC (4.30-5.90) m/uL Hgb (13.0-17.5) gm/dL Hct (39.0-53.0) % Plt Count (150-450) k/uL Lymphocytes # (1.0-4.8) k/uL Sodium (137-145) mmol/L BUN (9-20) mg/dL Creatinine (0.66-1.25) mg/dL POC Glucose (mg/dL) 214 H 151 H 116 H (70-110) mg/dL AST (17-59) U/L ALT (4-49) U/L Total Protein (6.3-8.2) g/dL Albumin (3.5-5.0) g/dL 03/13/23 03/13/23 03/13/23 Range/Units 01:06 01:59 03:07 RBC (4.30-5.90) m/uL Hgb (13.0-17.5) gm/dL Hct (39.0-53.0) % Plt Count (150-450) k/uL Lymphocytes # (1.0-4.8) k/uL Sodium (137-145) mmol/L BUN (9-20) mg/dL Creatinine (0.66-1.25) mg/dL POC Glucose (mg/dL) 123 H 128 H 119 H (70-110) mg/dL AST (17-59) U/L ALT (4-49) U/L Total Protein (6.3-8.2) g/dL Albumin (3.5-5.0) g/dL 03/13/23 03/13/23 03/13/23 Range/Units 04:07 04:20 04:45 RBC 2.19 L (4.30-5.90) m/uL Hgb 7.1 L (13.0-17.5) gm/dL Hct 21.0 L (39.0-53.0) % Plt Count 125 L (150-450) k/uL Lymphocytes # 0.8 L (1.0-4.8) k/uL Sodium (137-145) mmol/L BUN (9-20) mg/dL Creatinine (0.66-1.25) mg/dL POC Glucose (mg/dL) 198 H 141 H (70-110) mg/dL AST (17-59) U/L ALT (4-49) U/L Total Protein (6.3-8.2) g/dL Albumin (3.5-5.0) g/dL 03/13/23 Range/Units 04:45 RBC (4.30-5.90) m/uL Hgb (13.0-17.5) gm/dL Hct (39.0-53.0) % Plt Count (150-450) k/uL Lymphocytes # (1.0-4.8) k/uL Sodium 133 L (137-145) mmol/L BUN 42 H (9-20) mg/dL Creatinine 1.33 H (0.66-1.25) mg/dL POC Glucose (mg/dL) (70-110) mg/dL AST 362 H (17-59) U/L ALT 280 H (4-49) U/L Total Protein 5.1 L (6.3-8.2) g/dL Albumin 3.2 L (3.5-5.0) g/dL
[2023-03-13 07:11] LABS: Glucose,Whole Blood 120 mg/dL (70-110)
[2023-03-13] MEDS: LACTATED RINGERS 1,000 ML IV SCH ×2 (07:31→17:00)
[2023-03-13] MEDS: MILRINONE-D5W PMX 20 MG in DEXTROSE/WATER 1 100ML.BAG IV SCH ×2 (07:52→13:54)
--- NOTE | 2023-03-13 08:16 | XR ---
EXAMINATION TYPE: XR chest 1V portable DATE OF EXAM: 03/13/2023 COMPARISON: 03/12/2023 HISTORY: Postop TECHNIQUE: Single frontal view of the chest is obtained. FINDINGS: NG tube has been removed. Extensive postsurgical changes are seen. [place]- Magda catheter wit h tip overlying the proximal pulmonary outflow tract. Bilateral shoulder arthropathy with bilateral consolidation and pleural effusion. Heart is enlarged w ith poststernotomy changes. Atrial appendage clip noted. Suggestion of a mediastinal drain no sizable pneumothorax. Metallic density overlying the left axilla again suspicious for foreign body. IMPRESSION: 1. Stable postoperative changes with bilateral infiltrates and small pleural effusion correlate for m ild venous congestion.
[2023-03-13] MEDS: IPRATROPIUM-ALBUTEROL 3 ML NEB INHALATION SCH ×4 (08:29→19:47)
[2023-03-13] MEDS: ASPIRIN 325 MG TAB PO SCH (08:39)
[2023-03-13] MEDS: PANTOPRAZOLE 40 MG TABLET PO SCH (08:39)
[2023-03-13] MEDS: CHOLECALCIFEROL 25 MCG (1000 IU) TABLET PO SCH (08:39)
[2023-03-13] MEDS ORDERED: DEXTROSE 50% SYRINGE 50 ML IVP PRN ×2 (08:42)
[2023-03-13] MEDS: METOPROLOL TARTRATE 25 MG TAB PO SCH ×2 (08:45→20:23)
[2023-03-13] MEDS: CYANOCOBALAMIN 500 MCG TAB PO SCH (08:45)
[2023-03-13] MEDS: CLOPIDOGREL 75 MG TAB PO SCH (08:45)
[2023-03-13] MEDS: FLECAINIDE 50 MG TAB PO SCH ×2 (08:45→20:23)
[2023-03-13] MEDS ORDERED: FUROSEMIDE 10 MG/ML 4 ML VIAL IV STA (09:06)
[2023-03-13] MEDS ORDERED: POTASSIUM CHLORIDE ER 20 MEQ TAB.ER PO STA (09:06)
[2023-03-13] MEDS: INSULIN DETEMIR (LEVEMIR) 100 UNIT/ML SYR SQ SCH (10:27)
[2023-03-13 12:27] LABS: Glucose,Whole Blood 148 mg/dL (70-110)
[2023-03-13] MEDS: INSULIN ASPART (NovoLOG) 100 UNIT/ML VIAL SQ SCH ×3 (12:27→20:22)
--- NOTE | 2023-03-13 12:28 | CDI ---
Documentation Clarification Form Date: 03/13/2023 11:43:23 AM From: Debo Epperson RN CCDS Phone: [phone] Admit Date: 03/10/2023 05:33:00 AM Patient Name: Panchito Vu Visit Number: [id number] Discharge Date: ATTENTION: The Clinical Documentation Specialists (CDI) and [facility] Coding Staff appreciate your assistance in clarifying documentation. Please respond to the clarification below the line at the bottom and electronically sign. The CDI & [facility] Coding staff will review the response and follow-up if needed. Please note: Queries are made part of the Legal Health Record. If you have any questions, please contact the author of this message via ITS. Dr. Nash Cottrell Bradycardia postoperatively, mildly improved is documented 03/11, Electrophysiology note and patient had complex mitral valve repair, 03/10. Additional clarification is requested regarding the relationship, if any, that exists between the diagnosis and the procedure. Patients Admitting Diagnosis: Severe mitral regurgitation Post-Operative Diagnosis: Torn chordae tendinae to P2 of the posterior leaflet. Procedure performed: Complex mitral valve repair with a #30mm CarboMedics AnnuloFlex band, quadrangular resection of P2 of the posterior leaflet, closure of P2/P3 cleft, ring annuloplasty and clip ligation of the left atrial appendage with a 35mm AtriClip and intraoperative transesophageal echocardiogram. History/Risk Factors: 77-year-old male presented for elective Mitral valve repair. Medical History: sick sinus syndrome, atrial fibrillation, CHF, DM2, HTN, CVA and mild intermittent asthma. 03/10, Medicine note. Clinical Indicators: 03/11, Cardiothoracic surgery note: Regular rate and rhythm, AV paced on telemetry, underlying sinus celi in the low 50s. 03/11, Electrophysiology consult: He has had intermittent bradycardia with heart rates in the 50s and therefore has been ventricular paced at 80bpm. Underlying rhythm appears to be atrial fibrillation. Treatment: Norepinephrine Bitrartate IV; Vasopressin IV; Milrinone Lactate IV What relationship, if any, exists between the diagnosis of bradycardia and the procedure: [ ] Bradycardia is a complication of surgical procedure [ ] Bradycardia is an expected outcome of the surgical procedure [ ] Bradycardia is related to patients co-morbid condition(s) of [insert co- morbid dxs] & not a complication of the procedure [ ] Other please specify ____ [ ] Unable to determine (Template Last Revised: July 2020) MTDD
--- NOTE | 2023-03-13 13:26 | P.PN ---
Subjective Progress Note Date: 03/13/23 Principal diagnosis: POD #3 complex mitral valve repair with #30 mm Car[employer]ics AnnuloFlex band, quadrangular resection of P2 of the posterior leaflet, closure of P2/P3 cleft, ring annuloplasty, and clip ligation of left atrial appendage with a 35 mm AtriClip, intraoperative transesophageal echocardiogram performed by anesthesia This is a 77-year-old white male with history of severe mitral valve regurgitation, sick sinus syndrome, history of congestive heart failure with preserved ejection fraction, hypertension dyslipidemia paroxysmal atrial fibrillation, 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 Patient was seen by cardiac surgery back on 02/19/2023, and he was evaluated for mitral valve repair. Today the patient underwent surgery, postoperatively he is on mechanical ventilation, assist control rate of 12 tidal volume 500 FiO2 50% and PEEP of 5. Chest x-ray showed mild interstitial edema/mild pulmonary vascular congestion. Patient is now on Precedex at 0.3 mcg/kg/h norepinephrine at 0.1 mcg/kg/m he is on Primacor at 0.2 mcg/kg/m is also on insulin at 0.5 units per hour. His cardiac output is 5.1 cardiac index is 2.9 CVP is 17. WBC count 9.8 hemoglobin 7.9 Patient was reevaluated today on 03/11/2023.POD #1 complex mitral valve repair with #30 mm Carbo[employer]ics AnnuloFlex band, quadrangular resection of P2 of the posterior leaflet, closure of P2/P3 cleft, ring annuloplasty, and clip ligation of left atrial appendage with a 35 mm AtriClip, intraoperative transesophageal echocardiogram performed by anesthesia. Patient is doing well, he is not requiring any pressors or any inotropes at this point in time he did require pressors last night until early this morning patient is doing poorly with in centive spirometry he was extubated last night at 1901. Currently the patient is being AV paced at 80 bpm, underlying rhythm is bradycardia. Blood pressure is marginal but seems to be within normal today. Patient does have evidence of crackles and rhonchi on physical examination, but he denies shortness of breath. Chest x-ray showed mostly bibasilar atelectasis. CBC is relatively normal, hemoglobin is 7.9, basic metabolic profile is normal BUN is 46 creatinine 1.34 Reevaluated today on 03/12/23, patient is now postoperative day #2. Patient is resting in a recliner, he is on 5 L nasal cannula, his cardiac output is 4.9 cardiac index is 2.8 CVP is 8 pulmonary artery pressure 50/15 patient is receiving Primacor at 0.2 mcg/kg/m is also on insulin at 1.5 units an hour. Chest x-ray is suggestive of mild congestive heart failure changes, clinically the patient is feeling much better today compared to how he felt yesterday in the afternoon. He did receive Lasix, and he had a good urine output with Lasix today. WBC count is 8.4 hemoglobin is 7.9, ABG from late yesterday showed a pO2 of 77 pCO2 46 pH of 7.31, renal profile is improving creatinine is 1.58 compared to 1.99 yesterday electrolytes are normal liver enzymes are elevated. Patient was on 03/13/2023, patient is doing great, gradually improving, he is down to 2 L nasal cannula with O2 sats of 97%, his cardiac output is 5.2 cardiac index is 3.0The patient remains on Primacor at 0.1 mcg/kg/m he did receive Lasix today, and his oxygenation didn't improve after Lasix given, patient diuresed well. Chest x-ray continues to show atelectasis and small pleural effusions with mild venous congestion CBC is relatively unremarkable except for hemoglobin of 7.1 basic metabolic profile is normal renal profile is improving creatinine down to 1.33, compared to 1.99 2 days ago Objective - Vital Signs Vital signs: Vital Signs Temp 98.8 F 03/13/23 12:00 Pulse 105 H 03/13/23 13:00 Resp 20 03/13/23 13:00 BP 110/59 03/11/23 06:00 Pulse Ox 97 03/13/23 13:00 FiO2 96 03/13/23 08:28 Intake & Output 03/12/23 03/13/23 03/13/23 18:59 06:59 18:59 Intake Total 1263.396 427.180 434 Output Total 1455 715 615 Balance -191.604 -287.820 -181 Weight 84.6 kg 84.6 kg Intake: IV 278 108 94 CO/CI fluid NS 0.9 120 40 LR 50 Pressure bags 108 108 54 Intake, IV Titration 325.396 219.180 100 Amount Insulin Regular 100 unit 28.332 39.180 In Sodium Chloride 0.9% 100 ml @ Per Protocol IV .Q0M [facility] Rx#:[id number] Lactated Ringers 1,000 ml 220 80 100 @ 20 mls/hr IV .Q24H [facility] Rx#:[id number] Milrinone-D5w Pmx 20 mg 77.064 100 In Dextrose/Water 1 100ml .bag @ 0.1 MCG/KG/MIN 2. 34 mls/hr IV .Q24H [facility] Rx #:[id number] Oral 600 100 240 Other 60 Output: Drainage 160 50 140 Bilateral Chest 80 50 140 Mediastinal 80 Urine 1295 665 475 Other: Voiding Method Indwelling Catheter Indwelling Catheter Indwelling Catheter # Bowel Movements 1 ABP, PAP, CO, CI - Last Documented Arterial Blood Pressure 115/61 Pulmonary Artery Pressure 52/31 Cardiac Output 4 Cardiac Index 2.3 - Exam Physical Exam: Revealed a 77-year-old white male in no distress, on 2 L nasal cannula Head: Atraumatic, normocephalic. HEENT:[Neck is supple.] [No neck masses.] [No thyromegaly.] [No JVD.] Chest: [Minimal fine crackles at the bases no rhonchi and no wheezes Cardiac Exam: [Normal S1 and S2, no S3 gallop, 2/6 systolic murmur thought the precordium Abdomen: [Soft, nontender, no megaly, no rebound, no guarding, normal bowel sounds.] Extremities: [No clubbing, no edema, no cyanosis.] Neurological Exam: [No focal neurologic deficit.] Alert oriented 3 Psychiatric: Normal mood affect and normal mental status examination. - Labs CBC & Chem 7: 03/13/23 04:45 03/13/23 04:45 Labs: Abnormal Lab Results - Last 24 Hours (Table) 03/12/23 03/12/23 03/12/23 Range/Units 13:24 14:49 15:59 RBC (4.30-5.90) m/uL Hgb (13.0-17.5) gm/dL Hct (39.0-53.0) % Plt Count (150-450) k/uL Lymphocytes # (1.0-4.8) k/uL Sodium (137-145) mmol/L BUN (9-20) mg/dL Creatinine (0.66-1.25) mg/dL POC Glucose (mg/dL) 235 H 181 H 154 H (70-110) mg/dL AST (17-59) U/L ALT (4-49) U/L Total Protein (6.3-8.2) g/dL Albumin (3.5-5.0) g/dL 03/12/23 03/12/23 03/12/23 Range/Units 17:01 18:27 19:48 RBC (4.30-5.90) m/uL Hgb (13.0-17.5) gm/dL Hct (39.0-53.0) % Plt Count (150-450) k/uL Lymphocytes # (1.0-4.8) k/uL Sodium (137-145) mmol/L BUN (9-20) mg/dL Creatinine (0.66-1.25) mg/dL POC Glucose (mg/dL) 153 H 229 H 214 H (70-110) mg/dL AST (17-59) U/L ALT (4-49) U/L Total Protein (6.3-8.2) g/dL Albumin (3.5-5.0) g/dL 03/12/23 03/12/23 03/13/23 Range/Units 21:05 22:11 01:06 RBC (4.30-5.90) m/uL Hgb (13.0-17.5) gm/dL Hct (39.0-53.0) % Plt Count (150-450) k/uL Lymphocytes # (1.0-4.8) k/uL Sodium (137-145) mmol/L BUN (9-20) mg/dL Creatinine (0.66-1.25) mg/dL POC Glucose (mg/dL) 151 H 116 H 123 H (70-110) mg/dL AST (17-59) U/L ALT (4-49) U/L Total Protein (6.3-8.2) g/dL Albumin (3.5-5.0) g/dL 03/13/23 03/13/23 03/13/23 Range/Units 01:59 03:07 04:07 RBC (4.30-5.90) m/uL Hgb (13.0-17.5) gm/dL Hct (39.0-53.0) % Plt Count (150-450) k/uL Lymphocytes # (1.0-4.8) k/uL Sodium (137-145) mmol/L BUN (9-20) mg/dL Creatinine (0.66-1.25) mg/dL POC Glucose (mg/dL) 128 H 119 H 198 H (70-110) mg/dL AST (17-59) U/L ALT (4-49) U/L Total Protein (6.3-8.2) g/dL Albumin (3.5-5.0) g/dL 03/13/23 03/13/23 03/13/23 Range/Units 04:20 04:45 04:45 RBC 2.19 L (4.30-5.90) m/uL Hgb 7.1 L (13.0-17.5) gm/dL Hct 21.0 L (39.0-53.0) % Plt Count 125 L (150-450) k/uL Lymphocytes # 0.8 L (1.0-4.8) k/uL Sodium 133 L (137-145) mmol/L BUN 42 H (9-20) mg/dL Creatinine 1.33 H (0.66-1.25) mg/dL POC Glucose (mg/dL) 141 H (70-110) mg/dL AST 362 H (17-59) U/L ALT 280 H (4-49) U/L Total Protein 5.1 L (6.3-8.2) g/dL Albumin 3.2 L (3.5-5.0) g/dL 03/13/23 03/13/23 Range/Units 07:10 12:25 RBC (4.30-5.90) m/uL Hgb (13.0-17.5) gm/dL Hct (39.0-53.0) % Plt Count (150-450) k/uL Lymphocytes # (1.0-4.8) k/uL Sodium (137-145) mmol/L BUN (9-20) mg/dL Creatinine (0.66-1.25) mg/dL POC Glucose (mg/dL) 120 H 148 H (70-110) mg/dL AST (17-59) U/L ALT (4-49) U/L Total Protein (6.3-8.2) g/dL Albumin (3.5-5.0) g/dL Assessment and Plan Assessment: Impression: Severe mitral regurgitation Status post mitral valve repair postoperative day #3 Chronic congestive heart failure with preserved LV function Benign essential hypertension Paroxysmal atrial fibrillation History of CVA following back surgery Type 2 diabetes without complications History of mild intermittent asthma History of flash pulmonary edema Recommendation: Continue oxygen via nasal cannula and titrate accordingly, presently on 2 L nasal cannula Continue gentle diuresis intermittently Continue incentive spirometry, encourage to use Titrate Primacor down as long as cardiac index is normal Continue intermittent diuresis Ambulate GI and DVT prophylaxis We'll continue to follow Time with Patient: Less than 30
[2023-03-13] MEDS: ATORVASTATIN 20 MG TAB PO SCH (17:00)
[2023-03-13 17:06] LABS: Glucose,Whole Blood 257 mg/dL (70-110)
[2023-03-13] MEDS: bisacodyL 10 MG SUPP RECTAL PRN (17:25)
--- NOTE | 2023-03-13 17:29 | P.PN ---
Subjective Progress Note Date: 03/13/23 Principal diagnosis: Severe mitral regurgitation with torn chordae to P2 of the posterior leaflet. Previous medical history of hypertension, hyperlipidemia, evidence of silent naveed cardial infarction [place] [address] Velazco, chronic heart failure with preserved EF, paroxysmal atrial fibrillation on Xarelto for anticoagulation, type 2 diabetes, previous tobacco dependence, severe restrictive lung disease, asthma, remote history of pneumonia, TIA in 2014, bilateral internal carotid stenosis 50-79% POD #3 complex mitral valve repair with #30 mm [employer] AnnuloFlex band, victor m drangular resection of P2 of the posterior leaflet, closure of P2/P3 cleft, ring annuloplasty, and clip ligation of left atrial appendage with a 35 mm AtriClip, intraoperative transesophageal echocardiogram performed by anesthesia Postoperative acute blood loss anemia, expected given hemodilution and heart cardiopulmonary bypass pump Hypotension, requiring vasopressor use, expected DENISSE, expected given hypotension The patient was seen and examined in follow-up today 03/13/2023 at his bedside in the intensive care unit. He is currently sitting up to bedside chair, is awake, alert, oriented 3 and is in no acute parents distress. He denies any complaints of pain or shortness of breath at this time. Oxygen saturations are 97% on 3 L nasal cannula and he is achieving 500 750 mL on his incentive spirometry with encouraged. Bedside telemetry showing atrial fibrillation heart rate 102 BPM. He remains on flecainide and metoprolol heart rate 12.5 mg by mouth twice a day. Primacor drip remains infusing at 0.2 mcg/kg/m, right IJ Cordis and [place]-Magda catheter remains in place with current management showing a cardiac output 7.4, cardiac index 4.3, PA pressures 50/21 and CVP 12 mmHg. Right left pleural chest tubes remain in place to low continuous wall suction - 20 cm H2O. Draining thin serosanguineous drainage. No air leak is present. Chest tubes drained 10 mL output in the last 8 hours and 160 mL output in the last 24 hours. Atrial-ventricular epicardial pacemaker wires remain in place and is connected to bedside pacemaker generator on a VVI of 50 BPM. Chest x-ray and laboratory results reviewed. The patient has been up ambulating in the intensive care unit in the hallway and tolerating well with standby assistance with nursing and therapy staff. Objective - Vital Signs Vital signs: Vital Signs Temp 98.8 F 03/13/23 12:00 Pulse 93 03/13/23 15:31 Resp 18 03/13/23 15:00 BP 110/59 03/11/23 06:00 Pulse Ox 98 03/13/23 15:00 FiO2 96 03/13/23 08:28 Intake & Output 03/12/23 03/13/23 03/13/23 18:59 06:59 18:59 Intake Total 1263.396 427.180 761 Output Total 1455 715 915 Balance -191.604 -287.820 -154 Weight 84.6 kg 84.6 kg Intake: IV 278 108 121 CO/CI fluid NS 0.9 120 40 LR 50 Pressure bags 108 108 81 Intake, IV Titration 325.396 219.180 160 Amount Insulin Regular 100 unit 28.332 39.180 In Sodium Chloride 0.9% 100 ml @ Per Protocol IV .Q0M [facility] Rx#:[id number] Lactated Ringers 1,000 ml 220 80 160 @ 20 mls/hr IV .Q24H [facility] Rx#:[id number] Milrinone-D5w Pmx 20 mg 77.064 100 In Dextrose/Water 1 100ml .bag @ 0.1 MCG/KG/MIN 2. 34 mls/hr IV .Q24H [facility] Rx #:[id number] Oral 600 100 480 Other 60 Output: Drainage 160 50 140 Bilateral Chest 80 50 140 Mediastinal 80 Urine 1295 665 775 Other: Voiding Method Indwelling Catheter Indwelling Catheter Indwelling Catheter # Bowel Movements 1 ABP, PAP, CO, CI - Last Documented Arterial Blood Pressure 95/46 Pulmonary Artery Pressure 40/16 Cardiac Output 4 Cardiac Index 2.3 - Exam CONSTITUTIONAL: Appears somewhat comfortable, cooperative, no acute distress RESPIRATORY: Lungs sounds diminished bilaterally with few expiratory wheezes present. Respirations are symmetrical, unlabored. Currently on 3 LPM nasal cannula with oxygen saturation 97%. Barely able to achieve 500 mL on incentive spirometry. Weak cough. CARDIOVASCULAR: S1, S2 present. Irregular rate and rhythm, atrial fibrillation on telemetry. Sternum stable. Palpable peripheral pulses bilaterally. No edema present. No calf pain or tenderness noted. Heart hugger in place with patient demonstrating appropriate use. Antiembolism stockings, SCDs present. GASTROINTESTINAL: Abdomen soft, nontender, nondistended. Hypoactive bowel sounds present. Denies flatus currently. Bowel movement yesterday 03/12/2023 GENITOURINARY: Lopez present draining blood tinged urine. Urine output 435 mL in the last 8 hours. INTEGUMENTARY: Skin is warm and dry with evidence of good perfusion. Midline sternal chest incision well approximated and covered with dry intact dressing NEUROLOGIC: Cranial nerves II through XII intact. No focal deficits. MUSKULOSKELETAL: Able to move all extremities, strength equal bilaterally. Generalized weakness. PSYCHIATRIC: Alert and oriented to person place and time, appropriate affect, intact judgment and insight INVASIVE LINES AND TUBES: Left/right pleural chest tubes present and connected to wall suction, no air leaks present. Left/right pleural chest tubes with 10 mL serosanguineous drainage overnight, 160 mL in the last 24 hours. A/V epicardial pacemaker wires present, connected to generator, backup rate 50 bpm. Right internal jugular Rome/Cordis, right radial arterial line present. Last CO/CI 7.4/4.3, PA 50/21, CVP 12. - Allied health notes Allied health notes reviewed: nursing - Labs CBC & Chem 7: 03/13/23 04:45 03/13/23 04:45 Labs: Abnormal Lab Results - Last 24 Hours (Table) 03/12/23 03/12/23 03/12/23 Range/Units 18:27 19:48 21:05 RBC (4.30-5.90) m/uL Hgb (13.0-17.5) gm/dL Hct (39.0-53.0) % Plt Count (150-450) k/uL Lymphocytes # (1.0-4.8) k/uL Sodium (137-145) mmol/L BUN (9-20) mg/dL Creatinine (0.66-1.25) mg/dL POC Glucose (mg/dL) 229 H 214 H 151 H (70-110) mg/dL AST (17-59) U/L ALT (4-49) U/L Total Protein (6.3-8.2) g/dL Albumin (3.5-5.0) g/dL 03/12/23 03/13/23 03/13/23 Range/Units 22:11 01:06 01:59 RBC (4.30-5.90) m/uL Hgb (13.0-17.5) gm/dL Hct (39.0-53.0) % Plt Count (150-450) k/uL Lymphocytes # (1.0-4.8) k/uL Sodium (137-145) mmol/L BUN (9-20) mg/dL Creatinine (0.66-1.25) mg/dL POC Glucose (mg/dL) 116 H 123 H 128 H (70-110) mg/dL AST (17-59) U/L ALT (4-49) U/L Total Protein (6.3-8.2) g/dL Albumin (3.5-5.0) g/dL 03/13/23 03/13/23 03/13/23 Range/Units 03:07 04:07 04:20 RBC (4.30-5.90) m/uL Hgb (13.0-17.5) gm/dL Hct (39.0-53.0) % Plt Count (150-450) k/uL Lymphocytes # (1.0-4.8) k/uL Sodium (137-145) mmol/L BUN (9-20) mg/dL Creatinine (0.66-1.25) mg/dL POC Glucose (mg/dL) 119 H 198 H 141 H (70-110) mg/dL AST (17-59) U/L ALT (4-49) U/L Total Protein (6.3-8.2) g/dL Albumin (3.5-5.0) g/dL 03/13/23 03/13/23 03/13/23 Range/Units 04:45 04:45 07:10 RBC 2.19 L (4.30-5.90) m/uL Hgb 7.1 L (13.0-17.5) gm/dL Hct 21.0 L (39.0-53.0) % Plt Count 125 L (150-450) k/uL Lymphocytes # 0.8 L (1.0-4.8) k/uL Sodium 133 L (137-145) mmol/L BUN 42 H (9-20) mg/dL Creatinine 1.33 H (0.66-1.25) mg/dL POC Glucose (mg/dL) 120 H (70-110) mg/dL AST 362 H (17-59) U/L ALT 280 H (4-49) U/L Total Protein 5.1 L (6.3-8.2) g/dL Albumin 3.2 L (3.5-5.0) g/dL 03/13/23 03/13/23 Range/Units 12:25 17:05 RBC (4.30-5.90) m/uL Hgb (13.0-17.5) gm/dL Hct (39.0-53.0) % Plt Count (150-450) k/uL Lymphocytes # (1.0-4.8) k/uL Sodium (137-145) mmol/L BUN (9-20) mg/dL Creatinine (0.66-1.25) mg/dL POC Glucose (mg/dL) 148 H 257 H (70-110) mg/dL AST (17-59) U/L ALT (4-49) U/L Total Protein (6.3-8.2) g/dL Albumin (3.5-5.0) g/dL - Imaging and Cardiology Chest x-ray: report reviewed, image reviewed Assessment and Plan Assessment: Severe mitral regurgitation with torn chordae to P2 of the posterior leaflet, S/P complex mitral valve repair with #30 mm [employer] AnnuloFlex band, quadrangular resection of P2 of the posterior leaflet, closure of P2/P3 cleft, ring annuloplasty History of hypertension, was hypotensive, currently off pressors Hyperlipidemia, treated, cholesterol 122, LDL 52 Evidence of silent myocardial infarction in [address] Velazco Chronic heart failure with preserved EF 50-55% Paroxysmal atrial fibrillation on Xarelto for anticoagulation, S/P clip ligation of left atrial appendage with a 35 mm AtriClip Type 2 diabetes, hemaglobin A1c 7.5% Previous tobacco dependence Severe restrictive lung disease, preoperative FEV1 44% of predicted on full PFT Asthma Remote history of pneumonia TIA in 2014 Bilateral internal carotid stenosis 50-79% Postoperative acute blood loss anemia, expected DENISSE, expected given hypotension Elevated transaminases, likely from liver congestion Plan: Continue to maximize medical therapy with aspirin, statin, Plavix. We will increase metoprolol tartrate 25 mg by mouth twice a day Continue flecainide. No anticoagulation until discharge. Continue primacor, decrease Primacor to 0.1 mcg/kg/m. If the patient remains hemodynamically stable we will turn off the Primacor this afternoon. Wean oxygen as tolerated. Encourage incentive spirometry 10 times every hour while awake. Bronchodilators per pulmonology. Will monitor daily labs, CXR. Electrolyte replacement per protocol. Will give lasix 40 mg IV today. Increase activity as tolerated. PT/OT/cardiac rehab following. GI/DVT prophylaxis. Insulin management per internal medicine. Patient should remain on insulin gtt for 48 hours then change to subq insulin. Pain control with current medication regimen. No Toradol due to DENISSE. Continue swan/cordis We will move his left and right pleural chest tubes. Continue lopez catheter for another 24 hours for strict accurate I/O. Continue clear liquids. Dulcolax suppository 1 now. More recommendations to follow based on patient's clinical course. Time with Patient: Greater than 30
[2023-03-13 20:00] LABS: Glucose,Whole Blood 200 mg/dL (70-110)
[2023-03-13] MEDS: SENNOSIDES-DOCUSATE SODIUM 1 EACH TAB PO SCH (20:23)
[2023-03-13] MEDS ORDERED: ALBUMIN HUMAN 5% 250 ML in EMPTY BAG 1 BAG IVPB ONE (22:26)
[2023-03-13] MEDS: ACETAMINOPHEN TAB 325 MG TAB PO PRN (23:14)
[2023-03-14 01:39] LABS: ALT 429 U/L (4-49); AST 405 U/L (17-59); African American GFR (CKD) 69 (>60 ml/min/1.73 sqM); Albumin 3.3 g/dL (3.5-5.0); Alkaline Phosphatase 76 U/L (38-126); Anion Gap 8 mmol/L; Blood Urea Nitrogen 45 mg/dL (9-20); Calcium 8.4 mg/dL (8.4-10.2); Carbon Dioxide 27 mmol/L (22-30); Chloride 97 mmol/L (98-107); Glucose 75 mg/dL (74-99); Non-African American GFR(CKD) 60 (>60 ml/min/1.73 sqM); Potassium 4.4 mmol/L (3.5-5.1); Sodium 132 mmol/L (137-145); Total Bilirubin 0.8 mg/dL (0.2-1.3); Total Protein 5.3 g/dL (6.3-8.2)
[2023-03-14 02:06] LABS: Glucose,Whole Blood 74 mg/dL (70-110)
[2023-03-14 02:51] LABS: Basophils % (A) 0 %; Eosinophils # (A) 0.1 k/uL (0-0.7); Eosinophils % (A) 2 %; HCT 20.3 % (39.0-53.0); Lymphocytes # (A) 0.9 k/uL (1.0-4.8); Lymphocytes % (A) 16 %; MCH 32.3 pg (25.0-35.0); MCV 95.1 fL (80.0-100.0); Mean Platelet Volume 8.2; Monocytes # (A) 0.3 k/uL (0-1.0); Monocytes % (A) 6 %; Neutrophils % (A) 74 %; Platelet Count 133 k/uL (150-450); Poikilocytosis Slight; RBC 2.13 m/uL (4.30-5.90); RDW 14.4 % (11.5-15.5); WBC 5.5 k/uL (3.8-10.6)
[2023-03-14 03:09] LABS: HGB 6.9 gm/dL (13.0-17.5)
[2023-03-14 06:29] LABS: Glucose,Whole Blood 95 mg/dL (70-110)
[2023-03-14] MEDS: INSULIN ASPART (NovoLOG) 100 UNIT/ML VIAL SQ SCH ×4 (06:32→20:09)
[2023-03-14] MEDS ORDERED: FUROSEMIDE 10 MG/ML 4 ML VIAL IV STA (08:01)
[2023-03-14] MEDS ORDERED: POTASSIUM CHLORIDE ER 10 MEQ TAB.ER.PRT PO STA (08:02)
[2023-03-14] MEDS: INSULIN DETEMIR (LEVEMIR) 100 UNIT/ML SYR SQ SCH ×2 (08:07→08:39)
[2023-03-14] MEDS: ASPIRIN 325 MG TAB PO SCH (08:37)
[2023-03-14] MEDS: HEPARIN SODIUM,PORCINE 5,000 UNIT/ML 1 ML VIAL SQ SCH ×3 (08:38→23:47)
[2023-03-14] MEDS: PANTOPRAZOLE 40 MG TABLET PO SCH (08:38)
[2023-03-14] MEDS: CYANOCOBALAMIN 500 MCG TAB PO SCH (08:38)
[2023-03-14] MEDS: METOPROLOL TARTRATE 25 MG TAB PO SCH ×2 (08:38→21:38)
[2023-03-14] MEDS: CLOPIDOGREL 75 MG TAB PO SCH (08:38)
[2023-03-14] MEDS: CHOLECALCIFEROL 25 MCG (1000 IU) TABLET PO SCH (08:38)
--- NOTE | 2023-03-14 08:38 | XR ---
EXAMINATION TYPE: XR chest 1V portable DATE OF EXAM: 03/14/2023 COMPARISON: 03/13/2023 HISTORY: Post open heart TECHNIQUE: Single frontal view of the chest is obtained. FINDINGS: NG tube has been removed. Extensive postsurgical changes are seen. [place]- Magda catheter wit h tip overlying the proximal pulmonary outflow tract. Bilateral shoulder arthropathy with bilateral consolidation and pleural effusion. Heart is enlarged w ith poststernotomy changes. Atrial appendage clip noted. Suggestion of a mediastinal drain no sizable pneumothorax. Question epicardial lead. Metallic density overlying the left axilla again suspicious for foreign body. IMPRESSION: 1. Stable postoperative consolidation and pleural effusion. Suspect mild central venous congestion.
[2023-03-14] MEDS: FLECAINIDE 50 MG TAB PO SCH ×2 (08:40→20:30)
[2023-03-14] MEDS: LOSARTAN 25 MG TAB PO SCH (08:40)
[2023-03-14] MEDS: IPRATROPIUM-ALBUTEROL 3 ML NEB INHALATION SCH ×4 (09:20→21:50)
[2023-03-14 10:25] LABS: Basophils % (A) 0 %; Eosinophils # (A) 0.1 k/uL (0-0.7); Eosinophils % (A) 2 %; HCT 24.9 % (39.0-53.0); Lymphocytes # (A) 0.8 k/uL (1.0-4.8); Lymphocytes % (A) 13 %; MCH 32.2 pg (25.0-35.0); MCHC 33.7 g/dL (31.0-37.0); MCV 95.5 fL (80.0-100.0); Mean Platelet Volume 7.4; Monocytes # (A) 0.4 k/uL (0-1.0); Monocytes % (A) 7 %; Neutrophils # (A) 4.8 k/uL (1.3-7.7); Neutrophils % (A) 76 %; Platelet Count 132 k/uL (150-450); Poikilocytosis Slight; RDW 14.1 % (11.5-15.5); WBC 6.3 k/uL (3.8-10.6)
[2023-03-14 10:34] LABS: HGB 8.4 gm/dL (13.0-17.5)
[2023-03-14 11:20] LABS: Glucose,Whole Blood 110 mg/dL (70-110)
--- NOTE | 2023-03-14 13:59 | P.PN ---
Subjective Progress Note Date: 03/14/23 Principal diagnosis: Severe mitral regurgitation with torn chordae to P2 of the posterior leaflet. Previous medical history of hypertension, hyperlipidemia, evidence of silent naveed cardial infarction in [address] Velazco, chronic heart failure with preserved EF, paroxysmal atrial fibrillation on Xarelto for anticoagulation, type 2 diabetes, previous tobacco dependence, severe restrictive lung disease, asthma, remote history of pneumonia, TIA in 2014, bilateral internal carotid stenosis 50-79% POD #4 complex mitral valve repair with #30 mm [employer] AnnuloFlex band, victor m drangular resection of P2 of the posterior leaflet, closure of P2/P3 cleft, ring annuloplasty, and clip ligation of left atrial appendage with a 35 mm AtriClip, intraoperative transesophageal echocardiogram performed by anesthesia Postoperative acute blood loss anemia, expected given hemodilution and heart cardiopulmonary bypass pump Hypotension, requiring vasopressor use, expected DENISSE, expected given hypotension The patient was seen and examined in follow-up today 03/14/2023 at his bedside in the intensive care unit. The patient is sitting up to bedside chair, is awake, alert, oriented 3 and is in no acute apparent distress. Denies any complaints of pain or shortness of breath at this time. Oxygen saturations are 97% on 2 L nasal cannula and he is achieving 1000 mL on his incentive spirometry with encouragement. Bedside telemetry showing atrial fibrillation heart rate 90 BPM. Right IJ cordis remains in place with [place]-Magda catheter and current hemodynamic showing a cardiac output of 3.9, cardiac index 2.2, PA pressures 42/17 and a CVP of 6 mmHg. Hemoglobin was 6.9 this morning and the patient was transfused for 1 unit of packed red blood cells. The patient has been up ambulating in the intensive care unit hallway with standby assistance from nursing and therapy staff. Lopez catheter remains in place for accurate I's and O's, 315 mL of urine output in the last 8 hours. Atrial and ventricular epicardial pacemaker wires remain in place and are grounded. Chest tubes were removed yesterday without incident. Primacor drip remains infusing at 0.1 mcg/kg/m. Chest x-ray and laboratory results were reviewed. Objective - Vital Signs Vital signs: Vital Signs Temp 97.9 F 03/14/23 12:00 Pulse 80 03/14/23 12:00 Resp 16 03/14/23 12:00 BP 101/70 03/14/23 12:00 Pulse Ox 98 03/14/23 12:00 FiO2 96 03/13/23 08:28 Intake & Output 03/13/23 03/14/23 03/14/23 18:59 06:59 18:59 Intake Total 1030.23 1659 494 Output Total 1130 555 925 Balance -99.77 1104 -431 Weight 84.6 kg 82.1 kg Intake: IV 188 1069 184 Albumin Human 5% 250 ml 250 In Empty Bag 1 bag @ 250 mls/hr IVPB ONCE ONE Rx#: [id number] CO/CI fluid NS 0.9 80 170 10 Lactated Ringers 1,000 ml 200 120 @ 20 mls/hr IV .Q24H [facility] Rx#:[id number] PRBC 350 Pressure bags 108 99 54 Intake, IV Titration 242.23 20 Amount Lactated Ringers 1,000 ml 220 20 @ 20 mls/hr IV .Q24H [facility] Rx#:[id number] Milrinone-D5w Pmx 20 mg 22.23 0 In Dextrose/Water 1 100ml .bag @ 0.1 MCG/KG/MIN 2. 34 mls/hr IV .Q24H [facility] Rx #:[id number] Oral 600 570 Blood Product 0 310 Rc As-1 Unit 0 310 [id number] Output: Drainage 140 Bilateral Chest 140 Urine 990 555 925 Other: Voiding Method Indwelling Catheter Indwelling Catheter Indwelling Catheter ABP, PAP, CO, CI - Last Documented Arterial Blood Pressure 112/52 Pulmonary Artery Pressure 42/17 Cardiac Output 3.9 Cardiac Index 2.2 - Exam CONSTITUTIONAL: Appears somewhat comfortable, cooperative, no acute distress RESPIRATORY: Lungs sounds diminished bilaterally with few expiratory wheezes present. Respirations are symmetrical, unlabored. Currently on 2 LPM nasal cannula with oxygen saturation 97%. Achieving 1000 mL on incentive spirometry. Weak cough. CARDIOVASCULAR: S1, S2 present. Irregular rate and rhythm, atrial fibrillation on telemetry. Sternum stable. Palpable peripheral pulses bilaterally. No edema present. No calf pain or tenderness noted. Heart hugger in place with pa tient demonstrating appropriate use. Antiembolism stockings, SCDs present. GASTROINTESTINAL: Abdomen soft, nontender, nondistended. Active bowel sounds present. Denies flatus currently. Bowel movement yesterday 03/12/2023 GENITOURINARY: Lopez present draining blood tinged urine. Urine output 315 mL in the last 8 hours. INTEGUMENTARY: Skin is warm and dry with evidence of good perfusion. Midline sternal chest incision well approximated and covered with dry intact dressing NEUROLOGIC: Cranial nerves II through XII intact. No focal deficits. MUSKULOSKELETAL: Able to move all extremities, strength equal bilaterally. Generalized weakness. PSYCHIATRIC: Alert and oriented to person place and time, appropriate affect, intact judgment and insight INVASIVE LINES AND TUBES: A/V epicardial pacemaker wires present, are grounded. Right internal jugular [place]/Cordis, right radial arterial line present. Last CO/CI 3.9/2.2, PA 42/17, CVP 6. - Allied health notes Allied health notes reviewed: nursing - Labs CBC & Chem 7: 03/14/23 10:14 03/14/23 01:15 Labs: Abnormal Lab Results - Last 24 Hours (Table) 03/13/23 03/13/23 03/14/23 Range/Units 17:05 19:59 01:15 RBC (4.30-5.90) m/uL Hgb (13.0-17.5) gm/dL Hct (39.0-53.0) % Plt Count (150-450) k/uL Lymphocytes # (1.0-4.8) k/uL Sodium (137-145) mmol/L Chloride (98-107) mmol/L BUN (9-20) mg/dL POC Glucose (mg/dL) 257 H 200 H (70-110) mg/dL Hemoglobin A1c 7.4 H (<=6.0) % AST (17-59) U/L ALT (4-49) U/L Total Protein (6.3-8.2) g/dL Albumin (3.5-5.0) g/dL Crossmatch 03/14/23 03/14/23 03/14/23 Range/Units 01:15 01:15 03:50 RBC 2.13 L (4.30-5.90) m/uL Hgb 6.9 L* (13.0-17.5) gm/dL Hct 20.3 L (39.0-53.0) % Plt Count 133 L (150-450) k/uL Lymphocytes # 0.9 L (1.0-4.8) k/uL Sodium 132 L (137-145) mmol/L Chloride 97 L (98-107) mmol/L BUN 45 H (9-20) mg/dL POC Glucose (mg/dL) (70-110) mg/dL Hemoglobin A1c (<=6.0) % AST 405 H (17-59) U/L ALT 429 H (4-49) U/L Total Protein 5.3 L (6.3-8.2) g/dL Albumin 3.3 L (3.5-5.0) g/dL Crossmatch See Detail 03/14/23 Range/Units 10:14 RBC 2.60 L (4.30-5.90) m/uL Hgb 8.4 L D (13.0-17.5) gm/dL Hct 24.9 L (39.0-53.0) % Plt Count 132 L (150-450) k/uL Lymphocytes # 0.8 L (1.0-4.8) k/uL Sodium (137-145) mmol/L Chloride (98-107) mmol/L BUN (9-20) mg/dL POC Glucose (mg/dL) (70-110) mg/dL Hemoglobin A1c (<=6.0) % AST (17-59) U/L ALT (4-49) U/L Total Protein (6.3-8.2) g/dL Albumin (3.5-5.0) g/dL Crossmatch - Imaging and Cardiology Chest x-ray: report reviewed, image reviewed Assessment and Plan Assessment: Severe mitral regurgitation with torn chordae to P2 of the posterior leaflet, S/P complex mitral valve repair with #30 mm [employer] AnnuloFlex band, quadrangular resection of P2 of the posterior leaflet, closure of P2/P3 cleft, ring annuloplasty History of hypertension, was hypotensive, currently off pressors Hyperlipidemia, treated, cholesterol 122, LDL 52 Evidence of silent myocardial infarction in [address] Velazco Chronic heart failure with preserved EF 50-55% Paroxysmal atrial fibrillation on Xarelto for anticoagulation, S/P clip ligation of left atrial appendage with a 35 mm AtriClip Type 2 diabetes, hemaglobin A1c 7.5% Previous tobacco dependence Severe restrictive lung disease, preoperative FEV1 44% of predicted on full PFT Asthma Remote history of pneumonia TIA in 2014 Bilateral internal carotid stenosis 50-79% Postoperative acute blood loss anemia, expected DENISSE, expected given hypotension Elevated transaminases, likely from liver congestion Plan: Continue to maximize medical therapy with aspirin, statin, Plavix. We will in crease metoprolol tartrate as tolerated, currently on metoprolol tartrate 25 mg by mouth twice a day. Continue flecainide. No anticoagulation until discharge. Discontinue primacor drip. Wean oxygen as tolerated. Encourage incentive spirometry 10 times every hour while awake. Bronchodilators per pulmonology. Will monitor daily labs, CXR. Electrolyte replacement per protocol. Will give lasix 40 mg IV today. Increase activity as tolerated. PT/OT/cardiac rehab following. GI/DVT prophylaxis. Insulin management per internal medicine. Pain control with current medication regimen. No Toradol due to DENISSE. Discontinue swan/cordis. We will remove his atrial and ventricular epicardial pacemaker wires, bedrest for 1 hour post pacemaker wire removal. Discontinue lopez catheter for another 24 hours for strict accurate I/O. The bladder scan every 6 hours and when necessary postvoid residual, if greater than 300 mL of urine may straight cath. Increase diet as tolerated. More recommendations to follow based on patient's clinical course. Time with Patient: Greater than 30
--- NOTE | 2023-03-14 14:48 | P.PN ---
Subjective Progress Note Date: 03/14/23 Principal diagnosis: POD #4 complex mitral valve repair with #30 mm [employer] AnnuloFlex band, quadrangular resection of P2 of the posterior leaflet, closure of P2/P3 cleft, ring annuloplasty, and clip ligation of left atrial appendage with a 35 mm AtriClip, intraoperative transesophageal echocardiogram performed by anesthesia This is a 77-year-old white male with history of severe mitral valve regurgitation, sick sinus syndrome, history of congestive heart failure with preserved ejection fraction, hypertension dyslipidemia paroxysmal atrial fibrillation, 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 Patient was seen by cardiac surgery back on 02/19/2023, and he was evaluated for mitral valve repair. Today the patient underwent surgery, postoperatively he is on mechanical ventilation, assist control rate of 12 tidal volume 500 FiO2 50% and PEEP of 5. Chest x-ray showed mild interstitial edema/mild pulmonary vascular congestion. Patient is now on Precedex at 0.3 mcg/kg/h norepinephrine at 0.1 mcg/kg/m he is on Primacor at 0.2 mcg/kg/m is also on insulin at 0.5 units per hour. His cardiac output is 5.1 cardiac index is 2.9 CVP is 17. WBC count 9.8 hemoglobin 7.9 Patient was reevaluated today on 03/11/2023.POD #1 complex mitral valve repair with #30 mm [employer] AnnuloFlex band, quadrangular resection of P2 of the posterior leaflet, closure of P2/P3 cleft, ring annuloplasty, and clip ligation of left atrial appendage with a 35 mm AtriClip, intraoperative transesophageal echocardiogram performed by anesthesia. Patient is doing well, he is not requiring any pressors or any inotropes at this point in time he did require pressors last night until early this morning patient is doing poorly with in centive spirometry he was extubated last night at 1901. Currently the patient is being AV paced at 80 bpm, underlying rhythm is bradycardia. Blood pressure is marginal but seems to be within normal today. Patient does have evidence of crackles and rhonchi on physical examination, but he denies shortness of breath. Chest x-ray showed mostly bibasilar atelectasis. CBC is relatively normal, hemoglobin is 7.9, basic metabolic profile is normal BUN is 46 creatinine 1.34 Reevaluated today on 03/12/23, patient is now postoperative day #2. Patient is resting in a recliner, he is on 5 L nasal cannula, his cardiac output is 4.9 cardiac index is 2.8 CVP is 8 pulmonary artery pressure 50/15 patient is receiving Primacor at 0.2 mcg/kg/m is also on insulin at 1.5 units an hour. Chest x-ray is suggestive of mild congestive heart failure changes, clinically the patient is feeling much better today compared to how he felt yesterday in the afternoon. He did receive Lasix, and he had a good urine output with Lasix today. WBC count is 8.4 hemoglobin is 7.9, ABG from late yesterday showed a pO2 of 77 pCO2 46 pH of 7.31, renal profile is improving creatinine is 1.58 compared to 1.99 yesterday electrolytes are normal liver enzymes are elevated. Patient was on 03/13/2023, patient is doing great, gradually improving, he is down to 2 L nasal cannula with O2 sats of 97%, his cardiac output is 5.2 cardiac index is 3.0The patient remains on Primacor at 0.1 mcg/kg/m he did receive Lasix today, and his oxygenation didn't improve after Lasix given, patient diuresed well. Chest x-ray continues to show atelectasis and small pleural effusions with mild venous congestion CBC is relatively unremarkable except for hemoglobin of 7.1 basic metabolic profile is normal renal profile is improving creatinine down to 1.33, compared to 1.99 2 days ago Patient was reevaluated today on 03/14/2023 patient is doing great, continues to improve steadily, he is still on 2 L nasal cannula, O2 saturations 97% chest x- ray is showing significant improvement in his atelectasis and interstitial edema. Patient is not requiring any pressors and not anymore inotropes. His cardiac output is 3.9 cardiac index is 2.2 achieving 1000 mL via his incentive spirometer. Overall significantly improved, chest x-ray was also reviewed and it is reassuring WBC count is 6.3 hemoglobin is 8.4, liver enzymes remain sli ghtly elevated. Objective - Vital Signs Vital signs: Vital Signs Temp 97.9 F 03/14/23 12:00 Pulse 76 03/14/23 14:25 Resp 21 03/14/23 14:00 BP 114/90 03/14/23 14:00 Pulse Ox 97 03/14/23 14:00 FiO2 96 03/13/23 08:28 Intake & Output 03/13/23 03/14/23 03/14/23 18:59 06:59 18:59 Intake Total 1030.23 1659 494 Output Total 3782 173 2974 Balance -99.77 1104 -831 Weight 84.6 kg 82.1 kg Intake: IV 188 1069 184 Albumin Human 5% 250 ml 250 In Empty Bag 1 bag @ 250 mls/hr IVPB ONCE ONE Rx#: [id number] CO/CI fluid NS 0.9 80 170 10 Lactated Ringers 1,000 ml 200 120 @ 20 mls/hr IV .Q24H [facility] Rx#:[id number] PRBC 350 Pressure bags 108 99 54 Intake, IV Titration 242.23 20 Amount Lactated Ringers 1,000 ml 220 20 @ 20 mls/hr IV .Q24H [facility] Rx#:[id number] Milrinone-D5w Pmx 20 mg 22.23 0 In Dextrose/Water 1 100ml .bag @ 0.1 MCG/KG/MIN 2. 34 mls/hr IV .Q24H [facility] Rx #:[id number] Oral 600 570 Blood Product 0 310 Rc As-1 Unit 0 310 [id number] Output: Drainage 140 Bilateral Chest 140 Urine 526 333 5102 Other: Voiding Method Indwelling Catheter Indwelling Catheter Indwelling Catheter ABP, PAP, CO, CI - Last Documented Arterial Blood Pressure 112/52 Pulmonary Artery Pressure 42/17 Cardiac Output 3.9 Cardiac Index 2.2 - Exam Physical Exam: Revealed a 77-year-old white male in no distress, on 2 L nasal cannula Head: Atraumatic, normocephalic. HEENT:[Neck is supple.] [No neck masses.] [No thyromegaly.] [No JVD.] Chest: [Clear throughout no crackles or rhonchi or wheezes Cardiac Exam: [Normal S1 and S2, no S3 gallop, 2/6 systolic murmur thought the precordium Abdomen: [Soft, nontender, no megaly, no rebound, no guarding, normal bowel sounds.] Extremities: [No clubbing, no edema, no cyanosis.] Neurological Exam: [No focal neurologic deficit.] Alert oriented 3 Psychiatric: Normal mood affect and normal mental status examination. - Labs CBC & Chem 7: 03/14/23 10:14 03/14/23 01:15 Labs: Abnormal Lab Results - Last 24 Hours (Table) 03/13/23 03/13/23 03/14/23 Range/Units 17:05 19:59 01:15 RBC (4.30-5.90) m/uL Hgb (13.0-17.5) gm/dL Hct (39.0-53.0) % Plt Count (150-450) k/uL Lymphocytes # (1.0-4.8) k/uL Sodium (137-145) mmol/L Chloride (98-107) mmol/L BUN (9-20) mg/dL POC Glucose (mg/dL) 257 H 200 H (70-110) mg/dL Hemoglobin A1c 7.4 H (<=6.0) % AST (17-59) U/L ALT (4-49) U/L Total Protein (6.3-8.2) g/dL Albumin (3.5-5.0) g/dL Crossmatch 03/14/23 03/14/23 03/14/23 Range/Units 01:15 01:15 03:50 RBC 2.13 L (4.30-5.90) m/uL Hgb 6.9 L* (13.0-17.5) gm/dL Hct 20.3 L (39.0-53.0) % Plt Count 133 L (150-450) k/uL Lymphocytes # 0.9 L (1.0-4.8) k/uL Sodium 132 L (137-145) mmol/L Chloride 97 L (98-107) mmol/L BUN 45 H (9-20) mg/dL POC Glucose (mg/dL) (70-110) mg/dL Hemoglobin A1c (<=6.0) % AST 405 H (17-59) U/L ALT 429 H (4-49) U/L Total Protein 5.3 L (6.3-8.2) g/dL Albumin 3.3 L (3.5-5.0) g/dL Crossmatch See Detail 03/14/23 Range/Units 10:14 RBC 2.60 L (4.30-5.90) m/uL Hgb 8.4 L D (13.0-17.5) gm/dL Hct 24.9 L (39.0-53.0) % Plt Count 132 L (150-450) k/uL Lymphocytes # 0.8 L (1.0-4.8) k/uL Sodium (137-145) mmol/L Chloride (98-107) mmol/L BUN (9-20) mg/dL POC Glucose (mg/dL) (70-110) mg/dL Hemoglobin A1c (<=6.0) % AST (17-59) U/L ALT (4-49) U/L Total Protein (6.3-8.2) g/dL Albumin (3.5-5.0) g/dL Crossmatch Assessment and Plan Assessment: Impression: Severe mitral regurgitation Status post mitral valve repair postoperative day #4 Chronic congestive heart failure with preserved LV function Benign essential hypertension Paroxysmal atrial fibrillation History of CVA following back surgery Type 2 diabetes without complications History of mild intermittent asthma History of flash pulmonary edema Recommendation: Continue to titrate oxygen Continue gentle diuresis intermittently Continue incentive spirometry, encourage to use Continue gentle diuresis as needed Ambulate GI and DVT prophylaxis We'll continue to follow Time with Patient: Less than 30
--- NOTE | 2023-03-14 15:07 | P.PN ---
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 Patient had a recent hospitalization at which time he presented with flash pulmonary edema and acute respiratory failure with pulse ox of 60% requiring BiPAP. He was previously admitted to the hospital on 02/14 underwent cardiac catheterization that revealed mild 20-30% diffuse disease in the distal LAD. Otherwise minimal luminal irregularities with no obstructive disease. Normal left-sided filling pressures. EVELYN revealed severe mitral regurgitation with P2 prolapse and restricted posterior mitral leaflet causing eccentric anteriorly directed jet. Patient has been seen by cardiothoracic surgery and brought in on this admission status post complex mitral valve repair. Patient is seen today in the intensive care unit postop currently intubated and on mechanical ventilation. Blood pressure is stable 107/58, heart rate is in the 80s. 03/11: Patient has been successfully extubated. Patient is seen today in the ICU, patient resting in a recliner. He has had a small amount of clear liquids this morning. He is obtaining 500 ML's on incentive spirometry. He does state he has a little headache today, mild chest discomfort. Patient is on had a bowel movement. Reglan and suppository plan for today. He remains on insulin drip with blood sugars running between 114 and 243. 03/12: Patient developed ileus and NG tube is in place. One dose of IV Lasix 60 mg today was ordered for mild fluid overload. Heart rate is running in the low 100s, blood pressure 108/50, pulse ox 90% on 3 L nasal cannula. Labile glucose running between 113 and 181. Patient is currently on milrinone drip. Telemetry is atrial fibrillation. 03/13;Patient is sitting up in his chair, continues to feels distended,started on clear liquis diet and his NGT was discontinued passing gas with very small bowel movement, we will discontinue Insulin drip and we will start Levemir 14 units in Am along with SSI, we will continue to aggressive pulmonary toiletting, we will continue to work with PT and his [place]-Magda will be removed in AM REVIEW OF SYSTEMS Constitutional: No fever, no chills, no night sweats. No weight change. No weakness, + fatigue no lethargy. No daytime sleepiness. HEENT: No headache. No blurred vision or double vision, no loss of vision. No loss of Hearing, no ringing in the ears, no dizziness. No nasal drainage or congestion. No epistaxis. No sore throat. Lungs: positive for shortness of breath, occasional cough, no sputum production. No wheezing. Cardiovascular: Denies chest pain, mild lower extremity edema. No palpitations. No paroxysmal nocturnal dyspnea. Reports orthopnea. No lightheadedness or dizziness. No syncopal episodes. Abdominal: No abdominal pain. No nausea, vomiting. No diarrhea. No constipation. No bloody or tarry stools. + loss of appetite, small bowel movement Genitourinary: -Sarmiento. +hematuria. Musculoskeletal: No myalgias. No muscle weakness, no gait dysfunction, no frequent falls. No back pain. No neck pain. Integumentary: sternal wound s covered with dressing, no lesions. No rash or pruritus. No unusual bruising. No change in hair or nails. Neurologic: No aphasia. No facial droop. No change in mentation. No head injury. No headache. No paralysis. No paresthesia. Psychiatric: No depression. No anxiety. No mood swings. Endocrine: No abnormal blood sugars. No weight change. No excessive sweating or thirst. No cold intolerance. PHYSICAL EXAMINATION Gen: This is a 77-year-old male. He is resting in recliner in ICU and appears to be comfortable and in no acute distress HEENT: Head is atraumatic, normocephalic. Pupils equal, round. Sclerae is anicteric. NECK: Supple. No JVD. No lymphadenopathy. Right-sided [place]/Cordis in place LUNGS: Diminished. No wheezes or rhonchi. No intercostal retractions.CT in place HEART: Regular rate and rhythm. 2/6 systolic murmur. Mediastinal right and left pleural chest tubes in place. ABDOMEN: Soft. Bowel sounds are present. No masses. No tenderness. Sarmiento catheter with blood brown urine. EXTREMITIES: +1 pedal edema. No calf tenderness, DP +1 bilaterally NEUROLOGICAL: Patient is awake, alert and oriented x3. Cranial nerves 2 through 12 are grossly intact, muscle power 4/5 in bilateral upper and lower extremities. ASSESSMENT AND PLAN 1. Severe mitral regurgitation status post mitral valve repair, postoperative day #3. Continue patient on aspirin 325 mg daily, atorvastatin 20 mg daily, Plavix 75 mg daily, flecainide 50 mg every 12 hours, continue [place] as needed for pain control, continue DuoNeb treatments 4 times daily, Lopressor 12.5 mg twice daily 2. Acute on chronic diastolic heart failure. we will continue with Metoprolol 25 mg po bid and patient did receive Lasix 40 mg IVP x1. 4. Paroxysmal atrial fibrillation. Hold Xarelto. Continue metoprolol tartrate 25 mg oral twice daily, flecainide 50 mg every 12 hours. 5. Mild intermittent asthma, stable. Continue DuoNeb treatments 4 times d aily, we will continue with O2 support 6. Hypertension and hypertensive cardiovascular disease . Continue metoprolol tartrate 25 mg twice daily. 7. Hyperlipidemia. Continue atorvastatin 20 mg at bedtime. 8. History of CVA. we will hold off xarelto till discharge 9. Vitamin D deficiency.stable 10. Hematuria. Continue Sarmiento catheter.appears traumatic and it is clearing. 11. Ileus. likely due to surgery, we will discontinue NGT and start Clears and increase Activity. 12. medical debility. we will continue with PT nd OT, increase activity levels. 13. Diabetes Mellitus type 2. we will discontinue Insulin drip and we will start Levemir 14 units Sc in AM along with SSI. 14. Acute blood loss anemia due to hematuria and surgery. we will continue to monitor cbc. Objective - Vital Signs Vital signs: Vital Signs Temp 97.9 F 03/13/23 04:00 Pulse 105 H 03/13/23 08:28 Resp 4 L 03/13/23 07:00 BP 110/59 03/11/23 06:00 Pulse Ox 99 03/13/23 07:00 FiO2 96 03/13/23 08:28 Intake & Output 03/12/23 03/13/23 03/13/23 18:59 06:59 18:59 Intake Total 1263.396 427.180 9 Output Total 1455 715 50 Balance -191.604 -287.820 -41 Weight 84.6 kg Intake: IV 278 108 9 CO/CI fluid NS 0.9 120 LR 50 Pressure bags 108 108 9 Intake, IV Titration 325.396 219.180 Amount Insulin Regular 100 unit 28.332 39.180 In Sodium Chloride 0.9% 100 ml @ Per Protocol IV .Q0M [facility] Rx#:[id number] Lactated Ringers 1,000 ml 220 80 @ 20 mls/hr IV .Q24H [facility] Rx#:[id number] Milrinone-D5w Pmx 20 mg 77.064 100 In Dextrose/Water 1 100ml .bag @ 0.2 MCG/KG/MIN 4. 68 mls/hr IV .[id number] [facility] Rx#:[id number] Oral 600 100 Other 60 Output: Drainage 160 50 Bilateral Chest 80 50 Mediastinal 80 Urine 1295 665 50 Other: Voiding Method Indwelling Catheter Indwelling Catheter # Bowel Movements 1 ABP, PAP, CO, CI - Last Documented Arterial Blood Pressure 122/56 Pulmonary Artery Pressure 55/23 Cardiac Output 7.4 Cardiac Index 4.3 - Labs CBC & Chem 7: 03/14/23 10:14 03/14/23 01:15 Labs: Abnormal Lab Results - Last 24 Hours (Table) 03/12/23 03/12/23 03/12/23 Range/Units 08:43 10:22 12:10 RBC (4.30-5.90) m/uL Hgb (13.0-17.5) gm/dL Hct (39.0-53.0) % Plt Count (150-450) k/uL Lymphocytes # (1.0-4.8) k/uL Sodium (137-145) mmol/L BUN (9-20) mg/dL Creatinine (0.66-1.25) mg/dL POC Glucose (mg/dL) 117 H 138 H 113 H (70-110) mg/dL AST (17-59) U/L ALT (4-49) U/L Total Protein (6.3-8.2) g/dL Albumin (3.5-5.0) g/dL 03/12/23 03/12/23 03/12/23 Range/Units 13:24 14:49 15:59 RBC (4.30-5.90) m/uL Hgb (13.0-17.5) gm/dL Hct (39.0-53.0) % Plt Count (150-450) k/uL Lymphocytes # (1.0-4.8) k/uL Sodium (137-145) mmol/L BUN (9-20) mg/dL Creatinine (0.66-1.25) mg/dL POC Glucose (mg/dL) 235 H 181 H 154 H (70-110) mg/dL AST (17-59) U/L ALT (4-49) U/L Total Protein (6.3-8.2) g/dL Albumin (3.5-5.0) g/dL 03/12/23 03/12/23 03/12/23 Range/Units 17:01 18:27 19:48 RBC (4.30-5.90) m/uL Hgb (13.0-17.5) gm/dL Hct (39.0-53.0) % Plt Count (150-450) k/uL Lymphocytes # (1.0-4.8) k/uL Sodium (137-145) mmol/L BUN (9-20) mg/dL Creatinine (0.66-1.25) mg/dL POC Glucose (mg/dL) 153 H 229 H 214 H (70-110) mg/dL AST (17-59) U/L ALT (4-49) U/L Total Protein (6.3-8.2) g/dL Albumin (3.5-5.0) g/dL 03/12/23 03/12/23 03/13/23 Range/Units 21:05 22:11 01:06 RBC (4.30-5.90) m/uL Hgb (13.0-17.5) gm/dL Hct (39.0-53.0) % Plt Count (150-450) k/uL Lymphocytes # (1.0-4.8) k/uL Sodium (137-145) mmol/L BUN (9-20) mg/dL Creatinine (0.66-1.25) mg/dL POC Glucose (mg/dL) 151 H 116 H 123 H (70-110) mg/dL AST (17-59) U/L ALT (4-49) U/L Total Protein (6.3-8.2) g/dL Albumin (3.5-5.0) g/dL 03/13/23 03/13/23 03/13/23 Range/Units 01:59 03:07 04:07 RBC (4.30-5.90) m/uL Hgb (13.0-17.5) gm/dL Hct (39.0-53.0) % Plt Count (150-450) k/uL Lymphocytes # (1.0-4.8) k/uL Sodium (137-145) mmol/L BUN (9-20) mg/dL Creatinine (0.66-1.25) mg/dL POC Glucose (mg/dL) 128 H 119 H 198 H (70-110) mg/dL AST (17-59) U/L ALT (4-49) U/L Total Protein (6.3-8.2) g/dL Albumin (3.5-5.0) g/dL 03/13/23 03/13/23 03/13/23 Range/Units 04:20 04:45 04:45 RBC 2.19 L (4.30-5.90) m/uL Hgb 7.1 L (13.0-17.5) gm/dL Hct 21.0 L (39.0-53.0) % Plt Count 125 L (150-450) k/uL Lymphocytes # 0.8 L (1.0-4.8) k/uL Sodium 133 L (137-145) mmol/L BUN 42 H (9-20) mg/dL Creatinine 1.33 H (0.66-1.25) mg/dL POC Glucose (mg/dL) 141 H (70-110) mg/dL AST 362 H (17-59) U/L ALT 280 H (4-49) U/L Total Protein 5.1 L (6.3-8.2) g/dL Albumin 3.2 L (3.5-5.0) g/dL 03/13/23 Range/Units 07:10 RBC (4.30-5.90) m/uL Hgb (13.0-17.5) gm/dL Hct (39.0-53.0) % Plt Count (150-450) k/uL Lymphocytes # (1.0-4.8) k/uL Sodium (137-145) mmol/L BUN (9-20) mg/dL Creatinine (0.66-1.25) mg/dL POC Glucose (mg/dL) 120 H (70-110) mg/dL AST (17-59) U/L ALT (4-49) U/L Total Protein (6.3-8.2) g/dL Albumin (3.5-5.0) g/dL
--- NOTE | 2023-03-14 15:16 | P.PN ---
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 Patient had a recent hospitalization at which time he presented with flash pulmonary edema and acute respiratory failure with pulse ox of 60% requiring BiPAP. He was previously admitted to the hospital on 02/14 underwent cardiac catheterization that revealed mild 20-30% diffuse disease in the distal LAD. Otherwise minimal luminal irregularities with no obstructive disease. Normal left-sided filling pressures. EVELYN revealed severe mitral regurgitation with P2 prolapse and restricted posterior mitral leaflet causing eccentric anteriorly directed jet. Patient has been seen by cardiothoracic surgery and brought in on this admission status post complex mitral valve repair. Patient is seen today in the intensive care unit postop currently intubated and on mechanical ventilation. Blood pressure is stable 107/58, heart rate is in the 80s. 03/11: Patient has been successfully extubated. Patient is seen today in the ICU, patient resting in a recliner. He has had a small amount of clear liquids this morning. He is obtaining 500 ML's on incentive spirometry. He does state he has a little headache today, mild chest discomfort. Patient is on had a bowel movement. Reglan and suppository plan for today. He remains on insulin drip with blood sugars running between 114 and 243. 03/12: Patient developed ileus and NG tube is in place. One dose of IV Lasix 60 mg today was ordered for mild fluid overload. Heart rate is running in the low 100s, blood pressure 108/50, pulse ox 90% on 3 L nasal cannula. Labile glucose running between 113 and 181. Patient is currently on milrinone drip. Telemetry is atrial fibrillation. 03/13;Patient is sitting up in his chair, continues to feels distended,started on clear liquis diet and his NGT was discontinued passing gas with very small bowel movement, we will discontinue Insulin drip and we will start Levemir 14 units in Am along with SSI, we will continue to aggressive pulmonary toiletting, we will continue to work with PT and his [place]-Magda will be removed in AM 03/14: Patient is sitting up in chair, feeling better today, he is on clears and we will give him full liquids, and we will decrease his Levemir to 12 units sc daily, BGM today 95. we will continue with current treatment plan and aggresive pulmonary toiletting, we will try to wean O2 down and his Sarmiento catheter is better with blood tinged urine, PT is ambulating patient. REVIEW OF SYSTEMS Constitutional: No fever, no chills, no night sweats. No weight change. No weakness, + fatigue no lethargy. No daytime sleepiness. HEENT: No headache. No blurred vision or double vision, no loss of vision. No loss of Hearing, no ringing in the ears, no dizziness. No nasal drainage or congestion. No epistaxis. No sore throat. Lungs: positive for shortness of breath, occasional cough, no sputum production. No wheezing. Cardiovascular: Denies chest pain, mild lower extremity edema. No palpitations. No paroxysmal nocturnal dyspnea. Reports orthopnea. No lightheadedness or dizziness. No syncopal episodes. Abdominal: No abdominal pain. No nausea, vomiting. No diarrhea. No constipation. No bloody or tarry stools. + loss of appetite, small bowel movement Genitourinary: -Sarmiento. +hematuria. Musculoskeletal: No myalgias. No muscle weakness, no gait dysfunction, no frequent falls. No back pain. No neck pain. Integumentary: sternal wound s covered with dressing, no lesions. No rash or pruritus. No unusual bruising. No change in hair or nails. Neurologic: No aphasia. No facial droop. No change in mentation. No head injury. No headache. No paralysis. No paresthesia. Psychiatric: No depression. No anxiety. No mood swings. Endocrine: No abnormal blood sugars. No weight change. No excessive sweating or thirst. No cold intolerance. PHYSICAL EXAMINATION Gen: This is a 77-year-old male. He is resting in recliner in ICU and appears to be comfortable and in no acute distress HEENT: Head is atraumatic, normocephalic. Pupils equal, round. Sclerae is anicteric. NECK: Supple. No JVD. No lymphadenopathy. Right-sided [place]/Cordis in place LUNGS: Diminished. No wheezes or rhonchi. No intercostal retractions.CT in place HEART: Regular rate and rhythm. 07/08 systolic murmur. Mediastinal right and le ft pleural chest tubes in place. ABDOMEN: Soft. Bowel sounds are present. No masses. No tenderness. Sarmiento catheter with blood brown urine. EXTREMITIES: +1 pedal edema. No calf tenderness, DP +1 bilaterally NEUROLOGICAL: Patient is awake, alert and oriented x3. Cranial nerves 2 through 12 are grossly intact, muscle power 4/5 in bilateral upper and lower extremities. ASSESSMENT AND PLAN 1. Severe mitral regurgitation status post mitral valve repair, postoperative day #4. Continue patient on aspirin 325 mg daily, atorvastatin 20 mg daily, Plavix 75 mg daily, flecainide 50 mg every 12 hours, continue [place] as needed for pain control, continue DuoNeb treatments 4 times daily, Metoprolol 25 mg po bid 2. Acute on chronic diastolic heart failure. we will continue with Metoprolol 25 mg po bid and patient did receive Lasix 40 mg IVP x1. 4. Paroxysmal atrial fibrillation. Hold Xarelto. Continue metoprolol tartrate 25 mg oral twice daily, flecainide 50 mg every 12 hours. 5. Mild intermittent asthma, stable. Continue DuoNeb treatments 4 times daily, we will continue with O2 support 6. Hypertension and hypertensive cardiovascular disease . Continue metoprolol tartrate 25 mg twice daily and Losartan 25 mg po bid. 7. Hyperlipidemia. Continue atorvastatin 20 mg at bedtime. 8. History of CVA. we will hold off xarelto till discharge 9. Vitamin D deficiency.stable we will continue with vitamin D3 1000 units po daily 10. Hematuria. Continue Sarmiento catheter.appears traumatic and it is clearing. 11. Ileus. likely due to surgery, we will discontinue NGT and start Clears and increase Activity. 12. medical debility. we will continue with PT nd OT, increase activity levels. 13. Diabetes Mellitus type 2. we will discontinue Insulin drip and we will start Levemir 14 units Sc in AM along with SSI. 14. Acute blood loss anemia due to hematuria and surgery. we will continue to monitor cbc. Objective - Vital Signs Vital signs: Vital Signs Temp 97.9 F 03/14/23 12:00 Pulse 80 03/14/23 12:00 Resp 16 03/14/23 12:00 BP 101/70 03/14/23 12:00 Pulse Ox 98 03/14/23 12:00 FiO2 96 03/13/23 08:28 Intake & Output 03/13/23 03/14/23 03/14/23 18:59 06:59 18:59 Intake Total 1030.23 1659 494 Output Total 1130 555 925 Balance -99.77 1104 -431 Weight 84.6 kg 82.1 kg Intake: IV 188 1069 184 Albumin Human 5% 250 ml 250 In Empty Bag 1 bag @ 250 mls/hr IVPB ONCE ONE Rx#: [id number] CO/CI fluid NS 0.9 80 170 10 Lactated Ringers 1,000 ml 200 120 @ 20 mls/hr IV .Q24H [facility] Rx#:[id number] PRBC 350 Pressure bags 108 99 54 Intake, IV Titration 242.23 20 Amount Lactated Ringers 1,000 ml 220 20 @ 20 mls/hr IV .Q24H PENDING SALE TO [facility] Rx#:[id number] Milrinone-D5w Pmx 20 mg 22.23 0 In Dextrose/Water 1 100ml .bag @ 0.1 MCG/KG/MIN 2. 34 mls/hr IV .Q24H PENDING SALE TO [facility] Rx #:[id number] Oral 600 570 Blood Product 0 310 Rc As-1 Unit 0 310 [id number] Output: Drainage 140 Bilateral Chest 140 Urine 990 555 925 Other: Voiding Method Indwelling Catheter Indwelling Catheter Indwelling Catheter ABP, PAP, CO, CI - Last Documented Arterial Blood Pressure 112/52 Pulmonary Artery Pressure 42/17 Cardiac Output 3.9 Cardiac Index 2.2 - Labs CBC & Chem 7: 03/14/23 10:14 03/14/23 01:15 Labs: Abnormal Lab Results - Last 24 Hours (Table) 03/13/23 03/13/23 03/14/23 Range/Units 17:05 19:59 01:15 RBC (4.30-5.90) m/uL Hgb (13.0-17.5) gm/dL Hct (39.0-53.0) % Plt Count (150-450) k/uL Lymphocytes # (1.0-4.8) k/uL Sodium (137-145) mmol/L Chloride (98-107) mmol/L BUN (9-20) mg/dL POC Glucose (mg/dL) 257 H 200 H (70-110) mg/dL Hemoglobin A1c 7.4 H (<=6.0) % AST (17-59) U/L ALT (4-49) U/L Total Protein (6.3-8.2) g/dL Albumin (3.5-5.0) g/dL Crossmatch 03/14/23 03/14/23 03/14/23 Range/Units 01:15 01:15 03:50 RBC 2.13 L (4.30-5.90) m/uL Hgb 6.9 L* (13.0-17.5) gm/dL Hct 20.3 L (39.0-53.0) % Plt Count 133 L (150-450) k/uL Lymphocytes # 0.9 L (1.0-4.8) k/uL Sodium 132 L (137-145) mmol/L Chloride 97 L (98-107) mmol/L BUN 45 H (9-20) mg/dL POC Glucose (mg/dL) (70-110) mg/dL Hemoglobin A1c (<=6.0) % AST 405 H (17-59) U/L ALT 429 H (4-49) U/L Total Protein 5.3 L (6.3-8.2) g/dL Albumin 3.3 L (3.5-5.0) g/dL Crossmatch See Detail 03/14/23 Range/Units 10:14 RBC 2.60 L (4.30-5.90) m/uL Hgb 8.4 L D (13.0-17.5) gm/dL Hct 24.9 L (39.0-53.0) % Plt Count 132 L (150-450) k/uL Lymphocytes # 0.8 L (1.0-4.8) k/uL Sodium (137-145) mmol/L Chloride (98-107) mmol/L BUN (9-20) mg/dL POC Glucose (mg/dL) (70-110) mg/dL Hemoglobin A1c (<=6.0) % AST (17-59) U/L ALT (4-49) U/L Total Protein (6.3-8.2) g/dL Albumin (3.5-5.0) g/dL Crossmatch
[2023-03-14 16:19] LABS: Glucose,Whole Blood 189 mg/dL (70-110)
[2023-03-14] MEDS: TAMSULOSIN 0.4 MG CAP.ER.24H PO SCH (17:22)
[2023-03-14] MEDS: ATORVASTATIN 20 MG TAB PO SCH (17:22)
--- NOTE | 2023-03-14 18:42 | P.PN ---
Subjective Progress Note Date: 03/14/23 HISTORY OF PRESENTING ILLNESS Patient is a pleasant 77-year-old male with history of severe mitral regurgitation, sick sinus syndrome, heart failure with preserved ejection fraction, hyperlipidemia, hypertension, paroxysmal atrial fibrillation, CVA after back surgery, possible silent myocardial infarction, diabetes mellitus, asthma. Patient follows with Dr Velazco. Patient underwent heart c atheterization preoperatively which showed no obstructive disease and a EVELYN showed severe mitral regurgitation with tethering of the posterior leaflet and prolapse of the P2 segment with severe left atrial dilation. He has been noticing increasing shortness breath over the last few months. He has been hospitalized for heart failure. He presented for elective mitral valve repair with complex mitral valve repair 03/10/2023 with a # 30mm [employer] Annuloflex band, resection of P2 with repair of MR and COREY ligation. He was mildly hypotensive however was weaned off of vasopressors including milrinone this morning. Additionally he was extubated last night at approximately 7 PM. He has had intermittent bradycardia with heart rates in the 50s and therefore has been ventricularly paced at 80 bpm. Underlying rhythm appears to be atrial fibrillation. This morning he was feeling somewhat better however started having increasing shortness breath in the afternoon. He admits to chest pain with deep inspiration. Additionally chest x-ray shows ileus and was given Reglan. He denies any actual abdominal pain. Has not had a bowel movement. Cardiac index reading 2.0-2.1 and CVP remains elevated at 20 with PA pressures in the 70s over 20s, somewhat better than intraoperatively more in the 90s. He does have acute kidney injury with creatinine up to 1.3. 03/12 Patient is status post mitral repair, postop day 2. He is currently on milrinone drip CVP is around 12, systolic PA pressure 50s, diastolic PA pressure 30s. Heart rate 105, blood pressure 105/60. Underlying rhythm is atrial fibrillation. 03/13 Status post mitral repair postop day 3. Continues to be on milrinone drip. Mean CVP around 8 mmHg, PA pressures 40/20, systolic blood pressure 110, diastolic around 60s. Patient is in underlying atrial fibrillation. Hemoglobin is 7.1 today. Creatinine is 1.33. 03/14/2023 Patient is off milrinone drip. Hemodynamic stable, blood pressure 159/74, pulmonary artery pressure 52/41, CVP 9, hemoglobin 6.9. Getting 1 unit of blood transfusion PHYSICAL EXAMINATION Vital signs reviewed. CONSTITUTIONAL: Tachypnic, ill appearing, mild increased work of breathing HEENT: Head is normocephalic. Pupils are equal, round. Sclerae anicteric. Mucous membranes of the mouth are moist. No JVD. No carotid bruit. CHEST EXAMINATION: Mild crackles at bases, decreased breath sounds at bases HEART EXAMINATION: irregular rhythm. Chest tube in place, right IJ swan in place ABDOMEN: Soft, nontender. Positive bowel sounds. EXTREMITIES: 2+ peripheral pulses, no lower extremity edema and no calf tenderness. NEUROLOGIC EXAMINATION: Patient is awake, alert and oriented x3. ASSESSMENT 1. Severe mitral regurgitation status post ring and mitral valve repair 03/10 2. Acute on chronic diastolic heart failure 3. Mild CAD by heart catheterization 4. Persistent atrial fibrillation 5. Bradycardia postoperatively, mildly improved 6. Pulmonary hypertension, likely related to left-sided heart failure 7. Acute on chronic respiratory failure 8. Hypertension PLAN continue aspirin and Plavix as per CT surgery recommendations. Eliquis is on hold due to postoperative anemia and hemodilution Continue metoprolol 12.5 mg daily and flecainide 50 mg twice a day Patient would benefit from one dose of IV diuretic. I will defer this to cardiac surgery Objective - Vital Signs Vital signs: Vital Signs Temp 97.9 F 03/14/23 12:00 Pulse 84 03/14/23 17:16 Resp 18 03/14/23 17:00 BP 107/61 03/14/23 17:00 Pulse Ox 97 03/14/23 17:00 FiO2 96 03/13/23 08:28 Intake & Output 03/13/23 03/14/23 03/14/23 18:59 06:59 18:59 Intake Total 1030.23 1659 494 Output Total 2811 999 4890 Balance -99.77 1104 -831 Weight 84.6 kg 82.1 kg Intake: IV 188 1069 184 Albumin Human 5% 250 ml 250 In Empty Bag 1 bag @ 250 mls/hr IVPB ONCE ONE Rx#: [id number] CO/CI fluid NS 0.9 80 170 10 Lactated Ringers 1,000 ml 200 120 @ 20 mls/hr IV .Q24H [facility] Rx#:[id number] PRBC 350 Pressure bags 108 99 54 Intake, IV Titration 242.23 20 Amount Lactated Ringers 1,000 ml 220 20 @ 20 mls/hr IV .Q24H [facility] Rx#:[id number] Milrinone-D5w Pmx 20 mg 22.23 0 In Dextrose/Water 1 100ml .bag @ 0.1 MCG/KG/MIN 2. 34 mls/hr IV .Q24H [facility] Rx #:[id number] Oral 600 570 Blood Product 0 310 Rc As-1 Unit 0 310 [id number] Output: Drainage 140 Bilateral Chest 140 Urine 964 393 8260 Other: Voiding Method Indwelling Catheter Indwelling Catheter Indwelling Catheter # Bowel Movements 1 ABP, PAP, CO, CI - Last Documented Arterial Blood Pressure 112/52 Pulmonary Artery Pressure 42/17 Cardiac Output 3.9 Cardiac Index 2.2 - Labs CBC & Chem 7: 03/14/23 10:14 03/14/23 01:15 Labs: Abnormal Lab Results - Last 24 Hours (Table) 03/13/23 03/14/23 03/14/23 Range/Units 19:59 01:15 01:15 RBC 2.13 L (4.30-5.90) m/uL Hgb 6.9 L* (13.0-17.5) gm/dL Hct 20.3 L (39.0-53.0) % Plt Count 133 L (150-450) k/uL Lymphocytes # 0.9 L (1.0-4.8) k/uL Sodium (137-145) mmol/L Chloride (98-107) mmol/L BUN (9-20) mg/dL POC Glucose (mg/dL) 200 H (70-110) mg/dL Hemoglobin A1c 7.4 H (<=6.0) % AST (17-59) U/L ALT (4-49) U/L Total Protein (6.3-8.2) g/dL Albumin (3.5-5.0) g/dL Crossmatch 03/14/23 03/14/23 03/14/23 Range/Units 01:15 03:50 10:14 RBC 2.60 L (4.30-5.90) m/uL Hgb 8.4 L D (13.0-17.5) gm/dL Hct 24.9 L (39.0-53.0) % Plt Count 132 L (150-450) k/uL Lymphocytes # 0.8 L (1.0-4.8) k/uL Sodium 132 L (137-145) mmol/L Chloride 97 L (98-107) mmol/L BUN 45 H (9-20) mg/dL POC Glucose (mg/dL) (70-110) mg/dL Hemoglobin A1c (<=6.0) % AST 405 H (17-59) U/L ALT 429 H (4-49) U/L Total Protein 5.3 L (6.3-8.2) g/dL Albumin 3.3 L (3.5-5.0) g/dL Crossmatch See Detail 03/14/23 Range/Units 16:18 RBC (4.30-5.90) m/uL Hgb (13.0-17.5) gm/dL Hct (39.0-53.0) % Plt Count (150-450) k/uL Lymphocytes # (1.0-4.8) k/uL Sodium (137-145) mmol/L Chloride (98-107) mmol/L BUN (9-20) mg/dL POC Glucose (mg/dL) 189 H (70-110) mg/dL Hemoglobin A1c (<=6.0) % AST (17-59) U/L ALT (4-49) U/L Total Protein (6.3-8.2) g/dL Albumin (3.5-5.0) g/dL Crossmatch
[2023-03-14 19:47] LABS: Glucose,Whole Blood 194 mg/dL (70-110)
[2023-03-14] MEDS: SENNOSIDES-DOCUSATE SODIUM 1 EACH TAB PO SCH (20:10)
[2023-03-15 04:30] LABS: Basophils % (A) 0 %; Eosinophils # (A) 0.1 k/uL (0-0.7); Eosinophils % (A) 2 %; HCT 23.8 % (39.0-53.0); HGB 8.2 gm/dL (13.0-17.5); Lymphocytes % (A) 18 %; MCH 32.7 pg (25.0-35.0); MCHC 34.4 g/dL (31.0-37.0); Mean Platelet Volume 9.2; Monocytes # (A) 0.4 k/uL (0-1.0); Monocytes % (A) 8 %; Neutrophils # (A) 3.5 k/uL (1.3-7.7); Neutrophils % (A) 67 %; Platelet Count 129 k/uL (150-450); Poikilocytosis Moderate; RBC 2.51 m/uL (4.30-5.90); RDW 14.6 % (11.5-15.5); WBC 5.2 k/uL (3.8-10.6)
[2023-03-15 05:11] LABS: ALT 321 U/L (4-49); AST 180 U/L (17-59); African American GFR (CKD) >90 (>60 ml/min/1.73 sqM); Albumin 3.2 g/dL (3.5-5.0); Alkaline Phosphatase 84 U/L (38-126); Anion Gap 9 mmol/L; Blood Urea Nitrogen 38 mg/dL (9-20); Calcium 8.6 mg/dL (8.4-10.2); Carbon Dioxide 29 mmol/L (22-30); Chloride 98 mmol/L (98-107); Glucose 92 mg/dL (74-99); Non-African American GFR(CKD) 80 (>60 ml/min/1.73 sqM); Potassium 3.9 mmol/L (3.5-5.1); Sodium 136 mmol/L (137-145); Total Protein 5.3 g/dL (6.3-8.2)
[2023-03-15] MEDS ORDERED: POTASSIUM CHLORIDE ER 20 MEQ TAB.ER PO SCH (06:00)
[2023-03-15 06:36] LABS: Glucose,Whole Blood 91 mg/dL (70-110)
[2023-03-15] MEDS: INSULIN ASPART (NovoLOG) 100 UNIT/ML VIAL SQ SCH ×4 (06:39→20:19)
[2023-03-15] MEDS: PANTOPRAZOLE 40 MG TABLET PO SCH (06:42)
[2023-03-15] MEDS: INSULIN DETEMIR (LEVEMIR) 100 UNIT/ML SYR SQ SCH (07:17)
--- NOTE | 2023-03-15 08:09 | XR ---
EXAMINATION TYPE: XR chest 2V DATE OF EXAM: 03/15/2023 COMPARISON: 12/12/2022 HISTORY: Postoperative MVR TECHNIQUE: Frontal and lateral views of the chest are obtained. FINDINGS: Scattered senescent parenchymal changes noted. [place]-Magda catheter has been. No evidence for pneumotho rax. Perihilar basilar discoid atelectasis with small effusions and pulmonary venous congestion overa ll unchanged. No evidence for infiltrate. No evidence for atelectasis. Heart size is stable. Mediastinal structures are stable and grossly unremarkable. No evidence for hilar prominence. Degenerative changes dorsal spine. IMPRESSION: 1. [place]-Magda catheter has been. No evidence for pneumothorax. Perihilar basilar discoid atelectasis w ith small effusions and pulmonary venous congestion overall unchanged.
[2023-03-15] MEDS: HEPARIN SODIUM,PORCINE 5,000 UNIT/ML 1 ML VIAL SQ SCH ×3 (08:23→23:28)
[2023-03-15] MEDS: CLOPIDOGREL 75 MG TAB PO SCH (08:26)
[2023-03-15] MEDS: METOPROLOL TARTRATE 25 MG TAB PO SCH ×3 (08:26→20:02)
[2023-03-15] MEDS: ASPIRIN 325 MG TAB PO SCH (08:26)
[2023-03-15] MEDS: FLECAINIDE 50 MG TAB PO SCH ×2 (08:27→20:02)
[2023-03-15] MEDS: CYANOCOBALAMIN 500 MCG TAB PO SCH (08:29)
[2023-03-15] MEDS: CHOLECALCIFEROL 25 MCG (1000 IU) TABLET PO SCH (08:29)
[2023-03-15] MEDS: IPRATROPIUM-ALBUTEROL 3 ML NEB INHALATION SCH ×4 (09:15→21:57)
[2023-03-15] MEDS ORDERED: FUROSEMIDE 10 MG/ML 4 ML VIAL IV STA (09:48)
[2023-03-15] MEDS ORDERED: POTASSIUM CHLORIDE ER 20 MEQ TAB.ER PO STA (09:49)
--- NOTE | 2023-03-15 09:50 | P.PN ---
Subjective Progress Note Date: 03/15/23 Principal diagnosis: Severe mitral regurgitation with torn chordae to P2 of the posterior leaflet. Previous medical history of hypertension, hyperlipidemia, evidence of silent naveed cardial infarction [place] [address] Velazco, chronic heart failure with preserved EF, paroxysmal atrial fibrillation on Xarelto for anticoagulation, type 2 diabetes, previous tobacco dependence, severe restrictive lung disease, asthma, remote history of pneumonia, TIA in 2014, bilateral internal carotid stenosis 50-79% POD #5 complex mitral valve repair with #30 mm [employer] AnnuloFlex band, victor m drangular resection of P2 of the posterior leaflet, closure of P2/P3 cleft, ring annuloplasty, and clip ligation of left atrial appendage with a 35 mm AtriClip, intraoperative transesophageal echocardiogram performed by anesthesia Postoperative acute blood loss anemia, expected given hemodilution and heart cardiopulmonary bypass pump Hypotension, requiring vasopressor use, expected DENISSE, expected given hypotension The patient was seen and examined in follow-up today 03/15/2023 at his bedside in the intensive care unit. Currently he is sitting up to the bedside chair, is awake, alert, oriented 3 and is in no acute apparent distress. Denies any complaints of shortness of breath or pain at this time, although is complaining of feeling tired as he did not sleep well last night. Oxygen saturations are 98% on 2 L nasal cannula and he is achieving 750 mL on his incentive spirometry with encouragement. Bedside telemetry showing atrial fibrillation heart rate 97 BPM. He remains hemodynamically stable and is currently on no inotropic pressor support. He's been up ambulating in the intensive care unit all way with standby assistance from nursing and therapy staff and tolerating well. Chest x- ray and laboratory results reviewed. Atrial and ventricular epicardial pacemaker wires were removed yesterday without incident. Objective - Vital Signs Vital signs: Vital Signs Temp 98.7 F 03/15/23 00:00 Pulse 99 03/15/23 07:00 Resp 21 03/15/23 07:00 BP 114/75 03/15/23 07:00 Pulse Ox 97 03/15/23 07:00 FiO2 96 03/13/23 08:28 Intake & Output 03/14/23 03/15/23 03/15/23 18:59 06:59 18:59 Intake Total 494 Output Total 1325 800 397 Balance -831 -800 -397 Weight 80.1 kg Intake: IV 184 CO/CI fluid NS 0.9 10 Lactated Ringers 1,000 ml 120 @ 20 mls/hr IV .Q24H [facility] Rx#:[id number] Pressure bags 54 Blood Product 310 Rc As-1 Unit 310 [id number] Output: Urine 1325 800 150 Post Void Residual 247 Other: Voiding Method Indwelling Catheter Urinal # Voids 1 1 # Bowel Movements 1 1 ABP, PAP, CO, CI - Last Documented Arterial Blood Pressure 112/52 Pulmonary Artery Pressure 42/17 Cardiac Output 3.9 Cardiac Index 2.2 - Exam CONSTITUTIONAL: Appears somewhat comfortable, cooperative, no acute distress RESPIRATORY: Lungs sounds diminished bilaterally with few expiratory wheezes present. Respirations are symmetrical, unlabored. Currently on 2 LPM nasal cannula with oxygen saturation 98%. Achieving 750 mL on incentive spirometry. Weak cough. CARDIOVASCULAR: S1, S2 present. Irregular rate and rhythm, atrial fibrillation on telemetry. Sternum stable. Palpable peripheral pulses bilaterally. No edema present. No calf pain or tenderness noted. Heart hugger in place with patient demonstrating appropriate use. Antiembolism stockings, SCDs present. GASTROINTESTINAL: Abdomen soft, nontender, nondistended. Active bowel sounds present. Denies flatus currently. Bowel movement yesterday 03/14/2023 GENITOURINARY: Continues to void. Urine output 400 mL in the last 8 hours. INTEGUMENTARY: Skin is warm and dry with evidence of good perfusion. Midline sternal chest incision well approximated and covered with dry intact dressing NEUROLOGIC: Cranial nerves II through XII intact. No focal deficits. MUSKULOSKELETAL: Able to move all extremities, strength equal bilaterally. Generalized weakness. PSYCHIATRIC: Alert and oriented to person place and time, appropriate affect, intact judgment and insight - Allied health notes Allied health notes reviewed: nursing - Labs CBC & Chem 7: 03/15/23 04:21 03/15/23 04:21 Labs: Abnormal Lab Results - Last 24 Hours (Table) 03/14/23 03/14/23 03/14/23 Range/Units 03:50 10: 16:18 RBC 2.60 L (4.30-5.90) m/uL Hgb 8.4 L D (13.0-17.5) gm/dL Hct 24.9 L (39.0-53.0) % Plt Count 132 L (150-450) k/uL Lymphocytes # 0.8 L (1.0-4.8) k/uL Sodium (137-145) mmol/L BUN (9-20) mg/dL POC Glucose (mg/dL) 189 H (70-110) mg/dL AST (17-59) U/L ALT (4-49) U/L Total Protein (6.3-8.2) g/dL Albumin (3.5-5.0) g/dL Crossmatch See Detail 03/14/23 03/15/23 03/15/23 Range/Units 19:45 04:21 04:21 RBC 2.51 L (4.30-5.90) m/uL Hgb 8.2 L (13.0-17.5) gm/dL Hct 23.8 L (39.0-53.0) % Plt Count 129 L (150-450) k/uL Lymphocytes # (1.0-4.8) k/uL Sodium 136 L (137-145) mmol/L BUN 38 H (9-20) mg/dL POC Glucose (mg/dL) 194 H (70-110) mg/dL AST 180 H (17-59) U/L ALT 321 H (4-49) U/L Total Protein 5.3 L (6.3-8.2) g/dL Albumin 3.2 L (3.5-5.0) g/dL Crossmatch - Imaging and Cardiology Chest x-ray: report reviewed, image reviewed Assessment and Plan Assessment: Severe mitral regurgitation with torn chordae to P2 of the posterior leaflet, S/P complex mitral valve repair with #30 mm [employer] AnnuloFlex band, quadrangular resection of P2 of the posterior leaflet, closure of P2/P3 cleft, ring annuloplasty History of hypertension, was hypotensive, currently off pressors, on Midodrine 10 mg by mouth 3 times a day Chronic heart failure with preserved EF 50-55% Paroxysmal atrial fibrillation on Xarelto for anticoagulation, S/P clip ligation of left atrial appendage with a 35 mm AtriClip Type 2 diabetes, hemaglobin A1c 7.5% Previous tobacco dependence Severe restrictive lung disease, preoperative FEV1 44% of predicted on full PFT Asthma Remote history of pneumonia TIA in 2014 Bilateral internal carotid stenosis 50-79% Postoperative acute blood loss anemia, expected DENISSE, expected given hypotension Elevated transaminases, likely from liver congestions worked Plan: Continue to maximize medical therapy with aspirin, statin, Plavix. We will increase metoprolol tartrate to 25 mg by mouth 3 times a day, with hold parameters. Continue flecainide. Wean oxygen as tolerated. Encourage incentive spirometry 10 times every hour w hile awake. Bronchodilators per pulmonology. Will monitor daily labs, CXR. Electrolyte replacement per protocol. Will give lasix 40 mg IV today and potassium chloride 20 mEq by mouth 1 now. Increase activity as tolerated. PT/OT/cardiac rehab following. GI/DVT prophylaxis. Insulin management per internal medicine. Pain control with current medication regimen. No Toradol due to DENISSE. Shower daily. Continue to record strict accurate I/O. Bladder scan every 6 hours and when necessary postvoid residual, if greater than 300 mL of urine may straight cath. Increase diet as tolerated. Daily weights with standing scale. More recommendations to follow based on patient's clinical course. Time with Patient: Greater than 30
[2023-03-15] MEDS: LOSARTAN 25 MG TAB PO SCH ×2 (10:47→15:10)
[2023-03-15 12:00] LABS: Glucose,Whole Blood 132 mg/dL (70-110)
--- NOTE | 2023-03-15 13:00 | P.PN ---
Subjective Progress Note Date: 03/15/23 Principal diagnosis: POD #5 complex mitral valve repair with #30 mm Car[employer] AnnuloFlex band, quadrangular resection of P2 of the posterior leaflet, closure of P2/P3 cleft, ring annuloplasty, and clip ligation of left atrial appendage with a 35 mm AtriClip, intraoperative transesophageal echocardiogram performed by anesthesia This is a 77-year-old white male with history of severe mitral valve regurgitation, sick sinus syndrome, history of congestive heart failure with preserved ejection fraction, hypertension dyslipidemia paroxysmal atrial fibrillation, 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 Patient was seen by cardiac surgery back on 02/19/2023, and he was evaluated for mitral valve repair. Today the patient underwent surgery, postoperatively he is on mechanical ventilation, assist control rate of 12 tidal volume 500 FiO2 50% and PEEP of 5. Chest x-ray showed mild interstitial edema/mild pulmonary vascular congestion. Patient is now on Precedex at 0.3 mcg/kg/h norepinephrine at 0.1 mcg/kg/m he is on Primacor at 0.2 mcg/kg/m is also on insulin at 0.5 units per hour. His cardiac output is 5.1 cardiac index is 2.9 CVP is 17. WBC count 9.8 hemoglobin 7.9 Patient was reevaluated today on 03/11/2023.POD #1 complex mitral valve repair with #30 mm Car[employer]Medics AnnuloFlex band, quadrangular resection of P2 of the posterior leaflet, closure of P2/P3 cleft, ring annuloplasty, and clip ligation of left atrial appendage with a 35 mm AtriClip, intraoperative transesophageal echocardiogram performed by anesthesia. Patient is doing well, he is not requiring any pressors or any inotropes at this point in time he did require pressors last night until early this morning patient is doing poorly with in centive spirometry he was extubated last night at 1901. Currently the patient is being AV paced at 80 bpm, underlying rhythm is bradycardia. Blood pressure is marginal but seems to be within normal today. Patient does have evidence of crackles and rhonchi on physical examination, but he denies shortness of breath. Chest x-ray showed mostly bibasilar atelectasis. CBC is relatively normal, hemoglobin is 7.9, basic metabolic profile is normal BUN is 46 creatinine 1.34 Reevaluated today on 03/12/23, patient is now postoperative day #2. Patient is resting in a recliner, he is on 5 L nasal cannula, his cardiac output is 4.9 cardiac index is 2.8 CVP is 8 pulmonary artery pressure 50/15 patient is receiving Primacor at 0.2 mcg/kg/m is also on insulin at 1.5 units an hour. Chest x-ray is suggestive of mild congestive heart failure changes, clinically the patient is feeling much better today compared to how he felt yesterday in the afternoon. He did receive Lasix, and he had a good urine output with Lasix today. WBC count is 8.4 hemoglobin is 7.9, ABG from late yesterday showed a pO2 of 77 pCO2 46 pH of 7.31, renal profile is improving creatinine is 1.58 compared to 1.99 yesterday electrolytes are normal liver enzymes are elevated. Patient was on 03/13/2023, patient is doing great, gradually improving, he is down to 2 L nasal cannula with O2 sats of 97%, his cardiac output is 5.2 cardiac index is 3.0The patient remains on Primacor at 0.1 mcg/kg/m he did receive Lasix today, and his oxygenation didn't improve after Lasix given, patient diuresed well. Chest x-ray continues to show atelectasis and small pleural effusions with mild venous congestion CBC is relatively unremarkable except for hemoglobin of 7.1 basic metabolic profile is normal renal profile is improving creatinine down to 1.33, compared to 1.99 2 days ago Patient was reevaluated today on 03/14/2023 patient is doing great, continues to improve steadily, he is still on 2 L nasal cannula, O2 saturations 97% chest x- ray is showing significant improvement in his atelectasis and interstitial edema. Patient is not requiring any pressors and not anymore inotropes. His cardiac output is 3.9 cardiac index is 2.2 achieving 1000 mL via his incentive spirometer. Overall significantly improved, chest x-ray was also reviewed and it is reassuring WBC count is 6.3 hemoglobin is 8.4, liver enzymes remain sli ghtly elevated. Reevaluated today on 03/15/2023, patient remains in the ICU, he is now postoperative day #5, patient is sitting up at a bedside chair, awake alert oriented 3, does not seem to be in any distress, remains on 2 L nasal cannula. Chest x-ray however is showing more atelectasis, and the patient is trying to do better with his incentive spirometry achieving 750 ML. Patient is in atrial fibrillation but rate controlled, hemodynamically the patient is stable he is not requiring any pressors or any inotropes. Patient is ambulating with assistance, and overall I believe the patient is clinically better and his chest x-ray is slightly worse with more atelectasis. CBC is relatively normal hemoglobin is 8.2 basic metabolic profile is normal renal profile is normal Objective - Vital Signs Vital signs: Vital Signs Temp 98.8 F 03/15/23 08:00 Pulse 85 03/15/23 12:15 Resp 16 03/15/23 12:00 BP 115/77 03/15/23 12:00 Pulse Ox 93 L 03/15/23 12:00 FiO2 96 03/13/23 08:28 Intake & Output 03/14/23 03/15/23 03/15/23 18:59 06:59 18:59 Intake Total 494 Output Total 1325 800 397 Balance -831 -800 -397 Weight 80.1 kg Intake: IV 184 CO/CI fluid NS 0.9 10 Lactated Ringers 1,000 ml 120 @ 20 mls/hr IV .Q24H [facility] Rx#:[id number] Pressure bags 54 Blood Product 310 Rc As-1 Unit 310 [id number] Output: Urine 1325 800 150 Post Void Residual 247 Other: Voiding Method Indwelling Catheter Urinal Urinal # Voids 1 1 # Bowel Movements 1 1 1 ABP, PAP, CO, CI - Last Documented Arterial Blood Pressure 112/52 Pulmonary Artery Pressure 42/17 Cardiac Output 3.9 Cardiac Index 2.2 - Exam Physical Exam: Revealed a 77-year-old white male in no distress, on 2 L nasal cannula Head: Atraumatic, normocephalic. HEENT:[Neck is supple.] [No neck masses.] [No thyromegaly.] [No JVD.] Chest: [Fine crackles at the bases no rhonchi and no wheezes symmetrical chest expansion Cardiac Exam: [Normal S1 and S2, no S3 gallop, 2/6 systolic murmur thought the precordium Abdomen: [Soft, nontender, no megaly, no rebound, no guarding, normal bowel sounds.] Extremities: [No clubbing, no edema, no cyanosis.] Neurological Exam: [No focal neurologic deficit.] Alert oriented 3 Psychiatric: Normal mood affect and normal mental status examination. - Labs CBC & Chem 7: 03/15/23 04:21 03/15/23 04:21 Labs: Abnormal Lab Results - Last 24 Hours (Table) 03/14/23 03/14/23 03/15/23 Range/Units 16:18 19:45 04:21 RBC 2.51 L (4.30-5.90) m/uL Hgb 8.2 L (13.0-17.5) gm/dL Hct 23.8 L (39.0-53.0) % Plt Count 129 L (150-450) k/uL Sodium (137-145) mmol/L BUN (9-20) mg/dL POC Glucose (mg/dL) 189 H 194 H (70-110) mg/dL AST (17-59) U/L ALT (4-49) U/L Total Protein (6.3-8.2) g/dL Albumin (3.5-5.0) g/dL 03/15/23 03/15/23 Range/Units 04:21 11:58 RBC (4.30-5.90) m/uL Hgb (13.0-17.5) gm/dL Hct (39.0-53.0) % Plt Count (150-450) k/uL Sodium 136 L (137-145) mmol/L BUN 38 H (9-20) mg/dL POC Glucose (mg/dL) 132 H (70-110) mg/dL AST 180 H (17-59) U/L ALT 321 H (4-49) U/L Total Protein 5.3 L (6.3-8.2) g/dL Albumin 3.2 L (3.5-5.0) g/dL Assessment and Plan Assessment: Impression: Severe mitral regurgitation Status post mitral valve repair postoperative day #5 Postoperative atelectasis, expected Chronic congestive heart failure with preserved LV function, resolved Benign essential hypertension Paroxysmal atrial fibrillation History of CVA following back surgery Type 2 diabetes without complications History of mild intermittent asthma History of flash pulmonary edema Recommendation: Continue bronchodilators Continue maximal medical therapy for his underlying cardiac disease Continue incentive spirometry, encourage to use Continue gentle diuresis as needed Ambulate GI and DVT prophylaxis We'll continue to follow Time with Patient: Less than 30
--- NOTE | 2023-03-15 13:06 | P.PN ---
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 Patient had a recent hospitalization at which time he presented with flash pulmonary edema and acute respiratory failure with pulse ox of 60% requiring BiPAP. He was previously admitted to the hospital on 02/14 underwent cardiac catheterization that revealed mild 20-30% diffuse disease in the distal LAD. Otherwise minimal luminal irregularities with no obstructive disease. Normal left-sided filling pressures. EVELYN revealed severe mitral regurgitation with P2 prolapse and restricted posterior mitral leaflet causing eccentric anteriorly directed jet. Patient has been seen by cardiothoracic surgery and brought in on this admission status post complex mitral valve repair. Patient is seen today in the intensive care unit postop currently intubated and on mechanical ventilation. Blood pressure is stable 107/58, heart rate is in the 80s. 03/11: Patient has been successfully extubated. Patient is seen today in the ICU, patient resting in a recliner. He has had a small amount of clear liquids this morning. He is obtaining 500 ML's on incentive spirometry. He does state he has a little headache today, mild chest discomfort. Patient is on had a bowel movement. Reglan and suppository plan for today. He remains on insulin drip with blood sugars running between 114 and 243. 03/12: Patient developed ileus and NG tube is in place. One dose of IV Lasix 60 mg today was ordered for mild fluid overload. Heart rate is running in the low 100s, blood pressure 108/50, pulse ox 90% on 3 L nasal cannula. Labile glucose running between 113 and 181. Patient is currently on milrinone drip. Telemetry is atrial fibrillation. 03/13;Patient is sitting up in his chair, continues to feels distended,started on clear liquis diet and his NGT was discontinued passing gas with very small bowel movement, we will discontinue Insulin drip and we will start Levemir 14 units in Am along with SSI, we will continue to aggressive pulmonary toiletting, we will continue to work with PT and his Denver-Magda will be removed in AM 03/14: Patient is sitting up in chair, feeling better today, he is on clears and we will give him full liquids, and we will decrease his Levemir to 12 units sc daily, BGM today 95. we will continue with current treatment plan and aggresive pulmonary toiletting, we will try to wean O2 down and his Sarmiento catheter is better with blood tinged urine, PT is ambulating patient. 03/15: Patient is sitting up in a chair eating his lunch, he denies any chest pain, his less short of breath, he continues to use incentive spirometer, he did have a small bowel movement today, his ability very well, his blood glucose level in the morning was 91, his chest tube resolved, his Sarmiento catheter is out, likely the patient will be discharged home the next 24-48 hours. REVIEW OF SYSTEMS Constitutional: No fever, no chills, no night sweats. No weight change. No weakness, + fatigue no lethargy. No daytime sleepiness. HEENT: No headache. No blurred vision or double vision, no loss of vision. No loss of Hearing, no ringing in the ears, no dizziness. No nasal drainage or congestion. No epistaxis. No sore throat. Lungs: positive for shortness of breath, occasional cough, no sputum production. No wheezing. Cardiovascular: Denies chest pain, mild lower extremity edema. No palpitations. No paroxysmal nocturnal dyspnea. Reports orthopnea. No lightheadedness or dizziness. No syncopal episodes. Abdominal: No abdominal pain. No nausea, vomiting. No diarrhea. No constipation. No bloody or tarry stools. + loss of appetite, small bowel movement Genitourinary: -Sarmiento. +hematuria. Musculoskeletal: No myalgias. No muscle weakness, no gait dysfunction, no frequent falls. No back pain. No neck pain. Integumentary: sternal wound s covered with dressing, no lesions. No rash or pruritus. No unusual bruising. No change in hair or nails. Neurologic: No aphasia. No facial droop. No change in mentation. No head injury. No headache. No paralysis. No paresthesia. Psychiatric: No depression. No anxiety. No mood swings. Endocrine: No abnormal blood sugars. No weight change. No excessive sweating or thirst. No cold intolerance. PHYSICAL EXAMINATION Gen: This is a 77-year-old male. He is resting in recliner in ICU and appears to be comfortable and in no acute distress HEENT: Head is atraumatic, normocephalic. Pupils equal, round. Sclerae is anicteric. NECK: Supple. No JVD. No lymphadenopathy. Right-sided Denver/Cordis in place LUNGS: Diminished. No wheezes or rhonchi. No intercostal retractions minimal ch est wall tenderness. HEART: Regular rate and rhythm. 2/6 systolic murmur. Mediastinal right and l eft pleural chest tubes in place. ABDOMEN: Soft. Bowel sounds are present. No masses. No tenderness. Sarmiento catheter with blood brown urine. EXTREMITIES: +1 pedal edema. No calf tenderness, DP +1 bilaterally NEUROLOGICAL: Patient is awake, alert and oriented x3. Cranial nerves 2 through 12 are grossly intact, muscle power 4/5 in bilateral upper and lower extremities. ASSESSMENT AND PLAN 1. Severe mitral regurgitation status post mitral valve repair, postoperative day #5. Continue patient on aspirin 325 mg daily, atorvastatin 20 mg daily, Plavix 75 mg daily, flecainide 50 mg every 12 hours, continue Gary as needed for pain control, continue DuoNeb treatments 4 times daily, Metoprolol 25 mg po bid 2. Acute on chronic diastolic heart failure. we will continue with Metoprolol 25 mg po bid and patient did receive Lasix 40 mg IVP x1. 4. Paroxysmal atrial fibrillation. Hold Xarelto. Continue metoprolol tartrate 25 mg oral twice daily, flecainide 50 mg every 12 hours. 5. Mild intermittent asthma, stable. Continue DuoNeb treatments 4 times daily, we will continue with O2 support 6. Hypertension and hypertensive cardiovascular disease . Continue metoprolol tartrate 25 mg twice daily and Losartan 25 mg po bid. 7. Hyperlipidemia. Continue atorvastatin 20 mg at bedtime. 8. History of CVA. we will hold off xarelto till discharge 9. Vitamin D deficiency.stable we will continue with vitamin D3 1000 units po daily 10. Hematuria. Continue Sarmiento catheter.appears traumatic and it is clearing. 11. Ileus. likely due to surgery, increase activity, patient diet was advanced to a regular diet. 12. medical debility. we will continue with PT nd OT, increase activity levels. 13. Diabetes Mellitus type 2. we will discontinue Insulin drip and we will start Levemir 14 units Sc in AM along with SSI. 14. Acute blood loss anemia due to hematuria and surgery. we will continue to monitor cbc. 15. Home in 1-2 days. Objective - Vital Signs Vital signs: Vital Signs Temp 98.8 F 03/15/23 08:00 Pulse 83 03/15/23 10:42 Resp 29 H 03/15/23 10:42 BP 113/66 03/15/23 09:00 Pulse Ox 91 L 03/15/23 09:00 FiO2 96 03/13/23 08:28 Intake & Output 03/14/23 03/15/23 03/15/23 18:59 06:59 18:59 Intake Total 494 Output Total 1325 800 397 Balance -831 -800 -397 Weight 80.1 kg Intake: IV 184 CO/CI fluid NS 0.9 10 Lactated Ringers 1,000 ml 120 @ 20 mls/hr IV .Q24H [facility] Rx#:[id number] Pressure bags 54 Blood Product 310 Rc As-1 Unit 310 [id number] Output: Urine 1325 800 150 Post Void Residual 247 Other: Voiding Method Indwelling Catheter Urinal # Voids 1 1 # Bowel Movements 1 1 ABP, PAP, CO, CI - Last Documented Arterial Blood Pressure 112/52 Pulmonary Artery Pressure 42/17 Cardiac Output 3.9 Cardiac Index 2.2 - Labs CBC & Chem 7: 03/15/23 04:21 03/15/23 04:21 Labs: Abnormal Lab Results - Last 24 Hours (Table) 03/14/23 03/14/23 03/14/23 Range/Units 03:50 16:18 19:45 RBC (4.30-5.90) m/uL Hgb (13.0-17.5) gm/dL Hct (39.0-53.0) % Plt Count (150-450) k/uL Sodium (137-145) mmol/L BUN (9-20) mg/dL POC Glucose (mg/dL) 189 H 194 H (70-110) mg/dL AST (17-59) U/L ALT (4-49) U/L Total Protein (6.3-8.2) g/dL Albumin (3.5-5.0) g/dL Crossmatch See Detail 03/15/23 03/15/23 Range/Units 04:21 04:21 RBC 2.51 L (4.30-5.90) m/uL Hgb 8.2 L (13.0-17.5) gm/dL Hct 23.8 L (39.0-53.0) % Plt Count 129 L (150-450) k/uL Sodium 136 L (137-145) mmol/L BUN 38 H (9-20) mg/dL POC Glucose (mg/dL) (70-110) mg/dL AST 180 H (17-59) U/L ALT 321 H (4-49) U/L Total Protein 5.3 L (6.3-8.2) g/dL Albumin 3.2 L (3.5-5.0) g/dL Crossmatch
[2023-03-15 16:29] LABS: Glucose,Whole Blood 255 mg/dL (70-110)
[2023-03-15] MEDS: ATORVASTATIN 20 MG TAB PO SCH (16:52)
[2023-03-15] MEDS: TAMSULOSIN 0.4 MG CAP.ER.24H PO SCH (18:13)
[2023-03-15] MEDS: SENNOSIDES-DOCUSATE SODIUM 1 EACH TAB PO SCH (20:02)
[2023-03-15 20:16] LABS: Glucose,Whole Blood 152 mg/dL (70-110)
[2023-03-15] MEDS: MELATONIN 3 MG TABLET PO SCH (22:12)
[2023-03-16] MEDS: INSULIN ASPART (NovoLOG) 100 UNIT/ML VIAL SQ SCH ×4 (06:06→21:13)
[2023-03-16 06:11] LABS: Glucose,Whole Blood 110 mg/dL (70-110)
[2023-03-16] MEDS: PANTOPRAZOLE 40 MG TABLET PO SCH (06:13)
--- NOTE | 2023-03-16 06:40 | XR ---
EXAMINATION TYPE: XR chest 1V portable DATE OF EXAM: 03/16/2023 CLINICAL HISTORY: Difficulty breathing progress study. TECHNIQUE: Single AP portable upright view of the chest is obtained. COMPARISON: Chest x-ray from one day earlier FINDINGS: Overlying sternal wires and mediastinal clips along with left atrial appendage clip are al l redemonstrated. Persistent cardiomegaly. Persistent left lower lung and right lung increased opacit ies. Osseous structures are intact. IMPRESSION: Cardiomegaly with diffuse right lung edema and/or acute infiltrates and left basilar acut e infiltrates and/or atelectasis are all redemonstrated. No significant change from one day earlier.
[2023-03-16 08:00] LABS: HCT 26.4 % (39.0-53.0); Hypochromasia Slight; MCH 33.1 pg (25.0-35.0); MCHC 34.2 g/dL (31.0-37.0); MCV 96.6 fL (80.0-100.0); Mean Platelet Volume 8.3; Platelet Count 184 k/uL (150-450); Poikilocytosis Moderate; RBC 2.74 m/uL (4.30-5.90); RDW 14.5 % (11.5-15.5); WBC 6.1 k/uL (3.8-10.6)
[2023-03-16 08:16] LABS: ALT 267 U/L (4-49); AST 94 U/L (17-59); African American GFR (CKD) 88 (>60 ml/min/1.73 sqM); Albumin 3.9 g/dL (3.5-5.0); Alkaline Phosphatase 85 U/L (38-126); Anion Gap 13 mmol/L; Blood Urea Nitrogen 31 mg/dL (9-20); Carbon Dioxide 28 mmol/L (22-30); Chloride 96 mmol/L (98-107); Glucose 108 mg/dL (74-99); Magnesium 1.7 mg/dL (1.6-2.3); Non-African American GFR(CKD) 76 (>60 ml/min/1.73 sqM); Potassium 4.1 mmol/L (3.5-5.1); Sodium 137 mmol/L (137-145); Total Bilirubin 1.3 mg/dL (0.2-1.3); Total Protein 6.3 g/dL (6.3-8.2)
[2023-03-16] MEDS: IPRATROPIUM-ALBUTEROL 3 ML NEB INHALATION SCH ×4 (08:22→21:54)
[2023-03-16] MEDS: CYANOCOBALAMIN 500 MCG TAB PO SCH (08:58)
[2023-03-16] MEDS: ASPIRIN 325 MG TAB PO SCH (08:58)
[2023-03-16] MEDS: INSULIN DETEMIR (LEVEMIR) 100 UNIT/ML SYR SQ SCH (08:58)
[2023-03-16] MEDS: METOPROLOL TARTRATE 25 MG TAB PO SCH ×3 (08:58→21:14)
[2023-03-16] MEDS: FLECAINIDE 50 MG TAB PO SCH ×2 (08:58→21:14)
[2023-03-16] MEDS: CHOLECALCIFEROL 25 MCG (1000 IU) TABLET PO SCH (08:58)
[2023-03-16] MEDS: CLOPIDOGREL 75 MG TAB PO SCH (08:58)
[2023-03-16] MEDS: HEPARIN SODIUM,PORCINE 5,000 UNIT/ML 1 ML VIAL SQ SCH ×3 (08:58→23:36)
[2023-03-16] MEDS: LOSARTAN 25 MG TAB PO SCH (08:58)
--- NOTE | 2023-03-16 09:43 | P.PN ---
Subjective Progress Note Date: 03/16/23 Principal diagnosis: Severe mitral regurgitation with torn chordae to P2 of the posterior leaflet. Previous medical history of hypertension, hyperlipidemia, evidence of silent naveed cardial infarction in [address] Velazco, chronic heart failure with preserved EF, paroxysmal atrial fibrillation on Xarelto for anticoagulation, type 2 diabetes, previous tobacco dependence, severe restrictive lung disease, asthma, remote history of pneumonia, TIA in 2014, bilateral internal carotid stenosis 50-79% POD #6 complex mitral valve repair with #30 mm [employer] AnnuloFlex band, victor m drangular resection of P2 of the posterior leaflet, closure of P2/P3 cleft, ring annuloplasty, and clip ligation of left atrial appendage with a 35 mm AtriClip, intraoperative transesophageal echocardiogram performed by anesthesia Postoperative acute blood loss anemia, expected given hemodilution and heart cardiopulmonary bypass pump Hypotension, requiring vasopressor use, expected DENISSE, expected given hypotension The patient was seen and examined in follow-up today 03/16/2023 at his bedside on the third floor cardiac stepdown unit. The patient is currently sitting up to the bedside chair, is awake, alert, oriented 2 and is in no acute apparent distress. The patient has had episodes of confusion throughout the night, and is disoriented to place. He reports he is in the hospital in the [place] area. Attempts made to reorient patient to place. He denies any complaints of pain or shortness of breath at this time. Oxygen saturations are 93% on room air and he is achieving 1000 mL on his incentive spirometry with much encouragement. Remote telemetry showing atrial fibrillation heart rate 100 BPM. He remains hemodynamically stable and is currently on no inotropic pressure support. He reports he has been up ambulating in the cardiac stepdown unit hallway with assistance from nursing and therapy staff, he reports he has been tolerating well. He has been showering daily. Chest x-ray and laboratory results reviewed. Objective - Vital Signs Vital signs: Vital Signs Temp 98.1 F 03/15/23 20:00 Pulse 97 03/16/23 00:00 Resp 18 03/16/23 00:00 BP 117/73 03/16/23 00:00 Pulse Ox 91 L 03/16/23 08:17 FiO2 96 03/13/23 08:28 Intake & Output 03/15/23 03/16/23 03/16/23 18:59 06:59 18:59 Intake Total 540 Output Total 597 650 Balance -597 -110 Weight 78.7 kg Intake: Oral 540 Output: Urine 350 650 Post Void Residual 247 Other: Voiding Method Toilet Toilet # Voids 1 1 # Bowel Movements 1 ABP, PAP, CO, CI - Last Documented Arterial Blood Pressure 112/52 Pulmonary Artery Pressure 42/17 Cardiac Output 3.9 Cardiac Index 2.2 - Exam CONSTITUTIONAL: Appears comfortable, cooperative, no acute distress RESPIRATORY: Lungs sounds diminished to his bases bilaterally, left greater than right. Respirations are symmetrical, unlabored. Currently on room air with oxygen saturation 93%. Achieving 1000 mL on incentive spirometry. Weak cough. CARDIOVASCULAR: S1, S2 present. Irregular rate and rhythm, atrial fibrillation on telemetry, 100 BPM. Sternum stable. Palpable peripheral pulses bilaterally. 1 edema present to his bilateral lower extremities. No calf pain or tenderness noted. Heart hugger in place with patient demonstrating appr opriate use. Antiembolism stockings, SCDs present. GASTROINTESTINAL: Abdomen soft, nontender, nondistended. Active bowel sounds present. Passing flatus. Bowel movement 03/14/2023. GENITOURINARY: Continues to void. Urine output 650 mL in the last 8 hours. INTEGUMENTARY: Skin is warm and dry with evidence of good perfusion. Midline sternal chest incision well approximated and covered with dry intact dressing. NEUROLOGIC: Cranial nerves II through XII intact. No focal deficits. MUSKULOSKELETAL: Able to move all extremities, strength equal bilaterally. Generalized weakness. PSYCHIATRIC: Alert and oriented to person and time, disoriented to place, flat affect. Episodes of confusion. - Allied health notes Allied health notes reviewed: nursing - Labs CBC & Chem 7: 03/16/23 07:03 03/16/23 07:03 Labs: Abnormal Lab Results - Last 24 Hours (Table) 03/15/23 03/15/23 03/15/23 Range/Units 11:58 16:27 20:14 RBC (4.30-5.90) m/uL Hgb (13.0-17.5) gm/dL Hct (39.0-53.0) % Chloride (98-107) mmol/L BUN (9-20) mg/dL Glucose (74-99) mg/dL POC Glucose (mg/dL) 132 H 255 H 152 H (70-110) mg/dL AST (17-59) U/L ALT (4-49) U/L 03/16/23 03/16/23 Range/Units 07:03 07:03 RBC 2.74 L (4.30-5.90) m/uL Hgb 9.0 L (13.0-17.5) gm/dL Hct 26.4 L (39.0-53.0) % Chloride 96 L (98-107) mmol/L BUN 31 H (9-20) mg/dL Glucose 108 H (74-99) mg/dL POC Glucose (mg/dL) (70-110) mg/dL AST 94 H (17-59) U/L ALT 267 H (4-49) U/L - Imaging and Cardiology Chest x-ray: report reviewed, image reviewed Assessment and Plan Assessment: Severe mitral regurgitation with torn chordae to P2 of the posterior leaflet, S/P complex mitral valve repair with #30 mm [employer] AnnuloFlex band, quadrangular resection of P2 of the posterior leaflet, closure of P2/P3 cleft, ring annuloplasty History of hypertension, was hypotensive, currently off pressors, on Midodrine 10 mg by mouth 3 times a day Chronic heart failure with preserved EF 50-55% Paroxysmal atrial fibrillation on Xarelto for anticoagulation, S/P clip ligation of left atrial appendage with a 35 mm AtriClip Type 2 diabetes, hemaglobin A1c 7.5% Previous tobacco dependence Severe restrictive lung disease, preoperative FEV1 44% of predicted on full PFT Asthma Remote history of pneumonia TIA in 2014 Bilateral internal carotid stenosis 50-79% Postoperative acute blood loss anemia, expected DENISSE, expected given hypotension Elevated transaminases, likely from liver congestions worked, AST and ALT levels are trending down Plan: Continue to maximize medical therapy with aspirin, statin, Plavix. We will increase metoprolol tartrate as tolerated, with hold parameters. Continue flecainide. Encourage incentive spirometry 10 times every hour while awake. Bronchodilators per pulmonology. Will monitor daily labs, CXR. Electrolyte replacement per protocol. Will give lasix 40 mg IV twice a day 4 doses, Zaroxolyn 2.5 mg by mouth daily 2 doses and potassium chloride 20 mEq by mouth twice a day 4 doses. Increase activity as tolerated. PT/OT/cardiac rehab following. GI/DVT prophylaxis. Insulin management per internal medicine. Pain control with current medication regimen. No Toradol due to DENISSE. Shower daily. Continue to record strict accurate I/O. Bladder scan every 6 hours and when necessary postvoid residual, if greater than 300 mL of urine may straight cath. Increase diet as tolerated. Daily weights with standing scale. More recommendations to follow based on patient's clinical course. Time with Patient: Greater than 30
--- NOTE | 2023-03-16 10:42 | P.PN ---
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 Patient had a recent hospitalization at which time he presented with flash pulmonary edema and acute respiratory failure with pulse ox of 60% requiring BiPAP. He was previously admitted to the hospital on 02/14 underwent cardiac catheterization that revealed mild 20-30% diffuse disease in the distal LAD. Otherwise minimal luminal irregularities with no obstructive disease. Normal left-sided filling pressures. EVELYN revealed severe mitral regurgitation with P2 prolapse and restricted posterior mitral leaflet causing eccentric anteriorly directed jet. Patient has been seen by cardiothoracic surgery and brought in on this admission status post complex mitral valve repair. Patient is seen today in the intensive care unit postop currently intubated and on mechanical ventilation. Blood pressure is stable 107/58, heart rate is in the 80s. 03/11: Patient has been successfully extubated. Patient is seen today in the ICU, patient resting in a recliner. He has had a small amount of clear liquids this morning. He is obtaining 500 ML's on incentive spirometry. He does state he has a little headache today, mild chest discomfort. Patient is on had a bowel movement. Reglan and suppository plan for today. He remains on insulin drip with blood sugars running between 114 and 243. 03/12: Patient developed ileus and NG tube is in place. One dose of IV Lasix 60 mg today was ordered for mild fluid overload. Heart rate is running in the low 100s, blood pressure 108/50, pulse ox 90% on 3 L nasal cannula. Labile glucose running between 113 and 181. Patient is currently on milrinone drip. Telemetry is atrial fibrillation. 03/13;Patient is sitting up in his chair, continues to feels distended,started on clear liquis diet and his NGT was discontinued passing gas with very small bowel movement, we will discontinue Insulin drip and we will start Levemir 14 units in Am along with SSI, we will continue to aggressive pulmonary toiletting, we will continue to work with PT and his [place] will be removed in AM 03/14: Patient is sitting up in chair, feeling better today, he is on clears and we will give him full liquids, and we will decrease his Levemir to 12 units sc daily, BGM today 95. we will continue with current treatment plan and aggresive pulmonary toiletting, we will try to wean O2 down and his Sarmiento catheter is better with blood tinged urine, PT is ambulating patient. 03/15: Patient is sitting up in a chair eating his lunch, he denies any chest pain, his less short of breath, he continues to use incentive spirometer, he did have a small bowel movement today, his ability very well, his blood glucose level in the morning was 91, his chest tube resolved, his Sarmiento catheter is out, likely the patient will be discharged home the next 24-48 hours. 03/16: Patient was moved out of the ICU yesterday, his sitting up in bed in no apparent distress, he denies any chest pain, he continues to use the incentive spirometer, his appetite is better, Sarmiento catheter and most of the tubes are out, the plan is to discharge him home tomorrow morning. REVIEW OF SYSTEMS Constitutional: No fever, no chills, no night sweats. No weight change. No weakness, + fatigue no lethargy. No daytime sleepiness. HEENT: No headache. No blurred vision or double vision, no loss of vision. No loss of Hearing, no ringing in the ears, no dizziness. No nasal drainage or congestion. No epistaxis. No sore throat. Lungs: positive for shortness of breath, occasional cough, no sputum production. No wheezing. Cardiovascular: Denies chest pain, mild lower extremity edema. No palpitations. No paroxysmal nocturnal dyspnea. Reports orthopnea. No lightheadedness or dizziness. No syncopal episodes. Abdominal: No abdominal pain. No nausea, vomiting. No diarrhea. No constipation. No bloody or tarry stools. + loss of appetite, small bowel move ment Genitourinary: -Sarmiento. +hematuria. Musculoskeletal: No myalgias. No muscle weakness, no gait dysfunction, no frequent falls. No back pain. No neck pain. Integumentary: sternal wound s covered with dressing, no lesions. No rash or pruritus. No unusual bruising. No change in hair or nails. Neurologic: No aphasia. No facial droop. No change in mentation. No head injury. No headache. No paralysis. No paresthesia. Psychiatric: No depression. No anxiety. No mood swings. Endocrine: No abnormal blood sugars. No weight change. No excessive sweating or thirst. No cold intolerance. PHYSICAL EXAMINATION Gen: This is a 77-year-old male. He is resting in recliner in ICU and appears to be comfortable and in no acute distress HEENT: Head is atraumatic, normocephalic. Pupils equal, round. Sclerae is anicteric. NECK: Supple. No JVD. No lymphadenopathy. Right-sided [place]ord[place] in place LUNGS: Diminished. No wheezes or rhonchi. No intercostal retractions minimal chest wall tenderness. HEART: Regular rate and rhythm. 2/6 systolic murmur. Mediastinal right and left pleural chest tubes in place. ABDOMEN: Soft. Bowel sounds are present. No masses. No tenderness. Sarmiento catheter with blood brown urine. EXTREMITIES: +1 pedal edema. No calf tenderness, DP +1 bilaterally NEUROLOGICAL: Patient is awake, alert and oriented x3. Cranial nerves 2 through 12 are grossly intact, muscle power 4/5 in bilateral upper and lower extremities. ASSESSMENT AND PLAN 1. Severe mitral regurgitation status post mitral valve repair, postoperative day #6. Continue patient on aspirin 325 mg daily, atorvastatin 20 mg daily, Plavix 75 mg daily, flecainide 50 mg every 12 hours, continue [place] as needed for pain control, continue DuoNeb treatments 4 times daily, Metoprolol 25 mg po bid 2. Chronic diastolic heart failure. Continue metoprolol 25 minute gram orally twice every day, Lasix 40 mg IV push every 12 hours, as well as metolazone 2.5 g orally once every day. 4. Paroxysmal atrial fibrillation. Hold Xarelto. Continue metoprolol tartrate 25 mg oral twice daily, flecainide 50 mg every 12 hours. 5. Mild intermittent asthma, stable. Continue DuoNeb treatments 4 times daily, off oxygen for now. 6. Hypertension and hypertensive cardiovascular disease . Continue metoprolol tartrate 25 mg twice daily and Losartan 12.5 mg po daily 7. Hyperlipidemia. Continue atorvastatin 20 mg at bedtime. 8. History of CVA. we will hold off xarelto till discharge 9. Vitamin D deficiency.stable we will continue with vitamin D3 1000 units po daily 10. Hematuria. Resolved. 11. Ileus. likely due to surgery, increase activity, patient diet was advanced to a regular diet. 12. medical debility. we will continue with PT nd OT, increase activity levels. 13. Diabetes Mellitus type 2. we will discontinue Insulin drip and we will continue Levemir 10 units Sc in AM along with SSI. 14. Acute blood loss anemia due to hematuria and surgery. we will continue to monitor cbc. 15. Home in AM Objective - Vital Signs Vital signs: Vital Signs Temp 98.1 F 03/15/23 20:00 Pulse 97 03/16/23 00:00 Resp 18 03/16/23 00:00 BP 117/73 03/16/23 00:00 Pulse Ox 91 L 03/16/23 08:17 FiO2 96 03/13/23 08:28 Intake & Output 03/15/23 03/16/23 03/16/23 18:59 06:59 18:59 Intake Total 540 Output Total 597 650 Balance -597 -110 Weight 78.7 kg Intake: Oral 540 Output: Urine 350 650 Post Void Residual 247 Other: Voiding Method Toilet Toilet # Voids 1 1 # Bowel Movements 1 ABP, PAP, CO, CI - Last Documented Arterial Blood Pressure 112/52 Pulmonary Artery Pressure 42/17 Cardiac Output 3.9 Cardiac Index 2.2 - Labs CBC & Chem 7: 03/16/23 07:03 03/16/23 07:03 Labs: Abnormal Lab Results - Last 24 Hours (Table) 03/15/23 03/15/23 03/15/23 Range/Units 11:58 16:27 20:14 RBC (4.30-5.90) m/uL Hgb (13.0-17.5) gm/dL Hct (39.0-53.0) % Chloride (98-107) mmol/L BUN (9-20) mg/dL Glucose (74-99) mg/dL POC Glucose (mg/dL) 132 H 255 H 152 H (70-110) mg/dL AST (17-59) U/L ALT (4-49) U/L 03/16/23 03/16/23 Range/Units 07:03 07:03 RBC 2.74 L (4.30-5.90) m/uL Hgb 9.0 L (13.0-17.5) gm/dL Hct 26.4 L (39.0-53.0) % Chloride 96 L (98-107) mmol/L BUN 31 H (9-20) mg/dL Glucose 108 H (74-99) mg/dL POC Glucose (mg/dL) (70-110) mg/dL AST 94 H (17-59) U/L ALT 267 H (4-49) U/L
[2023-03-16] MEDS: metOLazone 2.5 MG TAB PO SCH (11:08)
[2023-03-16] MEDS: POTASSIUM CHLORIDE ER 20 MEQ TAB.ER PO SCH ×2 (11:08→17:21)
[2023-03-16] MEDS: FUROSEMIDE 10 MG/ML 4 ML VIAL IV SCH ×2 (11:08→17:20)
[2023-03-16 11:38] LABS: Glucose,Whole Blood 159 mg/dL (70-110)
--- NOTE | 2023-03-16 14:37 | P.PN ---
Subjective Progress Note Date: 03/16/23 Principal diagnosis: POD #6 complex mitral valve repair with #30 mm [employer] AnnuloFlex band, quadrangular resection of P2 of the posterior leaflet, closure of P2/P3 cleft, ring annuloplasty, and clip ligation of left atrial appendage with a 35 mm AtriClip, intraoperative transesophageal echocardiogram performed by anesthesia This is a 77-year-old white male with history of severe mitral valve regurgitation, sick sinus syndrome, history of congestive heart failure with preserved ejection fraction, hypertension dyslipidemia paroxysmal atrial fibrillation, 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 Patient was seen by cardiac surgery back on 02/19/2023, and he was evaluated for mitral valve repair. Today the patient underwent surgery, postoperatively he is on mechanical ventilation, assist control rate of 12 tidal volume 500 FiO2 50% and PEEP of 5. Chest x-ray showed mild interstitial edema/mild pulmonary vascular congestion. Patient is now on Precedex at 0.3 mcg/kg/h norepinephrine at 0.1 mcg/kg/m he is on Primacor at 0.2 mcg/kg/m is also on insulin at 0.5 units per hour. His cardiac output is 5.1 cardiac index is 2.9 CVP is 17. WBC count 9.8 hemoglobin 7.9 Patient was reevaluated today on 03/11/2023.POD #1 complex mitral valve repair with #30 mm [employer] AnnuloFlex band, quadrangular resection of P2 of the posterior leaflet, closure of P2/P3 cleft, ring annuloplasty, and clip ligation of left atrial appendage with a 35 mm AtriClip, intraoperative transesophageal echocardiogram performed by anesthesia. Patient is doing well, he is not requiring any pressors or any inotropes at this point in time he did require pressors last night until early this morning patient is doing poorly with in centive spirometry he was extubated last night at 1901. Currently the patient is being AV paced at 80 bpm, underlying rhythm is bradycardia. Blood pressure is marginal but seems to be within normal today. Patient does have evidence of crackles and rhonchi on physical examination, but he denies shortness of breath. Chest x-ray showed mostly bibasilar atelectasis. CBC is relatively normal, hemoglobin is 7.9, basic metabolic profile is normal BUN is 46 creatinine 1.34 Reevaluated today on 03/12/23, patient is now postoperative day #2. Patient is resting in a recliner, he is on 5 L nasal cannula, his cardiac output is 4.9 cardiac index is 2.8 CVP is 8 pulmonary artery pressure 50/15 patient is receiving Primacor at 0.2 mcg/kg/m is also on insulin at 1.5 units an hour. Chest x-ray is suggestive of mild congestive heart failure changes, clinically the patient is feeling much better today compared to how he felt yesterday in the afternoon. He did receive Lasix, and he had a good urine output with Lasix today. WBC count is 8.4 hemoglobin is 7.9, ABG from late yesterday showed a pO2 of 77 pCO2 46 pH of 7.31, renal profile is improving creatinine is 1.58 compared to 1.99 yesterday electrolytes are normal liver enzymes are elevated. Patient was on 03/13/2023, patient is doing great, gradually improving, he is down to 2 L nasal cannula with O2 sats of 97%, his cardiac output is 5.2 cardiac index is 3.0The patient remains on Primacor at 0.1 mcg/kg/m he did receive Lasix today, and his oxygenation didn't improve after Lasix given, patient diuresed well. Chest x-ray continues to show atelectasis and small pleural effusions with mild venous congestion CBC is relatively unremarkable except for hemoglobin of 7.1 basic metabolic profile is normal renal profile is improving creatinine down to 1.33, compared to 1.99 2 days ago Patient was reevaluated today on 03/14/2023 patient is doing great, continues to improve steadily, he is still on 2 L nasal cannula, O2 saturations 97% chest x- ray is showing significant improvement in his atelectasis and interstitial edema. Patient is not requiring any pressors and not anymore inotropes. His cardiac output is 3.9 cardiac index is 2.2 achieving 1000 mL via his incentive spirometer. Overall significantly improved, chest x-ray was also reviewed and it is reassuring WBC count is 6.3 hemoglobin is 8.4, liver enzymes remain sli ghtly elevated. Reevaluated today on 03/15/2023, patient remains in the ICU, he is now postoperative day #5, patient is sitting up at a bedside chair, awake alert oriented 3, does not seem to be in any distress, remains on 2 L nasal cannula. Chest x-ray however is showing more atelectasis, and the patient is trying to do better with his incentive spirometry achieving 750 ML. Patient is in atrial fibrillation but rate controlled, hemodynamically the patient is stable he is not requiring any pressors or any inotropes. Patient is ambulating with assistance, and overall I believe the patient is clinically better and his chest x-ray is slightly worse with more atelectasis. CBC is relatively normal hemoglobin is 8.2 basic metabolic profile is normal renal profile is normal Reevaluated today on 03/16/2023, patient seems to be doing well, he is now on room air, doing slightly better with his incentive spirometry achieving 1000 ML. Patient atrial fibrillation but controlled heart rate. He is not in any distress and he denies any specific complaints. Labs were reviewed including normal basic metabolic profile and the relatively normal CBC chest x-ray showed minimal atelectasis and a small left-sided pleural effusion no evidence of congestive heart failure Objective - Vital Signs Vital signs: Vital Signs Temp 97.4 F L 03/16/23 12:43 Pulse 116 H 03/16/23 12:43 Resp 18 03/16/23 12:43 BP 114/76 03/16/23 12:43 Pulse Ox 92 L 03/16/23 12:43 FiO2 96 03/13/23 08:28 Intake & Output 03/15/23 03/16/23 03/16/23 18:59 06:59 18:59 Intake Total 540 Output Total 597 650 Balance -597 -110 Weight 78.7 kg Intake: Oral 540 Output: Urine 350 650 Post Void Residual 247 Other: Voiding Method Toilet Toilet Toilet # Voids 1 1 2 # Bowel Movements 1 ABP, PAP, CO, CI - Last Documented Arterial Blood Pressure 112/52 Pulmonary Artery Pressure 42/17 Cardiac Output 3.9 Cardiac Index 2.2 - Exam Physical Exam: Revealed a 77-year-old white male in no distress, on room air Head: Atraumatic, normocephalic. HEENT:[Neck is supple.] [No neck masses.] [No thyromegaly.] [No JVD.] Chest: Good breath sound bilaterally no crackles or rhonchi or wheezes Cardiac Exam: [Normal S1 and S2, no S3 gallop, 2/6 systolic murmur thought the precordium Abdomen: [Soft, nontender, no megaly, no rebound, no guarding, normal bowel sounds.] Extremities: [No clubbing, 1+ bipedal edema, no cyanosis.] Neurological Exam: [No focal neurologic deficit.] Alert oriented 3 Psychiatric: Normal mood affect and normal mental status examination. - Labs CBC & Chem 7: 03/16/23 07:03 03/16/23 07:03 Labs: Abnormal Lab Results - Last 24 Hours (Table) 03/15/23 03/15/23 03/16/23 Range/Units 16:27 20:14 07:03 RBC 2.74 L (4.30-5.90) m/uL Hgb 9.0 L (13.0-17.5) gm/dL Hct 26.4 L (39.0-53.0) % Chloride (98-107) mmol/L BUN (9-20) mg/dL Glucose (74-99) mg/dL POC Glucose (mg/dL) 255 H 152 H (70-110) mg/dL AST (17-59) U/L ALT (4-49) U/L 03/16/23 03/16/23 Range/Units 07:03 11:37 RBC (4.30-5.90) m/uL Hgb (13.0-17.5) gm/dL Hct (39.0-53.0) % Chloride 96 L (98-107) mmol/L BUN 31 H (9-20) mg/dL Glucose 108 H (74-99) mg/dL POC Glucose (mg/dL) 159 H (70-110) mg/dL AST 94 H (17-59) U/L ALT 267 H (4-49) U/L Assessment and Plan Assessment: Impression: Severe mitral regurgitation Status post mitral valve repair postoperative day #6 Postoperative atelectasis, expected Chronic congestive heart failure with preserved LV function, resolved Benign essential hypertension Paroxysmal atrial fibrillation History of CVA following back surgery Type 2 diabetes without complications History of mild intermittent asthma History of flash pulmonary edema Recommendation: Continue bronchodilators Continue maximal medical therapy for his underlying cardiac disease Continue incentive spirometry, encourage to use Possible discharge planning in the next 24 hours Ambulate GI and DVT prophylaxis We'll continue to follow Time with Patient: Less than 30
[2023-03-16 16:55] LABS: Glucose,Whole Blood 201 mg/dL (70-110)
[2023-03-16] MEDS: ATORVASTATIN 20 MG TAB PO SCH (17:21)
[2023-03-16] MEDS: TAMSULOSIN 0.4 MG CAP.ER.24H PO SCH (18:24)
[2023-03-16 20:03] LABS: Glucose,Whole Blood 204 mg/dL (70-110)
[2023-03-16] MEDS: MELATONIN 3 MG TABLET PO SCH (21:14)
[2023-03-16] MEDS: SENNOSIDES-DOCUSATE SODIUM 1 EACH TAB PO SCH (21:14)
[2023-03-17 06:00] LABS: Glucose,Whole Blood 92 mg/dL (70-110)
[2023-03-17] MEDS: INSULIN ASPART (NovoLOG) 100 UNIT/ML VIAL SQ SCH ×2 (06:20→12:30)
[2023-03-17] MEDS: PANTOPRAZOLE 40 MG TABLET PO SCH (06:39)
[2023-03-17] MEDS ORDERED: ASPIRIN 81 MG PO SCH (09:00)
[2023-03-17] MEDS: IPRATROPIUM-ALBUTEROL 3 ML NEB INHALATION SCH ×3 (09:10→15:27)
--- NOTE | 2023-03-17 09:10 | XR ---
EXAMINATION TYPE: Two view chest xray DATE OF EXAM: 03/17/2023 COMPARISON: 03/16/2023 TECHNIQUE: PA and lateral views submitted. HISTORY: Postop FINDINGS: Postsurgical changes are noted median sternotomy and atrial appendage clip. A prosthetic mitral valve suspected. Left-sided consolidation with elevated hemidiaphragm and small effusion. Mild interstitia l prominence with no pneumothorax. Diffuse osteopenia. IMPRESSION: 1. Left lower lobe infiltrate and small effusion. Stable. Correlate for mild venous congestion
[2023-03-17] MEDS: CYANOCOBALAMIN 500 MCG TAB PO SCH (09:12)
[2023-03-17] MEDS: FLECAINIDE 50 MG TAB PO SCH (09:13)
[2023-03-17] MEDS: POTASSIUM CHLORIDE ER 20 MEQ TAB.ER PO SCH ×4 (09:13→17:52)
[2023-03-17] MEDS: FUROSEMIDE 10 MG/ML 4 ML VIAL IV SCH ×2 (09:13→16:55)
[2023-03-17] MEDS: CHOLECALCIFEROL 25 MCG (1000 IU) TABLET PO SCH (09:13)
[2023-03-17] MEDS: LOSARTAN 25 MG TAB PO SCH (09:13)
[2023-03-17] MEDS: metOLazone 2.5 MG TAB PO SCH (09:14)
[2023-03-17] MEDS: METOPROLOL TARTRATE 25 MG TAB PO SCH ×2 (09:14→16:55)
[2023-03-17] MEDS: HEPARIN SODIUM,PORCINE 5,000 UNIT/ML 1 ML VIAL SQ SCH (09:28)
[2023-03-17 10:47] LABS: Basophils % (A) 0 %; Eosinophils # (A) 0.1 k/uL (0-0.7); Eosinophils % (A) 2 %; HCT 29.4 % (39.0-53.0); HGB 9.6 gm/dL (13.0-17.5); Hypochromasia Slight; Lymphocytes % (A) 15 %; MCH 31.5 pg (25.0-35.0); MCHC 32.6 g/dL (31.0-37.0); MCV 96.8 fL (80.0-100.0); Mean Platelet Volume 7.5; Monocytes # (A) 0.6 k/uL (0-1.0); Monocytes % (A) 8 %; Neutrophils % (A) 71 %; Platelet Count 258 k/uL (150-450); Poikilocytosis Moderate; RBC 3.04 m/uL (4.30-5.90); RDW 14.4 % (11.5-15.5)
[2023-03-17 10:58] LABS: ALT 195 U/L (4-49); AST 57 U/L (17-59); African American GFR (CKD) 86 (>60 ml/min/1.73 sqM); Albumin 4.2 g/dL (3.5-5.0); Alkaline Phosphatase 80 U/L (38-126); Anion Gap 15 mmol/L; Blood Urea Nitrogen 30 mg/dL (9-20); Calcium 9.1 mg/dL (8.4-10.2); Carbon Dioxide 29 mmol/L (22-30); Chloride 90 mmol/L (98-107); Glucose 147 mg/dL (74-99); Magnesium 1.6 mg/dL (1.6-2.3); Non-African American GFR(CKD) 74 (>60 ml/min/1.73 sqM); Potassium 3.5 mmol/L (3.5-5.1); Sodium 134 mmol/L (137-145); Total Bilirubin 1.4 mg/dL (0.2-1.3); Total Protein 6.8 g/dL (6.3-8.2)
[2023-03-17 11:43] LABS: Glucose,Whole Blood 156 mg/dL (70-110)
[2023-03-17] MEDS: INSULIN DETEMIR (LEVEMIR) 100 UNIT/ML SYR SQ SCH (12:29)
[2023-03-17] MEDS: MAGNESIUM SULFATE-D5W PMX 1 GM in DEXTROSE/WATER 1 100ML.BAG IVPB SCH ×2 (12:30→13:38)
--- NOTE | 2023-03-17 13:42 | P.PN ---
Subjective HISTORY OF PRESENT ILLNESS: This is a 77-year-old male who follows in the office with Dr. Velazco. Patient is status post mitral valve repair. Postop day #7. Patient examined this morning. He is sitting up in the chair. Patient's family is present. Patient denies any chest pain or pressure. He denies any shortness of breath. Telemetry reveals sinus mechanism. Blood pressure is stable. PHYSICAL EXAM: VITAL SIGNS: Reviewed. GENERAL: Well-developed in no acute distress. NECK: Supple. No JVD or thyromegaly LUNGS: Respirations even and unlabored. Lungs essentially clear to auscultation bilaterally. HEART: Regular rate and rhythm. S1 and S2 heard. EXTREMITIES: Normal range of motion. No clubbing or cyanosis. Peripheral pulses intact. No lower extremity edema ASSESSMENT: Severe mitral regurgitation with torn chordae to P2 of posterior leaflet, status post complex mitral valve repair Paroxysmal atrial fibrillation Chronic heart failure with preserved ejection fraction Hypertension Diabetes History of TIA Bilateral carotid stenosis Severe restrictive lung disease Former nicotine dependence PLAN: Continue postoperative management per CT surgery Encourage use of incentive spirometer Increase activity as tolerated Continue current cardiac medications Patient is currently stable for discharge from a cardiac perspective Nurse practitioner note has been reviewed by physician. Signing provider agrees with the documented findings, assessment, and plan of care. Objective - Vital Signs Vital signs: Vital Signs Temp 97.9 F 03/17/23 11:47 Pulse 84 03/17/23 11:47 Resp 18 03/17/23 11:47 BP 132/60 03/17/23 11:47 Pulse Ox 95 03/17/23 11:47 FiO2 21 03/17/23 07:55 Intake & Output 03/16/23 03/17/23 03/17/23 18:59 06:59 18:59 Output Total 150 1700 Balance -150 -1700 Weight 77.1 kg Output: Urine 150 1700 Other: Voiding Method Toilet Toilet # Voids 2 2 2 ABP, PAP, CO, CI - Last Documented Arterial Blood Pressure 112/52 Pulmonary Artery Pressure 42/17 Cardiac Output 3.9 Cardiac Index 2.2 - Labs CBC & Chem 7: 03/17/23 09:53 03/17/23 09:53 Labs: Abnormal Lab Results - Last 24 Hours (Table) 03/05/23 03/16/23 03/16/23 Range/Units 09:03 16:53 20:00 RBC (4.30-5.90) m/uL Hgb (13.0-17.5) gm/dL Hct (39.0-53.0) % Sodium (137-145) mmol/L Chloride (98-107) mmol/L BUN (9-20) mg/dL Glucose (74-99) mg/dL POC Glucose (mg/dL) 201 H 204 H (70-110) mg/dL Total Bilirubin (0.2-1.3) mg/dL ALT (4-49) U/L Crossmatch See Detail 03/17/23 03/17/23 03/17/23 Range/Units 09:53 09:53 11:42 RBC 3.04 L (4.30-5.90) m/uL Hgb 9.6 L (13.0-17.5) gm/dL Hct 29.4 L (39.0-53.0) % Sodium 134 L (137-145) mmol/L Chloride 90 L (98-107) mmol/L BUN 30 H (9-20) mg/dL Glucose 147 H (74-99) mg/dL POC Glucose (mg/dL) 156 H (70-110) mg/dL Total Bilirubin 1.4 H (0.2-1.3) mg/dL ALT 195 H (4-49) U/L Crossmatch
[2023-03-17 14:26] VITALS: BMI 26.6
--- NOTE | 2023-03-17 14:40 | P.PN ---
Subjective Progress Note Date: 03/17/23 Principal diagnosis: Valvular heart disease. Patient was on 03/13/2023, patient is doing great, gradually improving, he is down to 2 L nasal cannula with O2 sats of 97%, his cardiac output is 5.2 cardiac index is 3.0The patient remains on Primacor at 0.1 mcg/kg/m he did receive Lasix today, and his oxygenation didn't improve after Lasix given, patient diuresed well. Chest x-ray continues to show atelectasis and small pleural effusions with mild venous congestion CBC is relatively unremarkable except for hemoglobin of 7.1 basic metabolic profile is normal renal profile is improving creatinine down to 1.33, compared to 1.99 2 days ago Patient was reevaluated today on 03/14/2023 patient is doing great, continues to improve steadily, he is still on 2 L nasal cannula, O2 saturations 97% chest x- ray is showing significant improvement in his atelectasis and interstitial edema. Patient is not requiring any pressors and not anymore inotropes. His cardiac output is 3.9 cardiac index is 2.2 achieving 1000 mL via his incentive spirometer. Overall significantly improved, chest x-ray was also reviewed and it is reassuring WBC count is 6.3 hemoglobin is 8.4, liver enzymes remain slightly elevated. Reevaluated today on 03/15/2023, patient remains in the ICU, he is now postoperative day #5, patient is sitting up at a bedside chair, awake alert oriented 3, does not seem to be in any distress, remains on 2 L nasal cannula. Chest x-ray however is showing more atelectasis, and the patient is trying to do better with his incentive spirometry achieving 750 ML. Patient is in atrial fibrillation but rate controlled, hemodynamically the patient is stable he is not requiring any pressors or any inotropes. Patient is ambulating with assistance, and overall I believe the patient is clinically better and his chest x-ray is slightly worse with more atelectasis. CBC is relatively normal hemoglobin is 8.2 basic metabolic profile is normal renal profile is normal Reevaluated today on 03/16/2023, patient seems to be doing well, he is now on room air, doing slightly better with his incentive spirometry achieving 1000 ML. Patient atrial fibrillation but controlled heart rate. He is not in any distress and he denies any specific complaints. Labs were reviewed including normal basic metabolic profile and the relatively normal CBC chest x-ray showed minimal atelectasis and a small left-sided pleural effusion no evidence of congestive heart failure Progress note dated 03/17/2023. The patient is seen today in room 365. His and daughter are in the room with him. He is resting comfortably, sitting in the chair next to his bed. Currently, the patient's on room air. He is postop day #7, status post mitral valve repair. The patient has no major complaints today. He apparently is not quite ready for discharge. White count 7, hemoglobin 9.6, hematocrit 29.4, with a normal platelet count. Sodium 134, potassium 3.5, chlorides 90, CO2 29, BUN 30, creatinine 0.99. Chest x-ray shows a left lower lobe infiltrate, and small effusion. Objective - Vital Signs Vital signs: Vital Signs Temp 97.9 F 03/17/23 11:47 Pulse 84 03/17/23 11:47 Resp 18 03/17/23 11:47 BP 132/60 03/17/23 11:47 Pulse Ox 95 03/17/23 11:47 FiO2 21 03/17/23 07:55 Intake & Output 03/16/23 03/17/23 03/17/23 18:59 06:59 18:59 Intake Total 480 Output Total 150 2200 Balance -150 -1720 Weight 77.1 kg 77.1 kg Intake: Oral 480 Output: Urine 150 2200 Other: Voiding Method Toilet Toilet Toilet # Voids 2 2 2 ABP, PAP, CO, CI - Last Documented Arterial Blood Pressure 112/52 Pulmonary Artery Pressure 42/17 Cardiac Output 3.9 Cardiac Index 2.2 - Exam No acute distress, oriented 3. Room air saturation is 95%. HEENT examination is grossly unremarkable. Mucous membranes are moist. No oral lesions. Neck supple. Full range of motion. No adenopathy thyromegaly or neck vein distention. Cardiovascular examination reveals regular rhythm rate. S1-S2 normal. No S3 or S4. No discernible murmur noted. Heart rate 84 bpm. Lungs reveal clear breath sounds. Breath sounds are equal bilaterally. No adventitious lung sounds including wheezes rhonchi or crackles. Abdomen soft bowel sounds are heard. No masses or tenderness. Extremities are intact. No cyanosis clubbing or edema. Skin is without rash or lesion. Neurologic examination is brief but nonfocal. - Labs CBC & Chem 7: 03/17/23 09:53 03/17/23 09:53 Labs: Abnormal Lab Results - Last 24 Hours (Table) 03/05/23 03/16/23 03/16/23 Range/Units 09:03 16:53 20:00 RBC (4.30-5.90) m/uL Hgb (13.0-17.5) gm/dL Hct (39.0-53.0) % Sodium (137-145) mmol/L Chloride (98-107) mmol/L BUN (9-20) mg/dL Glucose (74-99) mg/dL POC Glucose (mg/dL) 201 H 204 H (70-110) mg/dL Total Bilirubin (0.2-1.3) mg/dL ALT (4-49) U/L Crossmatch See Detail 03/17/23 03/17/23 03/17/23 Range/Units 09:53 09:53 11:42 RBC 3.04 L (4.30-5.90) m/uL Hgb 9.6 L (13.0-17.5) gm/dL Hct 29.4 L (39.0-53.0) % Sodium 134 L (137-145) mmol/L Chloride 90 L (98-107) mmol/L BUN 30 H (9-20) mg/dL Glucose 147 H (74-99) mg/dL POC Glucose (mg/dL) 156 H (70-110) mg/dL Total Bilirubin 1.4 H (0.2-1.3) mg/dL ALT 195 H (4-49) U/L Crossmatch Assessment and Plan Assessment: Severe mitral valve regurgitation, status post mitral valve repair, postop day #7. Routine postoperative ventilator management. Postoperative atelectasis. Chronic congestive heart failure with preserved LV function. Benign essential hypertension. Paroxysmal atrial fibrillation. History of CVA. Type 2 diabetes mellitus. History of mild intermittent asthma. History of flash pulmonary edema. Plan: Plan dated 03/17/2023. The patient is seen today in room 365. His , and daughter in the room. He is on room air. He's not receiving any IV fluids. Today is postop day #7, status post mitral valve repair. Labs, x-rays, and medications are reviewed. Chest x-ray looks okay. We will continue to follow and make recommendations along the way. Prognosis is guarded. Time with Patient: Less than 30
[2023-03-17 16:02] VITALS: BP 122/57; PULSE 87; RESP 17; TEMP 97.8
[2023-03-17 16:47] LABS: Glucose,Whole Blood 296 mg/dL (70-110)
[2023-03-17] MEDS: ATORVASTATIN 20 MG TAB PO SCH (16:55)
[2023-03-17] MEDS ORDERED: metFORMIN 850 MG TAB PO SCH (17:30)
[2023-03-17] MEDS ORDERED: RIVAROXABAN 20 MG TAB PO SCH (17:30)
[2023-03-17] MEDS: TAMSULOSIN 0.4 MG CAP.ER.24H PO SCH (17:52)
--- NOTE | 2023-03-17 17:58 | P.DS ---
Providers Date of admission: 03/10/23 05:33 Expected date of discharge: 03/17/23 Attending physician: Nash Cottrell Consults: 03/10/23 12:20 Consult Physician Routine Consulting Provider: Fracisco Abraham Consult Reason/Comments: Optical Instrument Assembly Supervisor Consult: post cardiac surgery; [place]la patient Do you want consulting provider notified?: Yes Consult Physician Routine Consulting Provider: Jonathan Grewal Consult Reason/Comments: med mgmt Do you want consulting provider notified?: Yes Consult Physician Routine Consulting Provider: Felicia Bowers Consult Reason/Comments: Tester Sound Consult: post cardiac surgery Do you want consulting provider notified?: Yes Primary care physician: Jonathan Grewal Hospital Course: FINAL DIAGNOSIS: Severe mitral regurgitation with torn chordae to P2 of the posterior leaflet, S/P complex mitral valve repair with #30 mm [employer] AnnuloFlex band, quadrangular resection of P2 of the posterior leaflet, closure of P2/P3 cleft, ring annuloplasty History of hypertension, was hypotensive, currently off pressors, on Midodrine 10 mg by mouth 3 times a day Chronic heart failure with preserved EF 50-55% Paroxysmal atrial fibrillation on Xarelto for anticoagulation, S/P clip ligation of left atrial appendage with a 35 mm AtriClip Type 2 diabetes, hemaglobin A1c 7.5% Previous tobacco dependence Severe restrictive lung disease, preoperative FEV1 44% of predicted on full PFT Asthma Remote history of pneumonia TIA in 2014 Bilateral internal carotid stenosis 50-79% Postoperative acute blood loss anemia, expected DENISSE, expected given hypotension Elevated transaminases, likely from liver congestions worked, AST and ALT levels are trending down PRINCIPAL PROCEDURE: Complex mitral valve repair with a #30 mm [employer] AnnuloFlex band, quadrangular resection of P2 of the posterior leaflet, closure of P2/P3 cleft, ring annuloplasty Clip ligation of the left atrial appendage with a 35 mm Atriclip Intraoperative transesophageal echocardiogram HISTORY OF PRESENT ILLNESS: This is a 77-year-old gentleman who follows in our outpatient basis with Dr. Grewal for his primary care and with Dr. Mora patrick cardiology care. Recently, the patient has had complaints of chest pain and associated shortness of breath with activity. Subsequently, due to the patient's complaints of chest pain and shortness of breath he underwent a cardiac catheterization and transesophageal echocardiogram on 02/14/2023. The cardiac catheterization demonstrated a 20-30% diffuse disease to his distal left anterior descending coronary artery, otherwise minimal luminal irregularities with no obstructive disease, normal left-sided filling pressures, normal right sided pressure with no evidence of pulmonary hypertension and prominent V-wave in PCW, corresponding with severe mitral valve regurgitation. The transesophageal cardiogram showed severe mitral valve regurgitation with P2 prolapse and restricted posterior mitral leaflet causing eccentric anterior directed jet, no thrombus in the left atrium or left atrial appendage, severe left atrial dilatation and normal global LV systolic function. Subsequently, due to the patient's symptoms of chest pain and progressive shortness of breath a consult was placed to Dr. Nash Cottrell from cardiothoracic surgery for further evaluation and treatment recommendations. The patient and his met with Dr. Cottrell, treatment options were discussed including mitral valve repair/replacement, risks and benefits of surgery were discussed including the STS risk score and knowing and understanding the risks the patient wished to proceed with the surgical option. HOSPITAL COURSE: On 03/11/2023 the patient was brought to the preoperative area, prepared in the usual fashion and subsequently taken to the operating room where Dr. Nash Cottrell performed a complex mitral valve repair with a #30 mm [employer] AnnuloFlex band, quadrangular resection of P2 of the posterior leaflet, closure of P2/P3 cleft, ring annuloplasty. Upon completion of the surgery the patient was transferred to the cardiovascular intensive care unit where he was recovered and monitored hemodynamically. He was extubated, all lines, tubes and supportive drips were discontinued when appropriate and he was transferred to the third floor cardiac stepdown unit for further rehabilitation and monitoring. His oxygen was titrated down, he continued to work with physical and occupational therapy, he was tolerating an oral diet, his pain was well-controlled and he was ready to be discharged home with a [facility] care on postoperative day #7. He has received written and verbal instructions regarding his medications, activity restrictions, signs and symptoms requiring physician notification, and his follow-up appointments. Plan - Discharge Summary Discharge Rx Participant: No New Discharge Prescriptions: New Aspirin 81 mg PO DAILY #30 tab Tamsulosin [Flomax] 0.4 mg PO PC-SUPPER #30 cap Dapagliflozin Propanediol [Farxiga] 5 mg PO DAILY #30 tab metFORMIN HCL [Glucophage] 850 mg PO BID-W/MEALS #60 tab Losartan [Cozaar] 12.5 mg PO DAILY #30 tab Metoprolol Tartrate [Lopressor] 25 mg PO TID #90 tab Pantoprazole [Protonix] 40 mg PO AC-BRKFST #14 tab Sennosides-Docusate Sodium [Senokot-S] 2 each PO HS #14 tab Acetaminophen Tab [Tylenol] 650 mg PO Q4HR PRN tab PRN Reason: Fever And/ Or Pain Potassium Chloride ER [K-Dur 10] 10 meq PO DAILY #7 tab Continue Albuterol Inhaler [Ventolin Hfa Inhaler] 1 puff INHALATION RT-Q4H PRN PRN Reason: Shortness Of Breath Flecainide [Tambocor] 50 mg PO Q12HR #60 tab Atorvastatin [Lipitor] 20 mg PO W/SUPPER Rivaroxaban [Xarelto] 20 mg PO W/SUPPER Cholecalciferol [Vitamin D3 (25 Mcg = 1000 Iu)] 25 mcg PO DAILY Cyanocobalamin (Vitamin B-12) [Vitamin B-12] 1,000 mcg PO DAILY terbinafine HCL 250 mg PO DAILY Furosemide [Lasix] 40 mg PO DAILY #7 tab Discontinued Losartan [Cozaar] 50 mg PO W/SUPPER Pioglitazone [Actos] 30 mg PO DAILY Metoprolol Tartrate [Lopressor] 25 mg PO BID #60 tab Glimepiride [Amaryl] 1 mg PO DAILY Isosorbide Mononitrate ER [Imdur] 15 mg PO QAM metFORMIN HCL ER [Glucophage XR] 750 mg PO BID metOLazone [Zaroxolyn] 2.5 mg PO MOWEFR Discharge Medication List Albuterol Inhaler [Ventolin Hfa Inhaler] 1 puff INHALATION RT-Q4H PRN 10/07/14 [History] Flecainide [Tambocor] 50 mg PO Q12HR #60 tab 10/09/14 [Rx] Atorvastatin [Lipitor] 20 mg PO W/SUPPER 12/13/15 [History] Rivaroxaban [Xarelto] 20 mg PO W/SUPPER 02/13/23 [History] Cholecalciferol [Vitamin D3 (25 Mcg = 1000 Iu)] 25 mcg PO DAILY 03/05/23 [History] Cyanocobalamin (Vitamin B-12) [Vitamin B-12] 1,000 mcg PO DAILY 03/05/23 [History] terbinafine HCL 250 mg PO DAILY 03/05/23 [History] Acetaminophen Tab [Tylenol] 650 mg PO Q4HR PRN tab 03/17/23 [Rx] Aspirin 81 mg PO DAILY #30 tab 03/17/23 [Rx] Dapagliflozin Propanediol [Farxiga] 5 mg PO DAILY #30 tab 03/17/23 [Rx] Furosemide [Lasix] 40 mg PO DAILY #7 tab 03/17/23 [Rx] Losartan [Cozaar] 12.5 mg PO DAILY #30 tab 03/17/23 [Rx] Metoprolol Tartrate [Lopressor] 25 mg PO TID #90 tab 03/17/23 [Rx] Pantoprazole [Protonix] 40 mg PO AC-BRKFST #14 tab 03/17/23 [Rx] Potassium Chloride ER [K-Dur 10] 10 meq PO DAILY #7 tab 03/17/23 [Rx] Sennosides-Docusate Sodium [Senokot-S] 2 each PO HS #14 tab 03/17/23 [Rx] Tamsulosin [Flomax] 0.4 mg PO PC-SUPPER #30 cap 03/17/23 [Rx] metFORMIN HCL [Glucophage] 850 mg PO BID-W/MEALS #60 tab 03/17/23 [Rx] Follow up Appointment(s)/Referral(s): Felicia Bowers MD [STAFF PHYSICIAN] - 03/28/23 9:45 am Volodymyr Velazco MD [STAFF PHYSICIAN] - 03/31/23 10:30 am [facility] ,Cardiac [NON-STAFF] - 4 Weeks (You will receive a phone call in approximately 4-6 weeks for evaluation for cardiac rehab) Jonathan Grewal MD [Primary Care Provider] - 1 Week (Message left with a veterinary receptionist at Dr. Grewal's office.) [facility] [[facility] - 1-2 Days ([facility] will call you to arrange a visit) Attila Garcia NPC [Nurse Practitioner] - 03/25/23 11:45 am (Please follow-up at the cardiac surgery office located at [address] [place] [address] [address], [address]. Office number is [phone]) Nash Cottrell MD [STAFF PHYSICIAN] - 04/04/23 2:00 pm Ambulatory/Diagnostic Orders: Complete Blood Count w/diff [LAB.AMB] Time Frame: 03/20/23, Facility: [facility], Location: Laboratory [facility] Comprehensive Metabolic Panel [LAB.AMB] Time Frame: 03/20/23, Facility: [facility], Location: Laboratory [facility] Activity/Diet/Wound Care/Special Instructions: DISCHARGE INSTRUCTIONS: 1. No driving for 4 weeks, or until physician gives their ok. 2. The patient should sleep in their own bed, no medical bed needed. 3. Stairs are not an issue. If the bedroom is upstairs, it is advised that the patient go up at night and down in the morning for the first week. Go slowly, using handrail and take 1 step at a time. 4. HUMAIRA hose are to be worn for 30 days post surgery or until physician discontinues. 5. Heart hugger is to be worn 100% of the time until physician discontinues.(except when showering) 6. No lifting, pushing, or pulling more than 10 pounds for 12 weeks. The physician will advise of any restriction changes. 7. The patient is expected to continue the prescribed walking program. 8. Continue pain control per as needed orders. 9. Continue with incentive spirometry and splinting/heart hugger until otherwise directed by the physician. 10. Must shower daily using liquid antibacterial soap 11. Routine sternal incision care. No powders, lotions, ointments on incisions. No dressings are necessary on incisions unless they are draining. Dermabond tape is to remain on sternal incision until surgeon follow-up. 12. Please call surgeon/DROP HAMMER SETTER UP for temp greater than 101 F or purulent drainage from incisions. 13. You should weigh yourself daily, record and bring log with you to follow up appointments. 14. All prescriptions given by surgeon for 30 days. Refills need to be filled through auto fleet maintenance manager/primary care physician. 15. A Red armband has been placed on the patient. It should be worn for 30 days post discharge from surgery and will be removed by the cardiac surgeons. If an ER visit is necessary, please make sure the number on the Red armband is called before going to ER. 16. You have been referred to and are expected to begin Cardiac Rehab in approximately 4-6 weeks. 17. Quitting smoking is the most important step you can take to improve your health. For additional information and assistance to quit smoking, please call the [place] tobacco quit line (5-121-KAAU-NOW/ ) or online: [email or web address] HOME HEALTH SERVICES TO PROVIDE: RN SKILLED HOME CARE SERVICES FOR POST-OP SURGICAL PATIENTS WITH THE FOLLOWING: Coronary Artery Bypass Surgery (CABG), Mitral Valve Replacement/Repair ( MVR), Aortic Valve Replacement/Repair (AVR) RN TO CONTINUE EDUCATION FROM ``ROAD TO A HEALTH HEART PATIENT EDUCATION MANUAL (GIVEN TO PATIENT IN THE HOSPITAL) MEDICATION RECONCILIATION WITH EDUCATION NEEDED ON FIRST HOME VISIT EMPHASIZE IMPORTANCE OF WEARING BREAST SUPPORT/HEART HUGGER ENCOURAGE USE OF INCENTIVE SPIROMETER 10 X EVERY HOUR WHILE AWAKE ENCOURAGE UTILIZATION OF LOWER EXTREMITY COMPRESSION STOCKINGS/HUMAIRA HOSE and ELEVATE LEGS ABOVE LEVEL OF HEART WHILE AT REST. ENCOURAGE AMBULATION 3-5x/day INCREASING TOLERATES, WHILE AVOIDING E XTREMES IN TEMPERATURE FREQUENCY: RN TO OPEN THE PATIENT WITHIN 24 HOURS OF DISCHARGE FROM THE HOSPITAL WITH TELEHEALTH INSTALLED AT [facility] [place], RN TO VISIT 2-3 X A WEEK FOR 4 WEEKS ESTABLISHED BY PATIENT NEEDS. LABORATORY: CBC, CMP TO BE DRAWN ON THE THIRD DAY HOME, (RAN STAT) FAX RESULTS TO [phone]. TELEHEALTH PARAMETERS: WEIGHT: NOTIFY MD OF WEIGHT GAIN OF 2 LBS IN 24 HOURS OR 5 LBS IN ONE WEEK HR: NOTIFY MD OF HR <55 BPM OR HR>100 BPM BP: NOTIFY MD IF BP <90/55 OR BP>140/100 O2 SAT: NOTIFY MD IF PO2<93% ON ROOM AIR SEND TELEHEALTH REPORT TO ROTO GRAVURE PRESS OPERATOR AND CARDIOVASCULAR SURGEON THE FIRST WEEK OF CARE AND THEN BI-WEEKLY. PLEASE ADDITIONALLY COMMUNICATE ANY ABNORMALS AND NEW FINDINGS TO THE SURGEONS OFFICE. Discharge Disposition: HOME WITH HOME HEALTH SERVICES
[2023-03-18] MEDS ORDERED: DAPAGLIFLOZIN PROPANEDIOL 5 MG TABLET PO SCH (09:00)
--- NOTE | 2023-03-18 16:31 | CDI ---
Documentation Clarification Form Date: 03/18/2023 04:15:14 PM From: Hilda Serna Phone: Admit Date: 03/10/2023 05:33:00 AM Patient Name: Panchito Vu Visit Number: [id number] Discharge Date: 03/17/2023 06:16:00 PM ATTENTION: The Clinical Documentation Specialists (CDI) and [facility] Coding Staff appreciate your assistance in clarifying documentation. Please respond to the clarification below the line at the bottom and electronically sign. The CDI & [facility] Coding staff will review the response and follow-up if needed. Please note: Queries are made part of the Legal Health Record. If you have any questions, please contact the author of this message via ITS. Dr. Jonathan Grewal Your patient is receiving the following: insulin drip. Please clarify what condition/diagnosis is being treated. History/Risk Factors: 77yo M, SevereMR, tornchordae to P2 of the posterior leaflet, HTN, HLD, DMII, Hx CT, ACDHF, persistent A Fib, cigar/pipe smoker, RLD w asthma, Hx TIA, BICA stenosis, ABLA, DENISSE, PHTN, liver congestion Clinical indicators: blood sugars running between 114 and 243; A1C 7.5% Treatment: insulin drip Home medications: Glimepiride 1 mg PO SARAH; Pioglitazone 30 mg PO DAILY; metformin HCL ER 750 mg PO BID What diagnosis are you treating with insulin drip? [ x ] Type 2 diabetes mellitus with hyperglycemia [x ] Present on Admission [ ] Developed during stay [ ] No additional diagnosis [ ] Other, please specify [ ] Unable to determine (Template Last Reviewed: July 2020) MTDD
== END 2023-03-17 18:16 | disposition home health service (06) | DRG 219 ==
LOC: 2ORMAIN 05:33 → 2SICU 12:29 → 3SCARD 03-15 14:15
PROVIDERS: ADMIT Thoracic Surgery (Cardiothoracic Vascular Surgery); ATTEND Thoracic Surgery (Cardiothoracic Vascular Surgery)
PROC: 02L70CK Occlusion of Left Atrial Appendage with Extraluminal Device, Open Approach (ICD-10-PCS; 2023-03-10)
PROC: B24BZZ4 Ultrasonography of Heart with Aorta, Transesophageal (ICD-10-PCS; 2023-03-10)
PROC: 5A1221Z Performance of Cardiac Output, Continuous (ICD-10-PCS; 2023-03-10)
PROC: 30233J1 Transfusion of Nonautologous Serum Albumin into Peripheral Vein, Percutaneous Approach (ICD-10-PCS; 2023-03-10)
PROC: 3E033XZ Introduction of Vasopressor into Peripheral Vein, Percutaneous Approach (ICD-10-PCS; 2023-03-10)
PROC: 02U Heart and Great Vessels, Supplement (ICD-10-PCS; principal; 2023-03-10 08:00)
PROC: 0D9670Z Drainage of Stomach with Drainage Device, Via Natural or Artificial Opening (ICD-10-PCS; 2023-03-11)
PROC: 30233N1 Transfusion of Nonautologous Red Blood Cells into Peripheral Vein, Percutaneous Approach (ICD-10-PCS; 2023-03-14)
DX: I34.0 Nonrheumatic mitral (valve) insufficiency (principal); I50.33 Acute on chronic diastolic (congestive) heart failure; J96.20 Acute and chronic respiratory failure, unspecified whether with hypoxia or hypercapnia; I51.1 Rupture of chordae tendineae, not elsewhere classified; N17.9 Acute kidney failure, unspecified; I48.19 Other persistent atrial fibrillation; K56.7 Ileus, unspecified; D62 Acute posthemorrhagic anemia; I97.190 Other postprocedural cardiac functional disturbances following cardiac surgery; I27.22 Pulmonary hypertension due to left heart disease; I49.5 Sick sinus syndrome; I11.0 Hypertensive heart disease with heart failure; E11.65 Type 2 diabetes mellitus with hyperglycemia; I95.89 Other hypotension; K76.1 Chronic passive congestion of liver; I34.1 Nonrheumatic mitral (valve) prolapse; J45.20 Mild intermittent asthma, uncomplicated; R31.0 Gross hematuria; I65.23 Occlusion and stenosis of bilateral carotid arteries; R53.81 Other malaise; E78.5 Hyperlipidemia, unspecified; I69.912 Visuospatial deficit and spatial neglect following unspecified cerebrovascular disease; I25.10 Atherosclerotic heart disease of native coronary artery without angina pectoris; E55.9 Vitamin D deficiency, unspecified; J98.4 Other disorders of lung; E87.5 Hyperkalemia; I25.2 Old myocardial infarction; Y83.2 Surgical operation with anastomosis, bypass or graft as the cause of abnormal reaction of the patient, or of later complication, without mention of misadventure at the time of the procedure; Y92.234 Operating room of hospital as the place of occurrence of the external cause; Z87.891 Personal history of nicotine dependence; Z82.49 Family history of ischemic heart disease and other diseases of the circulatory system; Z98.1 Arthrodesis status; Z79.899 Other long term (current) drug therapy; Z79.84 Long term (current) use of oral hypoglycemic drugs; Z79.01 Long term (current) use of anticoagulants; Z87.01 Personal history of pneumonia (recurrent)
CPT/HCPCS: 71045; 71046; 80053; 80069; 82330; 82805; 83036; 83735; 84132; 85025; 85027; 85610; 85730; 86850; 86891; 86900; 86901; 86920; 88305; 94002; 94640; 94760

== ENCOUNTER → 2023-03-21 | Outpatient (CLI) | payer MEDICARE ==
--- NOTE | 2023-03-21 14:22 | XR ---
EXAMINATION TYPE: XR chest 2V DATE OF EXAM: 03/21/2023 COMPARISON: 03/17/2023 TECHNIQUE: PA and lateral views submitted. HISTORY: Shortness of breath FINDINGS: No pneumothorax. Osseous structures demonstrate hypertrophic and degenerative changes of the spine. P oststernotomy changes. Metallic density overlying the left axilla. Postoperative change mediastinum. Metallic density overlying the soft tissues of the left axilla. Arthropathy of the shoulders. IMPRESSION: 1. Left basilar infiltrate and small effusion stable. 2. Metallic density could be superficial overlying the left axilla correlate clinically to exclude fo reign body.
== END | disposition home or self-care (01) ==
LOC: RADXRMAIN 13:46
PROVIDERS: ATTEND Thoracic Surgery (Cardiothoracic Vascular Surgery)
DX: J90 Pleural effusion, not elsewhere classified (principal); R91.8 Other nonspecific abnormal finding of lung field
CPT/HCPCS: 71046

== ENCOUNTER → 2023-04-14 | Outpatient (CLI) | payer MEDICARE ==
--- NOTE | 2023-04-14 13:47 | XR ---
EXAMINATION TYPE: XR chest 2V DATE OF EXAM: 04/14/2023 COMPARISON: 03/21/2023 TECHNIQUE: PA and lateral views submitted. HISTORY: Postop FINDINGS: Poststernotomy changes. Left lower lobe infiltrate with tiny effusion. Heart size normal and no overt failure. Osseous structures demonstrate hypertrophic and degenerative changes of the spine. Metallic density overlying the left axilla soft tissue suspicious for foreign body. IMPRESSION: 1. Left lower lobe infiltrate\atelectasis with tiny pleural effusion..
== END | disposition home or self-care (01) ==
LOC: RADXRMAIN 13:30
PROVIDERS: ATTEND Thoracic Surgery (Cardiothoracic Vascular Surgery)
DX: J90 Pleural effusion, not elsewhere classified (principal); J98.11 Atelectasis; R91.8 Other nonspecific abnormal finding of lung field
CPT/HCPCS: 71046

== ENCOUNTER 2023-07-15 07:51 | Day surgery (SDC) | payer MEDICARE ==
[2023-07-15] MEDS: SODIUM CHLORIDE 0.9% 1,000 ML IV ONE (08:09)
[2023-07-15 08:28] LABS: Glucose,Whole Blood 154 mg/dL (70-110)
[2023-07-15 08:32] LABS: Anisocytosis Slight; Basophils # (A) 0.1 k/uL (0-0.2); Basophils % (A) 1 %; Eosinophils # (A) 0.2 k/uL (0-0.7); Eosinophils % (A) 2 %; HCT 38.5 % (39.0-53.0); HGB 12.1 gm/dL (13.0-17.5); Hypochromasia Moderate; Lymphocytes % (A) 25 %; MCHC 31.3 g/dL (31.0-37.0); Mean Platelet Volume 8.5; Monocytes # (A) 0.6 k/uL (0-1.0); Monocytes % (A) 7 %; Neutrophils % (A) 62 %; Platelet Count 259 k/uL (150-450); RBC 4.64 m/uL (4.30-5.90); RDW 17.6 % (11.5-15.5); WBC 8.1 k/uL (3.8-10.6)
[2023-07-15 08:54] LABS: ALT 25 U/L (4-49); AST 37 U/L (17-59); African American GFR (CKD) 89 (>60 ml/min/1.73 sqM); Albumin 4.6 g/dL (3.5-5.0); Alkaline Phosphatase 73 U/L (38-126); Anion Gap 11 mmol/L; Blood Urea Nitrogen 26 mg/dL (9-20); Calcium 9.3 mg/dL (8.4-10.2); Carbon Dioxide 24 mmol/L (22-30); Chloride 104 mmol/L (98-107); Glucose 157 mg/dL (74-99); Non-African American GFR(CKD) 77 (>60 ml/min/1.73 sqM); Sodium 139 mmol/L (137-145); Total Bilirubin 0.8 mg/dL (0.2-1.3); Total Protein 7.9 g/dL (6.3-8.2)
[2023-07-15 08:56] LABS: Potassium 4.9 mmol/L (3.5-5.1)
[2023-07-15 10:32] LABS: T4, Free (Free Thyroxine) 1.28 ng/dL (0.78-2.19)
[2023-07-15] MEDS ORDERED: HEPARIN SODIUM,PORCINE 10,000 UNIT/ML 1 ML VIAL ONE (10:44)
[2023-07-15] MEDS ORDERED: DEXAMETHASONE SOD PHOSPHATE 4 MG/ML 1 ML VIAL ONE (10:44)
[2023-07-15] MEDS ORDERED: MIDAZOLAM 2 MG/2 ML VIAL ONE (10:44)
[2023-07-15] MEDS ORDERED: LIDOCAINE 1% INJ 10MG/ML (20 ML MDV) ONE ×2 (10:44→11:19)
[2023-07-15] MEDS ORDERED: ePHEDrine 50 MG/ML 1 ML VIAL ONE (10:44)
[2023-07-15] MEDS ORDERED: ROCURONIUM 10 MG/ML (5 ML VIAL) IV ONE (10:44)
[2023-07-15] MEDS ORDERED: SUCCINYLCHOLINE CHLORIDE 200 MG/10 ML VIAL IV ONE (10:44)
[2023-07-15] MEDS ORDERED: ONDANSETRON 4 MG/2 ML VIAL ONE (10:44)
[2023-07-15] MEDS ORDERED: fentaNYL (PF) 50 MCG/ML 2 ML AMP ONE (10:44)
[2023-07-15] MEDS ORDERED: PROPOFOL 10 MG/ML 20 ML VIAL IV ONE (10:44)
[2023-07-15] MEDS ORDERED: ceFAZolin 1 GM/50 ML BAG (PMX) ONE (10:44)
[2023-07-15] MEDS ORDERED: HEPARIN SODIUM,PORCINE 5,000 UNIT/ML 1 ML VIAL ONE (10:44)
[2023-07-15] MEDS ORDERED: PHENYLEPHRINE 10 MG/ML VIAL ONE (10:44)
[2023-07-15] MEDS: HEPARIN SOD,PORK IN 0.45% NACL 25,000 UNIT in 0.45% NACL 1 250ML.BAG IV ONE (11:25)
[2023-07-15] MEDS: LIDOCAINE 1% INJ 10MG/ML (20 ML MDV) SQ ONE (11:31)
[2023-07-15] MEDS: ACETAMINOPHEN IV (For NPO) 1,000 MG/100 ML VIAL IVPB ONE (12:34)
[2023-07-15] MEDS ORDERED: HEPARIN SODIUM 1,000 UN/ML (10ML VL) ONE (12:35)
[2023-07-15] MEDS: IOPAMIDOL-370 100ML BTL INJ ONE (13:00)
[2023-07-15] MEDS: HEPARIN SODIUM (1,000 UNIT/ML) 1,000 UNIT in SODIUM CHLORIDE 0.9% 1,000 ML IRRIGATION ONE (13:02)
[2023-07-15] MEDS ORDERED: FUROSEMIDE 40 MG TAB PO PRN (15:05)
[2023-07-15] MEDS ORDERED: ACETAMINOPHEN TAB 325 MG TAB PO PRN (15:08)
--- NOTE | 2023-07-15 15:18 | P.EPPROC ---
- EP Procedure Note Electrophysiology Procedure Note: PROCEDURE A. fib ablation with PVI and left atrial roof ablation, left atrial septal ablation Typical atrial flutter ablation Termination of atrial flutter to sinus rhythm DIAGNOSIS Paroxysmal atrial fibrillation, symptomatic, refractory to therapy Sustained symptomatic atrial flutter RESULT Large left atrial appendage despite atrial clip device implanted intraoperatively Biatrial enlargement, on left-sided pulmonary veins Successful A. fib ablation/pulmonary vein isolation of all veins using cryo- ablation Complete entrance block in all 4 veins confirmed Left atrial roof ablation Successful ablation of the cavotricuspid isthmus with termination to sinus rhythm No evidence for phrenic nerve injury Esophageal deflection NO PROCEDURE DETAILS Written informed consent prior to procedure. Patient brought to the EP lab. General anesthesia given. Heparin administered. A city maintained above 300 seconds Both groins prepped and draped per protocol and venous sheaths placed. Esophagus intubated, circa catheter for temperature monitoring an endoscope for possible esophageal deflection. Phrenic nerve monitoring performed. Esophageal temperature monitoring performed. Esophageal deflection performed if circa catheter overlapping with the balloon or circa temperature less than 27.5C Intracardiac echocardiography performed. Pericardium evaluated. Left atrial appendage evaluated. Left atrium evaluated along with pulmonary veins Transseptal catheterization performed under fluoroscopic guidance and intracardiac echo guidance Cryoablation sheath exchanged, balloon catheter along with achieve catheter placed in the left atrium. Pulmonary veins isolated in the following sequence: Left superior pulmonary vein followed by left inferior pulmonary vein, followed by right inferior pulmonary vein and lastly right superior pulmonary vein. Phrenic nerve stimulation along with capture thresholds within the SVC and right superior pulmonary vein to identify the phrenic nerve proximity to the cryo- balloon. Pulmonary veins isolated and confirmed with entrance and exit block. Phrenic nerve integrity confirmed at the end of the procedure Ablation of the left atrial roof performed with sequential lesions from the left superior to the right superior pulmonary veins. Ablation of the electrograms confirmed Ablation of the left atrial septum performed with cannulation of the superior branch of the right inferior to achieve ablation of the posterior septum of the left atrium. Ablation of electrograms confirmed Mapping of the left atrium and right atrium Entrainment mapping confirmed cavotricuspid isthmus dependency Ablation of the cavotricuspid isthmus resulted in termination of typical atrial flutter Complete RF line of block was made with confirmed bidirectional block with differential pacing Diagnostic catheters for the high right atrium, His bundle, coronary sinus placed. LA and RA pressures recorded RA pressure: 27/6/18 LA pressure: 17/10/10 Diagnostic EP study with coronary sinus pacing and recording. In sinus rhythm Baseline measurements: Sinus cycle length 890 ms, AK interval 223 ms, QRS 133 ms and QT interval 466 ms Right bundle branch block morphology at baseline Venous sheaths were removed and hemostasis assured with a closure device. Patient extubated and transferred to recovery PROCEDURES PERFORMED Diagnostic EP study CS pacing and recording Left and right transseptal catheterization Catheter the mapping of the tachycardia Intracardiac echocardiography Pulmonary vein isolation with transseptal and comprehensive EPS, [id number] Left atrial roof line, [id number] Linear ablation, left atrium, +[id number] Ablation for typical atrial flutter, cavotricuspid
[2023-07-15 15:21] LABS: Glucose,Whole Blood 185 mg/dL (70-110)
[2023-07-15] MEDS: SODIUM CHLORIDE 0.9% 1,000 ML IV SCH (16:36)
[2023-07-15] MEDS: ACETAMINOPHEN IV (For NPO) 1,000 MG in EMPTY BAG 1 BAG IVPB ONE (16:53)
[2023-07-15] MEDS: ATORVASTATIN 20 MG TAB PO SCH (16:55)
[2023-07-15] MEDS: RIVAROXABAN 20 MG TAB PO SCH (16:55)
[2023-07-16 08:00] VITALS: BP 120/71; PULSE 81; RESP 14; TEMP 98.3
--- NOTE | 2023-07-16 08:02 | P.DS ---
Providers Attending physician: Volodymyr Velazco Primary care physician: Jonathan Grewal [facility] Hospital Course: Patient is doing well. 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 Patient has had a history of stroke He had surgery in March 2023 and therefore aspirin may be discontinued Continue other cardiac medications Discontinue flecainide Repeat TSH in 3 months Patient Condition at Discharge: Stable Plan - Discharge Summary Discharge Rx Participant: No New Discharge Prescriptions: Discontinued Isosorbide Mononitrate ER [Imdur] 15 mg PO DAILY Flecainide [Tambocor] 50 mg PO BID No Action Albuterol Inhaler [Ventolin Hfa Inhaler] 1 puff INHALATION RT-Q4H PRN PRN Reason: Shortness Of Breath Atorvastatin [Lipitor] 20 mg PO W/SUPPER Rivaroxaban [Xarelto] 20 mg PO W/SUPPER Cholecalciferol [Vitamin D3 (25 Mcg = 1000 Iu)] 25 mcg PO DAILY Cyanocobalamin (Vitamin B-12) [Vitamin B-12] 1,000 mcg PO DAILY Aspirin 81 mg PO DAILY #30 tab metFORMIN HCL [Glucophage] 850 mg PO BID-W/MEALS #60 tab Metoprolol Tartrate [Lopressor] 50 mg PO BID Losartan [Cozaar] 25 mg PO DAILY Pioglitazone HCl 30 mg PO DAILY Co Q 10 (Unk) 100 mg PO DAILY Acetaminophen Tab [Tylenol] 650 mg PO Q4HR PRN tab PRN Reason: Fever And/ Or Pain Furosemide [Lasix] 40 mg PO DAILY PRN PRN Reason: Edema Multivitamins, Thera [Multivitamin (formulary)] 1 tab PO DAILY Glimepiride 1 mg PO DAILY Discharge Medication List Albuterol Inhaler [Ventolin Hfa Inhaler] 1 puff INHALATION RT-Q4H PRN 10/07/14 [History] Atorvastatin [Lipitor] 20 mg PO W/SUPPER 12/13/15 [History] Rivaroxaban [Xarelto] 20 mg PO W/SUPPER 02/13/23 [History] Cholecalciferol [Vitamin D3 (25 Mcg = 1000 Iu)] 25 mcg PO DAILY 03/05/23 [History] Cyanocobalamin (Vitamin B-12) [Vitamin B-12] 1,000 mcg PO DAILY 03/05/23 [History] Acetaminophen Tab [Tylenol] 650 mg PO Q4HR PRN tab 03/17/23 [Rx] Aspirin 81 mg PO DAILY #30 tab 03/17/23 [Rx] metFORMIN HCL [Glucophage] 850 mg PO BID-W/MEALS #60 tab 03/17/23 [Rx] Co Q 10 (Unk) 100 mg PO DAILY 07/10/23 [History] Furosemide [Lasix] 40 mg PO DAILY PRN 07/10/23 [History] Glimepiride 1 mg PO DAILY 07/10/23 [History] Losartan [Cozaar] 25 mg PO DAILY 07/10/23 [History] Metoprolol Tartrate [Lopressor] 50 mg PO BID 07/10/23 [History] Multivitamins, Thera [Multivitamin (formulary)] 1 tab PO DAILY 07/10/23 [History] Pioglitazone HCl 30 mg PO DAILY 07/10/23 [History] Follow up Appointment(s)/Referral(s): Volodymyr Velazco MD [STAFF PHYSICIAN] - 1 Week Activity/Diet/Wound Care/Special Instructions: Post EP study - Ablation instructions 1. Keep access sites dry for 2 days. 2. No heavy lifting or straining for 2 days. 3. Avoid bending the hips repeatedly for 2 days. 4. You may go up and down stairs slowly Call if the following is noted 1. Bleeding, increasing swelling or pain at the access sites. 2. Increasing chest discomfort, especially upon taking a deep breath. 3. Increasing shortness of breath, at rest or with exertion. 4. Undue cough / phlegm 5. Difficulty or pain while swallowing. 6. Pain or change in color in the extremities. 7. Fever, chills, rigors. 8. Increasing headache or neurologic symptoms. 9. Dizziness, fainting, palpitations Stop Imdur Stop flecainide Discharge Disposition: HOME SELF-CARE
[2023-07-16 08:56] LABS: ALT 20 U/L (10-49); AST 57 U/L (14-35); Albumin/Globulin Ratio 1.67 Ratio (1.60-3.17); Alkaline Phosphatase 68 U/L (41-126); BUN/Creat Ratio 22.79 Ratio (12.00-20.00); Blood Urea Nitrogen 31.9 mg/dL (9.0-27.0); Calcium 8.7 mg/dL (8.7-10.3); Carbon Dioxide 24.2 mmol/L (21.6-31.8); Chloride 100 mmol/L (96-109); Globulin 2.4 g/dL (1.6-3.3); Glucose 304 mg/dL (70-110); Potassium 5.2 mmol/L (3.5-5.5); Sodium 135 mmol/L (135-145); Total Bilirubin 0.5 mg/dL (0.3-1.2); Total Protein 6.4 g/dL (6.2-8.2)
[2023-07-16] MEDS: ASPIRIN 81 MG PO SCH (08:57)
[2023-07-16] MEDS: GLIMEPIRIDE 1 MG TAB PO SCH (08:58)
[2023-07-16] MEDS: LOSARTAN 25 MG TAB PO SCH (08:58)
[2023-07-16] MEDS: PIOGLITAZONE 30 MG TAB PO SCH (08:58)
== END 2023-07-16 10:12 | disposition home or self-care (01) ==
LOC: CATHEP 07:51 → 6NMEDSUR 14:33 → CATHEP 07-16 10:12
PROVIDERS: ATTEND Internal Medicine Clinical Cardiac Electrophysiology
DX: I48.0 Paroxysmal atrial fibrillation (principal); I48.92 Unspecified atrial flutter; I10 Essential (primary) hypertension; E11.9 Type 2 diabetes mellitus without complications; I42.9 Cardiomyopathy, unspecified; I34.0 Nonrheumatic mitral (valve) insufficiency; F17.210 Nicotine dependence, cigarettes, uncomplicated; Z86.73 Personal history of transient ischemic attack (TIA), and cerebral infarction without residual deficits; Z79.82 Long term (current) use of aspirin; Z79.01 Long term (current) use of anticoagulants; Z79.84 Long term (current) use of oral hypoglycemic drugs; Z79.899 Other long term (current) drug therapy; Z98.890 Other specified postprocedural states
CPT/HCPCS: 93655; 93656; 93657; 86900; 86901; 84439; 80053 ×2; 84443; 85025; 86850; C1759; C1894 ×2; C1769 ×3; C1760; C1730 ×2; C1731; C1893; C1733; C1766; C1732; J2001; J1644 ×2; J0131; Q9967

== ENCOUNTER → 2023-07-22 | Outpatient (CLI) | payer MEDICARE ==
--- NOTE | 2023-07-23 09:23 | MR ---
EXAMINATION TYPE: MR brain wo con DATE OF EXAM: 07/22/2023 COMPARISON: 06/06/2015 HISTORY: 78-year-old male H53.461, right eye vision loss, visual defect. TECHNIQUE: Multiplanar, multisequence images of the brain and brainstem were acquired without IV con trast. Diffusion weighted imaging is performed. FINDINGS: No evidence for acute infarction, hemorrhage, mass, mass effect, midline shift, herniation, effacemen t of basal cisterns, or extra-axial fluid collection. There is moderate generalized supratentorial volume loss with sulcal prominence and mild ventricular prominence as well. Major intracranial flow voids are intact. T2/FLAIR weighted sequences show moderate to severe patchy and confluent burden of bright signal rocha ge throughout the subcortical, deep, and periventricular regions of both cerebral hemispheres. Patchy increased signal is also present within the right paramedian cathleen and inferior left occipital cortex . Midline structures demonstrate normal morphology. The craniocervical junction is normal. Mild mucosal thickening ethmoid air cells. Globes are intact. Small amount of fluid in the right mast oid air cells. IMPRESSION: 1. Chronic T2 bright white matter changes, moderate to severe burden in both cerebral hemispheres. Sl ight interval progression from 06/06/2015. Likely slight progression in extensive changes of chronic sm all vessel ischemic disease. Clinically correlate for other possible etiologies such as uncontrolled long-standing hypertension, demyelinating disease, or vasculitis such as Lyme's disease. 2. No acute intracranial abnormality seen.
== END | disposition home or self-care (01) ==
LOC: RADMRIMAIN 11:17
PROVIDERS: ATTEND Ophthalmology
DX: H53.461 Homonymous bilateral field defects, right side (principal); H53.8 Other visual disturbances
CPT/HCPCS: 70551

== ENCOUNTER → 2023-07-26 | Outpatient (CLI) | payer MEDICARE ==
[2023-07-26 22:24] LABS: C Reactive Protein <0.30 mg/dL (0.00-0.80)
[2023-08-02 01:39] LABS: Lysozyme, Serum or Body Fluid 11.3 mcg/mL (5.0-11.0)
== END | disposition home or self-care (01) ==
LOC: LABWHC1 10:15
PROVIDERS: ATTEND Optometrist
DX: H53.461 Homonymous bilateral field defects, right side (principal)
CPT/HCPCS: 36415; 82164; 85549; 85652; 86140; 86255; 86618

== ENCOUNTER 2023-07-31 10:32 | Inpatient (IN) | payer MEDICARE ==
[2023-07-31] MEDS ORDERED: RX INFO: IV CONTRAST WAS GIVEN 1 EACH MISC MISCELLANE PRN (11:54)
[2023-07-31] MEDS: SODIUM CHLORIDE 0.9% 500 ML 500 ML IV STA (12:06)
[2023-07-31] MEDS: SODIUM CHLORIDE 0.9% 1,000 ML IV STA (12:06)
[2023-07-31 12:15] LABS: Anisocytosis Slight; Basophils % (A) 0 %; Eosinophils % (A) 0 %; HCT 35.3 % (39.0-53.0); HGB 11.6 gm/dL (13.0-17.5); Lymphocytes # (A) 0.7 k/uL (1.0-4.8); Lymphocytes % (A) 19 %; MCH 27.3 pg (25.0-35.0); MCHC 32.9 g/dL (31.0-37.0); Mean Platelet Volume 7.9; Monocytes # (A) 0.4 k/uL (0-1.0); Monocytes % (A) 9 %; Neutrophils # (A) 2.7 k/uL (1.3-7.7); Neutrophils % (A) 68 %; Platelet Count 192 k/uL (150-450); RBC 4.25 m/uL (4.30-5.90); RDW 18.2 % (11.5-15.5); WBC 3.9 k/uL (3.8-10.6)
[2023-07-31 12:28] LABS: ALT 17 U/L (4-49); AST 29 U/L (17-59); African American GFR (CKD) >90 (>60 ml/min/1.73 sqM); Albumin 3.8 g/dL (3.5-5.0); Alkaline Phosphatase 71 U/L (38-126); Anion Gap 8 mmol/L; Blood Urea Nitrogen 20 mg/dL (9-20); Calcium 8.8 mg/dL (8.4-10.2); Carbon Dioxide 25 mmol/L (22-30); Chloride 100 mmol/L (98-107); Glucose 85 mg/dL (74-99); INR 1.1 (<1.2); Magnesium 1.7 mg/dL (1.6-2.3); Non-African American GFR(CKD) 85 (>60 ml/min/1.73 sqM); Partial Thromboplastin Time 26.6 sec (22.0-30.0); Potassium 4.5 mmol/L (3.5-5.1); Prothrombin Time 12.3 sec (10.0-12.5); Sodium 133 mmol/L (137-145); Total Bilirubin 1.1 mg/dL (0.2-1.3); Total Protein 6.5 g/dL (6.3-8.2)
[2023-07-31 12:34] LABS: NT-Pro-B-Type Natriuretic Pept 6700 pg/mL
--- NOTE | 2023-07-31 13:50 | CT ---
EXAMINATION TYPE: CT chest w con DATE OF EXAM: 07/31/2023 COMPARISON: None HISTORY: HEMOPTYSIS, COUGH, CT DLP: 604.3 mGycm, Automated exposure control for dose reduction was used. CONTRAST: Performed injected with 100 ml mL of Isovue 300. TECHNIQUE: Axial images were obtained at 5 mm thick sections. Reconstructed images are reviewed on [facility] computer in the coronal plane. FINDINGS: Portion of the thyroid visualized is normal. There is a posterior right lung base calcification measuring 0.7 cm. Small left pleural effusion is p resent. Scattered areas of pneumonitis within the anterior right upper lung field, example image series 305 i mage 22. Some mild nonspecific infiltrate is in the left infrahilar region, example image 305 image 2 8. There is a small consolidation in the posterior lateral left lung base. Correlate for pneumonia. A 0 .6 cm nodular densities within the lateral left lung base, series 305, image 36. Pneumonia and lung n odules are within the differential. There are multiple small lymph nodes within the pretracheal mediastinal spaces. There is an enlarged pretracheal node measuring 1.5 cm in the lower pretracheal space. Calcified subcarinal adenopathy is present. Additional small lymph nodes are present in the subcarinal region. Small bilateral hilar ly mph nodes are present. The ascending aorta diameter at the level of the main pulmonary artery is 3.5 cm. The main pulmonary artery diameter at the bifurcation is 3.[address] sections are obtained through the upper abdomen. Multiple calcified granulomata within the spleen. IMPRESSION: 1. Scattered areas of infiltrate. Correlate for pneumonia. Some underlying nodularity may be at the l eft base. Follow-up is recommended. 2. There is an enlarged 1.5 cm pretracheal lymph node with additional multiple smaller nodes within [facility] mediastinum.
--- NOTE | 2023-07-31 13:57 | ED ---
SOB HPI - General Chief Complaint: Shortness of Breath Stated Complaint: COUGH/WEAKNESS Time Seen by Provider: 07/31/23 10:40 Source: patient Mode of arrival: ambulatory Limitations: no limitations - History of Present Illness Initial Comments: 78-year-old male with past medical history of A-fib status post cardiac ablation on Xarelto, diabetes, hypertension who presents to the emergency department with hemoptysis. Patient reports that he has been coughing up blood for 1 week. States it is bright red in color. He has also had some myalgias. His states that she has had some infectious symptoms as well. Patient denies any chest pain or shortness of breath. He does have a history of an ablation by Dr. Trevino. He was on flecainide but was taken off when he had his ablation. Patient arrives and is back in A-fib. He denies any nausea or vomiting. Has had some groin pain since his valve surgery last year. Patient has also had chronic diarrhea. Denies black or bloody stools. No other alleviating, precipitating or modifying factors - Related Data Home Medications Medication Instructions Recorded Confirmed Albuterol Inhaler [Ventolin Hfa 1 puff INHALATION RT-Q4H PRN 10/07/14 07/31/23 Inhaler] Atorvastatin [Lipitor] 20 mg PO W/SUPPER 12/13/15 07/31/23 Rivaroxaban [Xarelto] 20 mg PO DAILY 02/13/23 07/31/23 Cholecalciferol [Vitamin D3 (25 50 mcg PO DAILY 03/05/23 07/31/23 Mcg = 1000 Iu)] Cyanocobalamin (Vitamin B-12) 1,000 mcg PO DAILY 03/05/23 07/31/23 [Vitamin B-12] Glimepiride 1 mg PO DAILY 07/10/23 07/31/23 Losartan [Cozaar] 12.5 mg PO DAILY 07/10/23 07/31/23 Pioglitazone HCl 30 mg PO DAILY 07/10/23 07/31/23 Dapagliflozin Propanediol [Farxiga] 10 mg PO DAILY 07/31/23 07/31/23 Metoprolol Tartrate [Lopressor] 50 mg PO BID 07/31/23 07/31/23 Multivit-Mins/Iron/Folic/Lycop 1 tab PO DAILY 07/31/23 07/31/23 [Centrum Men's Tablet] Tamsulosin HCl [Flomax] 0.4 mg PO DAILY 07/31/23 07/31/23 Ubidecarenone [Coenzyme Q10] 200 mg PO DAILY 07/31/23 07/31/23 Previous Rx's Medication Instructions Recorded metFORMIN HCL [Glucophage] 850 mg PO BID-W/MEALS #60 tab 03/17/23 Allergies Allergy/AdvReac Type Severity Reaction Status Date / Time No Known Allergies Allergy Verified 07/31/23 15:12 Review of Systems ROS Statement: Those systems with pertinent positive or pertinent negative responses have been documented in the HPI. ROS Other: All systems not noted in ROS Statement are negative. Past Medical History Past Medical History: Atrial Fibrillation, Atrial Flutter, Asthma, Cancer, CVA/TIA, Diabetes Mellitus, Hyperlipidemia, Hypertension, Myocardial Infarction (ME) Additional Past Medical History / Comment(s): herniated disks in back. tia post back surgery slight short term memory issue rt side visual blind spot, mole on neck positive for ca. See dr Velazco's H & P Last Myocardial Infarction Date:: 2013 History of Any Multi-Drug Resistant Organisms: None Reported Past Surgical History: Appendectomy, Back Surgery, Cardiac Valve Replacement, Orthopedic Surgery Additional Past Surgical History / Comment(s): bilat arm fractures with surg. repair, bilateral knee surgery, right hip bone graft. Colonoscopy with polp removal. lumbar fusion Past Anesthesia/Blood Transfusion Reactions: Previous Problems w/ Anesthesia Additional Past Anesthesia/Blood Transfusion Reaction / Comment(s): Becomes combative with anesthesia. has confusion after anesthesia Past Psychological History: No Psychological Hx Reported Smoking Status: Never smoker - Past Family History Father Family Medical History: Congestive Heart Failure (CHF), Coronary Artery Disease (CAD), Diabetes Mellitus Additional Family Medical History / Comment(s): at age 75 Mother Family Medical History: Cancer Additional Family Medical History / Comment(s): cervical cancer Brother(s) Family Medical History: Cancer Additional Family Medical History / Comment(s): liver and prostrate cancer. General Exam Limitations: no limitations General appearance: alert, in no apparent distress Head exam: Present: atraumatic, normocephalic, normal inspection Eye exam: Present: normal appearance, PERRL, EOMI. Absent: scleral icterus, conjunctival injection, periorbital swelling ENT exam: Present: normal exam, mucous membranes moist Neck exam: Present: normal inspection. Absent: tenderness, meningismus, lymphadenopathy Respiratory exam: Present: decreased breath sounds. Absent: respiratory distress, wheezes, rales, rhonchi, stridor Cardiovascular Exam: Present: tachycardia, irregular rhythm, normal heart sounds. Absent: systolic murmur, diastolic murmur, rubs, gallop, clicks GI/Abdominal exam: Present: soft, normal bowel sounds. Absent: distended, tenderness, guarding, rebound, rigid Extremities exam: Present: normal inspection, full ROM, normal capillary refill. Absent: tenderness, pedal edema, joint swelling, calf tenderness Back exam: Present: normal inspection Neurological exam: Present: alert, oriented X3, CN II-XII intact Psychiatric exam: Present: normal affect, normal mood Skin exam: Present: warm, dry, intact, normal color. Absent: rash Course Vital Signs 07/31/23 07/31/23 07/31/23 10:35 13:12 15:30 Temperature 98.5 F 98.8 F Pulse Rate 77 112 H 89 Respiratory 16 18 18 Rate Blood Pressure 96/68 99/66 107/69 O2 Sat by Pulse 91 L 94 L 96 Oximetry 07/31/23 07/31/23 07/31/23 16:00 17:00 18:46 Temperature 98.5 F Pulse Rate 112 H 97 114 H Respiratory 16 Rate Blood Pressure 113/70 105/74 96/56 O2 Sat by Pulse 93 L 94 L 95 Oximetry 07/31/23 07/31/23 07/31/23 19:44 20:30 23:00 Temperature Pulse Rate 79 85 Respiratory 18 18 Rate Blood Pressure 106/91 101/75 O2 Sat by Pulse 95 95 97 Oximetry 08/01/23 08/01/23 08/01/23 01:52 02:00 06:00 Temperature Pulse Rate 72 72 90 Respiratory 18 18 Rate Blood Pressure 96/66 109/86 O2 Sat by Pulse 97 99 Oximetry 08/01/23 08/01/23 08/01/23 07:00 08:00 09:00 Temperature Pulse Rate 105 H 107 H 110 H Respiratory Rate Blood Pressure 109/86 109/86 109/86 O2 Sat by Pulse 98 97 94 L Oximetry 08/01/23 08/01/23 10:00 12:14 Temperature Pulse Rate 118 H 110 H Respiratory 18 Rate Blood Pressure 102/81 105/77 O2 Sat by Pulse 92 L 95 Oximetry Medical Decision Making - Medical Decision Making Was pt. sent in by a medical professional or institution (SASKIA Hammond, THEATER EDUCATION TEACHER, urgent care, hospital, or usp...) When possible be specific @ -No Did you speak to anyone other than the patient for history (EMS, parent, family, police, friend...)? What history was obtained from this source @ -Spoke with the patient's Did you review nursing and triage notes (agree or disagree)? Why? @ -I reviewed and agree with nursing and triage notes Were old charts reviewed (outside hosp., previous admission, EMS record, old EKG, old radiological studies, urgent care reports/EKG's, usp records)? Report findings @ -I reviewed his procedure note from his ablation earlier this month Differential Diagnosis (chest pain, altered mental status, abdominal pain women, abdominal pain men, vaginal bleeding, weakness, fever, dyspnea, syncope, headache, dizziness, GI bleed, back pain, seizure, CVA, palpatations, mental health, musculoskeletal)? @ -Differential Dyspnea: Coronary syndrome, arrhythmia, tamponade, asthma, COPD, pulmonary embolism, p neumonia, pneumothorax, pulmonary effusion, anaphylaxis, diabetic ketoacidosis, flailed chest, pulmonary contusion, diaphragmatic rupture, anemia, neuromuscular, this is not meant to be an all-inclusive list. EKG interpreted by me (3pts min.). @ -Yes and demonstrates A-fib with a rate of 112. QRS 129. QTc of 418. No acute ST segment elevations or depressions X-rays interpreted by me (1pt min.). @ -None done CT interpreted by me (1pt min.). @ -Yes and demonstrates possible pneumonia U/S interpreted by me (1pt. min.). @ -None done What testing was considered but not performed or refused? (CT, X-rays, U/S, labs)? Why? @ -None What meds were considered but not given or refused? Why? @ -None Did you discuss the management of the patient with other professionals (professionals i.e. SASKIA Hammond, THEATER EDUCATION TEACHER, lab, RT, psych nurse, social services aide, smooth and burr worker composites, teacher, crime prevention police officer, family service caseworker)? Give summary @ -Spoke with Dr. Andres for admission Was smoking cessation discussed for >3mins.? @ -No Was critical care preformed (if so, how long)? @ -Yes, 35 minutes for management of A-fib with RVR Were there social determinants of health that impacted care today? How? (Homelessness, low income, unemployed, alcoholism, drug addiction, transportation, low edu. Level, literacy, decrease access to med. care, retirement, rehab)? @ -No Was there de-escalation of care discussed even if they declined (Discuss DNR or withdrawal of care, Hospice)? DNR status @ -No What co-morbidities impacted this encounter? (DM, HTN, Smoking, COPD, CAD, Cancer, CVA, ARF, Chemo, Hep., AIDS, mental health diagnosis, sleep apnea, morbid obesity)? @ -Congestive heart failure, A-fib status postcardiac ablation, mitral valve status postrepair Was patient admitted / discharged? Hospital course, mention meds given and r oute, prescriptions, significant lab abnormalities, going to OR and other pertinent info. @ -Admitted. Upon arrival patient is placed into room 18. Thorough history and physical exam was performed. Patient placed on continuous pulse ox and cardiac monitoring. Patient is in A-fib with RVR. Laboratory studies are conducted. CT was performed. Patient is on anticoagulation. I did give him 2.5 of Lopressor as patient is hypotensive and heart rate is only mildly elevated. CT demonstrates possible pneumonia. Blood cultures obtained and patient initiated on antibiotics. Recommended admission. Spoke with Dr. Andres who accepted admission Undiagnosed new problem with uncertain prognosis? @ -Yes Drug Therapy requiring intensive monitoring for toxicity (Heparin, Nitro, Insulin, Cardizem)? @ -No Were any procedures done? @ -No Diagnosis/symptom? @ -Acute dyspnea, possible pneumonia, A-fib with RVR Acute, or Chronic, or Acute on Chronic? @ -Acute Uncomplicated (without systemic symptoms) or Complicated (systemic symptoms)? @ -Complicated Side effects of treatment? @ -No Exacerbation, Progression, or Severe Exacerbation? @ -No Poses a threat to life or bodily function? How? (Chest pain, USA, ME, pneumonia, PE, COPD, DKA, ARF, appy, cholecystitis, CVA, Diverticulitis, Homicidal, Suicidal, threat to staff... and all critical care pts) @ -Yes as patient does arrive with elevated heart rate - Lab Data Result diagrams: 08/01/23 07:48 08/01/23 07:48 Lab Results 07/31/23 07/31/23 07/31/23 Range/Units 12:00 12:00 12:00 WBC 3.9 (3.8-10.6) k/uL RBC 4.25 L (4.30-5.90) m/uL Hgb 11.6 L (13.0-17.5) gm/dL Hct 35.3 L (39.0-53.0) % MCV 83.0 (80.0-100.0) fL MCH 27.3 (25.0-35.0) pg MCHC 32.9 (31.0-37.0) g/dL RDW 18.2 H (11.5-15.5) % Plt Count 192 (150-450) k/uL MPV 7.9 Neutrophils % 68 % Lymphocytes % 19 % Monocytes % 9 % Eosinophils % 0 % Basophils % 0 % Neutrophils # 2.7 (1.3-7.7) k/uL Lymphocytes # 0.7 L (1.0-4.8) k/uL Monocytes # 0.4 (0-1.0) k/uL Eosinophils # 0.0 (0-0.7) k/uL Basophils # 0.0 (0-0.2) k/uL Anisocytosis Slight PT 12.3 (10.0-12.5) sec INR 1.1 (<1.2) APTT 26.6 (22.0-30.0) sec Sodium 133 L (137-145) mmol/L Potassium 4.5 (3.5-5.1) mmol/L Chloride 100 (98-107) mmol/L Carbon Dioxide 25 (22-30) mmol/L Anion Gap 8 mmol/L BUN 20 (9-20) mg/dL Creatinine 0.84 (0.66-1.25) mg/dL Est GFR (CKD-EPI)AfAm >90 (>60 ml/min/1.73 sqM) Est GFR (CKD-EPI)NonAf 85 (>60 ml/min/1.73 sqM) Glucose 85 (74-99) mg/dL Plasma Lactic Acid Ronen (0.7-2.0) mmol/L Calcium 8.8 (8.4-10.2) mg/dL Magnesium 1.7 (1.6-2.3) mg/dL Total Bilirubin 1.1 (0.2-1.3) mg/dL AST 29 (17-59) U/L ALT 17 (4-49) U/L Alkaline Phosphatase 71 (38-126) U/L Troponin I (0.000-0.034) ng/mL NT-Pro-B Natriuret Pep 6700 pg/mL Total Protein 6.5 (6.3-8.2) g/dL Albumin 3.8 (3.5-5.0) g/dL Procalcitonin (0.02-0.09) ng/mL Influenza Type A (PCR) (Not Detectd) Influenza Type B (PCR) (Not Detectd) RSV (PCR) (Not Detectd) SARS-CoV-2 (PCR) (Not Detectd) 07/31/23 07/31/23 07/31/23 Range/Units 12:00 12:00 12:00 WBC (3.8-10.6) k/uL RBC (4.30-5.90) m/uL Hgb (13.0-17.5) gm/dL Hct (39.0-53.0) % MCV (80.0-100.0) fL MCH (25.0-35.0) pg MCHC (31.0-37.0) g/dL RDW (11.5-15.5) % Plt Count (150-450) k/uL MPV Neutrophils % % Lymphocytes % % Monocytes % % Eosinophils % % Basophils % % Neutrophils # (1.3-7.7) k/uL Lymphocytes # (1.0-4.8) k/uL Monocytes # (0-1.0) k/uL Eosinophils # (0-0.7) k/uL Basophils # (0-0.2) k/uL Anisocytosis PT (10.0-12.5) sec INR (<1.2) APTT (22.0-30.0) sec Sodium (137-145) mmol/L Potassium (3.5-5.1) mmol/L Chloride (98-107) mmol/L Carbon Dioxide (22-30) mmol/L Anion Gap mmol/L BUN (9-20) mg/dL Creatinine (0.66-1.25) mg/dL Est GFR (CKD-EPI)AfAm (>60 ml/min/1.73 sqM) Est GFR (CKD-EPI)NonAf (>60 ml/min/1.73 sqM) Glucose (74-99) mg/dL Plasma Lactic Acid Ronen 1.2 (0.7-2.0) mmol/L Calcium (8.4-10.2) mg/dL Magnesium (1.6-2.3) mg/dL Total Bilirubin (0.2-1.3) mg/dL AST (17-59) U/L ALT (4-49) U/L Alkaline Phosphatase (38-126) U/L Troponin I 0.014 (0.000-0.034) ng/mL NT-Pro-B Natriuret Pep pg/mL Total Protein (6.3-8.2) g/dL Albumin (3.5-5.0) g/dL Procalcitonin (0.02-0.09) ng/mL Influenza Type A (PCR) Not Detected (Not Detectd) Influenza Type B (PCR) Not Detected (Not Detectd) RSV (PCR) Not Detected (Not Detectd) SARS-CoV-2 (PCR) Not Detected (Not Detectd) 07/31/23 Range/Units 12:10 WBC (3.8-10.6) k/uL RBC (4.30-5.90) m/uL Hgb (13.0-17.5) gm/dL Hct (39.0-53.0) % MCV (80.0-100.0) fL MCH (25.0-35.0) pg MCHC (31.0-37.0) g/dL RDW (11.5-15.5) % Plt Count (150-450) k/uL MPV Neutrophils % % Lymphocytes % % Monocytes % % Eosinophils % % Basophils % % Neutrophils # (1.3-7.7) k/uL Lymphocytes # (1.0-4.8) k/uL Monocytes # (0-1.0) k/uL Eosinophils # (0-0.7) k/uL Basophils # (0-0.2) k/uL Anisocytosis PT (10.0-12.5) sec INR (<1.2) APTT (22.0-30.0) sec Sodium (137-145) mmol/L Potassium (3.5-5.1) mmol/L Chloride (98-107) mmol/L Carbon Dioxide (22-30) mmol/L Anion Gap mmol/L BUN (9-20) mg/dL Creatinine (0.66-1.25) mg/dL Est GFR (CKD-EPI)AfAm (>60 ml/min/1.73 sqM) Est GFR (CKD-EPI)NonAf (>60 ml/min/1.73 sqM) Glucose (74-99) mg/dL Plasma Lactic Acid Ronen (0.7-2.0) mmol/L Calcium (8.4-10.2) mg/dL Magnesium (1.6-2.3) mg/dL Total Bilirubin (0.2-1.3) mg/dL AST (17-59) U/L ALT (4-49) U/L Alkaline Phosphatase (38-126) U/L Troponin I (0.000-0.034) ng/mL NT-Pro-B Natriuret Pep pg/mL Total Protein (6.3-8.2) g/dL Albumin (3.5-5.0) g/dL Procalcitonin 0.06 (0.02-0.09) ng/mL Influenza Type A (PCR) (Not Detectd) Influenza Type B (PCR) (Not Detectd) RSV (PCR) (Not Detectd) SARS-CoV-2 (PCR) (Not Detectd) Disposition Clinical Impression: Hemoptysis, Pneumonia, Atrial fibrillation with RVR Disposition: ADMITTED IP TO THIS HOSP Condition: Stable Is patient prescribed a controlled substance at d/c from ED?: No Time of Disposition: 14:14 Decision to Admit Reason: Admit from EC Decision Date: 07/31/23 Decision Time: 14:14
[2023-07-31] MEDS ORDERED: PNEUMONIA PROTOCOL UTILIZED 1 EACH MISC PO PRN (14:10)
[2023-07-31 15:28] LABS: Appearance,Urine Clear (Clear); Bilirubin,Urine Negative (Negative); Blood,Urine Small (Negative); Color,Urine Colorless; Glucose,Urine (UA) 4+ (Negative); Ketones,Urine 1+ (Negative); Leukocyte Esterase,Urine Negative (Negative); Nitrite,Urine Negative (Negative); Protein,Urine Negative (Negative); RBC,Urine 1 /hpf (0-5); Urobilinogen,Urine <2.0 mg/dL (<2.0); WBC,Urine <1 /hpf (0-5)
[2023-07-31 15:34] LABS: Specific Gravity,Urine >1.050 (1.001-1.035)
[2023-07-31] MEDS: METOPROLOL TARTRATE 5 MG/5 ML VIAL IVP STA (15:35)
[2023-07-31] MEDS: AZITHROMYCIN 500 MG in SODIUM CHLORIDE 0.9% 250 ML IVPB STA (16:45)
--- NOTE | 2023-07-31 17:46 | CA ---
Transthoracic Echo Report Name: Panchito Vu Age: 78 Gender: M : 1945 Exam Date: 07/31/2023 15:34 Exam Location: [place] [facility] Ht (in): 69 Wt (lb): 165 Ordering Physician: Cris Betts DO Attending/Referring Phys: [id number], [employer] Supervisor [employer] Yudi Hagen RCS Procedure CPT: Indications: afib, chf, hx valve repair Cardiac Hx: Mitral valve repair 03/10/2023. Ablation 07/15/2023 Technical Quality: Technically difficult study Contrast 1: Definity Total Dose (mL): 2 Contrast 2: Total Dose (mL): MEASUREMENTS (Male / Female) Normal Values 2D ECHO LV Diastolic Diameter PLAX 4.7 cm 4.2 - 5.9 / 3.9 - 5.3 cm LV Systolic Diameter PLAX 3.6 cm IVS Diastolic Thickness 0.9 cm 0.6 - 1.0 / 0.6 - 0.9 cm LVPW Diastolic Thickness 1.1 cm 0.6 - 1.0 / 0.6 - 0.9 cm LV Relative Wall Thickness 0.4 RV Internal Dim ED PLAX 2.7 cm LVOT Diameter 2.2 cm Aortic Root Diameter 3.8 cm LV Diastolic Volume MOD BP 66.2 cm??? 67 - 155 / 56 - 104 cm??? LV Systolic Volume MOD BP 22.9 cm??? 22 - 58 / 19 - 49 cm??? LV Ejection Fraction MOD BP 65.4 % >= 55 % LV Cardiac Index MOD BP 2487.7 cm???/min???m??? LV Diastolic Volume MOD 4C 58.2 cm??? LV Systolic Volume MOD 4C 24.8 cm??? LV Ejection Fraction MOD 4C 57.4 % LV Cardiac Index MOD 4C 1918.5 cm???/min???m??? LV Diastolic Length 4C 7.1 cm LV Systolic Length 4C 5.8 cm LV Diastolic Volume MOD 2C 71.1 cm??? LV Systolic Volume MOD 2C 20.2 cm??? LV Ejection Fraction MOD 2C 71.6 % LV Cardiac Index MOD 2C 2920.2 cm???/min???m??? LV Diastolic Length 2C 7.5 cm LV Systolic Length 2C 6.1 cm Ascending Aorta Diameter 3.4 cm DOPPLER AV Peak Velocity 152.4 cm/s AV Peak Gradient 9.3 mmHg AV Mean Velocity 115.9 cm/s AV Mean Gradient 5.7 mmHg AV Velocity Time Integral 25.1 cm LVOT Peak Velocity 97.7 cm/s LVOT Peak Gradient 3.8 mmHg LVOT Velocity Time Integral 14.8 cm LVOT Stroke Volume 57.2 cm??? LVOT Stroke Volume Index 30.1 ml/m??? LVOT Cardiac Index 3287.1 cm???/min???m??? AV Area Cont Eq vti 2.3 cm??? AV Area Cont Eq pk 2.5 cm??? MV Peak Velocity 144.5 cm/s MV Peak Gradient 8.4 mmHg MV Mean Velocity 75.8 cm/s MV Mean Gradient 2.9 mmHg MV Velocity Time Integral 29.5 cm PV Peak Velocity 67.1 cm/s PV Peak Gradient 1.8 mmHg FINDINGS Left Ventricle Left ventricular ejection fraction is estimated at 50-55 % with beat to beat variability. Left ventricular cavity size normal. Left ventricular wall thickness normal. No obvious regional wall motion abnormalities. Right Ventricle Normal right ventricular size with mildly reduced function. Unable to determine right ventricular systolic pressure. Right Atrium Normal right atrial size. Left Atrium Mild left atrial dilatation. Mitral Valve Mitral valve repair 03/10/2023. Trace mitral regurgitation. Gradient recorded across the prosthetic mitral valve within the expected range. Aortic Valve Trileaflet aortic valve. Diffuse thickening (sclerosis) of the aortic valve cusps without reduced excursion. No aortic valve stenosis or regurgitation. Tricuspid Valve Structurally normal tricuspid valve. No tricuspid stenosis.Trace tricuspid regurgitation. Pulmonic Valve Pulmonic valve not well visualized. No pulmonic stenosis. No pulmonic regurgitation. Pericardium No pericardial effusion. Aorta Normal size aortic root and proximal ascending aorta. CONCLUSIONS Normal LV function Aortic sclerosis without significant stenosis Previewed by: Dr. Amaury Nathan MD (Electronically Signed) Final Date: 31 July 2023 17:45
[2023-07-31 18:04] LABS: Glucose,Whole Blood 109 mg/dL (70-110)
[2023-07-31] MEDS ORDERED: DEXTROSE 50% SYRINGE 50 ML IVP PRN ×2 (19:20)
--- NOTE | 2023-07-31 20:04 | P.HPIM ---
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 Patient has been having symptoms for the past 3 to 4 days. Patient has not been eating well due to stomach upset and is also having watery diarrhea. Patient states her diarrhea has been present for the past few months on and off. Denies any fever or chills. Cough with mainly whitish sputum production. Denies any chest pain or worsening shortness of breath. Patient had ablation done on July 15, 2023. Patient felt better couple of days and started having symptoms which are getting worse. Denies any nausea or vomiting. Denies any melena. Patient is somewhat poor historian. MRI of the brain on 07/22/2023 showed chronic T2 bright white matter changes, moderate to severe burden in both cerebral hemispheres. Slight interval progression from 06/06/2015 likely slightly progressed and extensive changes of chronic small vessel ischemic disease., Other etiologies such as uncontrolled longstanding hypertension, demyelinating disease, vasculitis such as Lyme's disease. No acute intracranial abnormality is seen./ EKG showed atrial flutter/tachycardia with rapid regular response CT chest showed scattered areas of infiltrate. Correlate for pneumonia. Some underlying nodularity may be at the left lung base. There is an larger 1.5 cm pretracheal lymph node with additional multiple smaller nodes within the mediastinum. Laboratory data showed WBC 3.9 hemoglobin 11.6 and platelets 192 Sodium 133 potassium 4.5 chloride 100 bicarb is 25 BUN 20 and creatinine 0.84. Liver enzymes are not elevated. proBNP 6700 and troponin 0.014 Urinalysis showed greater than 1.05 specific gravity, 4+ glucose and 1+ ketones and small blood. Influenza A, B, RSV and COVID-19 PCR not detected. Review of Systems Constitutional: Patient denies any fever or chills . No generalized weakness or weight loss. Abdomen: Patient denied nausea vomiting. Patient does have diarrhea and no abdominal pain. Cardiovascular: Patient denies any chest pain or short of breath no palpitations. Respiratory: patient complains of cough with blood-tinged production. Denied shortness of breath Neurologic: Patient denied any numbness or tingling headache. Musculoskeletal: Patient denies any complaints of joint swelling or deformity. Skin: Negative Psychiatric: Negative Endocrine: No heat or cold intolerance. No recent weight gain. Genitourinary: No dysuria or hematuria. All other 14 point ROS negative except the above Past Medical History Past Medical History: Atrial Fibrillation, Atrial Flutter, Asthma, Cancer, CVA/TIA, Diabetes Mellitus, Hyperlipidemia, Hypertension, Myocardial Infarction ([place]) Additional Past Medical History / Comment(s): herniated disks in back. tia post back surgery slight short term memory issue rt side visual blind spot, mole on neck positive for ca. See dr Velazco's H & P Last Myocardial Infarction Date:: 2013 History of Any Multi-Drug Resistant Organisms: None Reported Past Surgical History: Appendectomy, Back Surgery, Cardiac Valve Replacement, Orthopedic Surgery Additional Past Surgical History / Comment(s): bilat arm fractures with surg. repair, bilateral knee surgery, right hip bone graft. Colonoscopy with polp removal. lumbar fusion Past Anesthesia/Blood Transfusion Reactions: Previous Problems w/ Anesthesia Additional Past Anesthesia/Blood Transfusion Reaction / Comment(s): Becomes combative with anesthesia. has confusion after anesthesia Past Psychological History: No Psychological Hx Reported Smoking Status: Never smoker - Past Family History Father Family Medical History: Congestive Heart Failure (CHF), Coronary Artery Disease (CAD), Diabetes Mellitus Additional Family Medical History / Comment(s): at age 75 Mother Family Medical History: Cancer Additional Family Medical History / Comment(s): cervical cancer Brother(s) Family Medical History: Cancer Additional Family Medical History / Comment(s): liver and prostrate cancer. Medications and Allergies Home Medications Medication Instructions Recorded Confirmed Type Albuterol Inhaler [Ventolin Hfa 1 puff INHALATION RT-Q4H PRN 10/07/14 07/31/23 History Inhaler] Atorvastatin [Lipitor] 20 mg PO W/SUPPER 12/13/15 07/31/23 History Rivaroxaban [Xarelto] 20 mg PO DAILY 02/13/23 07/31/23 History Cholecalciferol [Vitamin D3 (25 50 mcg PO DAILY 03/05/23 07/31/23 History Mcg = 1000 Iu)] Cyanocobalamin (Vitamin B-12) 1,000 mcg PO DAILY 03/05/23 07/31/23 History [Vitamin B-12] metFORMIN HCL [Glucophage] 850 mg PO BID-W/MEALS #60 tab 03/17/23 07/31/23 Rx Glimepiride 1 mg PO DAILY 07/10/23 07/31/23 History Losartan [Cozaar] 12.5 mg PO DAILY 07/10/23 07/31/23 History Pioglitazone HCl 30 mg PO DAILY 07/10/23 07/31/23 History Dapagliflozin Propanediol [Farxiga] 10 mg PO DAILY 07/31/23 07/31/23 History Metoprolol Tartrate [Lopressor] 50 mg PO BID 07/31/23 07/31/23 History Multivit-Mins/Iron/Folic/Lycop 1 tab PO DAILY 07/31/23 07/31/23 History [Centrum Men's Tablet] Tamsulosin HCl [Flomax] 0.4 mg PO DAILY 07/31/23 07/31/23 History Ubidecarenone [Coenzyme Q10] 200 mg PO DAILY 07/31/23 07/31/23 History Allergies Allergy/AdvReac Type Severity Reaction Status Date / Time No Known Allergies Allergy Verified 07/31/23 15:12 Physical Exam Vitals: Vital Signs Temp Pulse Resp BP Pulse Ox 07/31/23 13:12 112 H 18 99/66 94 L 07/31/23 10:35 98.5 F 77 16 96/68 91 L Intake and Output 07/30/23 07/31/23 07/31/23 22:59 06:59 14:59 Other: Weight 74.843 kg PHYSICAL EXAMINATION: Patient is lying in the bed comfortably, no acute distress, awake alert and oriented. Somewhat poor historian.. HEENT: Normocephalic. Neck is supple. Pupils reactive. Nostrils clear. Oral cavity is moist. Neck reveals no JVD, carotid bruits, or thyromegaly. CHEST EXAMINATION: Trachea is central. Symmetrical expansion. Left basilar crackles. No wheezing or rhonchi.. CARDIAC: Normal S1, S2 with no gallops. No murmurs ABDOMEN: Soft. Bowel sounds normal. No organomegaly. No abdominal bruits. Extremities: reveal no edema. No clubbing or cyanosis Neurologically awake, alert, oriented x 2-3. Able to move all extremities.. No gross focal deficits noted Skin: No rash or skin lesions. Psychiatric: Coperative. Nonsuicidal Musculoskeletal: No joint swelling or deformity. Normal range of motion. Results CBC & Chem 7: 07/31/23 12:00 07/31/23 12:00 Labs: Abnormal Lab Results - Last 24 Hours (Table) 07/31/23 07/31/23 Range/Units 12:00 12:00 RBC 4.25 L (4.30-5.90) m/uL Hgb 11.6 L (13.0-17.5) gm/dL Hct 35.3 L (39.0-53.0) % RDW 18.2 H (11.5-15.5) % Lymphocytes # 0.7 L (1.0-4.8) k/uL Sodium 133 L (137-145) mmol/L Thrombosis Risk Factor Assmnt - DVT/VTE Prophylaxis DVT/VTE Prophylaxis: Mechanical Prophylaxis ordered Assessment and Plan Assessment: Significant cough congestion and blood-tinged sputum/hemoptysis Persistent atrial fibrillation with rapid ventricular rate. Patient is status post ablation on 07/15/2023 Acute on chronic CHF with diastolic dysfunction Possible pneumonia with scattered infiltrates as per CT thorax. 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 Status post surgery on 03/10/2023 Diabetes type 2 [id number] Chronic diarrhea. Likely due to medication. Rule out infection. Hypertension. Currently blood pressure is not elevated. Asthma not in exacerbation Hyperlipidemia History of CVA/TIA GI prophylaxis Pepcid 20 twice daily and DVT prophylaxis with SCDs Plan: Patient was given IV fluid bolus in the ER. Blood pressure is still marginal. Patient was given IV push metoprolol x 1 in the ER. Continue with metoprolol 50 mg twice daily. IV Lasix when blood pressure is stable. Patient is currently on room air. Follow-up repeat chest x-ray tomorrow Patient does take Xarelto at home. Anticoagulation is on hold currently due to hemoptysis Patient is currently on antibiotics ceftriaxone and azithromycin. Follow-up procalcitonin level. Pulmonary and cardiology was consulted. Patient will need urology follow-up as an outpatient due to changes noted in the recent MRI brain. Discussed with the family at bedside in detail. Time with Patient: Greater than 30
[2023-07-31 20:30] LABS: Glucose,Whole Blood 82 mg/dL (70-110)
[2023-07-31] MEDS: INSULIN ASPART (NovoLOG) 100 UNIT/ML VIAL SQ SCH (20:32)
[2023-07-31] MEDS: METOPROLOL TARTRATE 50 MG TAB PO SCH (20:34)
[2023-07-31] MEDS: FAMOTIDINE 20 MG TAB PO SCH (20:35)
[2023-08-01] MEDS: ALBUTEROL NEBULIZED 2.5 MG/3 ML INHALATION PRN (01:51)
--- NOTE | 2023-08-01 07:06 | P.CNPUL ---
History of Present Illness Consult date: 08/01/23 Requesting physician: Anuj Andres Reason for consult: other (Hemoptysis) Chief complaint: Cough with hemoptysis. History of present illness: I am seeing this patient in new consultation today 08/01/2023 in the emergency room for hemoptysis. Patient is a 78-year-old white male with past medical history significant for atrial fibrillation status post cardiac ablation and anticoagulated on Xarelto, severe mitral regurgitation with torn chordae tendineae status post repair, asthma, CVA/TIA, diabetes mellitus, hyperlipidemia, hypertension. Patient presents with cough and small hemoptysis. He is anticoagulated on Xarelto. He did have a recent cardiac ablation done 07/15/2023. Patient is currently back in atrial fibrillation with controlled ventricular rate. Apparently, over the last week he has had a cough, and over the last 3 days he has had hemoptysis. The first time it happened he was in the shower, he coughed and bright red blood covered his entire palm. The last 2 days however, has been significantly less and only 1 occurrence per day.. This has not happened to him before. Denies sore throat. He denies any epistaxis. Denies any vomiting or hematemesis. Denies any bright red blood in his bowel movements or melena. Denies any shortness of breath, fevers/chills, or chest pain. Chest CT done on arrival showed scattered areas of infiltrates, possible pneumonia with underlying possible nodularity at the left base. There was an enlarged 1.5 cm pretracheal lymph node with additional smaller nodes in the mediastinum. There is a calcified 0.7 cm right basilar nodule. No leukocytosis. Hemoglobin 11.6. Platelets 192. BMP unremarkable. NT proBNP 6700. Troponin 0.014. Procalcitonin level 0.06. He is afebrile. Negative for influenza, RSV, COVID. He was empirically placed on azithromycin and Rocephin in the emergency room. He is currently sitting up in bed, on 2 L/min nasal cannula, in no acute distress. SpO2 is 99%. Vital signs are stable. Review of Systems REVIEW OF SYSTEMS: CONSTITUTIONAL: Denies any recent significant weight loss or weight gain. EYES: Denies change in vision. EARS, NOSE, MOUTH, THROAT: Denies headaches, denies sore throat. CARDIOVASCULAR: Denies chest pain, palpitations or syncopal episodes. RESPIRATORY: See HPI.. GASTROINTESTINAL: Denies change in appetite, abdominal pain, nausea and v omiting, or diarrhea GENITOURINARY: Denies hematuria, denies infections. MUSKULOSKELETAL: Denies pain, denies swelling. INTEGUMENTARY: Denies rash, denies eczema. NEUROLOGICAL: Denies recent memory loss, no recent seizure activity. PSYCHIATRIC: Denies anxiety, denies depression. HEMATOLOGIC/LYMPHATIC: Denies anemia, denies enlarged lymph node Past Medical History Past Medical History: Atrial Fibrillation, Atrial Flutter, Asthma, Cancer, CVA/TIA, Diabetes Mellitus, Hyperlipidemia, Hypertension, Myocardial Infarction ([place]) Additional Past Medical History / Comment(s): herniated disks in back. tia post back surgery slight short term memory issue rt side visual blind spot, mole on neck positive for ca. See dr Velazco's H & P Last Myocardial Infarction Date:: 2013 History of Any Multi-Drug Resistant Organisms: None Reported Past Surgical History: Appendectomy, Back Surgery, Cardiac Valve Replacement, Orthopedic Surgery Additional Past Surgical History / Comment(s): bilat arm fractures with surg. repair, bilateral knee surgery, right hip bone graft. Colonoscopy with polp removal. lumbar fusion Past Anesthesia/Blood Transfusion Reactions: Previous Problems w/ Anesthesia Additional Past Anesthesia/Blood Transfusion Reaction / Comment(s): Becomes combative with anesthesia. has confusion after anesthesia Past Psychological History: No Psychological Hx Reported Smoking Status: Never smoker - Past Family History Father Family Medical History: Congestive Heart Failure (CHF), Coronary Artery Disease (CAD), Diabetes Mellitus Additional Family Medical History / Comment(s): at age 75 Mother Family Medical History: Cancer Additional Family Medical History / Comment(s): cervical cancer Brother(s) Family Medical History: Cancer Additional Family Medical History / Comment(s): liver and prostrate cancer. Medications and Allergies Home Medications Medication Instructions Recorded Confirmed Type Albuterol Inhaler [Ventolin Hfa 1 puff INHALATION RT-Q4H PRN 10/07/14 07/31/23 History Inhaler] Atorvastatin [Lipitor] 20 mg PO W/SUPPER 12/13/15 07/31/23 History Rivaroxaban [Xarelto] 20 mg PO DAILY 02/13/23 07/31/23 History Cholecalciferol [Vitamin D3 (25 50 mcg PO DAILY 03/05/23 07/31/23 History Mcg = 1000 Iu)] Cyanocobalamin (Vitamin B-12) 1,000 mcg PO DAILY 03/05/23 07/31/23 History [Vitamin B-12] metFORMIN HCL [Glucophage] 850 mg PO BID-W/MEALS #60 tab 03/17/23 07/31/23 Rx Glimepiride 1 mg PO DAILY 07/10/23 07/31/23 History Losartan [Cozaar] 12.5 mg PO DAILY 07/10/23 07/31/23 History Pioglitazone HCl 30 mg PO DAILY 07/10/23 07/31/23 History Dapagliflozin Propanediol [Farxiga] 10 mg PO DAILY 07/31/23 07/31/23 History Metoprolol Tartrate [Lopressor] 50 mg PO BID 07/31/23 07/31/23 History Multivit-Mins/Iron/Folic/Lycop 1 tab PO DAILY 07/31/23 07/31/23 History [Centrum Men's Tablet] Tamsulosin HCl [Flomax] 0.4 mg PO DAILY 07/31/23 07/31/23 History Ubidecarenone [Coenzyme Q10] 200 mg PO DAILY 07/31/23 07/31/23 History Allergies Allergy/AdvReac Type Severity Reaction Status Date / Time No Known Allergies Allergy Verified 07/31/23 15:12 Physical Exam Vitals: Vital Signs Temp Pulse Resp BP Pulse Ox 08/01/23 06:00 90 18 109/86 99 08/01/23 02:00 72 18 96/66 97 08/01/23 01:52 72 07/31/23 23:00 97 07/31/23 20:30 85 18 101/75 95 07/31/23 19:44 79 18 106/91 95 07/31/23 18:46 98.5 F 114 H 16 96/56 95 07/31/23 15:30 98.8 F 89 18 107/69 96 07/31/23 13:12 112 H 18 99/66 94 L 07/31/23 10:35 98.5 F 77 16 96/68 91 L Intake and Output 07/31/23 07/31/23 08/01/23 14:59 22:59 06:59 Other: Weight 74.843 kg GENERAL EXAM: Alert, 78-year-old white male, comfortable in no apparent distress. HEAD: Normocephalic and atraumatic EYES: Normal reaction of pupils, equal size. NOSE: Clear with pink turbinates. THROAT: No erythema or exudates. NECK: No masses, no JVD. CHEST: No chest wall deformity. LUNGS: Equal air entry with no crackles, wheeze, rhonchi or dullness. On 2 L/min nasal cannula. SpO2 99%. No conversational dyspnea or accessory muscle use.. CVS: S1 and S2 normal with no audible murmur, irregular rhythm. No extra heart sounds ABDOMEN: No hepatosplenomegaly, active bowel sounds, no guarding or rigidity. SPINE: No scoliosis or deformity SKIN: No rashes CENTRAL NERVOUS SYSTEM: No focal deficits, tone is normal in all 4 extremities. EXTREMITIES: There is no peripheral edema, clubbing, or cyanosis. Peripheral pulses are intact. Results - Laboratory Findings CBC and BMP: 07/31/23 12:00 07/31/23 12:00 PT/INR, D-dimer PT 12.3 sec (10.0-12.5) 07/31/23 12:00 INR 1.1 (<1.2) 07/31/23 12:00 Abnormal lab findings: Abnormal Labs 07/31/23 07/31/23 07/31/23 12:00 12:00 14:56 RBC 4.25 L Hgb 11.6 L Hct 35.3 L RDW 18.2 H Lymphocytes # 0.7 L Sodium 133 L Ur Specific Tama >1.050 H Urine Glucose (UA) 4+ H Urine Ketones 1+ H Urine Blood Small H - Diagnostic Findings Chest x-ray: image reviewed CT scan - chest: image reviewed Assessment and Plan Assessment: Small hemoptysis, Chest CT done on arrival showed scattered areas of infiltrates with possible underlying possible nodularity at the left base. There was an enlarged 1.5 cm pretracheal lymph node with additional smaller nodes in the mediastinum. There is a calcified 0.7 cm right basilar nodule Chronic atrial fibrillation with controlled ventricular rate, status postcardiac ablation and anticoagulated on Xarelto. Patient back in atrial fibrillation. Mediastinal lymphadenopathy, with an enlarged pretracheal lymph node measuring 1.5 cm multiple other smaller nodes. Chronic diastolic heart failure, most recent echocardiogram done this admission demonstrates a preserved left ventricular ejection fraction estimated at 50 to 55% and a normally functioning prosthetic mitral valve with trace mitral regurgitation. History of severe mitral regurgitation, with ruptured chordae tendineae, status post repair History of mild intermittent asthma, stable History of CVA/TIA History of diabetes mellitus History of hyperlipidemia History of hypertension Plan: Patient has had no further bouts of hemoptysis while inpatient. Continue to monitor. No plans for bronchoscopy at this time. Mina is currently on hold. Dr. Giordano will have further recommendations later this morning. Wean off supplemental oxygen as tolerated. Currently on 2 L/min nasal cannula. SpO2 is 99%. Patient was started on empiric antibiotics in the emergency room. Procalcitonin level is low at 0.06. Negative for influenza, RSV, COVID. Will continue to follow, and further recommendations are forthcoming. I have personally seen and examined the patient, performed the documentation and the assessment and plan as written. Number of minutes spent on the visit:20 . Time with Patient: Greater than 30
[2023-08-01 07:21] LABS: Glucose,Whole Blood 81 mg/dL (70-110)
[2023-08-01 08:45] LABS: African American GFR (CKD) >90 (>60 ml/min/1.73 sqM); Anion Gap 9 mmol/L; Blood Urea Nitrogen 17 mg/dL (9-20); Calcium 8.7 mg/dL (8.4-10.2); Carbon Dioxide 26 mmol/L (22-30); Chloride 102 mmol/L (98-107); Glucose 70 mg/dL (74-99); Non-African American GFR(CKD) 82 (>60 ml/min/1.73 sqM); Potassium 4.7 mmol/L (3.5-5.1); Sodium 137 mmol/L (137-145)
[2023-08-01] MEDS: TAMSULOSIN 0.4 MG CAP.ER.24H PO SCH (09:05)
[2023-08-01 09:06] LABS: Anisocytosis Slight; Basophils % (A) 1 %; Eosinophils # (A) 0.1 k/uL (0-0.7); Eosinophils % (A) 2 %; HCT 36.4 % (39.0-53.0); HGB 11.4 gm/dL (13.0-17.5); Hypochromasia Moderate; Lymphocytes # (A) 1.2 k/uL (1.0-4.8); Lymphocytes % (A) 30 %; MCH 26.6 pg (25.0-35.0); MCHC 31.3 g/dL (31.0-37.0); Mean Platelet Volume 7.8; Monocytes # (A) 0.4 k/uL (0-1.0); Monocytes % (A) 9 %; Neutrophils # (A) 2.3 k/uL (1.3-7.7); Neutrophils % (A) 55 %; Platelet Count 197 k/uL (150-450); RBC 4.28 m/uL (4.30-5.90); RDW 18.3 % (11.5-15.5); WBC 4.1 k/uL (3.8-10.6)
[2023-08-01] MEDS: FUROSEMIDE 10 MG/ML 2 ML VIAL IV SCH (09:06)
--- NOTE | 2023-08-01 11:11 | P.CRDCN ---
History of Present Illness Consult date: 08/01/23 Consult reason: atrial fibrillation (WITH RVR) History of present illness: History of present illness: This is a 77-year-old male patient of Dr. 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 We have been asked to evaluate patient for A-fib with RVR. Patient presented to the ER due to hemoptysis for couple days. He states he has been taking Xarelto as scheduled. He denies have any chest pain or shortness of breath. He states he has had some dizziness. No orthopnea. No edema. Patient seen today in the emergency center waiting for bed on the cardiac stepdown unit. Patient is status post 1 dose of IV Lopressor 2.5 mg, 1 and half liters of IV fluid and started on IV antibiotics. Xarelto has been placed on hold until evaluated by Dr. Marsh. EKG atrial f fibrillation 112 bpm Chest x-ray performed 07/31: CT of the chest performed on 07/31/2023 revealed scattered areas of infiltrate. Correlate for pneumonia. Some underlying nodularity may be in the left base. Enlarged 1.5 cm pretracheal lymph node with smaller nodes within the mediastinum. Echocardiogram performed 07/31/2023 reveals EF 50 to 55%, aortic sclerosis without significant stenosis. Trace mitral regurgitation. Gradient recorded across the prosthetic mitral valve within expected range. WBC 3.9, hemoglobin 9.6, platelet count 192. INR 1.1. Sodium 133, potassium 4.5, BUN 20 creatinine 0.83. Sugar 85. Liver function test are normal. Troponin 0.014. proBNP 6700. Procalcitonin 0.06. Urinalysis 4+ glucose, 1+ ketones, blood small. Influenza A, influenza B, RSV, COVID-19 not detected Home cardiac medications: Atorvastatin 20 mg with supper, Farxiga 10 mg daily, losartan 12.5 mg daily, Lopressor 50 mg twice daily, Xarelto 20 mg daily. A. fib ablation 07/15/2023 Elective mitral valve repair with complex mitral valve repair 03/10/2023 with a # 30mm [employer] Annuloflex band, resection of P2 with repair of MR and COREY ligation. Heart catheterization preoperatively on 02/14/2023 which showed no obstructive disease. EVELYN performed 02/14/2023 showed severe mitral regurgitation with tethering of the posterior leaflet and prolapse of the P2 segment with severe left atrial dilation. Review Of Systems: At the time of my exam: CONSTITUTIONAL: Denies fever or chills. HEENT: Denies blurred vision, vision changes, or eye pain. Denies hemoptysis CARDIOVASCULAR: Denies chest pain. Denies orthopnea. Denies PND. Denies palpitations RESPIRATORY: Denies shortness of breath. + Hemoptysis GASTROINTESTINAL: Denies abdominal pain. Denies nausea or vomiting. HEMATOLOGIC: Denies bleeding disorders. GENITOURINARY: Denies any blood in urine. SKIN: Denies pruitis. Denies rash. Physical examination: Gen: This is a 78-year-old male in no acute distress VS: reviewed HEENT: Head is atraumatic, normocephalic. Pupils equal, round. Sclerae is anicteric. NECK: Supple. No JVD. LUNGS: Wheezing. No intercostal retractions. HEART: Regular rate and rhythm. No murmur. ABDOMEN: Soft No tenderness. EXTREMITIES: No pedal edema. No calf tenderness. NEUROLOGICAL: Patient is awake, alert and oriented x3. Assessment: Persistent atrial fibrillation presenting with mild RVR with previous A-fib ablation performed on 07/15 Hemoptysis Possible pneumonia Severe mitral regurgitation status post ring and mitral valve repair 03/10/2023 Mild acute on chronic diastolic heart failure Mild CAD by heart catheterization Pulmonary hypertension, likely related to left-sided heart failure Hypertension Plan: Resume patient's home cardiac medications including Xarelto if cleared by Dr. Giordano We will ask additional read on the CAT scan of the chest to rule out pulmonary arteriovenous fistula Start patient on Lasix IV 20 mg twice daily Further recommendations to follow based upon clinical course Thank you kindly for this consultation. Nurse practitioner note has been reviewed, I agree with documented findings and plan of care. Patient was seen and examined. Past Medical History Past Medical History: Atrial Fibrillation, Atrial Flutter, Asthma, Cancer, CVA/TIA, Diabetes Mellitus, Hyperlipidemia, Hypertension, Myocardial Infarction ([place]) Additional Past Medical History / Comment(s): herniated disks in back. tia post back surgery slight short term memory issue rt side visual blind spot, mole on neck positive for ca. See dr Velazco's H & P Last Myocardial Infarction Date:: 2013 History of Any Multi-Drug Resistant Organisms: None Reported Past Surgical History: Appendectomy, Back Surgery, Cardiac Valve Replacement, Orthopedic Surgery Additional Past Surgical History / Comment(s): bilat arm fractures with surg. repair, bilateral knee surgery, right hip bone graft. Colonoscopy with polp removal. lumbar fusion Past Anesthesia/Blood Transfusion Reactions: Previous Problems w/ Anesthesia Additional Past Anesthesia/Blood Transfusion Reaction / Comment(s): Becomes combative with anesthesia. has confusion after anesthesia Past Psychological History: No Psychological Hx Reported Smoking Status: Never smoker - Past Family History Father Family Medical History: Congestive Heart Failure (CHF), Coronary Artery Disease (CAD), Diabetes Mellitus Additional Family Medical History / Comment(s): at age 75 Mother Family Medical History: Cancer Additional Family Medical History / Comment(s): cervical cancer Brother(s) Family Medical History: Cancer Additional Family Medical History / Comment(s): liver and prostrate cancer. Medications and Allergies Home Medications Medication Instructions Recorded Confirmed Type Albuterol Inhaler [Ventolin Hfa 1 puff INHALATION RT-Q4H PRN 10/07/14 07/31/23 History Inhaler] Atorvastatin [Lipitor] 20 mg PO W/SUPPER 12/13/15 07/31/23 History Rivaroxaban [Xarelto] 20 mg PO DAILY 02/13/23 07/31/23 History Cholecalciferol [Vitamin D3 (25 50 mcg PO DAILY 03/05/23 07/31/23 History Mcg = 1000 Iu)] Cyanocobalamin (Vitamin B-12) 1,000 mcg PO DAILY 03/05/23 07/31/23 History [Vitamin B-12] metFORMIN HCL [Glucophage] 850 mg PO BID-W/MEALS #60 tab 03/17/23 07/31/23 Rx Glimepiride 1 mg PO DAILY 07/10/23 07/31/23 History Losartan [Cozaar] 12.5 mg PO DAILY 07/10/23 07/31/23 History Pioglitazone HCl 30 mg PO DAILY 07/10/23 07/31/23 History Dapagliflozin Propanediol [Farxiga] 10 mg PO DAILY 07/31/23 07/31/23 History Metoprolol Tartrate [Lopressor] 50 mg PO BID 07/31/23 07/31/23 History Multivit-Mins/Iron/Folic/Lycop 1 tab PO DAILY 07/31/23 07/31/23 History [Centrum Men's Tablet] Tamsulosin HCl [Flomax] 0.4 mg PO DAILY 07/31/23 07/31/23 History Ubidecarenone [Coenzyme Q10] 200 mg PO DAILY 07/31/23 07/31/23 History Allergies Allergy/AdvReac Type Severity Reaction Status Date / Time No Known Allergies Allergy Verified 07/31/23 15:12 Physical Exam Vitals: Vital Signs Temp Pulse Resp BP Pulse Ox 08/01/23 06:00 90 18 109/86 99 08/01/23 02:00 72 18 96/66 97 08/01/23 01:52 72 07/31/23 23:00 97 07/31/23 20:30 85 18 101/75 95 07/31/23 19:44 79 18 106/91 95 07/31/23 18:46 98.5 F 114 H 16 96/56 95 07/31/23 15:30 98.8 F 89 18 107/69 96 07/31/23 13:12 112 H 18 99/66 94 L 07/31/23 10:35 98.5 F 77 16 96/68 91 L Results 08/01/23 07:48 08/01/23 07:48 Cardiac Enzymes 07/31/23 07/31/23 Range/Units 12:00 12:00 AST 29 (17-59) U/L Troponin I 0.014 (0.000-0.034) ng/mL Coagulation 07/31/23 Range/Units 12:00 PT 12.3 (10.0-12.5) sec APTT 26.6 (22.0-30.0) sec CBC 07/31/23 Range/Units 12:00 WBC 3.9 (3.8-10.6) k/uL RBC 4.25 L (4.30-5.90) m/uL Hgb 11.6 L (13.0-17.5) gm/dL Hct 35.3 L (39.0-53.0) % Plt Count 192 (150-450) k/uL Comprehensive Metabolic Panel 07/31/23 Range/Units 12:00 Sodium 133 L (137-145) mmol/L Potassium 4.5 (3.5-5.1) mmol/L Chloride 100 (98-107) mmol/L Carbon Dioxide 25 (22-30) mmol/L BUN 20 (9-20) mg/dL Creatinine 0.84 (0.66-1.25) mg/dL Glucose 85 (74-99) mg/dL Calcium 8.8 (8.4-10.2) mg/dL AST 29 (17-59) U/L ALT 17 (4-49) U/L Alkaline Phosphatase 71 (38-126) U/L Total Protein 6.5 (6.3-8.2) g/dL Albumin 3.8 (3.5-5.0) g/dL Current Medications Generic Name Dose Route Start Last Admin Trade Name Freq PRN Reason Stop Dose Admin Albuterol Sulfate 2.5 mg 07/31/23 19:10 08/01/23 01:51 Albuterol Nebulized 2.5 Mg/3 Ml INHALATION 2.5 mg RT-Q6H PRN Administration Wheezing Atorvastatin Calcium 20 mg 08/01/23 17:30 Atorvastatin 20 Mg Tab PO W/SUPPER [facility] Azithromycin 500 mg 08/01/23 12:00 Azithromycin 500 Mg Tab PO 08/02/23 12:01 DAILY@1200 [facility] Protocol Dextrose/Water 25 ml 07/31/23 19:20 Dextrose 50% Syringe 50 Ml IVP PER PROTOCOL PRN Hypoglycemia Protocol Dextrose/Water 50 ml 07/31/23 19:20 Dextrose 50% Syringe 50 Ml IVP PER PROTOCOL PRN Hypoglycemia Protocol Famotidine 20 mg 07/31/23 21:00 07/31/23 20:35 Famotidine 20 Mg Tab PO 20 mg BID ROSMERY Administration Ceftriaxone Sodium 2 gm/ 50 mls @ 100 mls/hr 08/01/23 09:00 Sodium Chloride IVPB 08/04/23 09:29 Q24HR [facility] Protocol Insulin Aspart 0 unit 07/31/23 21:00 07/31/23 20:32 Insulin Aspart (Novolog) 100 Unit/Ml Vial SQ Not Given ACHS [facility] Protocol Metoprolol Tartrate 50 mg 07/31/23 21:00 07/31/23 20:34 Metoprolol Tartrate 50 Mg Tab PO 50 mg BID ROSMERY Administration Miscellaneous Information 1 each 07/31/23 11:54 Rx Info: Iv Contrast Was Given 1 Each Misc MISCELLANE 08/02/23 11:57 DAILY PRN Per Protocol Miscellaneous Information 1 each 07/31/23 14:10 Pneumonia Protocol Utilized 1 Each Misc PO ONCE PRN Per Protocol Tamsulosin HCl 0.4 mg 08/01/23 09:00 Tamsulosin 0.4 Mg Cap.Er.24h PO DAILY ROSMERY 07/31/23 12:00 07/31/23 12:00
--- NOTE | 2023-08-01 11:30 | XR ---
EXAMINATION TYPE: XR chest 1V portable DATE OF EXAM: 08/01/2023 5:43 AM CLINICAL INDICATION:Male, 78 years old with history of pneumonia; COMPARISON: Chest radiographs from04/14/2023. TECHNIQUE: XR chest 1V portable Frontal view of the chest. FINDINGS: Lungs/Pleura: Minimal bilateral mid lung airspace opacities. There is no evidence of pleural effusion , focal consolidation, or pneumothorax. Pulmonary vascularity: Pulmonary vascular congestion. Heart/mediastinum: Cardiomediastinal silhouette is unremarkable. Atherosclerotic calcifications are seen in the aorta. Musculoskeletal: No acute osseous pathology. Other findings: None IMPRESSION: Bilateral airspace opacities new from 04/14/2023 [place] for pneumonia. Correlate serum BNP to exclude component of congestive heart failure.
[2023-08-01 11:39] LABS: Glucose,Whole Blood 126 mg/dL (70-110)
[2023-08-01] MEDS: AZITHROMYCIN 500 MG TAB PO SCH (12:12)
--- NOTE | 2023-08-01 15:24 | P.CNPUL ---
History of Present Illness Consult date: 08/01/23 Reason for consult: dyspnea History of present illness: 77-year-old male patient was seen in the emergency department for cough and hemoptysis. The patient is known to have valvular heart disease and the patient has also known to have chronic atrial fibrillation. The patient has undergone a repair of the mitral valve approximately a year ago. The patient is also known to have chronic A-fib and the patient underwent a Cardiac ablation by Dr. Trevino on 07/15/2023. The patient underwent a ablation of A-fib with pulmonary vein isolation and cryoablation. Postop, the patient converted to normal sinus rhythm. However he came back to the hospital today having cough and congestion and was coughing all some mucoid bloody secretions. He stated that he was coughing up bright red blood covered with sputum. This been going on for the past 2 days. No reported fever or chills. He is having some limited shortness of breath. Same time, the patient has been having no reported epistaxis. No reported GI bleeding. Also had red blood cell fraction. He has been maintained on anticoagulation with Xarelto. His current cardiac rhythm is atrial fibrillation. His rate is controlled. The white cell count of 4.0 with a hemoglobin 11.4 and rest of the electrolytes are all within normal limits. Coagulation profile is within normal limits. Procalcitonin level is at 0.06. His viral panel has been negative. Chest x-ray was done in the emergency and the patient was found to have bilateral airspace disease that was a new finding compared to his visit of chest x-rays. Note that the patient's proBNP level was also elevated suspecting underlying CHF as the patient had a proBNP level of 6700. CT angiogram of the chest was also done in the emergency department and he was not told to have any pulmonary embolism. There is evidence of an old granulomatous infection as the patient had a calcified granuloma in the right lower lobe. At same time, the patient had mediastinal lymphadenopathy that was partially calcified and the patient also had calcification of the spleen. 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 At the same time, the patient had scattered pulmonary infiltrates with areas of t ree-in-bud think in the right upper lobe and area of consolidation in the left lung base. Based on that, the patient was started on antibiotics and the patient is currently on Rocephin and Zithromax. Possibility of CHF cannot be completely ruled out and the patient was started on Lasix 20 mg IV every 12 hours. Currently he is on oxygen and on room air with a pulse ox of 96%. No nausea. No vomiting. No diarrhea. No reported aspiration. No other significant events otherwise for now. His other medical history is positive for previous history of CVA/TIA, diabetes mellitus type 2, hypertension and hyperlipidemia. Review of Systems CONSTITUTIONAL: Denies any recent significant weight loss or weight gain. EYES: Denies change in vision. EARS, NOSE, MOUTH, THROAT: Denies headaches, denies sore throat. CARDIOVASCULAR: Denies chest pain, palpitations or syncopal episodes. RESPIRATORY: See HPI.. GASTROINTESTINAL: Denies change in appetite, abdominal pain, nausea and vomiting, or diarrhea GENITOURINARY: Denies hematuria, denies infections. MUSKULOSKELETAL: Denies pain, denies swelling. INTEGUMENTARY: Denies rash, denies eczema. NEUROLOGICAL: Denies recent memory loss, no recent seizure activity. PSYCHIATRIC: Denies anxiety, denies depression. HEMATOLOGIC/LYMPHATIC: Denies anemia, denies enlarged lymph node Past Medical History Past Medical History: Atrial Fibrillation, Atrial Flutter, Asthma, Cancer, CVA/TIA, Diabetes Mellitus, Hyperlipidemia, Hypertension, Myocardial Infarction ([place]) Additional Past Medical History / Comment(s): herniated disks in back. tia post back surgery slight short term memory issue rt side visual blind spot, mole on neck positive for ca. See dr Velazco's H & P Last Myocardial Infarction Date:: 2013 History of Any Multi-Drug Resistant Organisms: None Reported Past Surgical History: Appendectomy, Back Surgery, Cardiac Ablation, Cardiac Valve Replacement, Orthopedic Surgery Additional Past Surgical History / Comment(s): bilat arm fractures with surg. repair, bilateral knee surgery, right hip bone graft. Colonoscopy with polp removal. lumbar fusion Past Anesthesia/Blood Transfusion Reactions: Previous Problems w/ Anesthesia Additional Past Anesthesia/Blood Transfusion Reaction / Comment(s): Becomes combative with anesthesia. has confusion after anesthesia Past Psychological History: No Psychological Hx Reported Smoking Status: Never smoker Past Alcohol Use History: None Reported Additional Past Alcohol Use History / Comment(s): 1-2 beers per week with golfing Past Drug Use History: None Reported - Past Family History Father Family Medical History: Congestive Heart Failure (CHF), Coronary Artery Disease (CAD), Diabetes Mellitus Additional Family Medical History / Comment(s): at age 75 Mother Family Medical History: Cancer Additional Family Medical History / Comment(s): cervical cancer Brother(s) Family Medical History: Cancer Additional Family Medical History / Comment(s): liver and prostrate cancer. Medications and Allergies Home Medications Medication Instructions Recorded Confirmed Type Albuterol Inhaler [Ventolin Hfa 1 puff INHALATION RT-Q4H PRN 10/07/14 07/31/23 History Inhaler] Atorvastatin [Lipitor] 20 mg PO W/SUPPER 12/13/15 07/31/23 History Rivaroxaban [Xarelto] 20 mg PO DAILY 02/13/23 07/31/23 History Cholecalciferol [Vitamin D3 (25 50 mcg PO DAILY 03/05/23 07/31/23 History Mcg = 1000 Iu)] Cyanocobalamin (Vitamin B-12) 1,000 mcg PO DAILY 03/05/23 07/31/23 History [Vitamin B-12] metFORMIN HCL [Glucophage] 850 mg PO BID-W/MEALS #60 tab 03/17/23 07/31/23 Rx Glimepiride 1 mg PO DAILY 07/10/23 07/31/23 History Losartan [Cozaar] 12.5 mg PO DAILY 07/10/23 07/31/23 History Pioglitazone HCl 30 mg PO DAILY 07/10/23 07/31/23 History Dapagliflozin Propanediol [Farxiga] 10 mg PO DAILY 07/31/23 07/31/23 History Metoprolol Tartrate [Lopressor] 50 mg PO BID 07/31/23 07/31/23 History Multivit-Mins/Iron/Folic/Lycop 1 tab PO DAILY 07/31/23 07/31/23 History [Centrum Men's Tablet] Tamsulosin HCl [Flomax] 0.4 mg PO DAILY 07/31/23 07/31/23 History Ubidecarenone [Coenzyme Q10] 200 mg PO DAILY 07/31/23 07/31/23 History Allergies Allergy/AdvReac Type Severity Reaction Status Date / Time No Known Allergies Allergy Verified 07/31/23 15:12 Physical Exam Vitals: Vital Signs Temp Pulse Pulse Resp BP BP Pulse Ox 08/01/23 13:49 97.9 F 89 18 113/76 96 08/01/23 12:14 110 H 18 105/77 95 08/01/23 10:00 118 H 102/81 92 L 08/01/23 09:00 110 H 109/86 94 L 08/01/23 08:00 107 H 109/86 97 08/01/23 07:00 105 H 109/86 98 08/01/23 06:00 90 18 109/86 99 08/01/23 02:00 72 18 96/66 97 08/01/23 01:52 72 07/31/23 23:00 97 07/31/23 20:30 85 18 101/75 95 07/31/23 19:44 79 18 106/91 95 07/31/23 18:46 98.5 F 114 H 16 96/56 95 07/31/23 17:00 97 105/74 94 L 07/31/23 16:00 112 H 113/70 93 L 07/31/23 15:30 98.8 F 89 18 107/69 96 Intake and Output 08/01/23 08/01/23 08/01/23 06:59 14:59 22:59 Other: # Voids 3 Weight 74.843 kg GENERAL EXAM: Alert, 78-year-old white male, comfortable in no apparent distress. The patient is currently on room air oxygen HEAD: Normocephalic and atraumatic EYES: Normal reaction of pupils, equal size. NOSE: Clear with pink turbinates. THROAT: No erythema or exudates. NECK: No masses, no JVD. CHEST: No chest wall deformity. LUNGS: Equal air entry with no crackles, wheeze, rhonchi or dullness. No conversational dyspnea or accessory muscle use.. CVS: S1 and S2 normal with no audible murmur, irregular rhythm. No extra heart sounds ABDOMEN: No hepatosplenomegaly, active bowel sounds, no guarding or rigidity. SPINE: No scoliosis or deformity SKIN: No rashes CENTRAL NERVOUS SYSTEM: No focal deficits, tone is normal in all 4 extremities. EXTREMITIES: There is no peripheral edema, clubbing, or cyanosis. Peripheral pulses are intact. Results - Laboratory Findings CBC and BMP: 08/01/23 07:48 08/01/23 07:48 PT/INR, D-dimer PT 12.3 sec (10.0-12.5) 02/29/24 12:00 INR 1.1 (<1.2) 07/31/23 12:00 Abnormal lab findings: Abnormal Labs 07/31/23 07/31/23 07/31/23 12:00 12:00 14:56 RBC 4.25 L Hgb 11.6 L Hct 35.3 L RDW 18.2 H Lymphocytes # 0.7 L Sodium 133 L Glucose POC Glucose (mg/dL) Hemoglobin A1c Ur Specific [place] >1.050 H Urine Glucose (UA) 4+ H Urine Ketones 1+ H Urine Blood Small H 08/01/23 08/01/23 08/01/23 07:48 07:48 07:48 RBC 4.28 L Hgb 11.4 L Hct 36.4 L RDW 18.3 H Lymphocytes # Sodium Glucose 70 L POC Glucose (mg/dL) Hemoglobin A1c 7.9 H Ur Specific [place] Urine Glucose (UA) Urine Ketones Urine Blood 08/01/23 11:38 RBC Hgb Hct RDW Lymphocytes # Sodium Glucose POC Glucose (mg/dL) 126 H Hemoglobin A1c Ur Specific [place] Urine Glucose (UA) Urine Ketones Urine Blood - Diagnostic Findings Chest x-ray: image reviewed CT scan - chest: image reviewed Assessment and Plan Assessment: Shortness of breath with episodes of hemoptysis and the patient is coughing out some mucoid bloody secretions. Consider possibility of pneumonia in the setting of intake of anticoagulation with Xarelto. I carefully reviewed the CAT scan of the chest. Note that some of the findings are chronic. The patient is found to have evidence of mediastinal lymphadenopathy with partial calcification in addition to a calcified granuloma in the right lower lobe and calcified splenic lesions. This is indication of an old histoplasma or a previous granulomatous infection. However, there are new changes including an area of consolidation in the left lower lobe which could be potential related to pneumonia. Some minimal tree-in-bud infiltration in the right upper lobe also. Note that those findings are essentially new based on the chest x-ray follow-up. Suspect bacterial pneumonia. Nevertheless, the procalcitonin has been negative. The viral panel has also been negative. CHF with previous history of valvular heart disease and diastolic heart failure with preserved LV function. The patient has undergone previous mitral valve replacement Chronic A-fib, post ablation. The patient underwent cryoablation. No clear indication of pulmonary vein stenosis. No evidence of any fistula between the pulmonary veins and the arteries in the esophagus at this point in time. Chronic atrial fibrillation with controlled ventricular rate, status postcardiac ablation and anticoagulated on Xarelto. Patient back in atrial fibrillation. Mediastinal lymphadenopathy, with an enlarged pretracheal lymph node measuring 1.5 cm multiple other smaller nodes. Like related to an old granulomatous infection Chronic diastolic heart failure, most recent echocardiogram done this admission demonstrates a preserved left ventricular ejection fraction estimated at 50 to 55% and a normally functioning mitral valve with trace mitral regurgitation. History of severe mitral regurgitation, with ruptured chordae tendineae, status post mitral valve repair History of mild intermittent asthma, stable History of CVA/TIA History of diabetes mellitus History of hyperlipidemia History of hypertension Plan: Will obtain sputum Gram stain and culture Patient is currently on room air oxygen Continue Rocephin Zithromax IV Lasix May continue Xarelto for now. The patient's hemoptysis is very mild and minimal at this point in time. The benefit outweighs the risk and the patient that the patient will be continued on anticoagulation with Xarelto Discussed the case with the satellite installer. No indication for any pulmonary vein stenosis or fistula formation postcardiac ablation of atrial fibrillation. May need to repeat the echocardiogram Viral panel has been negative The patient will be admitted to the medical floor and he will be monitored closely. Repeat chest x-ray will be obtained within the next 24 hours.
[2023-08-01] MEDS: RIVAROXABAN 20 MG TAB PO SCH (16:56)
[2023-08-01] MEDS: ATORVASTATIN 20 MG TAB PO SCH (16:57)
[2023-08-01 17:23] LABS: Glucose,Whole Blood 189 mg/dL (70-110)
[2023-08-01 20:04] LABS: Glucose,Whole Blood 168 mg/dL (70-110)
--- NOTE | 2023-08-01 22:19 | P.PN ---
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 Patient has been having symptoms for the past 3 to 4 days. Patient has not been eating well due to stomach upset and is also having watery diarrhea. Patient states her diarrhea has been present for the past few months on and off. Denies any fever or chills. Cough with mainly whitish sputum production. Denies any chest pain or worsening shortness of breath. Patient had ablation done on July 15, 2023. Patient felt better couple of days and started having symptoms which are getting worse. Denies any nausea or vomiting. Denies any melena. Patient is somewhat poor historian. MRI of the brain on 07/22/2023 showed chronic T2 bright white matter changes, moderate to severe burden in both cerebral hemispheres. Slight interval progression from 06/06/2015 likely slightly progressed and extensive changes of chronic small vessel ischemic disease., Other etiologies such as uncontrolled longstanding hypertension, demyelinating disease, vasculitis such as Lyme's disease. No acute intracranial abnormality is seen./ EKG showed atrial flutter/tachycardia with rapid regular response CT chest showed scattered areas of infiltrate. Correlate for pneumonia. Some underlying nodularity may be at the left lung base. There is an larger 1.5 cm pretracheal lymph node with additional multiple smaller nodes within the mediastinum. Laboratory data showed WBC 3.9 hemoglobin 11.6 and platelets 192 Sodium 133 potassium 4.5 chloride 100 bicarb is 25 BUN 20 and creatinine 0.84. Liver enzymes are not elevated. proBNP 6700 and troponin 0.014 Urinalysis showed greater than 1.05 specific gravity, 4+ glucose and 1+ ketones and small blood. Influenza A, B, RSV and COVID-19 PCR not detected. 08/01/2023 Patient is currently lying in the bed. Awake alert and orient x 3. Feels better. No complaints of chest pain. Shortness of breath did improve. Heart rate is better controlled. No complaints of nausea or vomiting. Patient is to lerating oral diet. No further episodes of hemoptysis overnight. Blood pressure is stable now. Patient was started on Lasix 20 mg IV twice daily and also started back on Xarelto. Patient is being continued on antibiotics with ceftriaxone and azithromycin. Laboratory data showed WBC 4.1 hemoglobin 11.4 and platelets 197 Sodium 137 potassium 4.7 chloride 102 bicarb is 26 BUN 17 and creatinine 0.91 and blood sugar is 70 and A1c level 7.9. Chest x-ray today showed bilateral airspace opacities new from 04/14/2023 correlate serum BNP to exclude component of congestive heart failure. Current medications reviewed. Objective - Vital Signs Vital signs: Vital Signs Temp 98.5 F 07/31/23 18:46 Pulse 118 H 08/01/23 10:00 Resp 18 08/01/23 06:00 BP 102/81 08/01/23 10:00 Pulse Ox 92 L 08/01/23 10:00 FiO2 Intake & Output 07/31/23 08/01/23 08/01/23 18:59 06:59 18:59 Weight 74.843 kg - Exam PHYSICAL EXAMINATION: Patient is lying in the bed comfortably, no acute distress, awake alert and oriented. Somewhat poor historian.. HEENT: Normocephalic. Neck is supple. Pupils reactive. Nostrils clear. Oral cavity is moist. Neck reveals no JVD, carotid bruits, or thyromegaly. CHEST EXAMINATION: Trachea is central. Symmetrical expansion. Left basilar crackles. No wheezing or rhonchi.. CARDIAC: Normal S1, S2 with no gallops. No murmurs ABDOMEN: Soft. Bowel sounds normal. No organomegaly. No abdominal bruits. Extremities: reveal no edema. No clubbing or cyanosis Neurologically awake, alert, oriented x 2-3. Able to move all extremities.. No gross focal deficits noted Skin: No rash or skin lesions. Psychiatric: Coperative. Nonsuicidal Musculoskeletal: No joint swelling or deformity. Normal range of motion. - Labs CBC & Chem 7: 08/01/23 07:48 08/01/23 07:48 Labs: Abnormal Lab Results - Last 24 Hours (Table) 07/31/23 07/31/23 07/31/23 Range/Units 12:00 12:00 14:56 RBC 4.25 L (4.30-5.90) m/uL Hgb 11.6 L (13.0-17.5) gm/dL Hct 35.3 L (39.0-53.0) % RDW 18.2 H (11.5-15.5) % Lymphocytes # 0.7 L (1.0-4.8) k/uL Sodium 133 L (137-145) mmol/L Glucose (74-99) mg/dL POC Glucose (mg/dL) (70-110) mg/dL Hemoglobin A1c (<=6.0) % Ur Specific [place] >1.050 H (1.001-1.035) Urine Glucose (UA) 4+ H (Negative) Urine Ketones 1+ H (Negative) Urine Blood Small H (Negative) 08/01/23 08/01/23 08/01/23 Range/Units 07:48 07:48 07:48 RBC 4.28 L (4.30-5.90) m/uL Hgb 11.4 L (13.0-17.5) gm/dL Hct 36.4 L (39.0-53.0) % RDW 18.3 H (11.5-15.5) % Lymphocytes # (1.0-4.8) k/uL Sodium (137-145) mmol/L Glucose 70 L (74-99) mg/dL POC Glucose (mg/dL) (70-110) mg/dL Hemoglobin A1c 7.9 H (<=6.0) % Ur Specific [place] (1.001-1.035) Urine Glucose (UA) (Negative) Urine Ketones (Negative) Urine Blood (Negative) 08/01/23 Range/Units 11:38 RBC (4.30-5.90) m/uL Hgb (13.0-17.5) gm/dL Hct (39.0-53.0) % RDW (11.5-15.5) % Lymphocytes # (1.0-4.8) k/uL Sodium (137-145) mmol/L Glucose (74-99) mg/dL POC Glucose (mg/dL) 126 H (70-110) mg/dL Hemoglobin A1c (<=6.0) % Ur Specific [place] (1.001-1.035) Urine Glucose (UA) (Negative) Urine Ketones (Negative) Urine Blood (Negative) Assessment and Plan Assessment: Significant cough congestion and blood-tinged sputum/hemoptysis Persistent atrial fibrillation with rapid ventricular rate. Patient is status post ablation on 07/15/2023 Acute on chronic CHF with diastolic dysfunction Possible pneumonia with scattered infiltrates as per CT thorax. 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 Status post surgery on 03/10/2023 Diabetes type 2 [id number] Chronic diarrhea. Likely due to medication. Rule out infection. Hypertension. Currently blood pressure is not elevated. Asthma not in exacerbation Hyperlipidemia History of CVA/TIA GI prophylaxis Pepcid 20 twice daily and DVT prophylaxis with SCDs Plan: Patient was given IV fluids in the ER. Blood pressure is stable labs Patient was started on Lasix 20 g IV twice daily and monitor renal function. Patient was given IV push metoprolol x 1 in the ER. Continue with metoprolol 50 mg twice daily. Patient was started back on Xarelto. No plans for bronchoscopy. No further episodes of hemoptysis. Continue on antibiotics ceftriaxone and azithromycin. procalcitonin level 0.06. Pulmonary and cardiology is on board. Follow-up repeat echocardiogram. Patient will need urology follow-up as an outpatient due to changes noted in the recent MRI brain. Discussed with the family at bedside in detail. Time with Patient: Greater than 30
[2023-08-02 06:13] LABS: Glucose,Whole Blood 128 mg/dL (70-110)
--- NOTE | 2023-08-02 07:22 | XR ---
EXAMINATION TYPE: XR chest 1V DATE OF EXAM: 08/02/2023 CLINICAL HISTORY: Difficulty breathing an pneumonia progress study. TECHNIQUE: Single AP portable upright view of the chest is obtained. COMPARISON: Chest x-ray from one day earlier and older studies. FINDINGS: Overlying sternal wires along with left atrial appendage clip are redemonstrated. Persiste nt elevated left hemidiaphragm with left basilar opacity. Right lung remains clear. Cardiac silhouett e size is stable and upper limits of normal. Osseous structures are intact. IMPRESSION: Left basilar acute infiltrate and/or atelectasis redemonstrated. Perhaps mild interstitia l edema. No significant change from one day earlier.
[2023-08-02 08:06] LABS: Anisocytosis Slight; Basophils % (A) 1 %; Eosinophils # (A) 0.1 k/uL (0-0.7); Eosinophils % (A) 3 %; HCT 35.2 % (39.0-53.0); HGB 11.2 gm/dL (13.0-17.5); Hypochromasia Slight; Lymphocytes # (A) 1.4 k/uL (1.0-4.8); Lymphocytes % (A) 32 %; MCH 26.6 pg (25.0-35.0); MCHC 31.7 g/dL (31.0-37.0); MCV 83.9 fL (80.0-100.0); Mean Platelet Volume 7.2; Monocytes # (A) 0.3 k/uL (0-1.0); Monocytes % (A) 6 %; Neutrophils # (A) 2.4 k/uL (1.3-7.7); Neutrophils % (A) 55 %; Platelet Count 208 k/uL (150-450); RDW 18.1 % (11.5-15.5); WBC 4.3 k/uL (3.8-10.6)
[2023-08-02 08:18] LABS: African American GFR (CKD) >90 (>60 ml/min/1.73 sqM); Anion Gap 8 mmol/L; Blood Urea Nitrogen 21 mg/dL (9-20); Calcium 8.9 mg/dL (8.4-10.2); Carbon Dioxide 28 mmol/L (22-30); Chloride 101 mmol/L (98-107); Glucose 121 mg/dL (74-99); Non-African American GFR(CKD) 86 (>60 ml/min/1.73 sqM); Potassium 3.9 mmol/L (3.5-5.1); Sodium 137 mmol/L (137-145)
--- NOTE | 2023-08-02 09:02 | P.PN ---
Subjective Progress Note Date: 08/02/23 Principal diagnosis: Atrial fibrillation The patient is a 78-year-old gentleman with a past medical history significant for persistent atrial fibrillation and valvular heart disease as well as coronary artery disease and hypertension and dyslipidemia who was admitted to the hospital with generalized symptoms consistent with a pneumonia and he was found to be in atrial fibrillation. He underwent a CT scan and that showed pneumonia and also possible underlying chronic lung disease. He underwent an echo which revealed normal LV systolic function. He underwent recently atrial fibrillation and atrial flutter ablation August 02, 2023 The patient was seen and evaluated this morning. He continues to be in atrial fibrillation with mild tachycardia and heart rate around 115 bpm. Going to increase the dose of beta-gisell. Beside that he is on oral anticoagulation but he is also on antibiotic for underlying pneumonia and the pulmonary team is on the case. No pain in the chest. The examination is remarkable for irregular rhythm with diminished breathing sounds bilaterally and no edema was noted in the lower extremities Assessment Underlying pneumonia Persistent atrial fibrillation with uncontrolled heart rate Valvular heart disease Multiple comorbid conditions Plan Increase the dose of metoprolol Continue oral anticoagulation Follow-up with the patient Objective - Vital Signs Vital signs: Vital Signs Temp 97.7 F 08/02/23 08:20 Pulse 113 H 08/02/23 08:37 Resp 18 08/02/23 08:37 BP 104/63 08/02/23 08:20 Pulse Ox 92 L 08/02/23 08:20 FiO2 Intake & Output 08/01/23 08/02/23 08/02/23 18:59 06:59 18:59 Output Total 250 Balance -250 Weight 74.843 kg 70.1 kg Output: Urine 250 Other: Voiding Method Toilet Toilet Toilet # Voids 3 1 - Labs CBC & Chem 7: 08/02/23 07:43 08/02/23 07:43 Labs: Abnormal Lab Results - Last 24 Hours (Table) 08/01/23 08/01/23 08/01/23 Range/Units 07:48 07:48 11:38 RBC 4.28 L (4.30-5.90) m/uL Hgb 11.4 L (13.0-17.5) gm/dL Hct 36.4 L (39.0-53.0) % RDW 18.3 H (11.5-15.5) % BUN (9-20) mg/dL Glucose (74-99) mg/dL POC Glucose (mg/dL) 126 H (70-110) mg/dL Hemoglobin A1c 7.9 H (<=6.0) % 08/01/23 08/01/23 08/02/23 Range/Units 17:06 20:03 06:11 RBC (4.30-5.90) m/uL Hgb (13.0-17.5) gm/dL Hct (39.0-53.0) % RDW (11.5-15.5) % BUN (9-20) mg/dL Glucose (74-99) mg/dL POC Glucose (mg/dL) 189 H 168 H 128 H (70-110) mg/dL Hemoglobin A1c (<=6.0) % 08/02/23 08/02/23 Range/Units 07:43 07:43 RBC 4.20 L (4.30-5.90) m/uL Hgb 11.2 L (13.0-17.5) gm/dL Hct 35.2 L (39.0-53.0) % RDW 18.1 H (11.5-15.5) % BUN 21 H (9-20) mg/dL Glucose 121 H (74-99) mg/dL POC Glucose (mg/dL) (70-110) mg/dL Hemoglobin A1c (<=6.0) % Microbiology - Last 24 Hours (Table) 07/31/23 14:25 Blood Culture - Preliminary Blood 07/31/23 14:49 Blood Culture - Preliminary Blood
[2023-08-02] MEDS: METOPROLOL TARTRATE 50 MG TAB PO SCH (11:11)
--- NOTE | 2023-08-02 11:28 | P.PN ---
Subjective Progress Note Date: 08/02/23 77-year-old male patient was seen in the emergency department for cough and hemoptysis. The patient is known to have valvular heart disease and the patient has also known to have chronic atrial fibrillation. The patient has undergone a repair of the mitral valve approximately a year ago. The patient is also known to have chronic A-fib and the patient underwent a Cardiac ablation by Dr. Trevino on 07/15/2023. The patient underwent a ablation of A-fib with pulmonary vein isolation and cryoablation. Postop, the patient converted to normal sinus rhythm. However he came back to the hospital today having cough and congestion and was coughing all some mucoid bloody secretions. He stated that he was coughing up bright red blood covered with sputum. This been going on for the past 2 days. No reported fever or chills. He is having some limited shortness of breath. Same time, the patient has been having no reported epistaxis. No reported GI bleeding. Also had red blood cell fraction. He has been maintained on anticoagulation with Xarelto. His current cardiac rhythm is atrial fibrillation. His rate is controlled. The white cell count of 4.0 with a hemoglobin 11.4 and rest of the electrolytes are all within normal limits. Coagulation profile is within normal limits. Procalcitonin level is at 0.06. His viral panel has been negative. Chest x-ray was done in the emergency and th e patient was found to have bilateral airspace disease that was a new finding compared to his visit of chest x-rays. Note that the patient's proBNP level was also elevated suspecting underlying CHF as the patient had a proBNP level of 6700. CT angiogram of the chest was also done in the emergency department and he was not told to have any pulmonary embolism. There is evidence of an old granulomatous infection as the patient had a calcified granuloma in the right lower lobe. At same time, the patient had mediastinal lymphadenopathy that was partially calcified and the patient also had calcification of the spleen. 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 At the same time, the patient had scattered pulmonary infiltrates with areas of tree-in-bud think in the right upper lobe and area of consolidation in the left lung base. Based on that, the patient was started on antibiotics and the patient is currently on Rocephin and Zithromax. Possibility of CHF cannot be completely ruled out and the patient was started on Lasix 20 mg IV every 12 hours. Currently he is on oxygen and on room air with a pulse ox of 96%. No nausea. No vomiting. No diarrhea. No reported aspiration. No other significant events otherwise for now. His other medical history is positive for previous history of CVA/TIA, diabetes mellitus type 2, hypertension and hyperli pidemia. On today's evaluation of 08/02/2023, the patient has no specific complaints. No further episodes of hemoptysis. The repeat chest x-ray was done and shows improvement in aeration bilaterally. There are some limited left basilar atelectasis and some mild interstitial edema. He diuresed well with IV Lasix. He is currently on room air oxygen with a pulse ox above 90%. Fluid balance has been negative over the past 24 hours. The white cell count is at 4 with a hemoglobin 11 and a platelet count of 208. BUN is 21 with a creatinine of 0.8 and a sodium that is at 137. Remains on Rocephin and Zithromax. Remains on IV Lasix. Anticoagulation was restarted. The patient remains in atrial fibrillation. Objective - Vital Signs Vital signs: Vital Signs Temp 97.7 F 08/02/23 08:20 Pulse 113 H 08/02/23 08:37 Resp 18 08/02/23 08:37 BP 104/63 08/02/23 08:20 Pulse Ox 92 L 08/02/23 08:20 FiO2 Intake & Output 08/01/23 08/02/23 08/02/23 18:59 06:59 18:59 Output Total 250 Balance -250 Weight 74.843 kg 70.1 kg Output: Urine 250 Other: Voiding Method Toilet Toilet Toilet # Voids 3 1 - Exam GENERAL EXAM: Alert, 78-year-old white male, comfortable in no apparent distress. The patient is currently on room air oxygen HEAD: Normocephalic and atraumatic EYES: Normal reaction of pupils, equal size. NOSE: Clear with pink turbinates. THROAT: No erythema or exudates. NECK: No masses, no JVD. CHEST: No chest wall deformity. LUNGS: Equal air entry with no crackles, wheeze, rhonchi or dullness. No conversational dyspnea or accessory muscle use.. CVS: S1 and S2 normal with no audible murmur, irregular rhythm. No extra heart sounds ABDOMEN: No hepatosplenomegaly, active bowel sounds, no guarding or rigidity. SPINE: No scoliosis or deformity SKIN: No rashes CENTRAL NERVOUS SYSTEM: No focal deficits, tone is normal in all 4 extremities. EXTREMITIES: There is no peripheral edema, clubbing, or cyanosis. Peripheral pulses are intact. - Labs CBC & Chem 7: 08/02/23 07:43 08/02/23 07:43 Labs: Abnormal Lab Results - Last 24 Hours (Table) 08/01/23 08/01/23 08/01/23 Range/Units 07:48 11:38 17:06 RBC (4.30-5.90) m/uL Hgb (13.0-17.5) gm/dL Hct (39.0-53.0) % RDW (11.5-15.5) % BUN (9-20) mg/dL Glucose (74-99) mg/dL POC Glucose (mg/dL) 126 H 189 H (70-110) mg/dL Hemoglobin A1c 7.9 H (<=6.0) % 08/01/23 08/02/23 08/02/23 Range/Units 20:03 06:11 07:43 RBC 4.20 L (4.30-5.90) m/uL Hgb 11.2 L (13.0-17.5) gm/dL Hct 35.2 L (39.0-53.0) % RDW 18.1 H (11.5-15.5) % BUN (9-20) mg/dL Glucose (74-99) mg/dL POC Glucose (mg/dL) 168 H 128 H (70-110) mg/dL Hemoglobin A1c (<=6.0) % 08/02/23 Range/Units 07:43 RBC (4.30-5.90) m/uL Hgb (13.0-17.5) gm/dL Hct (39.0-53.0) % RDW (11.5-15.5) % BUN 21 H (9-20) mg/dL Glucose 121 H (74-99) mg/dL POC Glucose (mg/dL) (70-110) mg/dL Hemoglobin A1c (<=6.0) % Microbiology - Last 24 Hours (Table) 07/31/23 14:25 Blood Culture - Preliminary Blood 07/31/23 14:49 Blood Culture - Preliminary Blood Assessment and Plan Assessment: Shortness of breath with episodes of hemoptysis and the patient is coughing out some mucoid bloody secretions. Consider possibility of pneumonia in the setting of intake of anticoagulation with Xarelto. I carefully reviewed the CAT scan of the chest. Note that some of the findings are chronic. The patient is found to have evidence of mediastinal lymphadenopathy with partial calcification in addition to a calcified granuloma in the right lower lobe and calcified splenic lesions. This is indication of an old histoplasma or a previous granulomatous infection. However, there are new changes including an area of consolidation in the left lower lobe which could be potential related to pneumonia. Some minimal tree-in-bud infiltration in the right upper lobe also. Note that those findings are essentially new based on the chest x-ray follow-up. Suspect bacterial pneumonia. Nevertheless, the procalcitonin has been negative. The viral panel has also been negative. Clinically, the patient is improving. Repeat chest x- ray from 08/02/2023 shows improvement in aeration with some limited left basilar atelectasis. Hemoptysis which is currently negative and stable and the patient remains on Xarelto CHF with previous history of valvular heart disease and diastolic heart failure with preserved LV function. The patient has undergone previous mitral valve replacement Chronic A-fib, post ablation. The patient underwent cryoablation. No clear indication of pulmonary vein stenosis. No evidence of any fistula between the pulmonary veins and the arteries in the esophagus at this point in time. Chronic atrial fibrillation with controlled ventricular rate, status postcardiac ablation and anticoagulated on Xarelto. Patient back in atrial fibrillation. Mediastinal lymphadenopathy, with an enlarged pretracheal lymph node measuring 1.5 cm multiple other smaller nodes. Like related to an old granulomatous infection Chronic diastolic heart failure, most recent echocardiogram done this admission demonstrates a preserved left ventricular ejection fraction estimated at 50 to 55% and a normally functioning mitral valve with trace mitral regurgitation. History of severe mitral regurgitation, with ruptured chordae tendineae, status post mitral valve repair History of mild intermittent asthma, stable History of CVA/TIA History of diabetes mellitus History of hyperlipidemia History of hypertension Plan: Will obtain sputum Gram stain and culture, results are still pending Patient is currently on room air oxygen Continue Rocephin Zithromax, chest x-ray stable, somewhat improved IV Lasix for another 24 hours and transition this patient to oral Lasix Continue Xarelto for now. The patient's hemoptysis is very mild and minimal at this point in time. The benefit outweighs the risk and the patient that the patient will be continued on anticoagulation with Xarelto. His hemoptysis is inactive and stable Discussed the case with the payroll representative. No indication for any pulmonary vein stenosis or fistula formation postcardiac ablation of atrial fibrillation. May need to repeat the echocardiogram Viral panel has been negative The patient will be admitted to the medical floor and he will be monitored closely. Possible discharge within the next 24 hours on oral antibiotics and Lasix and anticoagulation.
[2023-08-02 11:31] LABS: Glucose,Whole Blood 144 mg/dL (70-110)
[2023-08-02 16:17] LABS: Glucose,Whole Blood 364 mg/dL (70-110)
[2023-08-02 19:55] LABS: Glucose,Whole Blood 287 mg/dL (70-110)
[2023-08-02 20:53] VITALS: RESP 16
--- NOTE | 2023-08-02 21:31 | P.PN ---
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 Patient has been having symptoms for the past 3 to 4 days. Patient has not been eating well due to stomach upset and is also having watery diarrhea. Patient states her diarrhea has been present for the past few months on and off. Denies any fever or chills. Cough with mainly whitish sputum production. Denies any chest pain or worsening shortness of breath. Patient had ablation done on July 15, 2023. Patient felt better couple of days and started having symptoms which are getting worse. Denies any nausea or vomiting. Denies any melena. Patient is somewhat poor historian. MRI of the brain on 07/22/2023 showed chronic T2 bright white matter changes, moderate to severe burden in both cerebral hemispheres. Slight interval progression from 06/06/2015 likely slightly progressed and extensive changes of chronic small vessel ischemic disease., Other etiologies such as uncontrolled longstanding hypertension, demyelinating disease, vasculitis such as Lyme's disease. No acute intracranial abnormality is seen./ EKG showed atrial flutter/tachycardia with rapid regular response CT chest showed scattered areas of infiltrate. Correlate for pneumonia. Some underlying nodularity may be at the left lung base. There is an larger 1.5 cm pretracheal lymph node with additional multiple smaller nodes within the mediastinum. Laboratory data showed WBC 3.9 hemoglobin 11.6 and platelets 192 Sodium 133 potassium 4.5 chloride 100 bicarb is 25 BUN 20 and creatinine 0.84. Liver enzymes are not elevated. proBNP 6700 and troponin 0.014 Urinalysis showed greater than 1.05 specific gravity, 4+ glucose and 1+ ketones and small blood. Influenza A, B, RSV and COVID-19 PCR not detected. 08/01/2023 Patient is currently lying in the bed. Awake alert and orient x 3. Feels better. No complaints of chest pain. Shortness of breath did improve. Heart rate is better controlled. No complaints of nausea or vomiting. Patient is to lerating oral diet. No further episodes of hemoptysis overnight. Blood pressure is stable now. Patient was started on Lasix 20 mg IV twice daily and also started back on Xarelto. Patient is being continued on antibiotics with ceftriaxone and azithromycin. Laboratory data showed WBC 4.1 hemoglobin 11.4 and platelets 197 Sodium 137 potassium 4.7 chloride 102 bicarb is 26 BUN 17 and creatinine 0.91 and blood sugar is 70 and A1c level 7.9. Chest x-ray today showed bilateral airspace opacities new from 04/14/2023 correlate serum BNP to exclude component of congestive heart failure. 08/02/2023 Patient is currently sitting in the chair. Awake alert and oriented x 3. Denied any complaints of dizziness or lightheadedness. On room air. No cough or sputum production. Breathing status is better. Heart rate is elevated today up to 1 11-1 30. Patient is being continued on IV Lasix 20 mg every 12. Laboratory data showed WBC 4.3 hemoglobin 11.2 and platelets 208 BUN 21 creatinine 0.83 and blood sugars 121. Patient is also on anticoagulation with Xarelto. 2D echocardiogram showed normal LV function. Aortic sclerosis without significant stenosis. Current medications reviewed. Objective - Vital Signs Vital signs: Vital Signs Temp 97.2 F L 08/02/23 15:59 Pulse 94 08/02/23 15:59 Resp 18 08/02/23 15:59 BP 96/64 08/02/23 15:59 Pulse Ox 95 08/02/23 15:59 FiO2 Intake & Output 08/02/23 08/02/23 08/03/23 06:59 18:59 06:59 Intake Total 240 Output Total 250 Balance -250 240 Weight 70.1 kg Intake: Oral 240 Output: Urine 250 Other: Voiding Method Toilet Toilet # Voids 1 - Exam PHYSICAL EXAMINATION: Patient is lying in the bed comfortably, no acute distress, awake alert and oriented. Somewhat poor historian.. HEENT: Normocephalic. Neck is supple. Pupils reactive. Nostrils clear. Oral cavity is moist. Neck reveals no JVD, carotid bruits, or thyromegaly. CHEST EXAMINATION: Trachea is central. Symmetrical expansion. Left basilar crackles. No wheezing or rhonchi.. CARDIAC: Normal S1, S2 with no gallops. No murmurs ABDOMEN: Soft. Bowel sounds normal. No organomegaly. No abdominal bruits. Extremities: reveal no edema. No clubbing or cyanosis Neurologically awake, alert, oriented x 2-3. Able to move all extremities.. No gross focal deficits noted Skin: No rash or skin lesions. Psychiatric: Coperative. Nonsuicidal Musculoskeletal: No joint swelling or deformity. Normal range of motion. - Labs CBC & Chem 7: 08/02/23 07:43 08/02/23 07:43 Labs: Abnormal Lab Results - Last 24 Hours (Table) 08/01/23 08/02/23 08/02/23 Range/Units 20:03 06:11 07:43 RBC 4.20 L (4.30-5.90) m/uL Hgb 11.2 L (13.0-17.5) gm/dL Hct 35.2 L (39.0-53.0) % RDW 18.1 H (11.5-15.5) % BUN (9-20) mg/dL Glucose (74-99) mg/dL POC Glucose (mg/dL) 168 H 128 H (70-110) mg/dL 08/02/23 08/02/23 08/02/23 Range/Units 07:43 11:30 16:15 RBC (4.30-5.90) m/uL Hgb (13.0-17.5) gm/dL Hct (39.0-53.0) % RDW (11.5-15.5) % BUN 21 H (9-20) mg/dL Glucose 121 H (74-99) mg/dL POC Glucose (mg/dL) 144 H 364 H (70-110) mg/dL Microbiology - Last 24 Hours (Table) 07/31/23 14:25 Blood Culture - Preliminary Blood 07/31/23 14:49 Blood Culture - Preliminary Blood Assessment and Plan Assessment: Significant cough congestion and blood-tinged sputum/hemoptysis Persistent atrial fibrillation with rapid ventricular rate. Patient is status post ablation on 07/15/2023 Acute on chronic CHF with diastolic dysfunction Possible pneumonia with scattered infiltrates as per CT thorax. 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 Status post surgery on 03/10/2023 Diabetes type 2 [id number] Chronic diarrhea. Likely due to medication. Rule out infection. Hypertension. Currently blood pressure is not elevated. Asthma not in exacerbation Hyperlipidemia History of CVA/TIA GI prophylaxis Pepcid 20 twice daily and DVT prophylaxis with SCDs Plan: Metoprolol dose increased to 50 mg 3 times daily. Patient was started on Lasix 20 g IV twice daily and monitor renal function. Patient was given IV push metoprolol x 1 in the ER. Patient was started back on Xarelto. No plans for bronchoscopy. No further episodes of hemoptysis. Continue on antibiotics ceftriaxone and azithromycin. procalcitonin level 0.06. Pulmonary and cardiology is on board. 2D echocardiogram report reviewed.. Patient will need neurology follow-up as an outpatient due to changes noted in the recent MRI brain. Discussed with the family at bedside in detail. Time with Patient: Greater than 30
[2023-08-02] MEDS: ACETAMINOPHEN TAB 325 MG TAB PO PRN (23:53)
[2023-08-03 06:11] LABS: Glucose,Whole Blood 121 mg/dL (70-110)
[2023-08-03 08:29] VITALS: TEMP 98.1
--- NOTE | 2023-08-03 09:32 | P.PN ---
Subjective Progress Note Date: 08/03/23 Principal diagnosis: Atrial fibrillation The patient is a 78-year-old gentleman with a past medical history significant for persistent atrial fibrillation and valvular heart disease as well as coronary artery disease and hypertension and dyslipidemia who was admitted to the hospital with generalized symptoms consistent with a pneumonia and he was found to be in atrial fibrillation. He underwent a CT scan and that showed pneumonia and also possible underlying chronic lung disease. He underwent an echo which revealed normal LV systolic function. He underwent recently atrial fibrillation and atrial flutter ablation August 02, 2023 The patient was seen and evaluated this morning. He continues to be in atrial fibrillation with mild tachycardia and heart rate around 115 bpm. Going to increase the dose of beta-gisell. Beside that he is on oral anticoagulation but he is also on antibiotic for underlying pneumonia and the pulmonary team is on the case. No pain in the chest. The examination is remarkable for irregular rhythm with diminished breathing sounds bilaterally and no edema was noted in the lower extremities August 03, 2023 The patient was seen and evaluated this morning. He is doing better. The shortness of breath has improved. No symptoms of chest pain or chest discomfort. I increase the dose of metoprolol yesterday. Today he seems to be in sinus mechanism. He is on oral anticoagulation. He continues to be on antibiotic for possible underlying pneumonia. From the cardiovascular standpoint of view, we will continue the current medical regimen. No need for any further cardiac workup. The echo showed normal LV systolic function with normally functioning repaired mitral valve. The examination is remarkable for a systolic murmur at the right and left upper sternal border with clear breathing sounds bilaterally and no edema was noted. Assessment Underlying pneumonia Persistent atrial fibrillation with uncontrolled heart rate Valvular heart disease Multiple comorbid conditions Plan Continue the current medical regimen Continue oral anticoagulation Continue the current dose of metoprolol The patient potentially can be discharged home in the next 24 hours Objective - Vital Signs Vital signs: Vital Signs Temp 98.1 F 08/03/23 08:28 Pulse 77 08/03/23 08:28 Resp 16 08/03/23 08:28 BP 115/78 08/03/23 08:28 Pulse Ox 95 08/03/23 08:28 FiO2 Intake & Output 08/02/23 08/03/23 08/03/23 18:59 06:59 18:59 Intake Total 240 40 20 Balance 240 40 20 Weight 69.6 kg Intake: IV 40 20 Invasive Line 1 40 20 Oral 240 Other: Voiding Method Toilet Toilet # Voids 3 - Labs CBC & Chem 7: 08/02/23 07:43 08/02/23 07:43 Labs: Abnormal Lab Results - Last 24 Hours (Table) 08/02/23 08/02/23 08/02/23 Range/Units 11:30 16:15 19:53 POC Glucose (mg/dL) 144 H 364 H 287 H (70-110) mg/dL 08/03/23 Range/Units 06:09 POC Glucose (mg/dL) 121 H (70-110) mg/dL Microbiology - Last 24 Hours (Table) 07/31/23 14:25 Blood Culture - Preliminary Blood 07/31/23 14:49 Blood Culture - Preliminary Blood
[2023-08-03 10:03] LABS: Anisocytosis Slight; Basophils # (A) 0.1 k/uL (0-0.2); Basophils % (A) 1 %; Eosinophils # (A) 0.1 k/uL (0-0.7); Eosinophils % (A) 2 %; HCT 35.5 % (39.0-53.0); HGB 10.9 gm/dL (13.0-17.5); Hypochromasia Slight; Lymphocytes # (A) 1.4 k/uL (1.0-4.8); Lymphocytes % (A) 26 %; MCH 25.9 pg (25.0-35.0); MCHC 30.7 g/dL (31.0-37.0); MCV 84.1 fL (80.0-100.0); Mean Platelet Volume 7.6; Monocytes # (A) 0.3 k/uL (0-1.0); Monocytes % (A) 6 %; Neutrophils # (A) 3.3 k/uL (1.3-7.7); Neutrophils % (A) 62 %; Platelet Count 236 k/uL (150-450); RBC 4.22 m/uL (4.30-5.90); RDW 17.9 % (11.5-15.5); WBC 5.3 k/uL (3.8-10.6)
[2023-08-03 10:14] LABS: African American GFR (CKD) 85 (>60 ml/min/1.73 sqM); Anion Gap 12 mmol/L; Blood Urea Nitrogen 25 mg/dL (9-20); Calcium 9.2 mg/dL (8.4-10.2); Carbon Dioxide 27 mmol/L (22-30); Chloride 99 mmol/L (98-107); Glucose 128 mg/dL (74-99); Non-African American GFR(CKD) 74 (>60 ml/min/1.73 sqM); Potassium 4.1 mmol/L (3.5-5.1); Sodium 138 mmol/L (137-145)
[2023-08-03 11:33] LABS: Glucose,Whole Blood 188 mg/dL (70-110)
[2023-08-03 12:08] VITALS: BP 117/63; PULSE 66
--- NOTE | 2023-08-03 16:16 | P.PN ---
Subjective Progress Note Date: 08/03/23 77-year-old male patient was seen in the emergency department for cough and hemoptysis. The patient is known to have valvular heart disease and the patient has also known to have chronic atrial fibrillation. The patient has undergone a repair of the mitral valve approximately a year ago. The patient is also known to have chronic A-fib and the patient underwent a Cardiac ablation by Dr. Trevino on 07/15/2023. The patient underwent a ablation of A-fib with pulmonary vein isolation and cryoablation. Postop, the patient converted to normal sinus rhythm. However he came back to the hospital today having cough and congestion and was coughing all some mucoid bloody secretions. He stated that he was coughing up bright red blood covered with sputum. This been going on for the past 2 days. No reported fever or chills. He is having some limited shortness of breath. Same time, the patient has been having no reported epistaxis. No reported GI bleeding. Also had red blood cell fraction. He has been maintained on anticoagulation with Xarelto. His current cardiac rhythm is atrial fibrillation. His rate is controlled. The white cell count of 4.0 with a hemoglobin 11.4 and rest of the electrolytes are all within normal limits. Coagulation profile is within normal limits. Procalcitonin level is at 0.06. His viral panel has been negative. Chest x-ray was done in the emergency and th e patient was found to have bilateral airspace disease that was a new finding compared to his visit of chest x-rays. Note that the patient's proBNP level was also elevated suspecting underlying CHF as the patient had a proBNP level of 6700. CT angiogram of the chest was also done in the emergency department and he was not told to have any pulmonary embolism. There is evidence of an old granulomatous infection as the patient had a calcified granuloma in the right lower lobe. At same time, the patient had mediastinal lymphadenopathy that was partially calcified and the patient also had calcification of the spleen. 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 At the same time, the patient had scattered pulmonary infiltrates with areas of tree-in-bud think in the right upper lobe and area of consolidation in the left lung base. Based on that, the patient was started on antibiotics and the patient is currently on Rocephin and Zithromax. Possibility of CHF cannot be completely ruled out and the patient was started on Lasix 20 mg IV every 12 hours. Currently he is on oxygen and on room air with a pulse ox of 96%. No nausea. No vomiting. No diarrhea. No reported aspiration. No other significant events otherwise for now. His other medical history is positive for previous history of CVA/TIA, diabetes mellitus type 2, hypertension and hyperli pidemia. On today's evaluation of 08/02/2023, the patient has no specific complaints. No further episodes of hemoptysis. The repeat chest x-ray was done and shows improvement in aeration bilaterally. There are some limited left basilar atelectasis and some mild interstitial edema. He diuresed well with IV Lasix. He is currently on room air oxygen with a pulse ox above 90%. Fluid balance has been negative over the past 24 hours. The white cell count is at 4 with a hemoglobin 11 and a platelet count of 208. BUN is 21 with a creatinine of 0.8 and a sodium that is at 137. Remains on Rocephin and Zithromax. Remains on IV Lasix. Anticoagulation was restarted. The patient remains in atrial fibrillation. On today's evaluation of 08/03/2023, the patient doing well. No respiratory difficulties. All of the labs from today has been reviewed. . The white cell count is 5.3 with a hemoglobin 10.9. BUN is at 25 with a creatinine of 0.9 and sodium was at 138. No reported hemoptysis. Doing well. No specific complaints. He has been diuresed adequately. Patient is currently on room air oxygen. Is ambulating. Objective - Vital Signs Vital signs: Vital Signs Temp 98.1 F 08/03/23 08:28 Pulse 77 08/03/23 08:30 Resp 16 08/03/23 08:30 BP 115/78 08/03/23 08:28 Pulse Ox 95 08/03/23 08:28 FiO2 Intake & Output 08/02/23 08/03/23 08/03/23 18:59 06:59 18:59 Intake Total 240 40 20 Balance 240 40 20 Weight 69.6 kg Intake: IV 40 20 Invasive Line 1 40 20 Oral 240 Other: Voiding Method Toilet Toilet Toilet # Voids 3 - Exam GENERAL EXAM: Alert, 78-year-old white male, comfortable in no apparent distres s. The patient is currently on room air oxygen HEAD: Normocephalic and atraumatic EYES: Normal reaction of pupils, equal size. NOSE: Clear with pink turbinates. THROAT: No erythema or exudates. NECK: No masses, no JVD. CHEST: No chest wall deformity. LUNGS: Equal air entry with no crackles, wheeze, rhonchi or dullness. No conversational dyspnea or accessory muscle use.. CVS: S1 and S2 normal with no audible murmur, irregular rhythm. No extra heart sounds ABDOMEN: No hepatosplenomegaly, active bowel sounds, no guarding or rigidity. SPINE: No scoliosis or deformity SKIN: No rashes CENTRAL NERVOUS SYSTEM: No focal deficits, tone is normal in all 4 extremities. EXTREMITIES: There is no peripheral edema, clubbing, or cyanosis. Peripheral pulses are intact. - Labs CBC & Chem 7: 08/03/23 09:07 08/03/23 09:07 Labs: Abnormal Lab Results - Last 24 Hours (Table) 08/02/23 08/02/23 08/02/23 Range/Units 11:30 16:15 19:53 RBC (4.30-5.90) m/uL Hgb (13.0-17.5) gm/dL Hct (39.0-53.0) % MCHC (31.0-37.0) g/dL RDW (11.5-15.5) % BUN (9-20) mg/dL Glucose (74-99) mg/dL POC Glucose (mg/dL) 144 H 364 H 287 H (70-110) mg/dL 08/03/23 08/03/23 08/03/23 Range/Units 06:09 09:07 09:07 RBC 4.22 L (4.30-5.90) m/uL Hgb 10.9 L (13.0-17.5) gm/dL Hct 35.5 L (39.0-53.0) % MCHC 30.7 L (31.0-37.0) g/dL RDW 17.9 H (11.5-15.5) % BUN 25 H (9-20) mg/dL Glucose 128 H (74-99) mg/dL POC Glucose (mg/dL) 121 H (70-110) mg/dL Microbiology - Last 24 Hours (Table) 07/31/23 14:25 Blood Culture - Preliminary Blood 07/31/23 14:49 Blood Culture - Preliminary Blood Assessment and Plan Assessment: Shortness of breath with episodes of hemoptysis and the patient is coughing out some mucoid bloody secretions. Consider possibility of pneumonia in the setting of intake of anticoagulation with Xarelto. I carefully reviewed the CAT scan of the chest. Note that some of the findings are chronic. The patient is found to have evidence of mediastinal lymphadenopathy with partial calcification in addition to a calcified granuloma in the right lower lobe and calcified splenic lesions. This is indication of an old histoplasma or a previous granulomatous infection. However, there are new changes including an area of consolidation in the left lower lobe which could be potential related to pneumonia. Some minimal tree-in-bud infiltration in the right upper lobe also. Note that those findings are essentially new based on the chest x-ray follow-up. Suspect bacterial pneumonia. Nevertheless, the procalcitonin has been negative. The viral panel has also been negative. Clinically, the patient is improving. Repeat chest x- ray from 08/02/2023 shows improvement in aeration with some limited left basilar atelectasis. Hemoptysis which is currently negative and stable and the patient remains on Xarelto, no active hemoptysis for now CHF with previous history of valvular heart disease and diastolic heart failure with preserved LV function. The patient has undergone previous mitral valve replacement, and his CHF has been optimized Chronic A-fib, post ablation. The patient underwent cryoablation. No clear indication of pulmonary vein stenosis. No evidence of any fistula between the pulmonary veins and the arteries in the esophagus at this point in time. Chronic atrial fibrillation with controlled ventricular rate, status postcardiac ablation and anticoagulated on Xarelto. Patient back in atrial fibrillation. Mediastinal lymphadenopathy, with an enlarged pretracheal lymph node measuring 1.5 cm multiple other smaller nodes. Like related to an old granulomatous infection Chronic diastolic heart failure, most recent echocardiogram done this admission demonstrates a preserved left ventricular ejection fraction estimated at 50 to 55% and a normally functioning mitral valve with trace mitral regurgitation. History of severe mitral regurgitation, with ruptured chordae tendineae, status post mitral valve repair History of mild intermittent asthma, stable History of CVA/TIA History of diabetes mellitus History of hyperlipidemia History of hypertension Plan: Overall condition is stable. The patient is to be discharged home today and the patient will continue anticoagulation with Xarelto. He is still having approximately fibrillation. This morning, the patient was noted to be in a normal sinus rhythm. Given the patient diuretics on outpatient basis and the dose to be determined by cardiology. Completed course of Ceftin Zithromax on outpatient basis. Home today to be followed up on outpatient basis.
--- NOTE | 2023-08-05 19:59 | CDI ---
Documentation Clarification Form Date: 08/05/2023 07:47:26 PM From: Hilda Serna Phone: Admit Date: 07/31/2023 02:12:00 PM Patient Name: Panchito Vu Visit Number: [id number] Discharge Date: 08/03/2023 03:13:00 PM ATTENTION: The Clinical Documentation Specialists (CDI) and [facility] Coding Staff appreciate your assistance in clarifying documentation. Please respond to the clarification below the line at the bottom and electronically sign. The CDI & [facility] Coding staff will review the response and follow-up if needed. Please note: Queries are made part of the Legal Health Record. If you have any questions, please contact the author of this message via ITS. Dr. Anuj Andres Your patient has an A1C 7.9 per Progress Note 3/. Based on this information and the findings below, is there an additional diagnosis that is clinically appropriate for this patient? Patient history/risk factors: 77yo M, persistent A Fib, ACDHF, bacterial PNA, toxic colitis, PHTN, SSS, HTN w hypotension, DMII, CAD Clinical Indicators: Glucose of 364 per Progress Note 3/2 Treatment: Insulin Aspart 0 unit07/31/23; Insulin Aspart (Novolog) 100 Unit/Ml Vial SQ Not Given Home Medications :Glimepiride 1 mg PO daily; Dapagliflozin Propanediol [Farxiga] 10 mg PO daily; Pioglitazone HCl 30 mg PO daily; metformin HCL [Glucophage] 850 mg PO BID Is there an additional diagnosis that is clinically appropriate for this patient? [ x ] DMII with hyperglycemia [ ] No additional diagnosis/Not clinically significant [ ] Unable to determine [ ] Other, please specify (Template Last Reviewed: July 2022) MTDD
--- NOTE | 2023-08-13 14:12 | P.DS ---
Providers Date of admission: 07/31/23 14:12 Expected date of discharge: 08/03/23 Attending physician: Jw Jones Consults: 07/31/23 19:12 Consult Physician Routine Consulting Provider: Volodymyr Velazco Consult Reason/Comments: Afib with RVR Do you want consulting provider notified?: Yes 07/31/23 19:14 Consult Physician Routine Consulting Provider: Malvin Giordano Consult Reason/Comments: Hemoptysis Do you want consulting provider notified?: Yes Primary care physician: Jonathan Grewal Hospital Course: Discharge diagnosis Significant cough congestion and blood-tinged sputum/hemoptysis. Resolved now. Persistent atrial fibrillation with rapid ventricular rate. Patient is status post ablation on 07/15/2023. Metoprolol dose increased. Acute on chronic CHF with diastolic dysfunction Possible pneumonia with scattered infiltrates as per CT thorax. 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 Status post surgery on 03/10/2023 Diabetes type 2 [id number] Chronic diarrhea. Likely due to medication. Rule out infection. Hypertension. Currently blood pressure is not elevated. Asthma not in exacerbation Hyperlipidemia History of CVA/TIA GI prophylaxis Pepcid 20 twice daily and DVT prophylaxis with SCDs Hospital course Patient is a 78-year-old male with a past medical history of persistent atrial fibrillation/flutter ablation on 07/15/2023, history of mitral valve repair due to acute cardiac tenderness rupture with flail leaflet causing severe acute MR, diabetes type 2 lym-mpwymwr-ejjoyblha, asthma, hypertension, hyperlipidemia, history of LA, history of back surgery and CVA/TIA was brought to the hospital by her family due to complaints of severe cough and blood in the sputum. Patient has been having symptoms for the past 3 to 4 days. Patient has not been eating well due to stomach upset and is also having watery diarrhea. Patient states her diarrhea has been present for the past few months on and off. Denies any fever or chills. Cough with mainly whitish sputum production. Denies any chest pain or worsening shortness of breath. Patient had ablation done on July 15, 2023. Patient felt better couple of days and started having symptoms which are getting worse. Denies any nausea or vomiting. Denies any melena. Patient is somewhat poor historian. MRI of the brain on 07/22/2023 showed chronic T2 bright white matter changes, moderate to severe burden in both cerebral hemispheres. Slight interval progression from 06/06/2015 likely slightly progressed and extensive changes of chronic small vessel ischemic disease., Other etiologies such as uncontrolled longstanding hypertension, demyelinating disease, vasculitis such as Lyme's disease. No acute intracranial abnormality is seen./ EKG showed atrial flutter/tachycardia with rapid regular response CT chest showed scattered areas of infiltrate. Correlate for pneumonia. Some underlying nodularity may be at the left lung base. There is an larger 1.5 cm pretracheal lymph node with additional multiple smaller nodes within the mediastinum. Laboratory data showed WBC 3.9 hemoglobin 11.6 and platelets 192 Sodium 133 potassium 4.5 chloride 100 bicarb is 25 BUN 20 and creatinine 0.84. Liver enzymes are not elevated. proBNP 6700 and troponin 0.014 Urinalysis showed greater than 1.05 specific gravity, 4+ glucose and 1+ ketones and small blood. Influenza A, B, RSV and COVID-19 PCR not detected. 08/01/2023 Patient is currently lying in the bed. Awake alert and orient x 3. Feels better. No complaints of chest pain. Shortness of breath did improve. Heart rate is better controlled. No complaints of nausea or vomiting. Patient is tolerating oral diet. No further episodes of hemoptysis overnight. Blood pressure is stable now. Patient was started on Lasix 20 mg IV twice daily and also started back on Xarelto. Patient is being continued on antibiotics with ceftriaxone and azithromycin. Laboratory data showed WBC 4.1 hemoglobin 11.4 and platelets 197 Sodium 137 potassium 4.7 chloride 102 bicarb is 26 BUN 17 and creatinine 0.91 and blood sugar is 70 and A1c level 7.9. Chest x-ray today showed bilateral airspace opacities new from 04/14/2023 correlate serum BNP to exclude component of congestive heart failure. 08/02/2023 Patient is currently sitting in the chair. Awake alert and oriented x 3. Andre ed any complaints of dizziness or lightheadedness. On room air. No cough or sputum production. Breathing status is better. Heart rate is elevated today up to 1 11-1 30. Patient is being continued on IV Lasix 20 mg every 12. Laboratory data showed WBC 4.3 hemoglobin 11.2 and platelets 208 BUN 21 creatinine 0.83 and blood sugars 121. Patient is also on anticoagulation with Xarelto. 2D echocardiogram showed normal LV function. Aortic sclerosis without significant stenosis. 08/03/2023 Patient is currently sitting on the side of the bed. Awake alert and oriented x 3. No complaints of chest pain or shortness of breath. Heart rate is better controlled. Metoprolol dose was increased. Otherwise patient will be continued on oral anticoagulation for atrial fibrillation. Today echocardiogram showed normal EF and functioning repaid mitral valve. Patient has been afebrile. Laboratory data showed WBC 5.3 hemoglobin 10.9 platelets 236 BUN 25 and creatinine 0.99 and blood sugar 128. Patient is cleared from cardiology and pulmonary standpoint. No further episodes of hemoptysis or blood-tinged sputum. Patient will need neurology follow-up as an outpatient due to changes noted in the recent MRI brain. PHYSICAL EXAMINATION: Patient is lying in the bed comfortably, no acute distress, awake alert and oriented.. HEENT: Normocephalic. Neck is supple. Pupils reactive. Nostrils clear. Oral cavity is moist. Neck reveals no JVD, carotid bruits, or thyromegaly. CHEST EXAMINATION: Trachea is central. Symmetrical expansion. Lung welch clear to auscultation and percussion. Minimal left basilar crackles. CARDIAC: Normal S1, S2 with no gallops. Systolic murmur present. ABDOMEN: Soft. Bowel sounds normal. No organomegaly. No abdominal bruits. Extremities: reveal no edema. No clubbing or cyanosis Neurologically awake, alert, oriented x3 with well-coordinated movements. No focal deficits noted Skin: No rash or skin lesions. Psychiatric: Coperative. Nonsuicidal Musculoskeletal: No joint swelling or deformity. Normal range of motion. Vital signs: Vital Signs Temp 98.1 F 08/03/23 08:28 Pulse 77 08/03/23 08:30 Resp 16 08/03/23 08:30 BP 115/78 08/03/23 08:28 Pulse Ox 95 08/03/23 08:28 FiO2 Intake & Output 08/02/23 08/03/23 08/03/23 18:59 06:59 18:59 Intake Total 240 40 20 Balance 240 40 20 Weight 69.6 kg Intake: IV 40 20 Invasive Line 1 40 20 Oral 240 Other: Voiding Method Toilet Toilet Toilet # Voids 3 Total time taken greater than 35 minutes including 18 minutes for counseling and coordination of care. Patient Condition at Discharge: Stable Plan - Discharge Summary New Discharge Prescriptions: New Metoprolol Tartrate [Lopressor] 50 mg PO TID #90 tab Furosemide [Lasix] 20 mg PO DAILY #15 tab Continue Albuterol Inhaler [Ventolin Hfa Inhaler] 1 puff INHALATION RT-Q4H PRN PRN Reason: Shortness Of Breath Atorvastatin [Lipitor] 20 mg PO W/SUPPER Rivaroxaban [Xarelto] 20 mg PO DAILY Cholecalciferol [Vitamin D3 (25 Mcg = 1000 Iu)] 50 mcg PO DAILY Cyanocobalamin (Vitamin B-12) [Vitamin B-12] 1,000 mcg PO DAILY metFORMIN HCL [Glucophage] 850 mg PO BID-W/MEALS #60 tab Losartan [Cozaar] 12.5 mg PO DAILY Pioglitazone HCl 30 mg PO DAILY Ubidecarenone [Coenzyme Q10] 200 mg PO DAILY Glimepiride 1 mg PO DAILY Multivit-Mins/Iron/Folic/Lycop [Centrum Men's Tablet] 1 tab PO DAILY Tamsulosin HCl [Flomax] 0.4 mg PO DAILY Dapagliflozin Propanediol [Farxiga] 10 mg PO DAILY Discontinued Metoprolol Tartrate [Lopressor] 50 mg PO BID Discharge Medication List Albuterol Inhaler [Ventolin Hfa Inhaler] 1 puff INHALATION RT-Q4H PRN 10/07/14 [History] Atorvastatin [Lipitor] 20 mg PO W/SUPPER 12/13/15 [History] Rivaroxaban [Xarelto] 20 mg PO DAILY 02/13/23 [History] Cholecalciferol [Vitamin D3 (25 Mcg = 1000 Iu)] 50 mcg PO DAILY 03/05/23 [History] Cyanocobalamin (Vitamin B-12) [Vitamin B-12] 1,000 mcg PO DAILY 03/05/23 [History] metFORMIN HCL [Glucophage] 850 mg PO BID-W/MEALS #60 tab 03/17/23 [Rx] Glimepiride 1 mg PO DAILY 07/10/23 [History] Losartan [Cozaar] 12.5 mg PO DAILY 07/10/23 [History] Pioglitazone HCl 30 mg PO DAILY 07/10/23 [History] Dapagliflozin Propanediol [Farxiga] 10 mg PO DAILY 07/31/23 [History] Multivit-Mins/Iron/Folic/Lycop [Centrum Men's Tablet] 1 tab PO DAILY 07/31/23 [History] Tamsulosin HCl [Flomax] 0.4 mg PO DAILY 07/31/23 [History] Ubidecarenone [Coenzyme Q10] 200 mg PO DAILY 07/31/23 [History] Furosemide [Lasix] 20 mg PO DAILY #15 tab 08/03/23 [Rx] Metoprolol Tartrate [Lopressor] 50 mg PO TID #90 tab 08/03/23 [Rx] Follow up Appointment(s)/Referral(s): Jonathan Grewal MD [Primary Care Provider] - 1-2 days Bryon Barrientos MD [STAFF PHYSICIAN] - 1 Week Patient Instructions/Handouts: A-fib (Atrial Fibrillation) (DC) Discharge Disposition: HOME SELF-CARE
== END 2023-08-03 15:13 | disposition home or self-care (01) | DRG 308 ==
LOC: EC 10:32 → 3SCARD 14:12
PROVIDERS: ADMIT Hospitalist; ATTEND Hospitalist
DX: I48.19 Other persistent atrial fibrillation (principal); I50.33 Acute on chronic diastolic (congestive) heart failure; J15.9 Unspecified bacterial pneumonia; R04.2 Hemoptysis; K52.1 Toxic gastroenteritis and colitis; I27.22 Pulmonary hypertension due to left heart disease; I49.5 Sick sinus syndrome; D73.89 Other diseases of spleen; I11.0 Hypertensive heart disease with heart failure; I95.9 Hypotension, unspecified; Z95.2 Presence of prosthetic heart valve; J84.10 Pulmonary fibrosis, unspecified; I70.0 Atherosclerosis of aorta; E11.65 Type 2 diabetes mellitus with hyperglycemia; I34.0 Nonrheumatic mitral (valve) insufficiency; J45.20 Mild intermittent asthma, uncomplicated; T50.905A Adverse effect of unspecified drugs, medicaments and biological substances, initial encounter; I25.10 Atherosclerotic heart disease of native coronary artery without angina pectoris; N40.0 Benign prostatic hyperplasia without lower urinary tract symptoms; K30 Functional dyspepsia; E78.5 Hyperlipidemia, unspecified; R59.0 Localized enlarged lymph nodes; R91.8 Other nonspecific abnormal finding of lung field; Z86.73 Personal history of transient ischemic attack (TIA), and cerebral infarction without residual deficits; Z79.01 Long term (current) use of anticoagulants; Z79.84 Long term (current) use of oral hypoglycemic drugs; Z79.899 Other long term (current) drug therapy; Z82.49 Family history of ischemic heart disease and other diseases of the circulatory system; I25.2 Old myocardial infarction; Z98.1 Arthrodesis status; Z86.19 Personal history of other infectious and parasitic diseases; Z86.79 Personal history of other diseases of the circulatory system
CPT/HCPCS: 36415; 71045; 71260; 80048; 80053; 81001; 83036; 83605; 83735; 83880; 84145; 84484; 85025; 85610; 85730; 87040; 87449; 87636; 93005; 93306; 94760; 96361; 96365; 96366; 96367; 96375; 99285

== ENCOUNTER → 2023-08-18 | Outpatient (CLI) | payer MEDICARE ==
[2023-08-18 09:50] LABS: African American GFR (CKD) >90 (>60 ml/min/1.73 sqM); Blood Urea Nitrogen 27 mg/dL (9-20); Non-African American GFR(CKD) 82 (>60 ml/min/1.73 sqM)
--- NOTE | 2023-08-18 14:22 | CT ---
EXAMINATION TYPE: CT abdomen pelvis w con CT DLP: 910.10 mGycm, Automated exposure control for dose reduction was used. DATE OF EXAM: 08/18/2023 11:16 AM COMPARISON: CT abdomen pelvis most recent from . CLINICAL INDICATION:Male, 78 years old with history of R10.13 epigastric pain; epigastric pain and di arrhea 2 weeks ago TECHNIQUE: Axial CT abdomen pelvis w con; Sagittal and coronal reformats were created on a separate workstation. Contrast used:100 mL of Isovue 370 with IV Contrast, (none if empty) Oral contrast used: with Oral Contrast (none if empty) FINDINGS: LOWER CHEST: Unremarkable ABDOMEN LIVER: Unremarkable GALLBLADDER AND BILE DUCTS: Unremarkable. PANCREAS: Unremarkable. SPLEEN: Granulomatous foci in the spleen, otherwise unremarkable. ADRENAL GLANDS: Unremarkable. KIDNEYS AND URETERS: No evidence of hydronephrosis or renal calculus. The ureters are unremarkable. PELVIS BLADDER: Unremarkable REPRODUCTIVE: Unremarkable. ABDOMEN & PELVIS STOMACH AND BOWEL: Stomach and duodenum are unremarkable. No evidence of bowel obstruction. PERITONEUM/RETROPERITONEUM: No evidence of pneumoperitoneum or free fluid. VASCULATURE: No evidence of aortic aneurysm. MUSCULOSKELETAL: No acute osseous abnormalities LYMPH NODES: No gross evidence for lymphadenopathy. SOFT TISSUE/ABDOMINAL WALL: Prostatism IMPRESSION: 1. No acute process detected.
== END | disposition home or self-care (01) ==
LOC: RADCTMAIN 09:15
PROVIDERS: ATTEND Internal Medicine
DX: R10.13 Epigastric pain (principal); R19.7 Diarrhea, unspecified
CPT/HCPCS: 82565; 84520; 74177; 36415; Q9967

== ENCOUNTER 2023-09-10 09:12 | Day surgery (SDC) | payer MEDICARE ==
[2023-09-10] MEDS: LACTATED RINGERS 1,000 ML IV ONE (09:45)
[2023-09-10 09:52] LABS: Glucose,Whole Blood 109 mg/dL (70-110)
[2023-09-10] MEDS ORDERED: LIDOCAINE 1% INJ 10MG/ML (20 ML MDV) ONE (10:06)
[2023-09-10] MEDS ORDERED: PROPOFOL 10 MG/ML 20 ML VIAL IV ONE (10:06)
[2023-09-10 10:12] VITALS: TEMP 96.9
--- NOTE | 2023-09-10 10:31 | P.PCN ---
Date of Procedure: 09/10/23 Procedure(s) Performed: Brief history: Patient is a pleasant 78-year-old white male scheduled for an elective upper endoscopy as well as colonoscopy as a part of evaluation of epigastric pain and chronic diarrhea Procedure performed: Esophagogastroduodenoscopy with biopsy Colonoscopy with biopsy Preoperative diagnosis: Chronic epigastric pain Chronic diarrhea Anesthesia: [facility] [place] Procedure: After informed consent was obtained from the patient was brought into the endoscopy unit and IV sedation was administered by anesthesia under continuous monitoring. Initially upper endoscopy was done. The Olympus GF 160 video endoscope was inserted inserted into the mouth and esophagus intubated without any difficulty and was gradually advanced into the stomach and duodenum and carefully examined. The bulb and second part of the duodenum appeared normal. The scope was then withdrawn into the stomach adequately insufflated with air and upon careful examination the antrum and mild gastritis and biopsies were done from this area. Mucosa of the body, cardia and fundus appeared normal. The scope was then withdrawn into the esophagus.MR mild hernia noted. The GE junction was located at 40 cm to the incisors. It appeared irregular with 5 mm tongue of Hernandez's appearing mucosa proximal to the GE junction which was biopsied.. Rest of the esophagus appeared normal. Patient tolerated the procedure well. At this time the patient continued to remain sedation. Initial digital rectal examination was normal. Olympus CF 160 video colonoscope was then inserted into the rectum and gradually advanced to the cecum without any difficulty. Careful examination was performed as the scope was gradually being withdrawn. The prep was excellent. The cecum, ascending colon, transverse colon, descending colon, sigmoid colon and rectum appeared normal. random biopsies were done from ascending and descending colon to rule out microscopic/collagenous colitis.Retroflexion was performed in the rectum and no lesions were noted. Patient tolerated the procedure well. Impression: 1. Upper endoscopy revealed mild antral gastritis, small hiatal hernia and short segment Hernandez's esophagus 2. Colonoscopy revealed normal-appearing colon from rectum to cecum with no evidence of colitis or colorectal neoplasia Recommendations: Findings of this examination were discussed with the patient as well as his family. He was advised to follow with the biopsy results. Continue current medications. If the biopsy confirms the presence of Hernandez's esophagus, he can have a repeat upper endoscopy in 3 years.
[2023-09-10 11:38] VITALS: BP 107/70; PULSE 73; RESP 18
== END 2023-09-10 11:20 | disposition home or self-care (01) ==
LOC: ORWHC2ENDO 09:12
PROVIDERS: ATTEND Internal Medicine Gastroenterology
DX: K22.70 Barrett's esophagus without dysplasia (principal); K44.9 Diaphragmatic hernia without obstruction or gangrene; G89.29 Other chronic pain; I48.91 Unspecified atrial fibrillation; I10 Essential (primary) hypertension; E11.9 Type 2 diabetes mellitus without complications; Z86.73 Personal history of transient ischemic attack (TIA), and cerebral infarction without residual deficits; Z79.01 Long term (current) use of anticoagulants; Z79.899 Other long term (current) drug therapy; Z90.49 Acquired absence of other specified parts of digestive tract; Z95.5 Presence of coronary angioplasty implant and graft
CPT/HCPCS: 88305; 45380; 43239; J2001; J2704

== ENCOUNTER 2024-03-21 05:01 | Emergency (ER) | payer MEDICARE ==
[2024-03-21 05:16] VITALS: RESP 18
--- NOTE | 2024-03-21 07:06 | ED ---
ENT HPI - General Chief complaint: ENT Stated complaint: Ear Pain - Blood Thinners Time Seen by Provider: 03/21/24 05:20 Source: patient, RN notes reviewed Mode of arrival: ambulatory Limitations: no limitations - History of Present Illness Initial comments: 78-year-old male presents emergency department chief complaint of left ear bleeding. States that around 420 this morning he went to use the bathroom when he felt like his ear was wet touch to his left ear noticed that there was blood. He is denying symptoms of ear pain, decrease in hearing acuity, dizziness, headaches, blurry or double vision, chest pain, shortness of breath, heart palpitations. Patient is on a blood thinner. Patient states that he has been experiencing a runny nose over the past few days. He denies cough, congestion, fevers or chills. - Related Data Home Medications Medication Instructions Recorded Confirmed Albuterol Inhaler [Ventolin Hfa 1 puff INHALATION RT-Q4H PRN 10/07/14 09/10/23 Inhaler] Atorvastatin [Lipitor] 20 mg PO W/SUPPER 12/13/15 09/10/23 Rivaroxaban [Xarelto] 20 mg PO DAILY 02/13/23 09/10/23 Cholecalciferol [Vitamin D3 (25 50 mcg PO DAILY 03/05/23 09/10/23 Mcg = 1000 Iu)] Cyanocobalamin (Vitamin B-12) 1,000 mcg PO DAILY 03/05/23 09/10/23 [Vitamin B-12] Glimepiride 2 mg PO DAILY 07/10/23 09/10/23 Losartan [Cozaar] 12.5 mg PO 1700 07/10/23 09/10/23 Pioglitazone HCl 30 mg PO DAILY 07/10/23 09/10/23 Dapagliflozin Propanediol [Farxiga] 10 mg PO DAILY 07/31/23 09/10/23 Multivit-Mins/Iron/Folic/Lycop 1 tab PO DAILY 07/31/23 09/10/23 [Centrum Men's Tablet] Tamsulosin HCl [Flomax] 0.4 mg PO DAILY 07/31/23 09/10/23 Ubidecarenone [Coenzyme Q10] 200 mg PO DAILY 07/31/23 09/10/23 Furosemide [Lasix] 20 mg PO DAILY PRN 09/08/23 09/10/23 Previous Rx's Medication Instructions Recorded Metoprolol Tartrate [Lopressor] 50 mg PO TID #90 tab 08/03/23 Allergies Allergy/AdvReac Type Severity Reaction Status Date / Time No Known Allergies Allergy Verified 03/21/24 05:16 Review of Systems ROS Statement: Those systems with pertinent positive or pertinent negative responses have been documented in the HPI. ROS Other: All systems not noted in ROS Statement are negative. Past Medical History Past Medical History: Atrial Fibrillation, Atrial Flutter, Asthma, Cancer, CVA/TIA, Diabetes Mellitus, Hyperlipidemia, Myocardial Infarction (CT) Additional Past Medical History / Comment(s): herniated disks in back. tia post back surgery slight short term memory issue rt side visual blind spot, mole on neck positive for ca. See dr Velazco's H & P Last Myocardial Infarction Date:: 2013 History of Any Multi-Drug Resistant Organisms: None Reported Past Surgical History: Appendectomy, Back Surgery, Cardiac Ablation, Cardiac Valve Replacement, Coronary Bypass/CABG, Orthopedic Surgery Additional Past Surgical History / Comment(s): bilat arm fractures with surg. repair, bilateral knee surgery, right hip bone graft. Colonoscopy with polp removal. lumbar fusion mitral valve repair Past Anesthesia/Blood Transfusion Reactions: Previous Problems w/ Anesthesia Additional Past Anesthesia/Blood Transfusion Reaction / Comment(s): Becomes combative with anesthesia. has confusion after anesthesia Past Psychological History: No Psychological Hx Reported Smoking Status: Never smoker Past Alcohol Use History: Occasional Past Drug Use History: None Reported - Past Family History Father Family Medical History: Congestive Heart Failure (CHF), Coronary Artery Disease (CAD), Diabetes Mellitus Additional Family Medical History / Comment(s): at age 75 Mother Family Medical History: Cancer Additional Family Medical History / Comment(s): cervical cancer Brother(s) Family Medical History: Cancer Additional Family Medical History / Comment(s): liver and prostrate cancer. General Exam Limitations: no limitations General appearance: alert, in no apparent distress Expanded Ear exam: Present: normal external inspection. Absent: auricular hematoma, auricular trauma TM/Canal exam: Erythema: Left TM (evidence of dried blood in the left ear canal, no active bleeding, no purulence or bulging of TM, TM inact with landmarks.) Neck exam: Present: normal inspection. Absent: tenderness, meningismus, lymphadenopathy Respiratory exam: Present: normal lung sounds bilaterally. Absent: respiratory distress, wheezes, rales, rhonchi, stridor Cardiovascular Exam: Present: regular rate, normal rhythm, normal heart sounds. Absent: systolic murmur, diastolic murmur, rubs, gallop, clicks GI/Abdominal exam: Present: soft, normal bowel sounds. Absent: distended, tenderness, guarding, rebound, rigid Extremities exam: Present: normal inspection, full ROM, normal capillary refill. Absent: tenderness, pedal edema, joint swelling, calf tenderness Neurological exam: Present: alert, oriented X3, CN II-XII intact Skin exam: Present: warm, dry, intact, normal color. Absent: rash Course Vital Signs 03/21/24 03/21/24 05:14 07:38 Temperature 98 F 98.2 F Pulse Rate 74 95 Respiratory 18 18 Rate Blood Pressure 147/77 131/75 O2 Sat by Pulse 95 96 Oximetry Medical Decision Making - Medical Decision Making Was pt. sent in by a medical professional or institution (, PA, VAMP THROATER, urgent care, hospital, or usp...) When possible be specific @ -No Did you speak to anyone other than the patient for history (EMS, parent, family, police, friend...)? What history was obtained from this source @ -The patient's at bedside states that the patient was noted to have mild dried blood of the left ear this morning approximately 430. Did you review nursing and triage notes (agree or disagree)? Why? @ -I reviewed and agree with nursing and triage notes Were old charts reviewed (outside hosp., previous admission, EMS record, old EKG, old radiological studies, urgent care reports/EKG's, usp records)? Report findings @ -No old charts were reviewed Differential Diagnosis (chest pain, altered mental status, abdominal pain women, abdominal pain men, vaginal bleeding, weakness, fever, dyspnea, syncope, headache, dizziness, GI bleed, back pain, seizure, CVA, palpatations, mental health, musculoskeletal)? @ -Otitis media, otitis externa, malignant otitis externa, barotrauma, this list is not all inclusive EKG interpreted by me (3pts min.). @ -none X-rays interpreted by me (1pt min.). @ -None done CT interpreted by me (1pt min.). @ -None done U/S interpreted by me (1pt. min.). @ -None done What testing was considered but not performed or refused? (CT, X-rays, U/S, labs)? Why? @ -None What meds were considered but not given or refused? Why? @ -None Did you discuss the management of the patient with other professionals (professionals i.e. DrDanial, PA, VAMP THROATER, lab, RT, psych nurse, social work professor, slotter operator, teacher, chief credit officer, cyanide case hardener)? Give summary @ -No Was smoking cessation discussed for >3mins.? @ -No Was critical care preformed (if so, how long)? @ -No Were there social determinants of health that impacted care today? How? (Homelessness, low income, unemployed, alcoholism, drug addiction, tr ansportation, low edu. Level, literacy, decrease access to med. care, [facility], rehab)? @ -No Was there de-escalation of care discussed even if they declined (Discuss DNR or withdrawal of care, Hospice)? DNR status @ -No What co-morbidities impacted this encounter? (DM, HTN, Smoking, COPD, CAD, Cancer, CVA, ARF, Chemo, Hep., AIDS, mental health diagnosis, sleep apnea, morbid obesity)? @ -None Was patient admitted / discharged? Hospital course, mention meds given and route, prescriptions, significant lab abnormalities, going to OR and other pertinent info. @ -Discharge. 78-year-old male with bleeding to the left ear. On my evaluation patient is resting company no signs acute distress. There is no decrease in hearing acuity. Patient is neurovascularly intact. He is denying symptoms of tinnitus, blurry or double vision, headaches, feelings of off balance. Vitals are stable. On examination patient's left TM is noted to be intact with no signs of purulence or bulging. There is evidence of dried blood on the TM and in the ear canal with no active bleeding. Patient will be treated with topical antibiotics with concern for possible infection and is provided with initial dose of ofloxacin and dexamethasone drops in emergency department. Recommend that patient continue to use these drops 5 drops in the left ear 2 times a day for 5 to 7 days and follow-up with his primary care provider this week as well for further evaluation. There is minimal clinical concern for intracranial abnormality at this time as there is no evidence of any injury such as falling or blunt head trauma or barotrauma. Patient denies any recent travel. patient states he may have caused canal trauma using qtips earlier in the day. case discussed with my attending, Dr. Mckeon Undiagnosed new problem with uncertain prognosis? @ -No Drug Therapy requiring intensive monitoring for toxicity (Heparin, Nitro, Insulin, Cardizem)? @ -No Were any procedures done? @ -No Diagnosis/symptom? @ -trauma to left ear canal Acute, or Chronic, or Acute on Chronic? @ -acute Uncomplicated (without systemic symptoms) or Complicated (systemic symptoms)? @ -uncomplicated Side effects of treatment? @ -No Exacerbation, Progression, or Severe Exacerbation? @ -No Poses a threat to life or bodily function? How? (Chest pain, USA, CT, pneumonia, PE, COPD, DKA, ARF, appy, cholecystitis, CVA, Diverticulitis, Homicidal, Suici flaco, threat to staff... and all critical care pts) @ -No Disposition Clinical Impression: Blood in ear canal Disposition: HOME SELF-CARE Condition: Stable Instructions (If sedation given, give patient instructions): Swimmer's Ear (ED) Additional Instructions: Please return to the Emergency Department if symptoms worsen or any other concerns. Continue to use antibiotic topical drops 5 drops in the left ear 2 times a day for 7 days and minimize direct water exposure to the ear. Recommend follow-up with your primary care provider within the next week as well for reevaluation. Is patient prescribed a controlled substance at d/c from ED?: No Referrals: Jonathan Grewal MD [Primary Care Provider] - 1-2 days Time of Disposition: 07:05
[2024-03-21] MEDS: CIPROFLOXACIN-DEXAMETH 0.3-0.1% DROPS 7.5 ML BTL LEFT EAR STA (07:37)
[2024-03-21 07:39] VITALS: BP 131/75; PULSE 95; TEMP 98.2
== END 2024-03-21 07:39 | disposition home or self-care (01) ==
LOC: EC 05:01
DX: H60.322 Hemorrhagic otitis externa, left ear (principal)
CPT/HCPCS: 99282

== ENCOUNTER 2024-05-21 07:44 | Day surgery (SDC) | payer MEDICARE ==
[~2024-05-21 07:44] MED LIST changes: -ALBUMIN HUMAN 25% 50 ML IV ONE; -ALBUMIN HUMAN 5% 500 ML IVPB ONE; -ASPIRIN 325 MG TAB PO ONE; -ATORVASTATIN 10 MG TAB PO ONE; -CALCIUM CHLORIDE 100 MG/ML 10 ML SYRINGE IV ONE; -CHLORHEXIDINE GLUCONATE 15 ML CUP MUCOUS MEM ONE; -CLEVIDIPINE BUTYRATE 25 MG in EMPTY BAG 1 BAG IV ONE; -ELECTROLYTE-A SOLUTION 1,000 ML with POTASSIUM CHLORIDE 100 MEQ, MAGNESIUM SULFATE 16 M... IV ONE; -ELECTROLYTE-A SOLUTION 1,000 ML with POTASSIUM CHLORIDE 40 MEQ, MAGNESIUM SULFATE 16 ME... IV ONE; -HEPARIN SODIUM 1,000 UN/ML (10ML VL) IV ONE; -HEPARIN SODIUM,PORCINE (1 ML) 5,000 UNIT in SODIUM CHLORIDE 0.9% 500 ML 500 ML IV ONE; +HYDROmorphone 0.5 MG/0.5 ML SYRINGE IVP PRN; -INSULIN REGULAR 100 UNIT in SODIUM CHLORIDE 0.9% 100 ML IV ONE; -LACTATED RINGERS 1,000 ML IV ONE; -MAGNESIUM SULFATE 16.24 MEQ in EMPTY SYRINGE 1 SYR IV ONE; -MANNITOL 25% 12.5 GM/50 ML VIAL IV ONE; -METOPROLOL TARTRATE 12.5 MG TAB PO ONE; +MIDAZOLAM 2 MG/2 ML VIAL IV PRN; -NITROGLYCERIN SL TABS 0.4 MG TAB SUBLINGUAL ONE; -NITROGLYCERIN-D5W PMX 25 MG/250 ML BTL IV ONE; -NITROGLYCERIN-D5W PMX 50 MG in DEXTROSE/WATER 1 250ML.BAG IV ONE; -NOREPINEPHRINE 4 MG in SODIUM CHLORIDE 0.9% 250 ML IV ONE; -PAPAVERINE 360 MG in SODIUM CHLORIDE 0.9% 90 ML IV ONE; -PHENYLEPHRINE 10 MG/ML VIAL IV ONE; -PHENYLEPHRINE 40 MG in SODIUM CHLORIDE 0.9% 250 ML IV ONE; -PROTAMINE SULFATE 10 MG/ML 25 ML VIAL IV ONE; -PROTAMINE SULFATE 250 MG in EMPTY BAG 1 BAG IV ONE; -SODIUM BICARB 8.4% 50 ML SYR (1 MEQ/ML) IV ONE; -SODIUM CHLORIDE 0.9% 1,000 ML IV ONE; -TRANEXAMIC ACID 2,000 MG in SODIUM CHLORIDE 0.9% 80 ML IV ONE; -ceFAZolin 1,000 MG in SODIUM CHLORIDE 0.9% IRRIGATIO 1,000 ML IRRIGATION ONE; -propofoL 1,000 MG/100 ML VIAL IV ONE
[2024-05-21 08:30] LABS: Glucose,Whole Blood 133 mg/dL (70-110)
[2024-05-21] MEDS: DEXAMETHASONE SOD PHOSPHATE 4 MG/ML 1 ML VIAL IV ONE (08:33)
[2024-05-21] MEDS: ONDANSETRON 4 MG/2 ML VIAL IVP ONE (08:33)
[2024-05-21] MEDS: LACTATED RINGERS 1,000 ML IV SCH (08:33)
[2024-05-21] MEDS: IV FLUID CONTINUATION 1,000 ML IV ONE (08:39)
[2024-05-21] MEDS ORDERED: NEOSTIGMINE 1 MG/ML 10 ML VIAL ONE (09:23)
[2024-05-21] MEDS ORDERED: ROCURONIUM 10 MG/ML (5 ML VIAL) IV ONE (09:23)
[2024-05-21] MEDS ORDERED: fentaNYL (PF) 50 MCG/ML 2 ML AMP ONE (09:23)
[2024-05-21] MEDS ORDERED: PROPOFOL 10 MG/ML 20 ML VIAL IV ONE (09:23)
[2024-05-21] MEDS ORDERED: SUCCINYLCHOLINE CHLORIDE 200 MG/10 ML VIAL IV ONE (09:23)
[2024-05-21] MEDS ORDERED: ePHEDrine 50 MG/ML 1 ML VIAL ONE (09:23)
[2024-05-21] MEDS ORDERED: GLYCOPYRROLATE 0.2 MG/ML 2 ML VIAL ONE (09:23)
[2024-05-21] MEDS ORDERED: PHENYLEPHRINE-0.9% NACL SYG 1,000 MCG/10 ML SYRINGE ONE (09:23)
[2024-05-21] MEDS: ceFAZolin 1,000 MG in SODIUM CHLORIDE 0.9% 1,000 ML IRRIGATION ONE (09:35)
[2024-05-21] MEDS: BUPIVACAINE (PF) 0.25% 30 ML VIAL SQ ONE (09:50)
--- NOTE | 2024-05-21 10:36 | P.OP ---
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 Timeout was taken to confirm the correct patient identifiers, correct laterality of surgery, and correct procedure. Once all staff were in agreement with the timeout, the patient was induced and placed under general anesthesia. 17 mL of 0.25% Marcaine was injected as a forefoot block. And then the foot was prepped and draped in usual manner. Under live fluoroscopy, the location of the first tarsometatarsal joint was identified and marked on the skin. An incision was made along the medial aspect over the joint. The incision was placed between the neurovascular structures and with a vertical orientation. Blunt dissection was carried down to the joint capsule and then the scalpel was used to incise the joint capsule. An osteotome was inserted between the joint surfaces to free the soft tissues. Then a 2.9 mm joint prep bur was inserted and used to remove the articular cartilage and subchondral bone down to bleeding medullary bone and the conjoined surfaces of the arthrodesis site. Once completed the bone paste was expressed from the wound and then thoroughly irrigated with saline. Arthrex allograft was then placed through the incision between the arthrodesis segments. A guidewire for a 4.0 fully threaded cannulated screw was started at the dorsal aspect of the base of the first metatarsal and advanced in a proximal plantar direction across the arthrodesis site into the medial cuneiform. Fluoroscopy confirmed the proper placement of the wire on the AP and lateral views. A second wire was then placed in the dorsal aspect of the medial cuneiform. It was started lateral to the first wire and advanced in the distal plantar direction until it was through the plantar cortex of the first metatarsal. Fluoroscopic imaging confirmed the proper place of the wires. Drilling was done over the wires just past the arthrodesis site. The screws were placed over the wires and advanced until the most proximal threads engaged the cortices of the respective bones. There was good purchase of the screws and excellent compression across the arthrodesis site. Final fluoroscopic images show compression of the arthrodesis site and proper alignment of the screws. The wounds were irrigated with antibiotic saline. The incisions were closed with 3-0 nylon. Nonadherent gauze and a dry sterile dressing applied to the foot. The patient was placed in a well-padded, well molded plaster posterior mold/sugar-tong splint. Then anesthesia was reversed and the patient was taken recovery vital signs stable.
[2024-05-21 10:48] VITALS: TEMP 97
[2024-05-21 11:15] VITALS: RESP 16
[2024-05-21 11:27] LABS: Glucose,Whole Blood 158 mg/dL (70-110)
[2024-05-21 12:24] VITALS: BP 119/66; PULSE 73
== END 2024-05-21 12:46 | disposition home or self-care (01) ==
LOC: OR 07:44
PROVIDERS: ATTEND Podiatrist
DX: M19.072 Primary osteoarthritis, left ankle and foot (principal); I25.2 Old myocardial infarction; I10 Essential (primary) hypertension; I48.91 Unspecified atrial fibrillation; E78.5 Hyperlipidemia, unspecified; J45.909 Unspecified asthma, uncomplicated; E11.9 Type 2 diabetes mellitus without complications; Z86.73 Personal history of transient ischemic attack (TIA), and cerebral infarction without residual deficits; Z79.899 Other long term (current) drug therapy; Z79.4 Long term (current) use of insulin; Z95.5 Presence of coronary angioplasty implant and graft; Z79.01 Long term (current) use of anticoagulants; Z79.84 Long term (current) use of oral hypoglycemic drugs; Z98.890 Other specified postprocedural states
CPT/HCPCS: 28740; C1713; C1734; J0330; J1100; J2710; J0690 ×2; J2405; J3010; J2704; J2371; J0665; J1596

== ENCOUNTER → 2024-10-20 | Outpatient (CLI) | payer MEDICARE ==
[2024-10-20 15:50] LABS: ALT 33 U/L (10-49); AST 38 U/L (14-35); Albumin 4.4 g/dL (3.8-4.9); Albumin/Globulin Ratio 1.76 Ratio (1.60-3.17); Alkaline Phosphatase 59 U/L (41-126); BUN/Creat Ratio 15.55 Ratio (12.00-20.00); Blood Urea Nitrogen 17.1 mg/dL (9.0-27.0); Calcium 9.3 mg/dL (8.7-10.3); Carbon Dioxide 25.8 mmol/L (21.6-31.8); Chloride 102 mmol/L (96-109); Creatine Kinase 182 U/L (35-257); Globulin 2.5 g/dL (1.6-3.3); Glucose 95 mg/dL (70-110); LDL Cholesterol,Calculated 35.2 mg/dL (0.0-131.0); Magnesium 1.9 mg/dL (1.5-2.4); Potassium 4.7 mmol/L (3.5-5.5); Sodium 140 mmol/L (135-145); Total Bilirubin 1.3 mg/dL (0.3-1.2); Total Protein 6.9 g/dL (6.2-8.2); Uric Acid 5.6 mg/dL (3.7-8.7); VLDL Calculation 12.88 mg/dL (5.00-40.00)
[2024-10-20 16:02] LABS: Basophils # (A) 0.04 X 10*3/uL (0.00-0.10); Basophils % (A) 0.8 %; HCT 42.9 % (39.6-50.0); HGB 14.3 g/dL (13.0-17.0); Lymphocytes # (A) 1.17 X 10*3/uL (0.90-5.00); Lymphocytes % (A) 23.6 %; MCH 31.7 pg (27.0-32.0); MCHC 33.3 g/dL (32.0-37.0); MCV 95.1 FL (80.0-97.0); Mean Platelet Volume 9.4 FL (9.5-12.2); Monocytes # (A) 0.48 X 10*3/uL (0.20-1.00); Monocytes % (A) 9.7 %; NRBC Per 100 WBC 0 X 10*3/uL (0.00-0.01); Neutrophils # (A) 3.16 X 10*3/uL (1.80-7.70); Neutrophils % (A) 63.7 %; Platelet Count 192 X 10*3/uL (140-440); RBC 4.51 X 10*6/uL (4.40-5.60); RDW 14.1 % (11.5-14.5); WBC 4.96 X 10*3/uL (4.50-10.00)
[2024-10-20 16:15] LABS: Appearance,Urine Clear (Clear); Bilirubin,Urine Negative (Negative); Blood,Urine Negative (Negative); Color,Urine Yellow (Yellow); Ketones,Urine 15 (Negative); Nitrite,Urine Negative (Negative); Specific Gravity,Urine 1.031 (1.001-1.030); Urobilinogen,Urine 0.2
[2024-10-20 16:33] LABS: NT-Pro-B-Type Natriuretic Pept 1469 pg/mL (0-450)
== END | disposition home or self-care (01) ==
LOC: LABWHC1 08:29
PROVIDERS: ATTEND Internal Medicine
DX: I10 Essential (primary) hypertension (principal); I48.0 Paroxysmal atrial fibrillation; E78.2 Mixed hyperlipidemia; E11.9 Type 2 diabetes mellitus without complications; E55.9 Vitamin D deficiency, unspecified; R31.9 Hematuria, unspecified
CPT/HCPCS: 36415; 80053; 80061; 81003; 82306; 82550; 83036; 83735; 83880; 84443; 84550; 85025

== ENCOUNTER 2024-12-02 18:10 | Emergency (ER) | payer MEDICARE ==
[2024-12-02 18:31] VITALS: PULSE 79; RESP 18
--- NOTE | 2024-12-02 18:33 | ED ---
Lower Extremity Injury HPI - General Source: patient, RN notes reviewed Mode of arrival: wheelchair Limitations: no limitations - History of Present Illness MD Complaint: ankle injury <Shelley Macias - Last Filed: 12/02/24 18:33> - General Source: patient, RN notes reviewed Mode of arrival: wheelchair Limitations: no limitations - History of Present Illness MD Complaint: ankle injury Injury: Ankle: Right <VigneshMiguel Angel - Last Filed: 12/02/24 21:11> - General Chief Complaint: Extremity Injury, Lower Stated Complaint: R Foot/ankle injury Time Seen by Provider: 12/02/24 18:25 - History of Present Illness Initial Comments: Quick Note: This is a 79-year-old male who presents to the emergency department for right foot and ankle pain. States that he was playing golf and tripped over a wire, injuring his right ankle. Denies hitting his head. He has been unable to bear weight on the leg since the fall. (Shelley Macias) - Related Data Home Medications Medication Instructions Recorded Confirmed Albuterol Inhaler [Ventolin Hfa 1 puff INHALATION RT-Q4H PRN 10/07/14 05/20/24 Inhaler] Atorvastatin [Lipitor] 20 mg PO W/SUPPER 12/13/15 05/20/24 Rivaroxaban [Xarelto] 20 mg PO HS 02/13/23 05/20/24 Cholecalciferol [Vitamin D3 (25 50 mcg PO DAILY 03/05/23 05/20/24 Mcg = 1000 Iu)] Cyanocobalamin (Vitamin B-12) 1,000 mcg PO DAILY 03/05/23 05/20/24 [Vitamin B-12] Glimepiride 2 mg PO DAILY 07/10/23 05/20/24 Losartan [Cozaar] 12.5 mg PO 1700 07/10/23 05/20/24 Pioglitazone HCl 30 mg PO DAILY 07/10/23 05/20/24 Dapagliflozin Propanediol [Farxiga] 10 mg PO DAILY 07/31/23 05/20/24 Multivit-Mins/Iron/Folic/Lycop 1 tab PO DAILY 07/31/23 05/20/24 [Centrum Men's Tablet] Tamsulosin HCl [Flomax] 0.4 mg PO DAILY 07/31/23 05/20/24 Ubidecarenone [Coenzyme Q10] 200 mg PO DAILY 07/31/23 05/20/24 Insulin Glargine/Lixisenatide 15 units SQ PC-BRKFST 05/20/24 05/20/24 [Soliqua 100 Unit-33 Mcg/ml Pen] Pantoprazole Sodium [Protonix] 40 mg PO HS 05/20/24 05/20/24 Previous Rx's Medication Instructions Recorded Metoprolol Tartrate [Lopressor] 50 mg PO TID #90 tab 08/03/23 HYDROcodone/APAP 5-325MG [Sartell 1 tab PO Q6HR PRN #28 tab 05/21/24 5-325] Allergies Allergy/AdvReac Type Severity Reaction Status Date / Time No Known Allergies Allergy Verified 05/20/24 09:26 Review of Systems ROS Other: All systems not noted in ROS Statement are negative. <Shelley Macias - Last Filed: 12/02/24 18:33> ROS Other: All systems not noted in ROS Statement are negative. <Miguel Angel Medellin - Last Filed: 12/02/24 21:11> ROS Statement: Those systems with pertinent positive or pertinent negative responses have been documented in the HPI. 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 repair, mason knee surgery, right hip bone graft. Colonoscopy with polyp removal. lumbar fusion. mitral valve repair, CABG Mar 2023 Past Anesthesia/Blood Transfusion Reactions: Previous Problems w/ Anesthesia Additional Past Anesthesia/Blood Transfusion Reaction / Comment(s): combative & confusion after anesthesia Past Psychological History: No Psychological Hx Reported Smoking Status: Never smoker Past Alcohol Use History: None Reported Past Drug Use History: None Reported - Past Family History Father Family Medical History: Congestive Heart Failure (CHF), Coronary Artery Disease (CAD), Diabetes Mellitus Additional Family Medical History / Comment(s): at age 75 Mother Family Medical History: Cancer Additional Family Medical History / Comment(s): cervical cancer Brother(s) Family Medical History: Cancer Additional Family Medical History / Comment(s): liver and prostrate cancer. <Shelley Macias - Last Filed: 12/02/24 18:33> General Exam Limitations: no limitations <Shelley Macias - Last Filed: 12/02/24 18:33> Limitations: no limitations General appearance: alert, in no apparent distress Head exam: Present: atraumatic, normocephalic, normal inspection Eye exam: Present: normal appearance, PERRL, EOMI. Absent: scleral icterus, conjunctival injection, periorbital swelling ENT exam: Present: normal exam, mucous membranes moist Neck exam: Present: normal inspection. Absent: tenderness, meningismus, lymphadenopathy Respiratory exam: Present: normal lung sounds bilaterally. Absent: respiratory distress, wheezes, rales, rhonchi, stridor Cardiovascular Exam: Present: regular rate, normal rhythm, normal heart sounds. Absent: systolic murmur, diastolic murmur, rubs, gallop, clicks GI/Abdominal exam: Present: soft, normal bowel sounds. Absent: distended, tenderness, guarding, rebound, rigid Extremities exam: Present: full ROM, tenderness (Positive Achilles tendon tenderness. Negative medial/lateral malleolus tenderness. Negative navicular or fifth metatarsal tenderness.), normal capillary refill, other (Normal right Homans' sign. Distal RLE neurovascular and motor function intact. Dorsalis pedis pulse +2, capillary refill less than 2 seconds. Patient notes significant pain with weightbearing/ambulating). Absent: pedal edema, joint swelling, calf tenderness Back exam: Present: normal inspection Neurological exam: Present: alert, oriented X3, CN II-XII intact Psychiatric exam: Present: normal affect, normal mood Skin exam: Present: warm, dry, intact, normal color. Absent: rash <Miguel Angel Med[place]in - Last Filed: 12/02/24 21:11> - General Exam Comments Initial Comments: Visual Physical Exam Vital signs reviewed General: Well-appearing, nontoxic, no acute distress. Head: Normocephalic, atraumatic Eyes: PERRLA, EOMI ENT: Airway patent Chest: Nonlabored breathing Skin: No visual rash, normal skin tone Neuro: Alert and oriented 3 Musculoskeletal: No gross abnormalities (Shelley Macias) Course Vital Signs 12/02/24 18:29 Temperature 98.4 F Pulse Rate 79 Respiratory 18 Rate Blood Pressure 123/77 O2 Sat by Pulse 95 Oximetry Medical Decision Making <Shelley Macias - Last Filed: 12/02/24 18:33> <Miguel Angel Medellin - Last Filed: 12/02/24 21:11> - Medical Decision Making I performed the QuickNote portion of this chart. Signed Shelley Macias PA-C. (Shelley Macias) Was pt. sent in by a medical professional or institution (SASKIA Hammond, POWER TOOL REPAIR TECHNICIAN, urgent care, hospital, or longterm...) When possible be specific @ -[No] Did you speak to anyone other than the patient for history (EMS, parent, family, police, friend...)? What history was obtained from this source @ -[No] Did you review nursing and triage notes (agree or disagree)? Why? @ -[I reviewed and agree with nursing and triage notes] Were old charts reviewed (outside hosp., previous admission, EMS record, old EKG, old radiological studies, urgent care reports/EKG's, longterm records)? Report findings @ -[No old charts were reviewed] Differential Diagnosis (chest pain, altered mental status, abdominal pain women, abdominal pain men, vaginal bleeding, weakness, fever, dyspnea, syncope, he adache, dizziness, GI bleed, back pain, seizure, CVA, palpatations, mental health, musculoskeletal)? @ -Differential Musculoskeletal Muscular strain, contusion, ligament sprain, fracture, arthritis, septic arthritis, bursitis, cellulitis, muscle spasm, nerve compression, DVT, arterial occlusion, herpes zoster, electrolyte abnormality, tumor.... This is not meant to be in all inclusive list EKG interpreted by me (3pts min.). @ -Not done X-rays interpreted by me (1pt min.). @ -[None done] CT interpreted by me (1pt min.). @ -[None done] U/S interpreted by me (1pt. min.). @ -[None done] What testing was considered but not performed or refused? (CT, X-rays, U/S, labs)? Why? @ -[None] What meds were considered but not given or refused? Why? @ -Recommended posterior splint due to difficulty ambulating and possibility for partial tear of Achilles tendon. Patient declined, stating he has a boot at home that he will begin wearing. States he also has a walker at home and does not require crutches at this time. Did you discuss the management of the patient with other professionals (professionals i.e. , PA, POWER TOOL REPAIR TECHNICIAN, lab, RT, psych nurse, social media content specialist, vice investigator, teacher, learning and development officer, wrapper caser)? Give summary @ -[No] Was smoking cessation discussed for >3mins.? @ -[No] Was critical care preformed (if so, how long)? @ -[No] Were there social determinants of health that impacted care today? How? (Homelessness, low income, unemployed, alcoholism, drug addiction, transportation, low edu. Level, literacy, decrease access to med. care, intermediate, rehab)? @ -[No] Was there de-escalation of care discussed even if they declined (Discuss DNR or withdrawal of care, Hospice)? DNR status @ -[No] What co-morbidities impacted this encounter? (DM, HTN, Smoking, COPD, CAD, Cancer, CVA, ARF, Chemo, Hep., AIDS, mental health diagnosis, sleep apnea, morbid obesity)? @ -[None] Was patient admitted / discharged? Hospital course, mention meds given and route, prescriptions, significant lab abnormalities, going to OR and other pertinent info. @ -[hospital course] Undiagnosed new problem with uncertain prognosis? @ -[No] Drug Therapy requiring intensive monitoring for toxicity (Heparin, Nitro, Insul in, Cardizem)? @ -[No] Were any procedures done? @ -[No] Diagnosis/symptom? @ -Achilles tendinitis, possible partial tear Acute, or Chronic, or Acute on Chronic? @ -Acute Uncomplicated (without systemic symptoms) or Complicated (systemic symptoms)? @ -Uncomplicated Side effects of treatment? @ -[No] Exacerbation, Progression, or Severe Exacerbation? @ -[No] Poses a threat to life or bodily function? How? (Chest pain, USA, NV, pneumonia, PE, COPD, DKA, ARF, appy, cholecystitis, CVA, Diverticulitis, Homicidal, Suicidal, threat to staff... and all critical care pts) @ -[No] (Miguel Angel Medellin) Disposition <Shelley Macias - Last Filed: 12/02/24 18:33> Is patient prescribed a controlled substance at d/c from ED?: No Time of Disposition: 21:04 <Miguel Angel Medellin - Last Filed: 12/02/24 21:11> Clinical Impression: Achilles tendinitis, right leg Disposition: HOME SELF-CARE Condition: Fair Instructions (If sedation given, give patient instructions): Achilles Tendinitis (ED) Additional Instructions: Alternate Tylenol/Motrin every 4 hours for pain. Rest, ice, compression, elevation. Follow-up with orthopedics for ongoing evaluation of ankle/Achilles tendon pain. Utilize boot and walker at home until evaluation by orthopedics. Referrals: Nonstaff,Physician [REFERRING] - 1-2 days [facility] [Provider Group] - 1-2 days
--- NOTE | 2024-12-02 19:01 | XR ---
EXAMINATION TYPE: XR foot complete RT, XR ankle complete RT DATE OF EXAM: 12/02/2024 COMPARISON: NONE HISTORY: Pain, fall TECHNIQUE: Frontal, lateral and oblique images of the right ankle are obtained. Frontal, lateral and oblique images of the right foot are obtained. FINDINGS: There is no acute fracture/dislocation evident. The ankle mortise is intact. Mild hallux v algus deformity. Incidental bipartite medial sesamoid bone. Minimal soft tissue swelling of the ankle . Small plantar calcaneal enthesophyte. Vascular sclerosis. IMPRESSION: 1. No acute fracture or dislocation. 2. Minimal soft tissue swelling ankle. 3. Mild hallux valgus deformity. [facility], , 12/02/2024 6:59 PM
[2024-12-02 21:56] VITALS: BP 137/78; TEMP 98.2
== END 2024-12-02 21:56 | disposition home or self-care (01) ==
LOC: EC 18:10
DX: M76.61 Achilles tendinitis, right leg (principal); W01.0XXA Fall on same level from slipping, tripping and stumbling without subsequent striking against object, initial encounter; Y93.53 Activity, golf
CPT/HCPCS: 99283